=== PATIENT | female | born 1935 | race Caucasian/White ===

== ENCOUNTER 2016-11-05 13:30 | Emergency (ER) | payer MEDICARE, OTHER ==
[~2016-11-05] VITALS: Ht 149.9 cm; Wt 51.6 kg
[~2016-11-05 13:30] MED LIST: ACET650T59 PO; ALEN70TA7 PO; ASCO-296 PO; ASPI-730 PO; B12; CALC-587 PO; CITA-50 PO; FISH1CAP29 PO; HYDR-2164 PO; LISI-127 PO; MULT-806 PO; OMEP20TA24 PO; OSTEO BI FLEX PO; POTA10TA93 PO; SIMV40TA82 PO
[2016-11-05 13:35] VITALS: Ht 149.9 cm; Wt 51.6 kg
--- OUTSIDE RECORDS SUMMARY | 2016-11-05 13:37 | XMS REPORT | Summary of Care ---
Author Author Loretta Sifuentes, Nuno Dial Unknown Address Unknown Phone Unavailable Care Team Providers Care Embedder Name Role Phone Ric Vines M.D. Unavailable Unavailable Magan Bowles M.D. Unavailable Unavailable Ric Vines Unavailable Unavailable Unavailable Unavailable Functional Status Name Dates Details Functional status health issues are not documented Status: Name Dates Details Cognitive status health issues are not documented Status: Problems Name Dates Details Glossitis (529.0, K14.0) Status: Active Arthritis (716.90, M19.90) Status: Active Colitis (558.9, K52.9) Status: Active Esophageal reflux (530.81, K21.9) Status: Active Monoclonal gammopathy (273.1, D47.2) Status: Active Trigger finger, acquired (727.03, M65.30) Status: Active Pain in hand (729.5, M79.643) Status: Active Ganglion (727.43, M67.40) Status: Active Tendonitis of finger (727.05, M77.9) Status: Active Fatigue (780.79, R53.83) Status: Active Hypokalemia (276.8, E87.6) Status: Active Wrist pain, acute, right (719.43, M25.531) Status: Active Muscle spasm (728.85, M62.838) Status: Active Muscle pain (729.1, M79.1) Status: Active Shoulder pain, right (719.41, M25.511) Status: Active Difficulty breathing (786.09, R06.89) Status: Active Fever (780.60, R50.9) Status: Active Cough, persistent (786.2, R05) Status: Active Asthmatic bronchitis with acute exacerbation (493.92, J45.901) Status: Active Arm pain (729.5, M79.603) Status: Active Arm bruise (923.9, S40.029A) Status: Active Ulcerative pancolitis (556.6, K51.90) Status: Active Iron (Fe) deficiency anemia (280.9, D50.9) Status: Active Lower back pain (724.2, M54.5) Status: Active Neck pain (723.1, M54.2) Status: Active Back pain (724.5, M54.9) Status: Active Spondylolisthesis of lumbar region (738.4, M43.16) Status: Active Leukopenia (288.50, D72.819) Status: Active Anserine bursitis (726.61, M70.50) Status: Active Spinal stenosis (724.00, M48.00) Status: Active CKD (chronic kidney disease), stage IV (585.4, N18.4) Status: Active Osteoporosis (733.00, M81.0) Status: Active Visit for screening mammogram (V76.12, Z12.31) Status: Active Need for Zostavax administration (V04.89, Z23) Status: Active Inflamed seborrheic keratosis (702.11, L82.0) Status: Active Cytopenia (289.9, D75.9) Status: Active Peripheral neuropathy (356.9, G62.9) Status: Active Polyneuropathy, 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, 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 Peripheral neuropathy (356.9, G62.9) Status: Active Pain pelvic (R10.2) Status: Active Fall (E888.9, W19.XXXA) Status: Active Macrocytosis (289.89, D75.89) Status: Active Pain of left shoulder region (719.41, M25.512) Status: Active Tendinitis of left rotator cuff (726.10, M75.82) Status: Active Left knee pain (719.46, M25.562) Status: Active CKD (chronic kidney disease) stage 3, GFR 30-59 ml/min (585.3, N18.3) Status: Active 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, 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 Never a smoker Status: Active Nausea with vomiting (787.01, R11.2) Status: Active Diverticulitis of colon (562.11, K57.32) Status: Active Acute renal failure (ARF) (584.9, N17.9) Status: Active Anorexia (783.0, R63.0) Status: Active Arthralgia of multiple sites (719.49, M25.50) Status: Active Bilateral hip pain (719.45, M25.551) Status: Active Bilateral hip bursitis (726.5, M70.71) Status: Active Depression (311, F32.9) Status: Active Abdominal pain (789.00, R10.9) Status: Active Abdominal pain (789.00, R10.9) Status: Active Weight loss, unintentional (783.21, R63.4) Status: Active 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 Quantity: 90 Ric Vines M.D. Start 18-Jun-2010 Active Venlafaxine HCl ER 75 MG Oral Capsule Extended Release 24 Hour TAKE 1 CAPSULE BY MOUTH DAILY * Quantity: 90 Refills: 3 Ric Vines M.D. Start 29-Aug-2011 Active Osteo Bi-Flex Triple Strength Oral Tablet TAKE 1 TABLET DAILY DIRECTED. * Refills: 0 Ric Vines M.D. Start 10-Feb-2012 Active Calcium 600+D3 600-200 MG-UNIT Oral Tablet TAKE 1 TABLET THREE TIMES A DAY * Refills: 0 Ric Vines M.D. Start 10-Feb-2012 Active B-12 500 MCG Oral Tablet TAKE 1 TABLET DAILY. * Refills: 0 Ric Vines M.D. Start 21-Jun-2012 Active Citalopram Hydrobromide 20 MG Oral Tablet TAKE 1 TABLET DAILY. * Quantity: 90 Refills: 3 Ric Vines M.D. Start 25-Oct-2012 Active Multi-Vitamins Oral Tablet TAKE 1 TABLET DAILY. * Refills: 0 Ric Vines M.D. Start 25-Oct-2012 Active Furosemide 20 MG Oral Tablet TAKE 1/2 TABLET DAILY FOR SWELLING. * Quantity: 45 Refills: 3 Ric Vines M.D. Start 03-Nov-2012 Active SulfaSALAzine 500 MG Oral Tablet TAKE 2 TABLET Twice daily * Quantity: 360 Refills: 3 Ric Vines M.D. * Start 03-Oct-2013 Active Atorvastatin Calcium 80 MG Oral Tablet TAKE 1 TABLET DAILY. * Quantity: 90 Refills: 3 Ric Vines M.D. * Start 07-Mar-2014 Active Lisinopril 5 MG Oral Tablet TAKE ONE HALF TAB ONCE DAILY * Quantity: 45 Refills: 3 Ric Vines M.D. Start 17-Aug-2014 Active Zoster (Zostavax) inject SQ * Quantity: 1 Refills: 0 Ric Vines M.D. Start 04-Mar-2016 Active 1 Solution Reconstituted Vial Prolia 60 MG/ML Subcutaneous Solution INJECT SUBCUTANEOUSLY 60 MG / 1 ML EVERY 6 MONTHS * Quantity: 1 Refills: 0 Ric Vines M.D. Start 13-Apr-2015 Active Gabapentin 100 MG Oral Capsule TAKE 1 CAPSULE Every morning and 300mg at HS * Quantity: 30 Refills: 3 Ric Vines M.D. Start 15-Jul-2016 Active Normal Saline Flush 0.9 % Intravenous Solution 1 liter IV on 09-11-16 * Quantity: 1000 Refills: 0 Ric Vines M.D. Start 10-Sep-2016 Active Vitamin C 500 MG Oral Tablet TAKE 1 TABLET DAILY. * Quantity: 100 Refills: 0 Ric Vines M.D. Start 26-Sep-2016 Active Gabapentin 300 MG Oral Capsule take 1 capsule at HS with 100mg in the am * Quantity: 60 Refills: 2 Ric Vines M.D. Start 28-May-2016 Active TraMADol HCl - 50 MG Oral Tablet take 2 tablets by mouth twice daily * Quantity: 120 Refills: 1 Magan Bowles M.D. * Start 01-Jul-2016 Active Allergies and Adverse Reactions Name Dates Details Codeine Derivatives (Allergy) Status: Active Past Medical History Name Dates Details History of Tingling (782.0, R20.2) Status: Resolved Procedures Procedure Dates Details History of Complete Colonoscopy Completed: 15-Jun-2007 History of Appendectomy History of Cholecystectomy History of Knee Surgery History of Colonoscopy For Forceps Biopsy Completed: 08-Jul-2010 History of Knee Replacement History of Complete Colonoscopy Completed: 26-Jun-2011 Upper Endoscopy ( EGD) Ordered: 12-Sep-2016 Iron Panel with TIBC 1612 Ordered: 10-Oct-2016 FERRITIN 3025 Ordered: 10-Oct-2016 CT AB/ PEL WITH IV AND ORAL CONTRAST Ordered: 12-Sep-2016 ORTHO PELVIS (AP ONLY) Ordered: 02-Oct-2016 ORTHO HIP LEFT (1 VIEW ONLY) Ordered: 02-Oct-2016 Immunization Name Dates Details Pneumo (Pneumovax) Lot #: [id number] on: 10-Feb-2012 Fluzone Quadrivalent 0.5 ML Intramuscular Suspension Lot #: [id number] on: 16-May-2013 Prevnar 13 Intramuscular Suspension Lot #: [id number] on: 05-Jul-2014 Fluzone High-Dose 0.5 ML Intramuscular Suspension Prefilled Syringe Lot #: [id number] on: 07-Mar-2015 Tdap (Adacel) Lot #: [id number] on: 07-Mar-2015 Fluzone High-Dose 0.5 ML Intramuscular Suspension Prefilled Syringe Lot #: [id number] on: 04-Mar-2016 Zoster (Zostavax) Lot #: [id number] on: 04-Mar-2016 Family History Name Dates Details Family history of Hypertension (V17.49) Comments: Family History Status: Active Family history of Diabetes Mellitus (V18.0) Comments: Family History Status: Active Name Dates Details Family history of Breast Cancer (V16.3) Status: Active Family history of Hypertension (V17.49) Status: Active Family history of Diabetes Mellitus (V18.0) Status: Active Family history of Gastric Cancer (V16.0) Status: Active Name Dates Details Family history of Emphysema Status: Active Name Dates Details Family history of Breast Cancer (V16.3) Status: Active Family history of Hypertension (V17.49) Status: Active Family history of Hypertension (V17.49) Status: Active Family history of Breast Cancer (V16.3) Status: Active Name Dates Details Family history of Hypertension (V17.49) Status: Active Family history of Hypertension (V17.49) Status: Active Family history of Diabetes Mellitus (V18.0) Status: Active Family history of Prostate Cancer (V16.42) Status: Active Family history of Prostate Cancer (V16.42) Status: Active Family history of Bone Cancer Status: Active Social History Name Dates Details - Status: Name Dates Details Never smoker Never smoker Vital Signs Date Test Result Details 02-Oct-2016 13:56 BP Systolic 95 mm[Hg] Status: Comments: Location: ; Position: BP Diastolic 55 mm[Hg] Status: Comments: Location: ; Position: Heart Rate 111 /min Status: Height 58 in Status: 26-Sep-2016 11:00 BP Systolic 102 mm[Hg] Status: Comments: Location: ; Position: BP Diastolic 60 mm[Hg] Status: Comments: Location: ; Position: Temperature 36.4 c Status: Comments: Method: Heart Rate 84 /min Status: Comments: Location: ; Weight 118.25 lb Status: Physical Findings 96 Status: Comments: O2 Saturation Body Mass Index Calculated 24.71 kg/m2 Status: Body Surface Area Calculated 1.46 m2 Status: 18-Sep-2016 13:34 BP Systolic 122 mm[Hg] Status: Comments: Location: ; Position: BP Diastolic 70 mm[Hg] Status: Comments: Location: ; Position: Results Date Description Value Details 25-Sep-2016 10:47 CBC w/ Auto Diff 7150 Comments: Fastin hours WBC 3.3 K/uL (Below low threshold) Range: 4.5-11.0 RBC 3.63 mil/uL Range: 3.60-5.00 HGB 10.8 g/dL (Below low threshold) Range: 12.0-16.0 HCT 34.5 % (Below low threshold) Range: 36.0-48.0 MCV 95.1 fL Range: 80.0-99.0 MCH 29.7 pg Range: 27.3-32.5 MCHC 31.2 % (Below low threshold) Range: 32.0-36.0 RDW 18.0 % (Above high threshold) Range: 11.6-14.8 PLATELETS 193 K/uL Range: 150-400 MPV 9.4 fL Range: 6.0-11.0 %NEUTRO 60.5 % Range: 37.0-80.0 %LYMPHS 28.3 % Range: 13.0-50.0 %MONO 6.6 % Range: 0.0-12.0 %EOS 2.4 % Range: 0.0-7.0 %BASO 0.3 % Range: 0.0-2.5 %MARY 1.9 % Range: 0.0-5.0 NEUTRO 2.0 K/uL Range: 2.0-6.9 LYMPHS 0.9 K/uL Range: 0.6-3.4 MONOS 0.2 K/uL Range: 0.0-0.9 EOS 0.1 K/uL Range: 0.0-0.7 BASO 0.0 K/uL Range: 0.0-0.2 11:10 AST 1180 Comments: Fastin hours AST 38 U/L (Above high threshold) Range: 8-35 11:10 BASIC METABOLIC PROFILE 1210 Comments: Fastin hours SODIUM 141 mmol/L Range: 133-144 POTASSIUM 4.0 mmol/L Range: 3.5-5.1 CHLORIDE 104 mmol/L Range: 98-110 CARBON DIOXIDE 26.8 mmol/L Range: 23.0-33.0 ANION GAP 10 mmol/L Range: 6-16 BUN 11 mg/dL Range: 7-18 CREATININE, SERUM 1.23 mg/dL (Above high threshold) Range: 0.55-1.02 EST GFR, 51 ml/min (Below low threshold) Range: >60 EST GFR, NON-AFR WELSH 42 ml/min (Below low threshold) Range: >60 Comments: EST GFR is reported in ml/min per 1.73 m2 of body surface area. ----- BUN:CREATININE RATIO 9 GLUCOSE 90 mg/dL Range: 70-100 CALCIUM 9.1 mg/dL Range: 8.5-10.1 11:10 LIPID PROFILE 1184 Comments: Fastin hours CHOLESTEROL 174 mg/dL Range: <200 TRIGLYCERIDES 90 mg/dL Range: 30-200 HDL Cholesterol 98 mg/dL Range: >39 NON HDL CHOLESTEROL 76 CARDIAC RSK FACTOR 1.8 units (Below low threshold) Range: 4.4-5.0 LDL - CALCULATED 58 mg/dL Range: 0-130 -Oct-2016 13:28 HEMOGRAM 7305 WBC 3.2 K/uL (Below low threshold) Range: 4.5-11.0 RBC 3.38 mil/uL (Below low threshold) Range: 3.60-5.00 HGB 10.7 g/dL (Below low threshold) Range: 12.0-16.0 HCT 33.0 % (Below low threshold) Range: 36.0-48.0 MCV 97.6 fL Range: 80.0-99.0 MCH 31.7 pg Range: 27.3-32.5 MCHC 32.5 % Range: 32.0-36.0 PLATELETS 145 K/uL (Below low threshold) Range: 150-400 13:51 RENAL PROFILE 1240 SODIUM 139 mmol/L Range: 133-144 POTASSIUM 3.6 mmol/L Range: 3.5-5.1 CHLORIDE 103 mmol/L Range: 98-110 CARBON DIOXIDE 29.4 mmol/L Range: 23.0-33.0 ANION GAP 7 mmol/L Range: 6-16 BUN 15 mg/dL Range: 7-18 CREATININE, SERUM 1.36 mg/dL (Above high threshold) Range: 0.55-1.02 EST GFR, 45 ml/min (Below low threshold) Range: >60 EST GFR, NON-AFR WELSH 37 ml/min (Below low threshold) Range: >60 Comments: EST GFR is reported in ml/min per 1.73 m2 of body surface area. ----- BUN:CREATININE RATIO 11 GLUCOSE 104 mg/dL (Above high threshold) Range: 70-100 ALBUMIN 3.7 g/dL Range: 3.4-5.0 PHOSPHORUS 3.6 mg/dL Range: 2.6-4.7 CALCIUM 9.0 mg/dL Range: 8.5-10.1 Plan of Care Name Dates Details Planned Observations Planned Goals not documented Planned Encounters Appointment; Provider: Ric Vines M.D. On 27-Jan-2017 10:00 Appointment; Provider: Magan Bowles M.D. On 22-Jan-2017 10:45 Appointment; Provider: Estelle Howard A.P.R.N. On 10:30 Appointment; Provider: Nuno Burgos M.D. On 11-Nov-2016 11:30 Appointment; Provider: Theo Roa D.P.T. On 20-Oct-2016 11:00 Appointment; Provider: Avila Arreola M.D. On 15-Oct-2016 14:30 Appointment; Provider: Nuno Burgos M.D. On 14-Oct-2016 09:30 Interventions Provided Labs/Procedures/Imaging* HEMOGRAM 7305; Done: Oct 13 2016 1:21PM * RENAL PROFILE 1240; Done: Oct 13 2016 1:21PM Instructions Name Dates Details Instructions not documented Encounters Appointment; Ric Jiménez M.D. Encounter Diagnosis: Problem not documented On 02-Oct-2016 13:30 Appointment; Ric Vines M.D. Encounter Diagnosis: Problem not documented On 26-Sep-2016 11:00 Appointment; Avila Arreola M.D. Encounter Diagnosis: Problem not documented On 23-Sep-2016 11:30 Appointment; Ondina Stewart Encounter Diagnosis: Problem not documented On 23-Sep-2016 11:00 Appointment; Magan Bowles M.D. Encounter Diagnosis: Problem not documented On 18-Sep-2016 13:30 Appointment; Nuno Burgos M.D. Encounter Diagnosis: Problem not documented On 15-Sep-2016 09:30 Appointment; Ric Vines M.D. Encounter Diagnosis: Problem not documented On 12-Sep-2016 13:45 Appointment; Ric Vines M.D. Encounter Diagnosis: Problem not documented On 10-Sep-2016 15:30 Appointment; Nuno Burgos M.D. Encounter Diagnosis: Problem not documented On 12-Aug-2016 09:00 Appointment; Dar Love M.D.|FACP|M.DSacha,VINCENT,LOY, Encounter Diagnosis: Problem not documented On 22-Jul-2016 11:15 Appointment; Nuno Burgos M.D. Encounter Diagnosis: Problem not documented On 15-Jul-2016 14:30 Appointment; Magan Bowles M.D. Encounter Diagnosis: Problem not documented On 01-Jul-2016 15:45 Appointment; Dar Love M.D.|FACP|M.D.,FACP|MSachaDSacha,FACP, Encounter Diagnosis: Problem not documented On 10-Jun-2016 11:00 Appointment; Nuno Burgos M.D. Encounter Diagnosis: Problem not documented On 04-Jun-2016 11:15 Appointment; Ric Vines M.D. Encounter Diagnosis: Problem not documented On 28-May-2016 11:00 Appointment; Ric Martinez M.D. Encounter Diagnosis: Problem not documented On 26-May-2016 13:00 Appointment; Ric Vines M.D. Encounter Diagnosis: Problem not documented On 13-May-2016 11:00 Appointment; Nuno Burgos M.D. Encounter Diagnosis: Problem not documented On 06-May-2016 09:30 Appointment; Dar Love M.D.|FACP|M.D.,FACP|MKendell,FACP, Encounter Diagnosis: Problem not documented On 28-Apr-2016 11:00 Appointment; Magan Bowles M.D. Encounter Diagnosis: Problem not documented On 25-Apr-2016 09:30 Appointment; Waqas Burgess M.D. Encounter Diagnosis: Problem not documented On 14-Apr-2016 10:30 Appointment; Nuno Burgos M.D. Encounter Diagnosis: Problem not documented On 04-Apr-2016 09:30 Appointment; Nuno Burgos M.D. Encounter Diagnosis: Problem not documented On 04-Mar-2016 13:45 Appointment; Ric Vines M.D. Encounter Diagnosis: Problem not documented On 04-Mar-2016 10:00 Appointment; Theo Roa D.PAlyssa Encounter Diagnosis: Problem not documented On 28-Feb-2016 14:30 Appointment; Dar Love M.D.|FACP|M.DaScha,LOY|Bear,TONYP, Encounter Diagnosis: Problem not documented On 27-Feb-2016 10:30 Appointment; Theo Roa D.PAlyssa Encounter Diagnosis: Problem not documented On 22-Feb-2016 14:00 Appointment; Theo Roa D.P.T. Encounter Diagnosis: Problem not documented On 13-Feb-2016 14:30 Appointment; Theo Roa D.PYe. Encounter Diagnosis: Problem not documented On 11-Feb-2016 14:30 Appointment; Theo Roa D.PSachaT. Encounter Diagnosis: Problem not documented On 07-Feb-2016 13:30 Appointment; Jerrod Mena M.D. Encounter Diagnosis: Problem not documented On 04-Feb-2016 09:15 Appointment; Theo Roa D.P.T. Encounter Diagnosis: Problem not documented On 31-Jan-2016 10:30 Appointment; Theo Roa D.P.T. Encounter Diagnosis: Problem not documented On 29-Jan-2016 10:30 Appointment; Theo Roa D.P.T. Encounter Diagnosis: Problem not documented On 22-Jan-2016 11:30 Appointment; Theo Roa D.P.T. Encounter Diagnosis: Problem not documented On 17-Jan-2016 10:30 Appointment; Dar Love M.D.|FACP|MSachaD.,FACP|MStarr.,FACP, Encounter Diagnosis: Problem not documented On 16-Jan-2016 14:45 Appointment; Theo Roa D.P.T. Encounter Diagnosis: Problem not documented On 15-Jan-2016 10:30 Appointment; Theo Roa D.P.T. Encounter Diagnosis: Problem not documented On 10:30 Appointment; Theo Roa D.P.T. Encounter Diagnosis: Problem not documented On 10:30 Appointment; Theo Roa D.PYe. Encounter Diagnosis: Problem not documented On 15:00 Appointment; Jerrod Mena M.D. Encounter Diagnosis: Problem not documented On 10:30 Appointment; Theo Roa D.P.T. Encounter Diagnosis: Problem not documented On 13:00 Appointment; Theo Roa D.P.T. Encounter Diagnosis: Problem not documented On 14:00 Appointment; Theo Roa D.P.T. Encounter Diagnosis: Problem not documented On 11:00 Appointment; Theo Roa D.PYe. Encounter Diagnosis: Problem not documented On 11:00 Appointment; Theo Roa D.PYe. Encounter Diagnosis: Problem not documented On 16:00 Appointment; Dar Love M.D.|FACP|M.D.,FACP|MSachaD.,FACP, Encounter Diagnosis: Problem not documented On 10:45 Appointment; Theo Roa D.PYe. Encounter Diagnosis: Problem not documented On 11:00 Appointment; Jerrod Mena M.D. Encounter Diagnosis: Problem not documented On 10:15 Appointment; Nuno Burgos M.D. Encounter Diagnosis: Problem not documented On 13:45 Appointment; Magan Bowles M.D. Encounter Diagnosis: Problem not documented On 12:45 Appointment; Alonzo Joshi M.D. Encounter Diagnosis: Problem not documented On 08:30 Appointment; Ric Vines M.D. Encounter Diagnosis: Problem not documented On 06-Nov-2015 11:00 Appointment; Ric Vines M.D. Encounter Diagnosis: Problem not documented On 11-Sep-2015 10:00 Appointment; Ric Vines M.D. Encounter Diagnosis: Problem not documented On 24-Aug-2015 14:30 Appointment; Ric Vines M.D. Encounter Diagnosis: Problem not documented On 15-Aug-2015 13:45 Appointment; Nuno Burgos M.D. Encounter Diagnosis: Problem not documented On 15-Aug-2015 11:30 Appointment; Magan Bowles M.D. Encounter Diagnosis: Problem not documented On 01-Aug-2015 10:45 Appointment; Magan Bowles M.D. Encounter Diagnosis: Problem not documented On 25-Jul-2015 10:45 Appointment; Ric Vines M.D. Encounter Diagnosis: Problem not documented On 04-Jul-2015 09:45 Appointment; Nuno Burgos M.D. Encounter Diagnosis: Problem not documented On 20-Jun-2015 13:15 Appointment; Ric Vines M.D. Encounter Diagnosis: Problem not documented On 05-Jun-2015 14:45 Appointment; Ric Vines M.D. Encounter Diagnosis: Problem not documented On 29-May-2015 15:00 Appointment; Nuno Burgos M.D. Encounter Diagnosis: Problem not documented On 16-May-2015 11:15 Appointment; Ric Vines M.D. Encounter Diagnosis: Problem not documented On 18-Apr-2015 14:15 Appointment; Magan Bowles M.D. Encounter Diagnosis: Problem not documented On 23-Mar-2015 11:30 Appointment; Magan Bowles M.D. Encounter Diagnosis: Problem not documented On 13-Mar-2015 12:00 Appointment; Nuno Burgos M.D. Encounter Diagnosis: Problem not documented On 09-Mar-2015 10:00 Appointment; Ric Vines M.D. Encounter Diagnosis: Problem not documented On 07-Mar-2015 09:45 Appointment; Nuno Burgos M.D. Encounter Diagnosis: Problem not documented On 27-Feb-2015 09:15 Appointment; Nuno Burgos M.D. Encounter Diagnosis: Problem not documented On 13-Feb-2015 12:45 Appointment; Ric Martinez M.D. Encounter Diagnosis: Problem not documented On 13-Feb-2015 10:30 Appointment; Nuno Burgos M.D. Encounter Diagnosis: Problem not documented On 09:45 Appointment; Nuno Burgos M.D. Encounter Diagnosis: Problem not documented On 09:30 Appointment; Nuno Burgos M.D. Encounter Diagnosis: Problem not documented On 11:15 Appointment; Ric Vines M.D. Encounter Diagnosis: Problem not documented On 07-Nov-2014 10:30 Appointment; Magan Bowles M.D. Encounter Diagnosis: Problem not documented On 26-Oct-2014 11:00 Appointment; Magan Bowles M.D. Encounter Diagnosis: Problem not documented On 18-Oct-2014 10:30"
--- OUTSIDE RECORDS SUMMARY | 2016-11-05 13:37 | XMS REPORT | Summary of Care ---
Author Author Ric Vines M.D. Organization Unknown Address [address], [place] [id number] Phone Unavailable Care Team Providers Care [employer] Age Program Teacher Name Role Phone Ric Vines M.D. Unavailable Unavailable Ric Vines PP Unavailable Unavailable Unavailable Functional Status Functional Status Health Issues* Name Dates Details Functional status health issues are not documented Status: Cognitive Status Health Issues* Name Dates Details Cognitive status health issues are not documented Status: Problems Name Dates Details Difficulty Breathing During Exertion Status: Active Pain In Both Legs Status: Active Constipation (Symptom) Status: Active Easy Bruising Tendency Status: Active Joint Pain In Both Knees Status: Active Weakness Both Arms Status: Active Diabetes mellitus (250.00, E11.9) Status: Active Viral gastroenteritis (008.8, A08.4) Status: Active Encounter for screening for malignant neoplasm of colon (V76.51, Z12.11) Status: Active Shortness of breath (786.05, R06.02) Status: Active Vaginal Discharge (623.5, N89.8) Status: Active Headache (784.0, R51) Status: Active Pre-procedural examination (V72.84, Z01.818) Status: Active Neck pain (723.1, M54.2) Status: Active Difficulty breathing (786.09, R06.89) Status: Active Abdominal pain (789.00, R10.9) Status: Active Iron (Fe) deficiency anemia (280.9, D50.9) Status: Active Glossitis (529.0, K14.0) Status: Active Pre-operative exam (V72.84, Z01.818) Status: Active Arthritis (716.90, M19.90) Status: Active Bloating (787.3, R14.0) Status: Active Colitis (558.9, K52.9) Status: Active Arm pain (729.5, M79.603) Status: Active Tingling (782.0, R20.2) Status: Active Urine frequency (788.41, R35.0) Status: Active Abnormal laboratory test result (796.4, R89.9) Status: Active Depression (311, F32.9) Status: Active Esophageal reflux (530.81, K21.9) Status: Active 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, I25.10) Status: Active Osteoporosis (733.00, M81.0) Status: Active Need for pneumococcal vaccine (V03.82, Z23) Status: Active Monoclonal gammopathy (273.1, D47.2) Status: Active URI, acute (465.9, J06.9) Status: Active Trigger finger, acquired (727.03, M65.30) Status: Active Pain in hand (729.5, M79.643) Status: Active Ganglion (727.43, M67.40) Status: Active Tendonitis of finger (727.05, M77.9) Status: Active Spinal stenosis (724.00, M48.00) Status: Active Fatigue (780.79, R53.83) Status: Active Dizziness (780.4, R42) Status: Active Anemia (285.9, D64.9) Status: Active Hypokalemia (276.8, E87.6) Status: Active Anemia due to chronic renal failure treated with erythropoietin (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50) Status: Active Lower back pain (724.2, M54.5) Status: Active Muscle spasm (728.85, M62.838) Status: Active Muscle pain (729.1, M79.1) Status: Active Hypertension (401.9, I10) Status: Active Hip pain (719.45, M25.559) Status: Active Medications Name Dates Details Omeprazole 40 MG Oral Capsule Delayed Release Take 1 capsule by mouth daily. Quantity: 90 Ric Vines M.D.* Started 18-Jun-2010 ActiveVenlafaxine HCl ER 75 MG Oral Capsule Extended Release 24 Hour TAKE 1 CAPSULE BY MOUTH DAILY * Quantity: 90 Refills: 3 Ric Vines M.D.* Started 29-Aug-2011 ActiveOsteo Bi-Flex Triple Strength Oral Tablet TAKE 1 TABLET DAILY DIRECTED. * Refills: 0 Ric Vines M.D.* Started 10-Feb-2012 ActiveCalcium 600+D3 600-200 MG-UNIT Oral Tablet Take 1 tablet twice a day * Refills: 0 Ric Vines M.D.* Started 10-Feb-2012 ActiveB-12 500 MCG Oral Tablet TAKE 1 TABLET DAILY. * Refills: 0 Rci Vines M.D.* Started 21-Jun-2012 ActiveCitalopram Hydrobromide 20 MG Oral Tablet TAKE 1 TABLET DAILY. * Quantity: 90 Refills: 3 Ric Vines M.D.* Started 25-Oct-2012 ActiveMulti-Vitamins Oral Tablet TAKE 1 TABLET DAILY. * Refills: 0 Ric Vines M.D.* Started 25-Oct-2012 ActiveFurosemide 20 MG Oral Tablet TAKE 1 TABLET DAILY NEEDED FOR SWELLING. * Quantity: 90 Refills: 0 Ric Vines M.D.* Started 03-Nov-2012 ActiveSulfaSALAzine 500 MG Oral Tablet TAKE 2 TABLET Twice daily * Quantity: 360 Refills: 3 Ric Vines M.D.* Started 03-Oct-2013 ActiveAtorvastatin Calcium 80 MG Oral Tablet TAKE 1 TABLET DAILY. * Quantity: 90 Refills: 3 Ric Vines M.D.* Started 07-Mar-2014 ActiveLisinopril 5 MG Oral Tablet TAKE ONE HALF TAB ONCE DAILY * Refills: 0 Ric Vines M.D.* Started 17-Aug-2014 ActiveNystatin 577538 UNIT/ML Mouth/Throat Suspension SWISH AND SWALLOW 10ML FOUR TIMES DAILY FOR 5 DAYS * Quantity: 200 Refills: 0 Ric Vines M.D.* Started 07-Mar-2015 ActiveProlia 60 MG/ML Subcutaneous Solution INJECT SUBCUTANEOUSLY 60 MG / 1 ML EVERY 6 MONTHS * Quantity: 1 Refills: 0 Ric Vines M.D.* Started 13-Apr-2015 Active Allergies and Adverse Reactions Name Dates Details Codeine Derivatives Status: Active Past Medical History Name Dates Details History of diverticulitis of colon (V12.79, Z87.19) Status: Resolved History of Tingling (782.0, R20.2) Status: Resolved Procedures Procedure Dates Details History of Complete Colonoscopy Completed:15-Jun-2007 History of Appendectomy History of Cholecystectomy History of Knee Surgery History of Colonoscopy For Forceps Biopsy Completed:08-Jul-2010 History of Knee Replacement History of Complete Colonoscopy Completed:26-Jun-2011 CBC w/ Auto Diff 7150 Ordered:27-Feb-2015 MAGNESIUM 1260 Ordered:27-Feb-2015 RENAL PROFILE 1240 Ordered:27-Feb-2015 HEMOGLOBIN A1C 3507 Ordered:07-Mar-2015 AST 1180 Ordered:07-Mar-2015 CBC w/ Auto Diff 7150 Ordered:07-Mar-2015 BASIC METABOLIC PROFILE 1210 Ordered:07-Mar-2015 LIPID PROFILE 1184 Ordered:07-Mar-2015 THYROID STIM. HORMONE 3602 Ordered:07-Mar-2015 EPO PANEL 3699 Ordered:09-Mar-2015 XRay HIP-Right Ordered:18-Apr-2015 Immunization Name Dates Details Pneumo (Pneumovax) Lot #: [id number] Administered on:10-Feb-2012 Fluzone Quadrivalent 0.5 ML Intramuscular Suspension Lot #: [id number] Administered on:16-May-2013 Prevnar 13 Intramuscular Suspension Lot #: [id number] Administered on:05-Jul-2014 Fluzone High-Dose 0.5 ML Intramuscular Suspension Prefilled Syringe Lot #: [id number] Administered on:07-Mar-2015 Tdap (Adacel) Lot #: [id number] Administered on:07-Mar-2015 Family History Unknown Family Member* Name Dates Details Family history of Hypertension (V17.49) Comments: Family History Status: Active Family history of Diabetes Mellitus (V18.0) Comments: Family History Status: Active Mother* Name Dates Details Family history of Breast Cancer (V16.3) Status: Active Family history of Hypertension (V17.49) Status: Active Family history of Diabetes Mellitus (V18.0) Status: Active Family history of Gastric Cancer (V16.0) Status: Active Father* Name Dates Details Family history of Emphysema Status: Active Sister* Name Dates Details Family history of Breast Cancer (V16.3) Status: Active Family history of Hypertension (V17.49) Status: Active Family history of Hypertension (V17.49) Status: Active Family history of Breast Cancer (V16.3) Status: Active Brother* Name Dates Details Family history of Hypertension (V17.49) Status: Active Family history of Hypertension (V17.49) Status: Active Family history of Diabetes Mellitus (V18.0) Status: Active Family history of Prostate Cancer (V16.42) Status: Active Family history of Prostate Cancer (V16.42) Status: Active Family history of Bone Cancer Status: Active Social History Name Dates Details Smoking Status* Never smoker * Never smoker Vital Signs Date Test Result Details 18-Apr-2015 14:42 BP Systolic 126 mm[Hg] Status: BP Diastolic 64 mm[Hg] Status: Temperature 36.7 c Status: Heart Rate 75 /min Status: Weight 132 lb Status: O2 SAT 95 % Status: Body Mass Index Calculated 26.66 kg/m2 Status: Body Surface Area Calculated 1.55 m2 Status: 23-Mar-2015 11:17 BP Systolic 98 mm[Hg] Status: BP Diastolic 64 mm[Hg] Status: Weight 131 lb Status: Body Mass Index Calculated 26.46 kg/m2 Status: Body Surface Area Calculated 1.54 m2 Status: Results Date Description Value Details 04-Apr-2015 15:49 DEXA Comments: Exam Date: 04/04/2015 14:16Dictation Date: 04/04/2015 15:49 XD DEXA (Better) 06-Apr-2015 10:59 HEMOGRAM 7305 WBC 3.5 K/uL (Below low threshold) Range: 4.5-11.0 RBC 3.55 mil/uL (Below low threshold) Range: 3.60-5.00 HGB 11.7 g/dL (Below low threshold) Range: 12.0-16.0 HCT 36.3 % (Better) Range: 36.0-48.0 MCV 102.1 fL (Above high threshold) Range: 80.0-99.0 MCH 33.0 pg (Above high threshold) Range: 27.3-32.5 MCHC 32.3 % (Better) Range: 32.0-36.0 PLATELETS 139 K/uL (Below low threshold) Range: 150-400 11:15 Iron Panel with TIBC 1612 IRON 93 ug/dL (Better) Range: 50-170 TOTAL IRON BIND. CAPACITY 354 ug/dL (Better) Range: 250-450 % IRON SATURATION 26 % (Better) Range: 20-55 11:15 RENAL PROFILE 1240 SODIUM 138 mmol/L (Better) Range: 133-144 POTASSIUM 3.9 mmol/L (Better) Range: 3.5-5.1 CHLORIDE 102 mmol/L (Better) Range: 98-110 CARBON DIOXIDE 27.6 mmol/L (Better) Range: 23.0-33.0 ANION GAP 8 mmol/L (Better) Range: 6-16 BUN 19 mg/dL (Above high threshold) Range: 7-18 CREATININE, SERUM 1.38 mg/dL (Above high threshold) Range: 0.55-1.02 Comments: Please note new reference ranges effective 2014.----- EST GFR, 44 ml/min (Below low threshold) Range: >60 EST GFR, NON-AFR GHANAIAN 37 ml/min (Below low threshold) Range: >60 Comments: EST GFR is reported in ml/min per 1.73 m2 of body surface area. For -Faroese, please multiple result by 1.2.----- BUN:CREATININE RATIO 14 (Better) GLUCOSE 113 mg/dL (Above high threshold) Range: 70-100 ALBUMIN 3.8 g/dL (Better) Range: 3.4-5.0 PHOSPHORUS 2.7 mg/dL (Better) Range: 2.6-4.7 Comments: Please note new reference ranges effective 2015.----- CALCIUM 8.9 mg/dL (Better) Range: 8.5-10.1 11:23 FOLATE 3608 FOLATE >20 ng/mL (Above high threshold) Range: 5.4-20.3 11:23 VITAMIN B12 3606 VITAMIN B12 1055 pg/mL (Above high threshold) Range: 211-911 11:24 FERRITIN 3025 FERRITIN 36 ng/mL (Better) Range: 10-291 Plan of Care Planned Observations* Name Dates Details Planned Goals not documented Goal Planned Encounters* Appointment; Provider: Ric Martinez On 15-Aug-2015 10:30 * Appointment; Provider: Magan Bowles On 25-Jul-2015 10:45 * Appointment; Provider: Ric Vines On 04-Jul-2015 09:45 * Appointment; Provider: Nuno Burgos On 16-May-2015 11:15 * Appointment; Provider: Schedule Radiology On 04-Apr-2015 14:30 * Appointment; Provider: Carol Tellez On 28-May-2011 13:00 * Appointment; Provider: Carol Tellez On 14-May-2011 14:00 * Appointment; Provider: Carol Tellez On 16-Apr-2011 13:45 * Appointment; Provider: Kelvin Davis On 18-Sep-2010 14:30 * Appointment; Provider: Kayla Siddiqi On 18-Sep-2010 13:00 Instructions * Instructions not documented Encounters Appointment; Ric Vines Encounter Diagnosis: Problem not documented On 18-Apr-2015 14:15 Appointment; Magan Bowles Encounter Diagnosis: Problem not documented On 23-Mar-2015 11:30 Appointment; Magan Bowles Encounter Diagnosis: Problem not documented On 13-Mar-2015 12:00 Appointment; Nuno Burgos Encounter Diagnosis: Problem not documented On 09-Mar-2015 10:00 Appointment; Ric Vines Encounter Diagnosis: Problem not documented On 07-Mar-2015 09:45 Appointment; Nuno Burgos Encounter Diagnosis: Problem not documented On 27-Feb-2015 09:15 Appointment; Nuno Burgos Encounter Diagnosis: Problem not documented On 13-Feb-2015 12:45 Appointment; Ric Martinez Encounter Diagnosis: Problem not documented On 13-Feb-2015 10:30 Appointment; Nuno Burgos Encounter Diagnosis: Problem not documented On 09:45 Appointment; Nuno Burgos Encounter Diagnosis: Problem not documented On 09:30 Appointment; Nuno Burgos Encounter Diagnosis: Problem not documented On 11:15 Appointment; Ric Vines Encounter Diagnosis: Problem not documented On 07-Nov-2014 10:30 Appointment; Magan Bowles Encounter Diagnosis: Problem not documented On 26-Oct-2014 11:00 Appointment; Magan Bowles Encounter Diagnosis: Problem not documented On 18-Oct-2014 10:30 Appointment; Nuno Burgos Encounter Diagnosis: Problem not documented On 03-Oct-2014 09:15 Appointment; Jerrod Rasmussen Encounter Diagnosis: Problem not documented On 16-Sep-2014 08:20 Appointment; Ric Martinez Encounter Diagnosis: Problem not documented On 17-Aug-2014 10:30 Appointment; Nuno Burgos Encounter Diagnosis: Problem not documented On 08-Aug-2014 15:30 Appointment; Ric Vines Encounter Diagnosis: Problem not documented On 05-Jul-2014 15:30 Appointment; Nuno Burgos Encounter Diagnosis: Problem not documented On 03-Jul-2014 16:00 Appointment; Neeat Sosa Encounter Diagnosis: Problem not documented On 30-Jun-2014 10:30 Appointment; Magan Bowles Encounter Diagnosis: Problem not documented On 20-Jun-2014 10:15 Appointment; Nuno Burgos Encounter Diagnosis: Problem not documented On 05-Jun-2014 09:00 Appointment; Nuno Burgos Encounter Diagnosis: Problem not documented On 02-May-2014 11:15 Appointment; Ric Martinez Encounter Diagnosis: Problem not documented On 19-Apr-2014 09:30 Appointment; Nuno Burgos Encounter Diagnosis: Problem not documented On 05-Apr-2014 09:30 Appointment; Ric Vines Encounter Diagnosis: Problem not documented On 07-Mar-2014 10:00 Appointment; Magan Bowles Encounter Diagnosis: Problem not documented On 20-Feb-2014 09:45 Appointment; Ric Vines Encounter Diagnosis: Problem not documented On 08-Feb-2014 10:00 Appointment; Nuno Burgos Encounter Diagnosis: Problem not documented On 30-Jan-2014 13:15 Appointment; Nuno Burgos Encounter Diagnosis: Problem not documented On 09:15 Appointment; Bony Garcia Encounter Diagnosis: Problem not documented On 09:45 Appointment; Nuno Burgos Encounter Diagnosis: Problem not documented On 09:30 Appointment; Ric Vines Encounter Diagnosis: Problem not documented On 10:30 Appointment; Ric Vines Encounter Diagnosis: Problem not documented On 01-Nov-2013 10:15 Appointment; Nuno Burgos Encounter Diagnosis: Problem not documented On 31-Oct-2013 11:30 Appointment; Magan Bowles Encounter Diagnosis: Problem not documented On 18-Oct-2013 10:30 Appointment; Ric Martinez Encounter Diagnosis: Problem not documented On 18-Oct-2013 08:30 Appointment; Ric Martinez Encounter Diagnosis: Problem not documented On 03-Oct-2013 08:45 Appointment; Ric Vines Encounter Diagnosis: Problem not documented On 23-Sep-2013 15:00 Appointment; Ric Vines Encounter Diagnosis: Problem not documented On 21-Sep-2013 14:30 Appointment; Ric Vines Encounter Diagnosis: Problem not documented On 30-Aug-2013 10:30 Appointment; Nuno Burgos Encounter Diagnosis: Problem not documented On 30-Aug-2013 09:30 Appointment; Nuno Burgos Encounter Diagnosis: Problem not documented On 01-Aug-2013 14:30 Appointment; Magan Bowles Encounter Diagnosis: Problem not documented On 12-Jul-2013 11:30 Appointment; Magan Bowles Encounter Diagnosis: Problem not documented On 04-Jul-2013 11:00 Appointment; Ric Vines Encounter Diagnosis: Problem not documented On 28-Jun-2013 10:30 Appointment; Nuno Burgos Encounter Diagnosis: Problem not documented On 31-May-2013 09:00 Appointment; Ric Vines Encounter Diagnosis: Problem not documented On 16-May-2013 09:45 Appointment; Nuno Burgos Encounter Diagnosis: Problem not documented On 09-May-2013 13:45 Appointment; Ric Vines Encounter Diagnosis: Problem not documented On 29-Apr-2013 14:00 Appointment; Ric Vines Encounter Diagnosis: Problem not documented On 25-Apr-2013 10:45
--- OUTSIDE RECORDS SUMMARY | 2016-11-05 13:38 | XMS REPORT | Summary of Care ---
Author Author Maxwell Sifuentes, Avila Dial Unknown Address Unknown Phone Unavailable Care Team Providers Care Box Car Checker Name Role Phone Avila Arreola M.D. Unavailable Unavailable Ric Vines M.D. 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 Hyperlipidemia (272.4, E78.5) Status: Active Osteoporosis (733.00, M81.0) Status: Active [...] Status: Active Macrocytosis (289.89, D75.89) Status: Active Anemia of renal disease (285.21, D63.1) Status: Active Pain of left shoulder region (719.41, M25.512) Status: Active Tendinitis of left rotator cuff (726.10, M75.82) Status: Active Left knee pain (719.46, M25.562) Status: Active CKD (chronic kidney disease) stage 3, GFR 30-59 ml/min (585.3, N18.3) Status: Active 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, 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 Never a smoker Status: Active 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, I25.10) Status: Active Nausea with vomiting (787.01, R11.2) Status: Active Diverticulitis of colon (562.11, K57.32) Status: Active Acute renal failure (ARF) (584.9, N17.9) Status: Active Anorexia (783.0, R63.0) Status: Active Arthralgia of multiple sites (719.49, M25.50) Status: Active Bilateral hip pain (719.45, M25.551) Status: Active Bilateral hip bursitis (726.5, M70.71) Status: Active Hypertension (401.9, I10) Status: Active Hypercholesterolemia (272.0, E78.00) Status: Active Depression (311, F32.9) Status: Active Abdominal pain (789.00, R10.9) Status: Active Abdominal pain (789.00, R10.9) Status: Active Weight loss, unintentional (783.21, R63.4) Status: Active Medications Name Dates Details Omeprazole 40 MG Oral Capsule Delayed Release Take 1 capsule by mouth daily. Quantity: 90 Ric Vines M.D. Start 18-Jun-2010 Active Venlafaxine HCl ER 75 MG Oral Capsule Extended Release 24 Hour TAKE 1 CAPSULE BY MOUTH DAILY * Quantity: 90 Refills: 3 Ric Vines M.D. Start 29-Aug-2011 Active Citalopram Hydrobromide 20 MG Oral Tablet [...] Quantity: 360 Refills: 3 Ric Vines M.D. Start 03-Oct-2013 Active Atorvastatin Calcium 80 MG Oral Tablet TAKE 1 TABLET DAILY. * Quantity: 90 Refills: 3 Ric Vines M.D. * Start 07-Mar-2014 Active Lisinopril 5 MG Oral Tablet TAKE ONE HALF TAB ONCE DAILY * Quantity: 45 Refills: 3 Ric Vines M.D. * Start 17-Aug-2014 Active Prolia 60 MG/ML Subcutaneous Solution INJECT SUBCUTANEOUSLY 60 MG / 1 ML EVERY 6 MONTHS * Quantity: 1 Refills: 0 Ric Vines M.D. * Start 13-Apr-2015 Active Zoster (Zostavax) inject SQ * Quantity: 1 Refills: 0 Ric Vines M.D. * Start 04-Mar-2016 Active 1 Solution Reconstituted Vial Gabapentin 300 MG Oral Capsule take 1 capsule at HS with 100mg in the am * Quantity: 60 Refills: 0 Ric Vines M.D. * Start 28-May-2016 Active Gabapentin 100 MG Oral Capsule TAKE 1 CAPSULE Every morning and 300mg at HS * Quantity: 30 Refills: 3 Ric Vines M.D. * Start 15-Jul-2016 Active Normal Saline Flush 0.9 % Intravenous Solution 1 liter IV on 09-11-16 * Quantity: 1000 Refills: 0 Ric Vines M.D. * Start 10-Sep-2016 Active TraMADol HCl - 50 MG Oral Tablet TAKE 1 TABLET Twice daily PRN * Quantity: 60 Refills: 2 Magan Bowles M.D. * Start 01-Jul-2016 Active B-12 500 MCG Oral Tablet TAKE 1 TABLET DAILY. * Refills: 0 Ric Vines M.D. * Start 21-Jun-2012 Active Calcium 600+D3 600-200 MG-UNIT Oral Tablet TAKE 1 TABLET THREE TIMES A DAY * Refills: 0 Ric Vines M.D. * Start 10-Feb-2012 Active Osteo Bi-Flex Triple Strength Oral Tablet TAKE 1 TABLET DAILY DIRECTED. * Refills: 0 Ric Vines M.D. Start 10-Feb-2012 Active Allergies and Adverse Reactions Name Dates [...] 26-Jun-2011 Upper Endoscopy ( EGD) Ordered: 12-Sep-2016 AST 1180 Ordered: 16-Sep-2016 BASIC METABOLIC PROFILE 1210 Ordered: 16-Sep-2016 CBC w/ Auto Diff 7150 Ordered: 16-Sep-2016 LIPID PROFILE 1184 Ordered: 16-Sep-2016 CT AB/ PEL WITH IV AND ORAL CONTRAST Ordered: 12-Sep-2016 Immunization Name Dates Details Pneumo (Pneumovax) Lot #: [id number] on: 10-Feb-2012 Fluzone Quadrivalent 0.5 ML Intramuscular Suspension Lot #: [id number] on: 16-May-2013 Prevnar 13 Intramuscular Suspension Lot #: [id number] on: 05-Jul-2014 Fluzone High-Dose 0.5 ML Intramuscular Suspension Prefilled Syringe Lot #: [id number] on: 07-Mar-2015 Tdap (Adacel) Lot #: [id number] on: 07-Mar-2015 Fluzone High-Dose 0.5 ML Intramuscular Suspension Prefilled Syringe Lot #: [id number] on: 04-Mar-2016 Zoster (Zostavax) Lot #: [id number] on: 04-Mar-2016 Family History Name Dates Details [...] smoker Vital Signs Date Test Result Details 18-Sep-2016 13:34 BP Systolic 122 mm[Hg] Status: Comments: Location: ; Position: BP Diastolic 70 mm[Hg] Status: Comments: Location: ; Position: 12-Sep-2016 13:50 BP Systolic 128 mm[Hg] Status: Comments: Location: ; Position: BP Diastolic 70 mm[Hg] Status: Comments: Location: ; Position: Heart Rate 88 /min Status: Comments: Location: ; Physical Findings 95 Status: Comments: O2 Saturation 10-Sep-2016 15:38 BP Systolic 122 mm[Hg] Status: Comments: Location: ; Position: BP Diastolic 70 mm[Hg] Status: Comments: Location: ; Position: Temperature 36.6 c Status: Heart Rate 95 /min Status: Weight 115 lb Status: Physical Findings 93 Status: Comments: O2 Saturation Body Mass Index Calculated 24.04 kg/m2 Status: Body Surface Area Calculated 1.44 m2 Status: Results Date Description Value Details 10-Sep-2016 16:12 CBC w/ Auto Diff 7150 WBC 4.6 K/uL Range: 4.5-11.0 RBC 4.12 mil/uL Range: 3.60-5.00 HGB 11.9 g/dL (Below low threshold) Range: 12.0-16.0 Comments: Variance from previous testing noted.----- HCT 37.5 % Range: 36.0-48.0 MCV 91.2 fL Range: 80.0-99.0 MCH 28.8 pg Range: 27.3-32.5 MCHC 31.6 % (Below low threshold) Range: 32.0-36.0 RDW 16.8 % (Above high threshold) Range: 11.6-14.8 PLATELETS 182 K/uL Range: 150-400 MPV 9.9 fL Range: 6.0-11.0 %NEUTRO 68.8 % Range: 37.0-80.0 %LYMPHS 22.8 % Range: 13.0-50.0 %MONO 5.4 % Range: 0.0-12.0 %EOS 0.9 % Range: 0.0-7.0 %BASO 0.4 % Range: 0.0-2.5 %MARY 1.7 % Range: 0.0-5.0 NEUTRO 3.2 K/uL Range: 2.0-6.9 LYMPHS 1.1 K/uL Range: 0.6-3.4 MONOS 0.3 K/uL Range: 0.0-0.9 EOS 0.0 K/uL Range: 0.0-0.7 BASO 0.0 K/uL Range: 0.0-0.2 16:39 Comprehensive Metabolic Panel 1212 SODIUM 138 mmol/L Range: 133-144 POTASSIUM 3.7 mmol/L Range: 3.5-5.1 CHLORIDE 97 mmol/L (Below low threshold) Range: 98-110 CARBON DIOXIDE 32.0 mmol/L Range: 23.0-33.0 ANION GAP 9 mmol/L Range: 6-16 BUN 19 mg/dL (Above high threshold) Range: 7-18 CREATININE, SERUM 2.15 mg/dL (Above high threshold) Range: 0.55-1.02 BUN:CREATININE RATIO 9 EST GFR, 27 ml/min (Below low threshold) Range: >60 EST GFR, NON-AFR IRANIAN 22 ml/min (Below low threshold) Range: >60 Comments: EST GFR is reported in ml/min per 1.73 m2 of body surface area. ----- GLUCOSE 121 mg/dL (Above high threshold) Range: 70-100 Comments: Variance from previous testing noted.----- ALK PHOSPHATASE 52 U/L Range: 46-116 TOTAL BILIRUBIN 0.40 mg/dL Range: 0.20-1.00 AST 42 U/L (Above high threshold) Range: 8-35 ALT 25 U/L Range: 14-59 ALBUMIN 4.1 g/dL Range: 3.4-5.0 TOTAL PROTEIN 7.5 g/dL Range: 6.4-8.2 A/G RATIO 1.2 units Range: 1.0-1.8 CALCIUM 11.1 mg/dL (Above high threshold) Range: 8.5-10.1 Comments: Verified by Repeat Analysis----- 11-Sep-2016 08:19 XRay ABD (Flat & Upright) Comments: Exam Date: 09/10/2016 16:14Dictation Date: 09/11/2016 08:19 X ABDOMEN COMPLETE 12-Sep-2016 10:37 BASIC METABOLIC PROFILE 1210 SODIUM 139 mmol/L Range: 133-144 POTASSIUM 2.9 mmol/L (Below low threshold) Range: 3.5-5.1 CHLORIDE 99 mmol/L Range: 98-110 CARBON DIOXIDE 32.6 mmol/L Range: 23.0-33.0 ANION GAP 7 mmol/L Range: 6-16 BUN 15 mg/dL Range: 7-18 CREATININE, SERUM 1.52 mg/dL (Above high threshold) Range: 0.55-1.02 EST GFR, 40 ml/min (Below low threshold) Range: >60 EST GFR, NON-AFR IRANIAN 33 ml/min (Below low threshold) Range: >60 Comments: EST GFR is reported in ml/min per 1.73 m2 of body surface area. ----- BUN:CREATININE RATIO 10 GLUCOSE 97 mg/dL Range: 70-100 CALCIUM 10.2 mg/dL (Above high threshold) Range: 8.5-10.1 15:32 CT AB/ PEL WITHOUT IV AND WITH ORAL CONTRAST Comments: Exam Date: 14:15Dictation Date: 09/12/2016 15:32 XC AB/PEL W/O IV Plan of Care Name Dates Details Planned Observations Planned Goals not documented Planned Encounters Appointment; Provider: Magan Bowles M.D. On 22-Jan-2017 10:45 Appointment; Provider: Nuno Burgos M.D. On 11-Nov-2016 11:30 Appointment; Provider: Avila Arreola M.D. On 15-Oct-2016 14:30 Appointment; Provider: Nuno Burgos M.D. On 14-Oct-2016 09:30 Appointment; Provider: Ric Vines M.D. On 26-Sep-2016 11:00 Instructions Name Dates Details Instructions not documented Encounters Appointment; Ondina Stewart Encounter Diagnosis: Problem not [...] documented On 12-Aug-2016 09:00 Appointment; Dar Love M.D.|FACP|M.D.,FACP|Bear,FACP, Encounter Diagnosis: Problem not documented On 22-Jul-2016 11:15 Appointment; Nuno Burgos M.D. Encounter Diagnosis: Problem not documented On 15-Jul-2016 14:30 Appointment; Magan Bowles M.D. Encounter Diagnosis: Problem not documented On 01-Jul-2016 15:45 Appointment; Dar Love M.D.|FACP|M.DSacha,FACP|Bear,FACP, Encounter Diagnosis: Problem not documented On 10-Jun-2016 [...] documented On 06-May-2016 09:30 Appointment; Dar Love M.D.|FACP|M.DSacha,FACP|Bear,FACP, Encounter Diagnosis: Problem not documented On 28-Apr-2016 [...] documented On 04-Mar-2016 10:00 Appointment; Theo Roa D.P.T. Encounter Diagnosis: Problem not documented On 28-Feb-2016 14:30 Appointment; Dar Love M.D.|FACP|M.D.,FACP|MStarr.,FACP, Encounter Diagnosis: Problem not documented On 27-Feb-2016 10:30 Appointment; Theo Roa D.P.T. Encounter Diagnosis: Problem not documented On 22-Feb-2016 14:00 Appointment; Theo Roa D.PSachaT. Encounter Diagnosis: Problem not documented On 13-Feb-2016 14:30 Appointment; Theo Roa D.P.T. Encounter Diagnosis: Problem not documented On 11-Feb-2016 14:30 Appointment; Theo Roa D.P.T. Encounter Diagnosis: Problem not documented On 07-Feb-2016 [...] documented On 17-Jan-2016 10:30 Appointment; Dar Love M.D.|FACP|M.D.,FACP|MStarr.,FACP, Encounter Diagnosis: Problem not documented On 16-Jan-2016 [...] not documented On 11:00 Appointment; Theo Roa D.P.T. Encounter Diagnosis: Problem not documented On 11:00 Appointment; Theo Roa D.P.T. Encounter Diagnosis: Problem not documented On 16:00 Appointment; Dar Love M.D.|FACP|Bear,FACP|Bear,FACP, Encounter Diagnosis: Problem not documented On 10:45 Appointment; Theo Roa D.P.T. Encounter Diagnosis: Problem [...] documented On 18-Oct-2014 10:30 Appointment; Nuno Burgos M.D. Encounter Diagnosis: Problem not documented On 03-Oct-2014 09:15"
--- OUTSIDE RECORDS SUMMARY | 2016-11-05 13:38 | XMS REPORT | Summary of Care ---
Author Author Wilbur Sifuentes, [employer] Organization Unknown Address [address], [place] [id number] Phone Unavailable Care Team Providers Care Rescue Instructor Name Role Phone Ric Vines M.D. Unavailable Unavailable Ric Vines PP Unavailable Unavailable Unavailable Functional Status Functional Status Health Issues* Name Dates Details Functional status health issues are not documented Status: Cognitive Status Health Issues* Name Dates Details Cognitive status health issues are not documented Status: Problems Name Dates Details Difficulty Breathing During Exertion Status: Active Pain In Both Legs Status: Active Easy Bruising Tendency Status: Active Constipation (Symptom) Status: Active Joint Pain In Both Knees [...] Status: Active Depression (311, F32.9) Status: Active Hip pain (719.45, M25.559) Status: Active Esophageal reflux (530.81, K21.9) Status: [...] Tendonitis of finger (727.05, M77.9) Status: Active Hypertension (401.9, I10) Status: Active Spinal stenosis (724.00, M48.00) Status: [...] for Tdap vaccination (V06.1, Z23) Status: Active Arthralgia of multiple sites (719.49, M25.50) Status: Active Bursitis of hip (726.5, M70.70) Status: Active Lower back pain (724.2, M54.5) Status: Active Muscle spasm (728.85, M62.838) Status: Active Medications Name Dates Details Omeprazole [...] * Refills: 0 Ric Vines M.D.* Started 21-Jun-2012 ActiveCitalopram Hydrobromide 20 MG Oral Tablet TAKE 1 TABLET DAILY. * Quantity: 90 Refills: 3 Ric Vines M.D.* Started 25-Oct-2012 ActiveMulti-Vitamins Oral Tablet TAKE 1 TABLET DAILY. * Refills: 0 Ric Vines M.D.* Started 25-Oct-2012 ActiveFurosemide 20 MG Oral Tablet TAKE 1 TABLET DAILY NEEDED FOR SWELLING. * Quantity: 90 Refills: 0 Ric Vines M.D.* Started 03-Nov-2012 ActiveLisinopril 5 MG Oral Tablet TAKE 1 TABLET DAILY. * Refills: 0 * Started 17-Aug-2014 ActiveAtorvastatin Calcium 80 MG Oral Tablet TAKE 1 TABLET DAILY. * Quantity: 90 Refills: 3 Ric Vines M.D.* Started 07-Mar-2014 ActiveSulfaSALAzine 500 MG Oral Tablet TAKE 2 TABLET Twice daily * Quantity: 360 Refills: 3 Ric Vines M.D.* Started 03-Oct-2013 ActiveNystatin 456186 UNIT/ML Mouth/Throat Suspension SWISH AND SWALLOW 10ML FOUR TIMES DAILY FOR 5 DAYS * Quantity: 200 Refills: 0 Ric Vines M.D.* Started 07-Mar-2015 Active Allergies and Adverse Reactions Name Dates [...] Knee Replacement History of Complete Colonoscopy Completed:26-Jun-2011 HEMOGLOBIN A1C 3507 Ordered:07-Mar-2015 AST 1180 Ordered:07-Mar-2015 CBC w/ Auto Diff 7150 Ordered:07-Mar-2015 BASIC METABOLIC PROFILE 1210 Ordered:07-Mar-2015 LIPID PROFILE 1184 Ordered:07-Mar-2015 THYROID STIM. HORMONE 3602 Ordered:07-Mar-2015 EPO PANEL 3699 Ordered:09-Mar-2015 RENAL PROFILE 1240 Ordered:09-Mar-2015 HEMOGRAM 7305 Ordered:09-Mar-2015 CBC w/ Auto Diff 7150 Ordered:27-Feb-2015 MAGNESIUM 1260 Ordered:27-Feb-2015 RENAL PROFILE 1240 Ordered:27-Feb-2015 DEXA Ordered:07-Mar-2015 Immunization Name Dates Details Pneumo (Pneumovax) Lot #: [id number] Administered on:10-Feb-2012 Fluzone Quadrivalent 0.5 ML Intramuscular Suspension Lot #: [id number] Administered on:16-May-2013 Prevnar 13 Intramuscular Suspension Lot #: [id number] Administered on:05-Jul-2014 Fluzone High-Dose 0.5 ML Intramuscular Suspension Prefilled Syringe Lot #: [id number] Administered on:07-Mar-2015 Tdap (Adacel) Lot #: [id number] Administered on:07-Mar-2015 Family History Unknown Family Member* [...] smoker Vital Signs Date Test Result Details 23-Mar-2015 11:17 BP Systolic 98 mm[Hg] Status: BP Diastolic 64 mm[Hg] Status: Weight 131 lb Status: Body Mass Index Calculated 26.46 kg/m2 Status: Body Surface Area Calculated 1.54 m2 Status: 13-Mar-2015 11:55 BP Systolic 120 mm[Hg] Status: BP Diastolic 74 mm[Hg] Status: Heart Rate 76 /min Status: Weight 133.0 lb Status: Body Mass Index Calculated 26.86 kg/m2 Status: Body Surface Area Calculated 1.55 m2 Status: 07-Mar-2015 09:46 BP Systolic 110 mm[Hg] Status: BP Diastolic 54 mm[Hg] Status: Temperature 36.7 c Status: Heart Rate 89 /min Status: Weight 136 lb Status: O2 SAT 95 % Status: Body Mass Index Calculated 27.47 kg/m2 Status: Body Surface Area Calculated 1.57 m2 Status: 27-Feb-2015 09:31 BP Systolic 130 mm[Hg] Status: BP Diastolic 70 mm[Hg] Status: Heart Rate 78 /min Status: Results Date Description Value Details 02-Mar-2015 10:38 CBC w/ Auto Diff 7150 WBC 3.9 K/uL (Below low threshold) Range: 4.5-11.0 RBC 3.32 mil/uL (Below low threshold) Range: 3.60-5.00 HGB 10.8 g/dL (Below low threshold) Range: 12.0-16.0 HCT 32.8 % (Below low threshold) Range: 36.0-48.0 MCV 98.8 fL (Better) Range: 80.0-99.0 MCH 32.4 pg (Better) Range: 27.3-32.5 MCHC 32.8 % (Better) Range: 32.0-36.0 RDW 13.1 % (Better) Range: 11.6-14.8 PLATELETS 150 K/uL (Better) Range: 150-400 MPV 10.5 fL (Better) Range: 6.0-11.0 %NEUTRO 61.5 % (Better) Range: 37.0-80.0 %LYMPHS 26.0 % (Better) Range: 13.0-50.0 %MONO 7.1 % (Better) Range: 0.0-12.0 %EOS 2.4 % (Better) Range: 0.0-7.0 %BASO 0.3 % (Better) Range: 0.0-2.5 %MARY 2.7 % (Better) Range: 0.0-5.0 NEUTRO 2.4 K/uL (Better) Range: 2.0-6.9 LYMPHS 1.0 K/uL (Better) Range: 0.6-3.4 MONOS 0.3 K/uL (Better) Range: 0.0-0.9 EOS 0.1 K/uL (Better) Range: 0.0-0.7 BASO 0.0 K/uL (Better) Range: 0.0-0.2 10:55 AST 1180 AST 37 U/L (Above high threshold) Range: 8-35 10:55 BASIC METABOLIC PROFILE 1210 SODIUM 138 mmol/L (Better) Range: 133-144 POTASSIUM 3.5 mmol/L (Better) Range: 3.5-5.1 CHLORIDE 101 mmol/L (Better) Range: 98-110 CARBON DIOXIDE 25.1 mmol/L (Better) Range: 23.0-33.0 ANION GAP 12 mmol/L (Better) Range: 6-16 BUN 15 mg/dL (Better) Range: 7-18 CREATININE, SERUM 1.27 mg/dL (Above high threshold) Range: 0.55-1.02 Comments: Please note new reference ranges effective 2014.----- EST GFR, 49 ml/min (Below low threshold) Range: >60 EST GFR, NON-AFR MOLDOVAN 40 ml/min (Below low threshold) Range: >60 Comments: EST GFR is reported in ml/min per 1.73 m2 of body surface area. For -[place], please multiple result by 1.2.----- BUN:CREATININE RATIO 12 (Better) GLUCOSE 98 mg/dL (Better) Range: 70-100 CALCIUM 9.3 mg/dL (Better) Range: 8.5-10.1 10:55 LIPID PROFILE 1184 CHOLESTEROL 157 mg/dL (Better) Range: <200 TRIGLYCERIDES 130 mg/dL (Better) Range: 30-200 HDL Cholesterol 68 mg/dL (Better) Range: >39 NON HDL CHOLESTEROL 89 (Better) CARDIAC RSK FACTOR 2.3 units (Below low threshold) Range: 4.4-5.0 LDL - CALCULATED 63 mg/dL (Better) Range: 0-130 11:06 ERYTHROCYTE SED RATE 7800 ERYTHROCYTE SED RATE 14 mm/60 min. (Better) Range: 0-20 06-Mar-2015 07:43 Protein Elec + Interp, Serum [id number] Comments: Testing performed at: [DA] [facility], [id number], , Corporate Services Manager: ZHEN Saleem MD PROTEIN, TOTAL, SERUM 6.2 g/dL (Better) Range: 6.0-8.5 ALBUMIN 3.9 g/dL (Better) Range: 3.2-5.6 [id number] 0.2 g/dL (Better) Range: 0.1-0.4 BURMI-7-LOQVNMTV 0.7 g/dL (Better) Range: 0.4-1.2 BETA GLOBULIN 0.8 g/dL (Better) Range: 0.6-1.3 GAMMA GLOBULIN 0.6 g/dL (Better) Range: 0.5-1.6 M-SPIKE Note: g/dL (Better) Range: Not Observed Comments: Not ObservedSEE CONCURRENT IMMUNOFIXATION.----- GLOBULIN, TOTAL 2.3 g/dL (Better) Range: 2.0-4.5 A/G RATIO 1.7 (Better) Range: 0.7-2.0 PLEASE NOTE: Comment (Better) Comments: Protein electrophoresis scan will follow via computer,mail, or belt weaver delivery.----- P E INTERPRETATION, S Comment (Better) Comments: The SPE pattern appears essentially unremarkable. Evidenceof monoclonal protein is not apparent. ----- 07:43 Immunofixation, Serum [id number] Comments: [facility] at: [facility] [address] [place] [address], [place], [address], Phone: , Corporate Services Manager: ZHEN Saleem MD IMMUNOFIXATION RESULT, SERUM Note: (Better) Comments: FAINT IGG KAPPA. * REPEAT 4-6 MONTHS IF CLINICALLY INDICATED.----- IMMUNOGLOBULIN G, QN, SERUM 528 mg/dL (Below low threshold) Range: 700- 1600 IMMUNOGLOBULIN A, QN, SERUM 220 mg/dL (Better) Range: 91-414 IMMUNOGLOBULIN M, QN, SERUM 47 mg/dL (Better) Range: 40-230 07-Mar-2015 10:53 HEMOGRAM 7305 WBC 4.8 K/uL (Better) Range: 4.5-11.0 RBC 3.15 mil/uL (Below low threshold) Range: 3.60-5.00 HGB 10.2 g/dL (Below low threshold) Range: 12.0-16.0 HCT 31.2 % (Below low threshold) Range: 36.0-48.0 MCV 99.0 fL (Better) Range: 80.0-99.0 MCH 32.5 pg (Better) Range: 27.3-32.5 MCHC 32.9 % (Better) Range: 32.0-36.0 PLATELETS 143 K/uL (Below low threshold) Range: 150-400 11:08 XRay WRIST-Right Comments: Exam Date: 03/07/2015 10:49Dictation Date: 03/07/2015 11:08 X WRIST COMP (MIN 3V) RT (Better) 11:12 RENAL PROFILE 1240 SODIUM 137 mmol/L (Better) Range: 133-144 POTASSIUM 3.8 mmol/L (Better) Range: 3.5-5.1 CHLORIDE 103 mmol/L (Better) Range: 98-110 CARBON DIOXIDE 27.7 mmol/L (Better) Range: 23.0-33.0 ANION GAP 6 mmol/L (Better) Range: 6-16 BUN 16 mg/dL (Better) Range: 7-18 CREATININE, SERUM 1.18 mg/dL (Above high threshold) Range: 0.55-1.02 Comments: Please note new reference ranges effective 2014.----- EST GFR, 53 ml/min (Below low threshold) Range: >60 EST GFR, NON-AFR MOLDOVAN 44 ml/min (Below low threshold) Range: >60 Comments: EST GFR is reported in ml/min per 1.73 m2 of body surface area. For -[place], please multiple result by 1.2.----- BUN:CREATININE RATIO 14 (Better) GLUCOSE 108 mg/dL (Above high threshold) Range: 70-100 ALBUMIN 3.4 g/dL (Better) Range: 3.4-5.0 PHOSPHORUS 3.0 mg/dL (Better) Range: 2.6-4.7 Comments: Please note new reference ranges effective 2015.----- CALCIUM 8.9 mg/dL (Better) Range: 8.5-10.1 Plan of Care Planned Observations* Name Dates Details Planned Goals not documented Goal Planned Encounters* Appointment; Provider: Ric Martinez On 15-Aug-2015 10:30 * Appointment; Provider: Magan Bowles On 25-Jul-2015 10:45 * Appointment; Provider: Ric Vines On 04-Jul-2015 09:45 * Appointment; Provider: Nuno Burgos On 16-May-2015 11:15 * Appointment; Provider: Magan Bowles On 26-Apr-2015 10:15 * Appointment; Provider: Nuno Burgos On 11-Apr-2015 09:30 * Appointment; Provider: Schedule Radiology On 04-Apr-2015 14:30 * Appointment; Provider: Carol Tellez On 28-May-2011 13:00 * Appointment; Provider: Carol Tellez On 14-May-2011 14:00 * Appointment; Provider: Carol Tellez On 16-Apr-2011 13:45 * Appointment; Provider: Kelvin Davis On 18-Sep-2010 14:30 * Appointment; Provider: Kayla Siddiqi On 18-Sep-2010 13:00 Instructions * Instructions not documented Encounters Appointment; Magan Bowles Encounter Diagnosis: Problem not [...] Diagnosis: Problem not documented On 09:30 Appointment; Nuon Burgos Encounter Diagnosis: Problem not documented On [...] Problem not documented On 03-Jul-2014 16:00 Appointment; Neeta Sosa Encounter Diagnosis: Problem not documented On 30-Jun-2014 10:30 Appointment; Magan Bowles Encounter Diagnosis: Problem not documented On 20-Jun-2014 10:15 Appointment; Nuno Burgos Encounter Diagnosis: Problem not documented On 05-Jun-2014 09:00 Appointment; Nuno Burgos Encounter Diagnosis: Problem not documented On 02-May-2014 11:15 Appointment; Ric Martinez Encounter Diagnosis: Problem not documented On 19-Apr-2014 09:30 Appointment; Nuno uBrgos Encounter Diagnosis: Problem not documented On 05-Apr-2014 [...] Diagnosis: Problem not documented On 25-Apr-2013 10:45 Appointment; Ric Martinez Encounter Diagnosis: Problem not documented On 11-Apr-2013 13:15 Appointment; Nuno Burgos Encounter Diagnosis: Problem not documented On 05-Apr-2013 09:30
--- OUTSIDE RECORDS SUMMARY | 2016-11-05 13:38 | XMS REPORT | Summary of Care ---
Author Author Wilbur Sifuentes, [employer] Organization Unknown Address [address], [place] [id number] Phone Unavailable Care Team Providers Care Workers Compensation Paralegal Name Role Phone Ric Vines M.D. Unavailable [...] Shortness of breath (786.05, R06.02) Status: Active Anemia in chronic kidney disease (CKD) (285.21, N18.9) Status: Active Vaginal Discharge (623.5, N89.8) Status: Active Headache (784.0, R51) Status: Active Pre-procedural examination (V72.84, Z01.818) Status: Active Neck pain (723.1, M54.2) Status: Active Difficulty breathing (786.09, R06.89) Status: Active Abdominal pain (789.00, R10.9) Status: Active Iron (Fe) deficiency anemia (280.9, D50.9) Status: Active Glossitis (529.0, K14.0) Status: Active Hypokalemia (276.8, E87.6) Status: Active Spinal stenosis (724.00, M48.00) Status: Active Pre-operative exam (V72.84, Z01.818) Status: Active Hyperlipidemia (272.4, E78.5) Status: Active Arthritis (716.90, M19.90) Status: Active Chronic kidney disease, stage III (moderate) (585.3, N18.3) Status: Active Bloating (787.3, R14.0) Status: Active Colitis (558.9, K52.9) Status: Active Arm pain (729.5, M79.603) Status: Active Tingling (782.0, R20.2) Status: Active Urine frequency (788.41, R35.0) Status: Active Lower back pain (724.2, M54.5) Status: Active Abnormal laboratory test result (796.4, R89.9) Status: Active Anemia (285.9, D64.9) Status: Active Arthralgia of multiple sites (719.49, M25.50) Status: Active Bursitis of hip (726.5, M70.70) Status: Active Depression (311, F32.9) Status: Active Hip pain (719.45, M25.559) Status: Active Esophageal reflux (530.81, K21.9) Status: Active 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, I25.10) Status: Active Hypertension (401.9, I10) Status: Active Hypercholesterolemia (272.0, E78.0) Status: Active Osteoporosis (733.00, M81.0) Status: Active Ulcerative pancolitis (556.6, K51.90) Status: Active Need for pneumococcal vaccine (V03.82, Z23) Status: Active CKD (chronic kidney disease), stage IV (585.4, N18.4) Status: Active Dizziness (780.4, R42) Status: Active Fatigue (780.79, R53.83) Status: Active Monoclonal gammopathy (273.1, D47.2) Status: Active URI, acute (465.9, J06.9) Status: Active Medications Name Dates Details Omeprazole 40 MG Oral Capsule Delayed Release Take 1 capsule by mouth daily. Quantity: 90 Ric Vines M.D.* Started 18-Jun-2010 ActiveAspirin 81 MG Oral Tablet TAKE 1 TABLET DAILY. * Refills: 0 * Started 26-May-2011 ActiveVenlafaxine HCl ER 75 MG Oral Capsule [...] NEEDED FOR SWELLING. * Quantity: 90 Refills: 3 Ric Vines M.D.* Started 03-Nov-2012 ActiveSulfaSALAzine 500 MG Oral Tablet TAKE 2 TABLET Twice daily * Quantity: 360 Refills: 3 Ric Vines M.D.* Started 03-Oct-2013 ActiveAmoxicillin 500 MG Oral Capsule TAKE 4 CAPSULES BY MOUTH 1 HOUR PRIOR TO PROCEDURE * Quantity: 12 Refills: 0 Ric Vines M.D.* Started 26-Jan-2014 ActiveAtorvastatin Calcium 80 MG Oral Tablet TAKE 1 TABLET DAILY. * Quantity: 90 Refills: 3 Ric Vines M.D.* Started 07-Mar-2014 ActiveLisinopril 5 MG Oral Tablet TAKE 1 TABLET DAILY. * Refills: 0 * Started 17-Aug-2014 Active Allergies and Adverse Reactions Name Dates [...] Knee Replacement History of Complete Colonoscopy Completed:26-Jun-2011 Procedures not documented Immunization Name Dates Details Pneumo (Pneumovax) Lot #: [id number] Administered on:10-Feb-2012 Fluzone Quadrivalent 0.5 ML Intramuscular Suspension Lot #: [id number] Administered on:16-May-2013 Prevnar 13 Intramuscular Suspension Lot #: [id number] Administered on:05-Jul-2014 Family History Unknown Family Member* Name Dates [...] smoker Vital Signs Date Test Result Details 18-Oct-2014 10:24 BP Systolic 130 mm[Hg] Status: BP Diastolic 72 mm[Hg] Status: Weight 135 lb Status: Body Mass Index Calculated 27.27 kg/m2 Status: Body Surface Area Calculated 1.56 m2 Status: 03-Oct-2014 09:26 BP Systolic 106 mm[Hg] Status: BP Diastolic 40 mm[Hg] Status: Results Date Description Value Details 30-Sep-2014 10:19 HEMOGRAM 7305 WBC 4.3 K/uL (Below low threshold) Range: 4.5-11.0 RBC 3.38 mil/uL (Below low threshold) Range: 3.60-5.00 HGB 11.1 g/dL (Below low threshold) Range: 12.0-16.0 HCT 31.7 % (Below low threshold) Range: 36.0-48.0 MCV 94.0 fL (Better) Range: 80.0-99.0 MCH 32.8 pg (Above high threshold) Range: 27.3-32.5 MCHC 34.9 % (Better) Range: 32.0-36.0 PLATELETS 192 K/uL (Better) Range: 150-400 10:50 RENAL PROFILE 1240 SODIUM 139 mmol/L (Better) Range: 133-144 POTASSIUM 2.9 mmol/L (Below low threshold) Range: 3.5-5.1 CHLORIDE 99 mmol/L (Better) Range: 98-110 CARBON DIOXIDE 30.8 mmol/L (Better) Range: 23.0-33.0 ANION GAP 9 mmol/L (Better) Range: 6-16 BUN 16 mg/dL (Better) Range: 7-18 CREATININE, SERUM 1.36 mg/dL (Above high threshold) Range: 0.43-1.13 EST GFR, 45 ml/min (Below low threshold) Range: >60 EST GFR, NON-AFR MARSHALLESE 37 ml/min (Below low threshold) Range: >60 Comments: EST GFR is reported in ml/min per 1.73 m2 of body surface area. For -Qat[place], please multiple result by 1.2.----- BUN:CREATININE RATIO 12 (Better) GLUCOSE 105 mg/dL (Above high threshold) Range: 70-100 ALBUMIN 3.8 g/dL (Better) Range: 3.4-5.0 PHOSPHORUS 2.5 mg/dL (Better) Range: 2.5-4.9 CALCIUM 9.1 mg/dL (Better) Range: 8.5-10.1 Plan of Care Planned Observations* Name Dates Details Planned Goals not documented Goal Planned Encounters* Appointment; Provider: Ric Martinez On 13-Feb-2015 10:30 * Appointment; Provider: Neeta Sosa On 13:30 * Appointment; Provider: Ric Vines On 07-Nov-2014 10:30 * Appointment; Provider: Magan Bowles On 26-Oct-2014 11:00 * Appointment; Provider: Carol Tellez On 28-May-2011 [...] Diagnosis: Problem not documented On 05-Apr-2013 09:30 Appointment; Nuno Burgos Encounter Diagnosis: Problem not documented On 08-Mar-2013 09:30 Appointment; Ric Vines Encounter Diagnosis: Problem not documented On 21-Feb-2013 10:00 Appointment; Ric Vines Encounter Diagnosis: Problem not documented On 08-Feb-2013 10:00 Appointment; Nuno Burgos Encounter Diagnosis: Problem not documented On 01-Feb-2013 11:00 Appointment; Nuno Burgos Encounter Diagnosis: Problem not documented On 09:00 Appointment; Nuno Burgos Encounter Diagnosis: Problem not documented On 09:30 Appointment; Kayla Siddiqi Encounter Diagnosis: Problem not documented On 09:30 Appointment; Nuno Burgos Encounter Diagnosis: Problem not documented On 03-Nov-2012 10:45 Appointment; Ric Vines Encounter Diagnosis: Problem not documented On 25-Oct-2012 09:45
--- OUTSIDE RECORDS SUMMARY | 2016-11-05 13:39 | XMS REPORT | Summary of Care ---
Author Author Ric Vines M.D. Organization Unknown Address [address], [place] [id number] Phone Unavailable Care Team Providers Care Road Cleaner Name Role Phone Ric Vines M.D. Unavailable [...] Active URI, acute (465.9, J06.9) Status: Active Arthralgia of multiple sites (719.49, M25.50) Status: Active Bursitis of hip (726.5, M70.70) Status: Active Lower back pain (724.2, M54.5) Status: Active Trigger finger, acquired (727.03, M65.30) [...] Active Ulcerative pancolitis (556.6, K51.90) Status: Active Medications Name Dates Details Omeprazole [...] Knee Replacement History of Complete Colonoscopy Completed:26-Jun-2011 RENAL PROFILE 1240 Ordered:9-Sep-2015 HEMOGRAM 7305 Ordered:21-Feb-2015 CBC w/ Auto Diff 7150 Ordered:27-Feb-2015 MAGNESIUM 1260 Ordered:27-Feb-2015 RENAL PROFILE 1240 Ordered:27-Feb-2015 Immunization Name Dates Details Pneumo (Pneumovax) Lot #: [id number] Administered on:10-Feb-2012 Fluzone Quadrivalent 0.5 ML Intramuscular Suspension Lot #: [id number] Administered on:16-May-2013 Prevnar 13 Intramuscular Suspension Lot #: [id number] Administered on:05-Jul-2014 Family History Unknown Family Member* [...] smoker Vital Signs Date Test Result Details 07-Mar-2015 09:46 BP Systolic 110 mm[Hg] Status: BP Diastolic 54 mm[Hg] Status: Temperature 36.7 c Status: Heart Rate 89 /min Status: Weight 136 lb Status: O2 SAT 95 % Status: Body Mass Index Calculated 27.47 kg/m2 Status: Body Surface Area Calculated 1.57 m2 Status: 27-Feb-2015 09:31 BP Systolic 130 mm[Hg] Status: BP Diastolic 70 mm[Hg] Status: Heart Rate 78 /min Status: 13-Feb-2015 12:51 BP Systolic 140 mm[Hg] Status: BP Diastolic 60 mm[Hg] Status: Heart Rate 64 /min Status: Weight 133.25 lb Status: Body Mass Index Calculated 26.91 kg/m2 Status: Body Surface Area Calculated 1.55 m2 Status: 13-Feb-2015 10:39 BP Systolic 140 mm[Hg] Status: BP Diastolic 70 mm[Hg] Status: Heart Rate 80 /min Status: Weight 134 lb Status: Body Mass Index Calculated 27.06 kg/m2 Status: Body Surface Area Calculated 1.56 m2 Status: Results Date Description Value Details 07-Feb-2015 13:36 CBC w/ Auto Diff 7150 WBC 4.5 K/uL (Better) Range: 4.5-11.0 RBC 3.50 mil/uL (Below low threshold) Range: 3.60-5.00 HGB 11.6 g/dL (Below low threshold) Range: 12.0-16.0 HCT 34.8 % (Below low threshold) Range: 36.0-48.0 MCV 99.4 fL (Above high threshold) Range: 80.0-99.0 MCH 33.2 pg (Above high threshold) Range: 27.3-32.5 MCHC 33.4 % (Better) Range: 32.0-36.0 RDW 13.1 % (Better) Range: 11.6-14.8 PLATELETS 170 K/uL (Better) Range: 150-400 MPV 10.4 fL (Better) Range: 6.0-11.0 %NEUTRO 66.4 % (Better) Range: 37.0-80.0 %LYMPHS 21.9 % (Better) Range: 13.0-50.0 %MONO 6.9 % (Better) Range: 0.0-12.0 %EOS 2.4 % (Better) Range: 0.0-7.0 %BASO 0.3 % (Better) Range: 0.0-2.5 %MARY 2.0 % (Better) Range: 0.0-5.0 NEUTRO 3.0 K/uL (Better) Range: 2.0-6.9 LYMPHS 1.0 K/uL (Better) Range: 0.6-3.4 MONOS 0.3 K/uL (Better) Range: 0.0-0.9 EOS 0.1 K/uL (Better) Range: 0.0-0.7 BASO 0.0 K/uL (Better) Range: 0.0-0.2 14:03 RENAL PROFILE 1240 SODIUM 137 mmol/L (Better) Range: 133-144 POTASSIUM 3.3 mmol/L (Below low threshold) Range: 3.5-5.1 CHLORIDE 99 mmol/L (Better) Range: 98-110 CARBON DIOXIDE 31.4 mmol/L (Better) Range: 23.0-33.0 ANION GAP 7 mmol/L (Better) Range: 6-16 BUN 19 mg/dL (Above high threshold) Range: 7-18 CREATININE, SERUM 1.85 mg/dL (Above high threshold) Range: 0.55-1.02 Comments: Please note new reference ranges effective 2014.----- EST GFR, 32 ml/min (Below low threshold) Range: >60 EST GFR, NON-AFR SLOVENIAN 26 ml/min (Below low threshold) Range: >60 Comments: EST GFR is reported in ml/min per 1.73 m2 of body surface area. For -[place], please multiple result by 1.2.----- BUN:CREATININE RATIO 10 (Better) GLUCOSE 132 mg/dL (Above high threshold) Range: 70-100 ALBUMIN 4.1 g/dL (Better) Range: 3.4-5.0 PHOSPHORUS 3.0 mg/dL (Better) Range: 2.6-4.7 Comments: Please note new reference ranges effective 2015.----- CALCIUM 9.4 mg/dL (Better) Range: 8.5-10.1 02-Mar-2015 10:38 CBC w/ Auto Diff 7150 [...] low threshold) Range: >60 EST GFR, NON-AFR SLOVENIAN 40 ml/min (Below low threshold) Range: >60 Comments: EST GFR is reported in ml/min per 1.73 m2 of body surface area. For -[place], please multiple result by 1.2.----- BUN:CREATININE RATIO [...] 06-Mar-2015 07:43 Protein Elec + Interp, Serum [id number] Comments: Testing performed at: [DA] [address] [address], [place], [address], , C Architect: ZHEN Saleem MD PROTEIN, TOTAL, SERUM 6.2 g/dL (Better) Range: 6.0-8.5 ALBUMIN 3.9 g/dL (Better) Range: 3.2-5.6 LZFDB-9-TCXNGEIJ 0.2 g/dL (Better) Range: 0.1-0.4 ZNKKG-9-HUNCETSQ 0.7 g/dL (Better) Range: 0.4-1.2 BETA GLOBULIN 0.8 g/dL (Better) Range: 0.6-1.3 GAMMA GLOBULIN 0.6 g/dL (Better) Range: 0.5-1.6 M-SPIKE Note: g/dL (Better) Range: Not Observed Comments: Not ObservedSEE CONCURRENT IMMUNOFIXATION.----- GLOBULIN, TOTAL 2.3 g/dL (Better) Range: 2.0-4.5 A/G RATIO 1.7 (Better) Range: 0.7-2.0 PLEASE NOTE: Comment (Better) Comments: Protein electrophoresis scan will follow via computer,mail, or nib inspector delivery.----- P E INTERPRETATION, S Comment (Better) Comments: The SPE pattern appears essentially unremarkable. Evidenceof monoclonal protein is not apparent. ----- 07:43 Immunofixation, Serum [id number] Comments: Testing performed at: [DA] [facility], [address] [place] [address] [address], [place], [address], Phone: , C Architect: ZHEN Saleem MD IMMUNOFIXATION RESULT, SERUM Note: (Better) Comments: FAINT IGG KAPPA. * REPEAT 4-6 MONTHS IF CLINICALLY INDICATED.----- IMMUNOGLOBULIN G, QN, SERUM 528 mg/dL (Below low threshold) Range: 700- 1600 IMMUNOGLOBULIN A, QN, SERUM 220 mg/dL (Better) Range: 91-414 IMMUNOGLOBULIN M, QN, SERUM 47 mg/dL (Better) Range: 40-230 Plan of Care Planned Observations* Name Dates Details Planned Goals not documented Goal Planned Encounters* Appointment; Provider: Ric Martinez On 15-Aug-2015 10:30 * Appointment; Provider: Nuno Burgos On 16-May-2015 11:15 * Appointment; Provider: Magan Bowles On 26-Apr-2015 10:15 * Appointment; Provider: Nuno Burgos On 09-Mar-2015 10:00 * Appointment; Provider: Carol Tellez On 28-May-2011 [...]
--- OUTSIDE RECORDS SUMMARY | 2016-11-05 13:39 | XMS REPORT | Summary of Care ---
Author Author Theo Roa D.P.T. Unknown Address Unknown Phone Unavailable Care Team Providers Care Polymer Tester Name Role Phone Ric Vines M.D. Unavailable [...] Status: Active Colitis (558.9, K52.9) Status: Active Depression (311, F32.9) Status: Active Esophageal reflux (530.81, K21.9) Status: Active Monoclonal gammopathy (273.1, D47.2) Status: Active Trigger finger, acquired (727.03, M65.30) Status: Active Pain in hand (729.5, M79.643) Status: Active Ganglion (727.43, M67.40) Status: Active Tendonitis of finger (727.05, M77.9) Status: Active Fatigue (780.79, R53.83) Status: Active Hypokalemia (276.8, E87.6) Status: Active Hyperlipidemia (272.4, E78.5) Status: Active Wrist pain, acute, right (719.43, M25.531) Status: Active Muscle spasm (728.85, M62.838) Status: Active Muscle pain (729.1, M79.1) Status: Active Shoulder pain, right (719.41, M25.511) Status: Active Pain of left shoulder region (719.41, M25.512) Status: Active Hypertension (401.9, I10) Status: Active Difficulty breathing (786.09, R06.89) Status: Active Bilateral hip pain (719.45, M25.551) Status: Active Arthralgia of multiple sites (719.49, M25.50) Status: Active Fever (780.60, R50.9) Status: Active Cough, persistent (786.2, R05) Status: Active Asthmatic bronchitis with acute exacerbation (493.92, J45.901) Status: Active Arm pain (729.5, M79.603) Status: Active Arm bruise (923.9, S40.029A) Status: Active Ulcerative pancolitis (556.6, K51.90) Status: Active 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, I25.10) Status: Active Hypercholesterolemia (272.0, E78.0) Status: Active Iron (Fe) deficiency anemia (280.9, D50.9) Status: Active Lower back pain (724.2, M54.5) Status: Active Neck pain (723.1, M54.2) Status: Active CKD (chronic kidney disease), stage IV (585.4, N18.4) Status: Active Osteoporosis (733.00, M81.0) Status: Active Bilateral hip bursitis (726.5, M70.71) Status: Active Back pain (724.5, M54.9) Status: Active Spinal stenosis (724.00, M48.00) Status: Active Spondylolisthesis of lumbar region (738.4, M43.16) Status: Active 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 * Quantity: 90 Refills: 3 [...] * Quantity: 45 Refills: 3 Ric Vines M.D.* Started 17-Aug-2014 ActiveProlia 60 MG/ML Subcutaneous Solution INJECT SUBCUTANEOUSLY [...] Knee Replacement History of Complete Colonoscopy Completed:26-Jun-2011 EPO PANEL 3699 Ordered:06-Nov-2015 Iron Panel with TIBC 1612 Ordered: RENAL PROFILE 1240 Ordered: HEMOGRAM 7305 Ordered: CBC w/ Auto Diff 7150 Ordered: Comprehensive Metabolic Panel 1212 Ordered: FERRITIN 3025 Ordered: IRON 1254 Ordered: ORTHO KNEE LEFT (3 VIEWS ONLY) Ordered: BONE SPECT Ordered: Immunization Name Dates Details Pneumo (Pneumovax) Lot #: [id number] Administered on:10-Feb-2012 Fluzone Quadrivalent 0.5 ML Intramuscular Suspension Lot #: [id number] Administered on:16-May-2013 Prevnar 13 Intramuscular Suspension Lot #: [id number] Administered on:05-Jul-2014 Fluzone High-Dose 0.5 ML Intramuscular Suspension Prefilled Syringe Lot #: [id number] Administered on:07-Mar-2015 Tdap (Adacel) Lot #: [id number] Administered on:07-Mar-2015 Family History Unknown Family Member* [...] smoker Vital Signs Date Test Result Details 10:29 BP Systolic 126 mm[Hg] Status: BP Diastolic 68 mm[Hg] Status: Heart Rate 82 /min Status: Weight 131 lb Status: Body Mass Index Calculated 27.38 kg/m2 Status: Body Surface Area Calculated 1.52 m2 Status: 10:54 BP Systolic 119 mm[Hg] Status: BP Diastolic 70 mm[Hg] Status: Temperature 97.5 f Status: Heart Rate 83 /min Status: Height 58 in Status: Weight 129 lb Status: Body Mass Index Calculated 26.96 kg/m2 Status: Body Surface Area Calculated 1.51 m2 Status: 10:04 BP Systolic 116 mm[Hg] Status: BP Diastolic 62 mm[Hg] Status: Heart Rate 90 /min Status: Weight 129 lb Status: Body Mass Index Calculated 26.05 kg/m2 Status: Body Surface Area Calculated 1.53 m2 Status: Results Date Description Value Details 11:06 CBC w/ Auto Diff 7150 WBC 3.1 K/uL (Below low threshold) Range: 4.5-11.0 RBC 3.27 mil/uL (Below low threshold) Range: 3.60-5.00 HGB 10.8 g/dL (Below low threshold) Range: 12.0-16.0 HCT 32.8 % (Below low threshold) Range: 36.0-48.0 MCV 100.3 fL (Above high threshold) Range: 80.0-99.0 MCH 33.0 pg (Above high threshold) Range: 27.3-32.5 MCHC 32.9 % (Better) Range: 32.0-36.0 RDW 13.6 % (Better) Range: 11.6-14.8 PLATELETS 178 K/uL (Better) Range: 150-400 MPV 9.7 fL (Better) Range: 6.0-11.0 %NEUTRO 59.2 % (Better) Range: 37.0-80.0 %LYMPHS 29.2 % (Better) Range: 13.0-50.0 %MONO 7.3 % (Better) Range: 0.0-12.0 %EOS 2.0 % (Better) Range: 0.0-7.0 %BASO 0.5 % (Better) Range: 0.0-2.5 %MARY 1.8 % (Better) Range: 0.0-5.0 NEUTRO 1.8 K/uL (Below low threshold) Range: 2.0-6.9 LYMPHS 0.9 K/uL (Better) Range: 0.6-3.4 MONOS 0.2 K/uL (Better) Range: 0.0-0.9 EOS 0.1 K/uL (Better) Range: 0.0-0.7 BASO 0.0 K/uL (Better) Range: 0.0-0.2 11:29 Comprehensive Metabolic Panel 1212 SODIUM 136 mmol/L (Better) Range: 133-144 POTASSIUM 3.5 mmol/L (Better) Range: 3.5-5.1 CHLORIDE 99 mmol/L (Better) Range: 98-110 CARBON DIOXIDE 27.3 mmol/L (Better) Range: 23.0-33.0 ANION GAP 10 mmol/L (Better) Range: 6-16 BUN 32 mg/dL (Above high threshold) Range: 7-18 CREATININE, SERUM 1.82 mg/dL (Above high threshold) Range: 0.55-1.02 Comments: Please note new reference ranges effective 2014.----- BUN:CREATININE RATIO 18 (Better) EST GFR, 32 ml/min (Below low threshold) Range: >60 EST GFR, NON-AFR GAMBIAN 27 ml/min (Below low threshold) Range: >60 Comments: EST GFR is reported in ml/min per 1.73 m2 of body surface area. For -[place]ogolese, please multiple result by 1.2.----- GLUCOSE 99 mg/dL (Better) Range: 70-100 ALK PHOSPHATASE 48 U/L (Better) Range: 46-116 TOTAL BILIRUBIN 0.60 mg/dL (Better) Range: 0.20-1.00 AST 27 U/L (Better) Range: 8-35 ALT 21 U/L (Better) Range: 14-59 Comments: Please note new reference ranges. Effective 08/24/2014.----- ALBUMIN 4.0 g/dL (Better) Range: 3.4-5.0 TOTAL PROTEIN 6.2 g/dL (Below low threshold) Range: 6.4-8.2 A/G RATIO 1.8 units (Better) Range: 1.0-1.8 CALCIUM 8.9 mg/dL (Better) Range: 8.5-10.1 11:41 VITAMIN B12 3606 VITAMIN B12 1232 pg/mL (Above high threshold) Range: 211-911 11:41 FOLATE 3608 FOLATE 10.3 ng/mL (Better) Range: 5.4-20.8 11:41 FERRITIN 3025 FERRITIN 33 ng/mL (Better) Range: 10-291 14:10 Iron Panel with TIBC 1612 IRON 59 ug/dL (Better) Range: 50-170 TOTAL IRON BIND. CAPACITY 334 ug/dL (Better) Range: 250-450 % IRON SATURATION 18 % (Below low threshold) Range: 20-55 11:49 CBC w/ Auto Diff 7150 WBC 3.0 K/uL (Below low threshold) Range: 4.5-11.0 RBC 3.30 mil/uL (Below low threshold) Range: 3.60-5.00 HGB 10.9 g/dL (Below low threshold) Range: 12.0-16.0 HCT 33.6 % (Below low threshold) Range: 36.0-48.0 MCV 101.8 fL (Above high threshold) Range: 80.0-99.0 MCH 33.1 pg (Above high threshold) Range: 27.3-32.5 MCHC 32.5 % (Better) Range: 32.0-36.0 RDW 13.9 % (Better) Range: 11.6-14.8 PLATELETS 160 K/uL (Better) Range: 150-400 MPV 9.9 fL (Better) Range: 6.0-11.0 %NEUTRO 60.6 % (Better) Range: 37.0-80.0 %LYMPHS 27.1 % (Better) Range: 13.0-50.0 %MONO 8.4 % (Better) Range: 0.0-12.0 %EOS 1.6 % (Better) Range: 0.0-7.0 %BASO 0.4 % (Better) Range: 0.0-2.5 %MARY 1.9 % (Better) Range: 0.0-5.0 NEUTRO 1.8 K/uL (Below low threshold) Range: 2.0-6.9 LYMPHS 0.8 K/uL (Better) Range: 0.6-3.4 MONOS 0.3 K/uL (Better) Range: 0.0-0.9 EOS 0.1 K/uL (Better) Range: 0.0-0.7 BASO 0.0 K/uL (Better) Range: 0.0-0.2 12:15 C REACTIVE PROTEIN, CRP 2030 C REACTIVE PROTEIN 0.2 mg/dL (Better) Range: 0.0-0.9 12:17 ERYTHROCYTE SED RATE 7800 ERYTHROCYTE SED RATE 10 mm/60 min. (Better) Range: 0-20 Plan of Care Planned Observations* Name Dates Details Planned Goals not documented Goal Planned Encounters* Appointment; Provider: Nuno Burgos On 04-Mar-2016 13:45 * Appointment; Provider: Ric Vines On 04-Mar-2016 10:00 * Appointment; Provider: Dar Love On 16-Jan-2016 14:45 * Appointment; Provider: Theo Roa On 10:30 * Appointment; Provider: Theo Roa On 10:30 * Appointment; Provider: Schedule Radiology On 04-Jun-2015 16:00 * Appointment; Provider: Schedule Radiology On 04-Jun-2015 16:00 * Appointment; Provider: Schedule Radiology On 04-Apr-2015 14:30 * Appointment; Provider: Carol Tellez On 28-May-2011 13:00 * Appointment; Provider: Carol Tellez On 14-May-2011 14:00 * Appointment; Provider: Carol Tellez On 16-Apr-2011 13:45 * Appointment; Provider: Kelvin Davis On 18-Sep-2010 14:30 * Appointment; Provider: Kayla Siddiqi On 18-Sep-2010 13:00 Instructions * Instructions not documented Encounters Appointment; Theo Roa Encounter Diagnosis: Problem not documented On 15:00 Appointment; Jerrod Mena Encounter Diagnosis: Problem not documented On 10:30 Appointment; Theo Roa Encounter Diagnosis: Problem not documented On 13:00 Appointment; Theo Roa Encounter Diagnosis: Problem not documented On 14:00 Appointment; Theo Roa Encounter Diagnosis: Problem not documented On 11:00 Appointment; Theo Roa Encounter Diagnosis: Problem not documented On 11:00 Appointment; Theo Roa Encounter Diagnosis: Problem not documented On 16:00 Appointment; Dar Love Encounter Diagnosis: Problem not documented On 10:45 Appointment; Theo Roa Encounter Diagnosis: Problem not documented On 11:00 Appointment; Jerrod Mena Encounter Diagnosis: Problem not documented On 10:15 Appointment; Nuno Burgos Encounter Diagnosis: Problem not documented On 13:45 Appointment; Magan Bowles Encounter Diagnosis: Problem not documented On 12:45 Appointment; Alonzo Joshi Encounter Diagnosis: Problem not documented On 08:30 Appointment; Ric Vines Encounter Diagnosis: Problem not documented On 06-Nov-2015 11:00 Appointment; Ric Vines Encounter Diagnosis: Problem not documented On 11-Sep-2015 10:00 Appointment; Ric Vines Encounter Diagnosis: Problem not documented On 24-Aug-2015 14:30 Appointment; Ric Vines Encounter Diagnosis: Problem not documented On 15-Aug-2015 13:45 Appointment; Nuno Burgos Encounter Diagnosis: Problem not documented On 15-Aug-2015 11:30 Appointment; Magan Bowles Encounter Diagnosis: Problem not documented On 01-Aug-2015 10:45 Appointment; Magan Bowles Encounter Diagnosis: Problem not documented On 25-Jul-2015 10:45 Appointment; Ric Vines Encounter Diagnosis: Problem not documented On 04-Jul-2015 09:45 Appointment; Nuno Burgos Encounter Diagnosis: Problem not documented On 20-Jun-2015 13:15 Appointment; Ric Vines Encounter Diagnosis: Problem not documented On 05-Jun-2015 14:45 Appointment; Ric Vines Encounter Diagnosis: Problem not documented On 29-May-2015 15:00 Appointment; Nuno Burgos Encounter Diagnosis: Problem not documented On 16-May-2015 11:15 Appointment; Ric Vines Encounter Diagnosis: Problem [...]
--- OUTSIDE RECORDS SUMMARY | 2016-11-05 13:39 | XMS REPORT | Summary of Care ---
Author Author Loretta Sifuentes, Nuno Organization Unknown Address Unknown Phone Unavailable Care Team Providers Care Warp Worker Name Role Phone Rajesh Sifuentes, Jerrdo Unavailable Unavailable Nuno Burgos M.D. Unavailable Unavailable Mohinder Sifuentes, Ric Unavailable Unavailable Ric Vines Unavailable Unavailable Unavailable [...] left shoulder region (719.41, M25.512) Status: Active Difficulty breathing (786.09, R06.89) Status: [...] of lumbar region (738.4, M43.16) Status: Active Left knee pain (719.46, M25.562) Status: Active Macrocytosis (289.89, D75.89) Status: Active Leukopenia (288.50, D72.819) Status: Active Anserine bursitis (726.61, M70.50) Status: Active Spinal stenosis (724.00, M48.00) Status: Active 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, 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 CKD (chronic kidney disease), stage IV (585.4, N18.4) Status: Active Hyperlipidemia (272.4, E78.5) Status: Active Osteoporosis (733.00, M81.0) Status: Active 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, I25.10) Status: Active Visit for screening mammogram (V76.12, Z12.31) Status: Active Need for Zostavax administration (V04.89, Z23) Status: Active CKD (chronic kidney disease) stage 3, GFR 30-59 ml/min (585.3, N18.3) Status: Active Inflamed seborrheic keratosis (702.11, L82.0) Status: Active Arthralgia of multiple sites (719.49, M25.50) Status: Active Bilateral hip pain (719.45, M25.551) Status: Active Bilateral hip bursitis (726.5, M70.71) Status: Active Hypertension (401.9, I10) Status: Active Hypercholesterolemia (272.0, E78.00) Status: Active Depression (311, F32.9) Status: Active Anemia of renal disease (285.21, D63.1) Status: Active Cytopenia (289.9, D75.9) Status: Active Medications Name Dates Details Omeprazole [...] Active Furosemide 20 MG Oral Tablet TAKE 1 TABLET DAILY FOR SWELLING. * Quantity: 90 Refills: 3 Ric Vines M.D. Start 03-Nov-2012 Active SulfaSALAzine 500 MG Oral Tablet TAKE 2 TABLET Twice daily * Quantity: 360 Refills: 3 Ric Vines M.D. Start 03-Oct-2013 Active Atorvastatin Calcium 80 MG Oral Tablet TAKE 1 TABLET DAILY. * Quantity: 90 Refills: 3 Ric Vines M.D. Start 07-Mar-2014 Active Lisinopril 5 MG Oral Tablet TAKE ONE HALF TAB ONCE DAILY * Quantity: 45 Refills: 3 Ric Vines M.D. Start 17-Aug-2014 Active Prolia 60 MG/ML Subcutaneous Solution INJECT SUBCUTANEOUSLY 60 MG / 1 ML EVERY 6 MONTHS * Quantity: 1 Refills: 0 Ric Vines M.D. Start 13-Apr-2015 Active Naproxen 500 MG Oral Tablet TAKE 1 TABLET EVERY 12 HOURS DAILY. * Quantity: 60 Refills: 1 Jerrod Mena M.D. * Start 04-Feb-2016 Active Zoster (Zostavax) inject SQ * Quantity: 1 Refills: 0 Ric Vines M.D. * Start 04-Mar-2016 Active 1 Solution Reconstituted Vial Allergies and Adverse Reactions Name Dates Details [...] Replacement History of Complete Colonoscopy Completed: 26-Jun-2011 HEMOGRAM 7305 Ordered: 11-Apr-2016 RENAL PROFILE 1240 Ordered: 11-Apr-2016 CBC w/ Auto Diff 7150 Ordered: 28-Apr-2016 Immunization Name Dates Details Pneumo (Pneumovax) Lot #: [id number] on: 10-Feb-2012 Fluzone Quadrivalent 0.5 ML Intramuscular Suspension Lot #: [id number] on: 16-May-2013 Prevnar 13 Intramuscular Suspension Lot #: [id number] on: 05-Jul-2014 Fluzone High-Dose 0.5 ML Intramuscular Suspension Prefilled Syringe Lot #: [id number] on: 07-Mar-2015 Tdap (Adacel) Lot #: [id number] on: 07-Mar-2015 Fluzone High-Dose 0.5 ML Intramuscular Suspension Prefilled Syringe Lot #: [id number] on: 04-Mar-2016 Zoster (Zostavax) Lot #: [id number] on: 04-Mar-2016 Family History Name Dates Details [...] smoker Vital Signs Date Test Result Details 28-Apr-2016 11:59 BP Systolic 85 mm[Hg] Status: Comments: Location: ; Position: BP Diastolic 46 mm[Hg] Status: Comments: Location: ; Position: Temperature 97.7 c Status: Heart Rate 106 /min Status: Weight 124 lb Status: Body Mass Index Calculated 25.92 kg/m2 Status: Body Surface Area Calculated 1.49 m2 Status: 25-Apr-2016 09:38 BP Systolic 112 mm[Hg] Status: Comments: Location: ; Position: BP Diastolic 56 mm[Hg] Status: Comments: Location: ; Position: Weight 124 lb Status: Body Mass Index Calculated 25.92 kg/m2 Status: Body Surface Area Calculated 1.49 m2 Status: Results Date Description Value Details 28-Apr-2016 11:08 CBC w/ Auto Diff 7150 WBC 4.2 K/uL (Below low threshold) Range: 4.5-11.0 RBC 3.16 mil/uL (Below low threshold) Range: 3.60-5.00 HGB 10.5 g/dL (Below low threshold) Range: 12.0-16.0 HCT 32.2 % (Below low threshold) Range: 36.0-48.0 MCV 101.7 fL (Above high threshold) Range: 80.0-99.0 MCH 33.3 pg (Above high threshold) Range: 27.3-32.5 MCHC 32.7 % Range: 32.0-36.0 RDW 14.0 % Range: 11.6-14.8 PLATELETS 160 K/uL Range: 150-400 MPV 9.8 fL Range: 6.0-11.0 %NEUTRO 60.3 % Range: 37.0-80.0 %LYMPHS 26.3 % Range: 13.0-50.0 %MONO 8.2 % Range: 0.0-12.0 %EOS 2.3 % Range: 0.0-7.0 %BASO 0.4 % Range: 0.0-2.5 %MARY 2.5 % Range: 0.0-5.0 NEUTRO 2.5 K/uL Range: 2.0-6.9 LYMPHS 1.1 K/uL Range: 0.6-3.4 MONOS 0.4 K/uL Range: 0.0-0.9 EOS 0.1 K/uL Range: 0.0-0.7 BASO 0.0 K/uL Range: 0.0-0.2 11:37 VITAMIN B12 3606 VITAMIN B12 1355 pg/mL (Above high threshold) Range: 211-911 11:37 FOLATE 3608 FOLATE 7.5 ng/mL Range: 5.4-20.8 11:37 FERRITIN 3025 FERRITIN 27 ng/mL Range: 10-291 11:39 Iron Panel with TIBC 1612 IRON 58 ug/dL Range: 50-170 TOTAL IRON BIND. CAPACITY 331 ug/dL Range: 250-450 % IRON SATURATION 18 % (Below low threshold) Range: 20-55 Plan of Care Name Dates Details Planned Observations Planned Goals not documented Planned Encounters Appointment; Provider: Magan Bowels M.D. On 23-Sep-2016 11:00 Appointment; Provider: Dar Love M.D.|VINCENT,LOY KAUR, On 10-Jun-2016 11:00 Appointment; Provider: Nuno Burgos M.D. On 04-Jun-2016 11:15 Appointment; Provider: Nuno Burgos M.D. On 06-May-2016 09:30 Instructions Name Dates Details Instructions not documented Encounters Appointment; Dar Love M.D.|VINCENT,LOY KAUR, Encounter Diagnosis: Problem not documented On 28-Apr-2016 [...] documented On 28-Feb-2016 14:30 Appointment; Dar Love M.D.|FACP|M.D.,FACP|MSachaDSacha,FACP, Encounter Diagnosis: Problem not documented On 27-Feb-2016 10:30 Appointment; Theo Roa D.P.T. Encounter Diagnosis: Problem not documented On 22-Feb-2016 14:00 Appointment; Theo Roa D.P.T. Encounter Diagnosis: Problem not documented On 13-Feb-2016 14:30 Appointment; Theo Roa D.PSachaT. Encounter Diagnosis: Problem not documented On 11-Feb-2016 14:30 Appointment; Theo Roa D.PYe. Encounter Diagnosis: Problem not documented On 07-Feb-2016 13:30 Appointment; Jerrod Mena M.D. Encounter Diagnosis: Problem not documented On 04-Feb-2016 09:15 Appointment; Theo Roa D.P.T. Encounter Diagnosis: Problem not documented On 31-Jan-2016 10:30 Appointment; Theo Roa D.PYe. Encounter Diagnosis: Problem not documented On 29-Jan-2016 10:30 Appointment; Theo Roa D.PSachaT. Encounter Diagnosis: Problem not documented On 22-Jan-2016 11:30 Appointment; Theo Roa D.PYe. Encounter Diagnosis: Problem not documented On 17-Jan-2016 10:30 Appointment; Dar Love M.D.|FACP|M.D.,FACP|MSachaDSacha,FACP, Encounter Diagnosis: Problem not documented On 16-Jan-2016 14:45 Appointment; Theo Roa D.PSachaT. Encounter Diagnosis: Problem not documented On 15-Jan-2016 10:30 Appointment; Theo Roa D.P.T. Encounter Diagnosis: Problem not documented On 10:30 Appointment; Theo Roa D.P.T. Encounter Diagnosis: Problem not documented On 10:30 Appointment; Theo Roa D.P.T. Encounter Diagnosis: Problem not documented On 15:00 Appointment; Jerrod Mena M.D. Encounter Diagnosis: Problem not documented On 10:30 Appointment; Theo Roa D.P.T. Encounter Diagnosis: Problem not documented On 13:00 Appointment; Theo Roa D.P.T. Encounter Diagnosis: Problem not documented On 14:00 Appointment; Theo Roa D.P.T. Encounter Diagnosis: Problem not documented On 11:00 Appointment; Theo oRa D.P.T. Encounter Diagnosis: Problem not documented On 11:00 Appointment; Theo Roa D.P.T. Encounter Diagnosis: Problem not documented On 16:00 Appointment; Dar Love M.D.|LOY|Bear,VINCENT,LOY, Encounter Diagnosis: Problem not documented On 10:45 [...] documented On 03-Oct-2014 09:15 Appointment; Jerrod Rasmussen M.D. Encounter Diagnosis: Problem not documented On 16-Sep-2014 08:20 Appointment; Ric Martinez M.D. Encounter Diagnosis: Problem not documented On 17-Aug-2014 10:30 Appointment; Nuno Burgos M.D. Encounter Diagnosis: Problem not documented On 08-Aug-2014 15:30 Appointment; Ric Vines M.D. Encounter Diagnosis: Problem not documented On 05-Jul-2014 15:30 Appointment; Nuno Burgos M.D. Encounter Diagnosis: Problem not documented On 03-Jul-2014 16:00 Appointment; Neeta Sosa M.D. Encounter Diagnosis: Problem not documented On 30-Jun-2014 10:30 Appointment; Magan Bowles M.D. Encounter Diagnosis: Problem not documented On 20-Jun-2014 10:15 Appointment; Nuno Burgos M.D. Encounter Diagnosis: Problem not documented On 05-Jun-2014 09:00"
--- OUTSIDE RECORDS SUMMARY | 2016-11-05 13:40 | XMS REPORT | Summary of Care ---
Author Author Ric Martinez M.D. Organization Unknown Address [address], [place] [id number] Phone Unavailable Care Team Providers Care Biomass Power Plant Manager Name Role Phone Ric Vines M.D. Unavailable [...] laboratory test result (796.4, R89.9) Status: Active Hip pain (719.45, M25.559) Status: Active Depression (311, F32.9) Status: Active Esophageal reflux (530.81, K21.9) Status: Active 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, I25.10) Status: Active Osteoporosis (733.00, M81.0) Status: Active Need for pneumococcal vaccine (V03.82, Z23) Status: Active Monoclonal gammopathy (273.1, D47.2) Status: Active URI, acute (465.9, J06.9) Status: Active Arthralgia of multiple sites (719.49, M25.50) Status: Active Bursitis of hip (726.5, M70.70) Status: Active Trigger finger, acquired (727.03, M65.30) Status: Active Lower back pain (724.2, M54.5) Status: Active Pain in hand (729.5, M79.643) Status: Active Ganglion (727.43, M67.40) Status: Active Tendonitis of finger (727.05, M77.9) Status: Active Hypercholesterolemia (272.0, E78.0) Status: Active Hypertension (401.9, I10) Status: Active Spinal stenosis (724.00, M48.00) Status: Active Ulcerative pancolitis (556.6, K51.90) Status: Active Fatigue (780.79, R53.83) Status: Active Dizziness (780.4, R42) Status: Active CKD (chronic kidney disease), stage IV (585.4, N18.4) Status: Active Anemia (285.9, D64.9) Status: Active Essential hypertension (401.9, I10) Status: Active Hypokalemia (276.8, E87.6) Status: Active Anemia due to chronic renal failure treated with erythropoietin (285.21, 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 Medications Name Dates Details Omeprazole [...] Refills: 3 Ric Vines M.D.* Started 03-Oct-2013 ActiveLisinopril 5 MG Oral Tablet TAKE 1 TABLET DAILY. * Refills: 0 * Started 17-Aug-2014 ActiveAtorvastatin Calcium 80 MG Oral Tablet TAKE 1 TABLET DAILY. * Quantity: 90 Refills: 3 Ric Vines M.D.* Started 07-Mar-2014 Active Allergies and Adverse Reactions Name Dates [...] of Complete Colonoscopy Completed:26-Jun-2011 RENAL PROFILE 1240 Ordered:21-Feb-2015 HEMOGRAM 7305 Ordered:21-Feb-2015 CBC w/ Auto Diff 7150 Ordered:27-Feb-2015 MAGNESIUM 1260 Ordered:27-Feb-2015 RENAL PROFILE 1240 Ordered:27-Feb-2015 BASIC METABOLIC PROFILE 1210 Ordered:26-Feb-2015 CBC w/ Auto Diff 7150 Ordered:26-Feb-2015 LIPID PROFILE 1184 Ordered:26-Feb-2015 AST 1180 Ordered:26-Feb-2015 ERYTHROCYTE SED RATE 7800 Ordered:13-Feb-2015 Immunization Name Dates Details Pneumo (Pneumovax) Lot #: [id number] Administered on:10-Feb-2012 Fluzone Quadrivalent 0.5 ML Intramuscular Suspension Lot #: [id number] Administered on:16-May-2013 Prevnar 13 Intramuscular Suspension Lot #: [id number] Administered on:05-Jul-2014 Family History Unknown Family Member* [...] smoker Vital Signs Date Test Result Details 27-Feb-2015 09:31 BP Systolic 130 mm[Hg] Status: [...] low threshold) Range: >60 EST GFR, NON-AFR CROATIAN 26 ml/min (Below low threshold) Range: >60 Comments: EST GFR is reported in ml/min per 1.73 m2 of body surface area. For -[place], please multiple result by 1.2.----- BUN:CREATININE RATIO 10 (Better) GLUCOSE 132 mg/dL (Above high threshold) Range: 70-100 ALBUMIN 4.1 g/dL (Better) Range: 3.4-5.0 PHOSPHORUS 3.0 mg/dL (Better) Range: 2.6-4.7 Comments: Please note new reference ranges effective 2015.----- CALCIUM 9.4 mg/dL (Better) Range: 8.5-10.1 Plan of Care Planned Observations* Name Dates Details Planned Goals not documented Goal Planned Encounters* Appointment; Provider: Ric Martinez On 15-Aug-2015 10:30 * Appointment; Provider: Nuno Burgos On 16-May-2015 11:15 * Appointment; Provider: Magan Bowles On 26-Apr-2015 10:15 * Appointment; Provider: Nuno Burgos On 09-Mar-2015 10:00 * Appointment; Provider: Ric Vines On 07-Mar-2015 09:45 * Appointment; Provider: Carol Tellez On 28-May-2011 13:00 * Appointment; Provider: Carol Tellez On 14-May-2011 14:00 * Appointment; Provider: Carol Tellez On 16-Apr-2011 13:45 * Appointment; Provider: Kelvin Davis On 18-Sep-2010 14:30 * Appointment; Provider: Kayla Siddiqi On 18-Sep-2010 13:00 Instructions * Instructions not documented Encounters Appointment; Nuno Burgos Encounter Diagnosis: Problem not [...] Problem not documented On 05-Jun-2014 09:00 Appointment; Florence Burgosrick Encounter Diagnosis: Problem not documented On 02-May-2014 [...] not documented On 28-Jun-2013 10:30 Appointment; Nuno Brugos Encounter Diagnosis: Problem not documented On 31-May-2013 [...]
--- OUTSIDE RECORDS SUMMARY | 2016-11-05 13:40 | XMS REPORT | Summary of Care ---
Author Author Ivan Sifuentes, FACP, ,, Dar F Organization Unknown Address Unknown Phone Unavailable Care Team Providers Care Client Account Assistant Name Role Phone Rajesh Sifuentes, Jerrod Unavailable Unavailable Ivan Sifuentes, LOY, ,, F Unavailable Unavailable Ric Vines M.D. 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 * Quantity: 90 [...] Ric Vines M.D. * Start 13-Apr-2015 Active Naproxen 500 MG Oral Tablet TAKE 1 TABLET EVERY 12 HOURS DAILY. * Quantity: 60 Refills: 1 Jerrod Mena M.D. * Start 04-Feb-2016 Active Zoster (Zostavax) inject SQ * Quantity: 1 Refills: 0 Ric Vines M.D. * Start 04-Mar-2016 Active 1 Solution Reconstituted Vial Gabapentin 100 MG Oral Capsule TAKE 1 CAPSULE AT BEDTIME. * Quantity: 90 Refills: 0 Ric Vines M.D. * Start 28-May-2016 Active Allergies and Adverse Reactions Name Dates [...] Replacement History of Complete Colonoscopy Completed: 26-Jun-2011 CBC w/ Auto Diff 7150 Ordered: 04-Jun-2016 RENAL PROFILE 1240 Ordered: 04-Jun-2016 Iron Panel with TIBC 1612 Ordered: 04-Jun-2016 ORTHO SHOULDER LEFT Ordered: 04-Jun-2016 Immunization Name Dates Details Pneumo (Pneumovax) Lot #: [id number] on: 10-Feb-2012 Fluzone Quadrivalent 0.5 ML Intramuscular Suspension Lot #: [id number] on: 16-May-2013 Prevnar 13 Intramuscular Suspension Lot #: [id number] on: 05-Jul-2014 Fluzone High-Dose 0.5 ML Intramuscular Suspension Prefilled Syringe Lot #: [id number] on: 07-Mar-2015 Tdap (Adacel) Lot #: [id number] on: 07-Mar-2015 Fluzone High-Dose 0.5 ML Intramuscular Suspension Prefilled Syringe Lot #: [id number] on: 04-Mar-2016 Zoster (Zostavax) Lot #: [id number] on: 04-Mar-2016 Family History Name Dates Details [...] smoker Vital Signs Date Test Result Details 04-Jun-2016 11:36 BP Systolic 120 mm[Hg] Status: Comments: Location: ; Position: BP Diastolic 64 mm[Hg] Status: Comments: Location: ; Position: Heart Rate 80 /min Status: Comments: Location: ; Weight 127 lb Status: Body Mass Index Calculated 26.54 kg/m2 Status: Body Surface Area Calculated 1.5 m2 Status: 28-May-2016 11:08 BP Systolic 120 mm[Hg] Status: Comments: Location: ; Position: BP Diastolic 72 mm[Hg] Status: Comments: Location: ; Position: Temperature 36.7 c Status: Comments: Method: Heart Rate 88 /min Status: Comments: Location: ; Physical Findings 97 Status: Comments: O2 Saturation 13-May-2016 11:16 BP Systolic 124 mm[Hg] Status: Comments: Location: ; Position: BP Diastolic 72 mm[Hg] Status: Comments: Location: ; Position: Temperature 36.7 c Status: Heart Rate 85 /min Status: Comments: Location: ; Physical Findings 93 Status: Comments: O2 Saturation Results Date Description Value Details 13-May-2016 12:15 CBC w/ Auto Diff 7150 WBC 3.0 K/uL (Below low threshold) Range: 4.5-11.0 RBC 3.28 mil/uL (Below low threshold) Range: 3.60-5.00 HGB 10.8 g/dL (Below low threshold) Range: 12.0-16.0 HCT 32.7 % (Below low threshold) Range: 36.0-48.0 MCV 99.9 fL (Above high threshold) Range: 80.0-99.0 MCH 33.0 pg (Above high threshold) Range: 27.3-32.5 MCHC 33.0 % Range: 32.0-36.0 RDW 14.3 % Range: 11.6-14.8 PLATELETS 160 K/uL Range: 150-400 MPV 10.0 fL Range: 6.0-11.0 %NEUTRO 60.7 % Range: 37.0-80.0 %LYMPHS 27.4 % Range: 13.0-50.0 %MONO 7.2 % Range: 0.0-12.0 %EOS 2.2 % Range: 0.0-7.0 %BASO 0.6 % Range: 0.0-2.5 %MARY 1.9 % Range: 0.0-5.0 NEUTRO 1.8 K/uL (Below low threshold) Range: 2.0-6.9 LYMPHS 0.8 K/uL Range: 0.6-3.4 MONOS 0.2 K/uL Range: 0.0-0.9 EOS 0.1 K/uL Range: 0.0-0.7 BASO 0.0 K/uL Range: 0.0-0.2 12:34 BASIC METABOLIC PROFILE 1210 SODIUM 140 mmol/L Range: 133-144 POTASSIUM 4.0 mmol/L Range: 3.5-5.1 CHLORIDE 101 mmol/L Range: 98-110 CARBON DIOXIDE 30.8 mmol/L Range: 23.0-33.0 ANION GAP 8 mmol/L Range: 6-16 BUN 20 mg/dL (Above high threshold) Range: 7-18 CREATININE, SERUM 1.79 mg/dL (Above high threshold) Range: 0.55-1.02 EST GFR, 33 ml/min (Below low threshold) Range: >60 EST GFR, NON-AFR BAHRAINI 27 ml/min (Below low threshold) Range: >60 Comments: EST GFR is reported in ml/min per 1.73 m2 of body surface area. ----- BUN:CREATININE RATIO 11 GLUCOSE 91 mg/dL Range: 70-100 CALCIUM 9.5 mg/dL Range: 8.5-10.1 12:43 THYROID STIM. HORMONE 3602 THYROID STIM. HORMONE 4.063 uIU/mL Range: 0.550-4.780 Comments: No established reference ranges for infants and children <2 years of age----- 12:43 VITAMIN B12 3606 VITAMIN B12 1650 pg/mL (Above high threshold) Range: 211-911 12:43 FOLATE 3608 FOLATE 12.2 ng/mL Range: 5.4-20.8 15-May-2016 08:15 Immunofixation, Serum [id number] Comments: Testing performed at : [DA] [facility] [address] [place] [address], [place], [address], , Radiology Resident: ZHEN Saleem MD IMMUNOFIXATION RESULT, SERUM Comment Comments: An apparent normal immunofixation pattern.----- IMMUNOGLOBULIN G, QN, SERUM 544 mg/dL (Below low threshold) Range: 700- 1600 IMMUNOGLOBULIN A, QN, SERUM 248 mg/dL Range: 64-422 IMMUNOGLOBULIN M, QN, SERUM 41 mg/dL Range: 26-217 08:15 Immunofixation, Urine [id number] Comments: Testing performed at: [DA] [facility] [place], [address] [place] [address], [place], [address], Phone: , Radiology Resident: ZHEN Saleem MD KRYSTAL INTERPRETATION:U Comment Comments: An apparent normal immunofixation pattern.----- 03-Jun-2016 12:13 CBC w/ Auto Diff 7150 WBC 3.0 K/uL (Below low threshold) Range: 4.5-11.0 RBC 3.04 mil/uL (Below low threshold) Range: 3.60-5.00 HGB 9.9 g/dL (Below low threshold) Range: 12.0-16.0 HCT 29.6 % (Below low threshold) Range: 36.0-48.0 MCV 97.4 fL Range: 80.0-99.0 MCH 32.6 pg (Above high threshold) Range: 27.3-32.5 MCHC 33.5 % Range: 32.0-36.0 RDW 14.7 % Range: 11.6-14.8 PLATELETS 153 K/uL Range: 150-400 MPV 10.5 fL Range: 6.0-11.0 %NEUTRO 57.5 % Range: 37.0-80.0 %LYMPHS 27.8 % Range: 13.0-50.0 %MONO 8.1 % Range: 0.0-12.0 %EOS 3.0 % Range: 0.0-7.0 %BASO 0.4 % Range: 0.0-2.5 %MARY 3.2 % Range: 0.0-5.0 NEUTRO 1.7 K/uL (Below low threshold) Range: 2.0-6.9 LYMPHS 0.8 K/uL Range: 0.6-3.4 MONOS 0.3 K/uL Range: 0.0-0.9 EOS 0.1 K/uL Range: 0.0-0.7 BASO 0.0 K/uL Range: 0.0-0.2 12:33 RENAL PROFILE 1240 SODIUM 140 mmol/L Range: 133-144 POTASSIUM 3.9 mmol/L Range: 3.5-5.1 CHLORIDE 101 mmol/L Range: 98-110 CARBON DIOXIDE 30.3 mmol/L Range: 23.0-33.0 ANION GAP 9 mmol/L Range: 6-16 BUN 14 mg/dL Range: 7-18 CREATININE, SERUM 1.39 mg/dL (Above high threshold) Range: 0.55-1.02 EST GFR, 44 ml/min (Below low threshold) Range: >60 EST GFR, NON-AFR BAHRAINI 36 ml/min (Below low threshold) Range: >60 Comments: EST GFR is reported in ml/min per 1.73 m2 of body surface area. ----- BUN:CREATININE RATIO 10 GLUCOSE 101 mg/dL (Above high threshold) Range: 70-100 ALBUMIN 3.6 g/dL Range: 3.4-5.0 PHOSPHORUS 2.7 mg/dL Range: 2.6-4.7 CALCIUM 8.7 mg/dL Range: 8.5-10.1 04-Jun-2016 16:47 XRay SI JOINTS Comments: Exam Date: 06/04/2016 11: 44Dictation Date: 06/04/2016 16:47 X SI JOINTS (MIN 3V) 16:48 XRay SHOULDER-Left Comments: Exam Date: 06/04/2016 11:43Dictation Date : 06/04/2016 16:48 X SHOULDER COMP (MIN 2V) LT 10-Jun-2016 11:23 CBC w/ Auto Diff 7150 WBC 4.3 K/uL (Below low threshold) Range: 4.5-11.0 RBC 3.04 mil/uL (Below low threshold) Range: 3.60-5.00 HGB 9.8 g/dL (Below low threshold) Range: 12.0-16.0 HCT 30.3 % (Below low threshold) Range: 36.0-48.0 MCV 99.4 fL (Above high threshold) Range: 80.0-99.0 MCH 32.1 pg Range: 27.3-32.5 MCHC 32.3 % Range: 32.0-36.0 RDW 14.9 % (Above high threshold) Range: 11.6-14.8 PLATELETS 173 K/uL Range: 150-400 MPV 10.0 fL Range: 6.0-11.0 %NEUTRO 61.2 % Range: 37.0-80.0 %LYMPHS 25.8 % Range: 13.0-50.0 %MONO 7.5 % Range: 0.0-12.0 %EOS 3.0 % Range: 0.0-7.0 %BASO 0.3 % Range: 0.0-2.5 %MARY 2.3 % Range: 0.0-5.0 NEUTRO 2.6 K/uL Range: 2.0-6.9 LYMPHS 1.1 K/uL Range: 0.6-3.4 MONOS 0.3 K/uL Range: 0.0-0.9 EOS 0.1 K/uL Range: 0.0-0.7 BASO 0.0 K/uL Range: 0.0-0.2 Plan of Care Name Dates Details Planned Observations Planned Goals not documented Planned Encounters Appointment; Provider: Ric Vines M.D. On 26-Sep-2016 11:00 Appointment; Provider: Magan Bowles M.D. On 23-Sep-2016 11:00 Appointment; Provider: Nuno Burgos M.D. On 15-Jul-2016 14:30 Interventions Provided Labs/Procedures/Imaging* CBC w/ Auto Diff 7150; Done: Jun 10 2016 11:13AM Instructions Name Dates Details Instructions not documented Encounters Appointment; Magan Bowles M.D. Encounter Diagnosis: Problem [...] documented On 28-Feb-2016 14:30 Appointment; Dar Love M.D.|LOY|Bear,VINCENT,LOY, Encounter Diagnosis: Problem not documented On 27-Feb-2016 10:30 Appointment; Theo Roa D.P.T. Encounter Diagnosis: Problem not documented On 22-Feb-2016 14:00 Appointment; Theo Roa D.P.T. Encounter Diagnosis: Problem not documented On 13-Feb-2016 14:30 Appointment; Theo Roa D.PAlyssa Encounter Diagnosis: Problem not documented On 11-Feb-2016 14:30 Appointment; Theo Roa D.PAlyssa Encounter Diagnosis: Problem not documented On 07-Feb-2016 13:30 Appointment; Jerrod Mena M.D. Encounter Diagnosis: Problem not documented On 04-Feb-2016 09:15 Appointment; Theo Roa D.P.T. Encounter Diagnosis: Problem not documented On 31-Jan-2016 10:30 Appointment; Theo Roa D.PAlyssa Encounter Diagnosis: Problem not documented On 29-Jan-2016 10:30 Appointment; Theo Roa D.P.T. Encounter Diagnosis: Problem not documented On 22-Jan-2016 11:30 Appointment; Theo Roa D.P.T. Encounter Diagnosis: Problem not documented On 17-Jan-2016 10:30 Appointment; Dar Love M.D.|FACP|M.D.,FACP|Bear,FACP, Encounter Diagnosis: Problem not documented On 16-Jan-2016 14:45 Appointment; Theo Roa D.PYe. Encounter Diagnosis: Problem not documented On 15-Jan-2016 [...] not documented On 16:00 Appointment; Dar Love M.D.|FACP|MSachaD.,FACP|Bear,FACP, Encounter Diagnosis: Problem not documented On 10:45 [...] Encounter Diagnosis: Problem not documented On 20-Jun-2014 10:15"
--- OUTSIDE RECORDS SUMMARY | 2016-11-05 13:40 | XMS REPORT | Summary of Care ---
Author Author Wilbur Sifuentes, Magan Organization Unknown Address Unknown Phone Unavailable Care Team Providers Care Guest House Manager Name Role Phone Ric Vines M.D. 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 Peripheral neuropathy (356.9, G62.9) Status: Active Pain pelvic (R10.2) Status: Active Fall (E888.9, W19.XXXA) Status: Active Macrocytosis (289.89, D75.89) Status: Active Anemia of renal disease (285.21, D63.1) Status: Active Arthralgia of multiple sites (719.49, M25.50) Status: Active Pain of left shoulder region (719.41, M25.512) Status: Active Tendinitis of left rotator cuff (726.10, M75.82) Status: Active Hypercholesterolemia (272.0, E78.00) Status: Active Depression (311, F32.9) Status: Active Left knee pain (719.46, M25.562) Status: Active CKD (chronic kidney disease) stage 3, GFR 30-59 ml/min (585.3, N18.3) Status: Active Hypertension (401.9, I10) Status: Active 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, 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 Never a smoker Status: Active 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, I25.10) Status: Active Nausea with vomiting (787.01, R11.2) Status: Active Diverticulitis of colon (562.11, K57.32) Status: Active Abdominal pain (789.00, R10.9) Status: Active Abdominal pain (789.00, R10.9) Status: Active Weight loss, unintentional (783.21, R63.4) Status: Active Acute renal failure (ARF) (584.9, N17.9) Status: Active Anorexia (783.0, R63.0) Status: Active Medications Name Dates Details Omeprazole [...] Refills: 0 Ric Vines M.D. * Start 25-Oct-2012 Active Furosemide 20 MG Oral Tablet TAKE 1/2 TABLET DAILY FOR SWELLING. * Quantity: 45 Refills: 3 Ric Vines M.D. Start 03-Nov-2012 Active SulfaSALAzine 500 MG Oral Tablet TAKE 2 TABLET Twice daily * Quantity: 360 Refills: 3 Ric Vines M.D. Start 03-Oct-2013 Active Zoster (Zostavax) inject SQ * Quantity: 1 Refills: 0 Ric Vines M.D. Start 04-Mar-2016 Active 1 Solution Reconstituted Vial Prolia 60 MG/ML Subcutaneous Solution INJECT SUBCUTANEOUSLY 60 MG / 1 ML EVERY 6 MONTHS * Quantity: 1 Refills: 0 Ric Vines M.D. Start 13-Apr-2015 Active Gabapentin 300 MG Oral Capsule take 1 capsule at HS with 100mg in the am * Quantity: 60 Refills: 0 Ric Vines M.D. Start 28-May-2016 Active Atorvastatin Calcium 80 MG Oral Tablet TAKE 1 TABLET DAILY. * Quantity: 90 Refills: 3 Ric Vines M.D. Start 07-Mar-2014 Active Lisinopril 5 MG Oral Tablet TAKE ONE HALF TAB ONCE DAILY * Quantity: 45 Refills: 3 Ric Vines M.D. Start 17-Aug-2014 Active Gabapentin 100 MG Oral Capsule TAKE 1 CAPSULE Every morning and 300mg at HS * Quantity: 30 Refills: 3 Ric Vines M.D. Start 15-Jul-2016 Active Normal Saline Flush 0.9 % Intravenous Solution 1 liter IV on 09-11-16 * Quantity: 1000 Refills: 0 Ric Vines M.D. Start 10-Sep-2016 Active TraMADol HCl - 50 [...] Quadrivalent 0.5 ML Intramuscular Suspension Lot #: [id number] on: 16-May-2013 Prevnar 13 Intramuscular Suspension Lot #: [id number] on: 05-Jul-2014 Fluzone High-Dose 0.5 ML Intramuscular Suspension Prefilled Syringe Lot #: [id number] on: 07-Mar-2015 Tdap (Adacel) Lot #: [id number] on: 07-Mar-2015 Fluzone High-Dose 0.5 ML Intramuscular Suspension Prefilled Syringe Lot #: [id number] on: 04-Mar-2016 Zoster (Zostavax) Lot #: [id number] on: 04-Mar-2016 Family History Name Dates Details [...] low threshold) Range: >60 EST GFR, NON-AFR [place] 22 ml/min (Below low threshold) Range: >60 [...] low threshold) Range: >60 EST GFR, NON-AFR [place] 33 ml/min (Below low threshold) Range: >60 [...] Burgos M.D. On 11-Nov-2016 11:30 Appointment; Provider: Nuno Burgos M.D. On 14-Oct-2016 09:30 Appointment; Provider: Ric Vines M.D. On 26-Sep-2016 11:00 Appointment; Provider: Avila Arreola M.D. On 23-Sep-2016 11:30 Appointment; Provider: Ondina Stewart On 23-Sep-2016 11:00 Interventions Provided Medication Changes* TraMADol HCl - 50 MG Oral Tablet - Renew Instructions Name Dates Details Instructions not documented Encounters Appointment; Nuno Burgos M.D. Encounter Diagnosis: Problem not documented On 15-Sep-2016 09:30 Appointment; Ric Vines M.D. Encounter Diagnosis: Problem not documented On 12-Sep-2016 13:45 Appointment; Ric Vines M.D. Encounter Diagnosis: Problem not documented On 10-Sep-2016 15:30 Appointment; Nuno Burgos M.D. Encounter Diagnosis: Problem not documented On 12-Aug-2016 09:00 Appointment; Dar Love M.D.|FACP|M.D.,FACP|M.DSacha,FACP, Encounter Diagnosis: Problem not documented On 22-Jul-2016 11:15 Appointment; Nuno Burgos M.D. Encounter Diagnosis: Problem not documented On 15-Jul-2016 14:30 Appointment; Magan Bowles M.D. Encounter Diagnosis: Problem not documented On 01-Jul-2016 15:45 Appointment; Dar Love M.D.|FACP|M.D.,FACP|M.DSacha,FACP, Encounter Diagnosis: Problem not documented On 10-Jun-2016 [...] documented On 28-Feb-2016 14:30 Appointment; Dar Love M.D.|FACP|M.D.,FACP|M.D.,FACP, Encounter Diagnosis: Problem not documented On 27-Feb-2016 10:30 Appointment; Theo Roa D.PSachaT. Encounter Diagnosis: Problem not documented On 22-Feb-2016 14:00 Appointment; Theo Roa D.PYe. Encounter Diagnosis: Problem not documented On 13-Feb-2016 [...] documented On 29-Jan-2016 10:30 Appointment; Theo Roa D.PYe. Encounter Diagnosis: Problem not documented On 22-Jan-2016 11:30 Appointment; Theo Roa D.P.Juan. Encounter Diagnosis: Problem not documented On 17-Jan-2016 10:30 Appointment; Dar Love M.D.|FACP|M.D.,FACP|M.Saloni.,FACP, Encounter Diagnosis: Problem not documented On 16-Jan-2016 14:45 Appointment; Theo Roa D.P.T. Encounter Diagnosis: Problem not documented On 15-Jan-2016 10:30 Appointment; Theo Roa D.PYe. Encounter Diagnosis: Problem not documented On 10:30 Appointment; Theo Roa D.PSachaT. Encounter Diagnosis: Problem not documented On 10:30 [...] not documented On 16:00 Appointment; Dar Love M.D.|VINCENT,VINCENT,LOY, Encounter Diagnosis: Problem not documented On 10:45 [...]
--- OUTSIDE RECORDS SUMMARY | 2016-11-05 13:41 | XMS REPORT | Summary of Care ---
Author Author Theo Roa D.P.T. Organization Unknown Address [address] [place], [place] [id number] Phone Unavailable Care Team Providers Care Dial Marker Name Role Phone Theo Roa D.P.T. Unavailable Unavailable Ric Vines M.D. Unavailable Unavailable [...] of lumbar region (738.4, M43.16) Status: Active Anserine bursitis (726.61, M70.50) Status: Active Left knee pain (719.46, M25.562) Status: Active 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, 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 Macrocytosis (289.89, D75.89) Status: Active Leukopenia (288.50, D72.819) Status: Active Medications Name Dates Details Omeprazole 40 MG Oral Capsule Delayed Release Take 1 capsule by mouth daily. Quantity: 90 Ric Vines M.D. * Start 18-Jun-2010 Active Venlafaxine HCl ER 75 MG Oral Capsule Extended Release 24 Hour TAKE 1 CAPSULE BY MOUTH DAILY * Quantity: 90 Refills: 3 Ric Vines M.D. Start 29-Aug-2011 Active Osteo Bi-Flex Triple Strength Oral Tablet TAKE 1 TABLET DAILY DIRECTED. * Refills: 0 Ric Vines M.D. * Start 10-Feb-2012 Active Calcium 600+D3 600-200 MG-UNIT Oral Tablet TAKE 1 TABLET THREE TIMES A DAY * Refills: 0 Ric Vines M.D. Start 10-Feb-2012 Active B-12 500 MCG Oral Tablet TAKE 1 TABLET DAILY. * Refills: 0 Ric Vines M.D. * Start 21-Jun-2012 Active Citalopram Hydrobromide 20 MG Oral Tablet TAKE 1 TABLET DAILY. * Quantity: 90 Refills: 3 Ric Vines M.D. * Start 25-Oct-2012 Active Multi-Vitamins Oral Tablet TAKE 1 TABLET DAILY. * Refills: 0 Ric Vines M.D. Start 25-Oct-2012 Active Furosemide 20 MG Oral Tablet TAKE 1 TABLET DAILY FOR SWELLING. * Quantity: 90 Refills: 3 Ric Vines M.D. Start 03-Nov-2012 Active SulfaSALAzine 500 MG Oral Tablet TAKE 2 TABLET Twice daily * Quantity: 360 Refills: 3 Ric Vines M.D. Start 03-Oct-2013 Active Amoxicillin 500 MG Oral Capsule TAKE 4 CAPSULES BY MOUTH 1 HOUR PRIOR TO PROCEDURE * Quantity: 12 Refills: 0 Ric Vines M.D. Start 26-Jan-2014 Active Atorvastatin Calcium 80 MG Oral Tablet [...] 0 Ric Vines M.D. Start 13-Apr-2015 Active Allergies and Adverse Reactions Name [...] Replacement History of Complete Colonoscopy Completed: 26-Jun-2011 Iron Panel with TIBC 1612 Ordered: RENAL PROFILE 1240 Ordered: HEMOGRAM 7305 Ordered: CBC w/ Auto Diff 7150 Ordered: 16-Jan-2016 Comprehensive Metabolic Panel 1212 Ordered: 16-Jan-2016 FERRITIN 3025 Ordered: 16-Jan-2016 IRON 1254 Ordered: 16-Jan-2016 ORTHO KNEE LEFT (3 VIEWS ONLY) Ordered: BONE LA SCAN AND FLOW Ordered: 15-Jan-2016 Immunization Name Dates Details Pneumo (Pneumovax) Lot #: [id number] on: 10-Feb-2012 Fluzone Quadrivalent 0.5 ML Intramuscular Suspension Lot #: [id number] on: 16-May-2013 Prevnar 13 Intramuscular Suspension Lot #: [id number] on: 05-Jul-2014 Fluzone High-Dose 0.5 ML Intramuscular Suspension Prefilled Syringe Lot #: [id number] on: 07-Mar-2015 Tdap (Adacel) Lot #: [id number] on: 07-Mar-2015 Family History Name Dates Details Family history [...] smoker Vital Signs Date Test Result Details 16-Jan-2016 14:27 BP Systolic 130 mm[Hg] Status: Comments: Location: ; Position: BP Diastolic 68 mm[Hg] Status: Comments: Location: ; Position: Temperature 97.7 f Status: Heart Rate 78 /min Status: Comments: Location: ; Weight 129 lb Status: Body Mass Index Calculated 26.96 kg/m2 Status: Body Surface Area Calculated 1.51 m2 Status: 10:29 BP Systolic 126 mm[Hg] Status: Comments: Location: ; Position: BP Diastolic 68 mm[Hg] Status: Comments: Location: ; Position: Heart Rate 82 /min Status: Comments: Location: ; Weight 131 lb Status: Body Mass Index Calculated 27.38 kg/m2 Status: Body Surface Area Calculated 1.52 m2 Status: Results Date Description Value Details 11:49 CBC w/ Auto Diff 7150 WBC 3.0 K/uL (Below low threshold) Range: 4.5-11.0 RBC 3.30 mil/uL (Below low threshold) Range: 3.60-5.00 HGB 10.9 g/dL (Below low threshold) Range: 12.0-16.0 HCT 33.6 % (Below low threshold) Range: 36.0-48.0 MCV 101.8 fL (Above high threshold) Range: 80.0-99.0 MCH 33.1 pg (Above high threshold) Range: 27.3-32.5 MCHC 32.5 % Range: 32.0-36.0 RDW 13.9 % Range: 11.6-14.8 PLATELETS 160 K/uL Range: 150-400 MPV 9.9 fL Range: 6.0-11.0 %NEUTRO 60.6 % Range: 37.0-80.0 %LYMPHS 27.1 % Range: 13.0-50.0 %MONO 8.4 % Range: 0.0-12.0 %EOS 1.6 % Range: 0.0-7.0 %BASO 0.4 % Range: 0.0-2.5 %MARY 1.9 % Range: 0.0-5.0 NEUTRO 1.8 K/uL (Below low threshold) Range: 2.0-6.9 LYMPHS 0.8 K/uL Range: 0.6-3.4 MONOS 0.3 K/uL Range: 0.0-0.9 EOS 0.1 K/uL Range: 0.0-0.7 BASO 0.0 K/uL Range: 0.0-0.2 12:15 C REACTIVE PROTEIN, CRP 2030 C REACTIVE PROTEIN 0.2 mg/dL Range: 0.0-0.9 12:17 ERYTHROCYTE SED RATE 7800 ERYTHROCYTE SED RATE 10 mm/60 min. Range: 0-20 08:27 CBC w/ Auto Diff 7150 WBC 2.9 K/uL (Below low threshold) Range: 4.5-11.0 RBC 3.29 mil/uL (Below low threshold) Range: 3.60-5.00 HGB 10.8 g/dL (Below low threshold) Range: 12.0-16.0 HCT 33.9 % (Below low threshold) Range: 36.0-48.0 MCV 103.2 fL (Above high threshold) Range: 80.0-99.0 MCH 32.9 pg (Above high threshold) Range: 27.3-32.5 MCHC 31.9 % (Below low threshold) Range: 32.0-36.0 RDW 14.0 % Range: 11.6-14.8 PLATELETS 169 K/uL Range: 150-400 MPV 10.0 fL Range: 6.0-11.0 %NEUTRO 53.3 % Range: 37.0-80.0 %LYMPHS 33.1 % Range: 13.0-50.0 %MONO 8.7 % Range: 0.0-12.0 %EOS 2.1 % Range: 0.0-7.0 %BASO 0.6 % Range: 0.0-2.5 %MARY 2.3 % Range: 0.0-5.0 NEUTRO 1.6 K/uL (Below low threshold) Range: 2.0-6.9 LYMPHS 1.0 K/uL Range: 0.6-3.4 MONOS 0.3 K/uL Range: 0.0-0.9 EOS 0.1 K/uL Range: 0.0-0.7 BASO 0.0 K/uL Range: 0.0-0.2 08:44 IRON 1254 IRON 99 ug/dL Range: 50-170 08:44 Comprehensive Metabolic Panel 1212 SODIUM 141 mmol/L Range: 133-144 POTASSIUM 4.4 mmol/L Range: 3.5-5.1 CHLORIDE 106 mmol/L Range: 98-110 CARBON DIOXIDE 28.6 mmol/L Range: 23.0-33.0 ANION GAP 6 mmol/L Range: 6-16 BUN 19 mg/dL (Above high threshold) Range: 7-18 CREATININE, SERUM 1.47 mg/dL (Above high threshold) Range: 0.55-1.02 Comments: Please note new reference ranges effective 2014.----- BUN:CREATININE RATIO 13 EST GFR, 41 ml/min (Below low threshold) Range: >60 EST GFR, NON-AFR [place] 34 ml/min (Below low threshold) Range: >60 Comments: EST GFR is reported in ml/min per 1.73 m2 of body surface area. For -[place], please multiple result by 1.2.----- GLUCOSE 94 mg/dL Range: 70-100 ALK PHOSPHATASE 51 U/L Range: 46-116 TOTAL BILIRUBIN 0.60 mg/dL Range: 0.20-1.00 AST 32 U/L Range: 8-35 ALT 24 U/L Range: 14-59 Comments: Please note new reference ranges. Effective 08/24/2014.----- ALBUMIN 4.1 g/dL Range: 3.4-5.0 TOTAL PROTEIN 6.5 g/dL Range: 6.4-8.2 A/G RATIO 1.7 units Range: 1.0-1.8 CALCIUM 8.7 mg/dL Range: 8.5-10.1 08:54 FERRITIN 3025 FERRITIN 29 ng/mL Range: 10-291 12:37 XN BONE FLOW ( 3 PHASE ) Comments: Exam Date: 01/11/2016 07: 38Dictation Date: 01/11/2016 12:37 Plan of Care Name Dates Details Planned Observations Planned Goals not documented Planned Encounters Appointment; Provider: Nuno Burgos M.D. On 04-Mar-2016 13:45 Appointment; Provider: Ric Vines M.D. On 04-Mar-2016 10:00 Appointment; Provider: Dar Love M.D.|VINCENT,VINCENTLOY, On 27-Feb-2016 10:30 Appointment; Provider: Theo Roa D.P.T. On 31-Jan-2016 10:30 Appointment; Provider: Theo Roa D.P.T. On 29-Jan-2016 10:30 Appointment; Provider: Schedule Radiology On 24-Jan-2016 13:00 Appointment; Provider: Schedule Radiology On 24-Jan-2016 10:00 Instructions Name Dates Details Instructions not documented Encounters Appointment; Theo Roa D.P.T. Encounter Diagnosis: Problem not documented On 17-Jan-2016 10:30 Appointment; Dar Love M.D.|FACP|Bear,FACP|Bear,FACP, Encounter Diagnosis: Problem not documented On 16-Jan-2016 [...] documented On 05-Jun-2014 09:00 Appointment; Nuno Burgos M.D. Encounter Diagnosis: Problem not documented On 02-May-2014 11:15 Appointment; Ric Martinez M.D. Encounter Diagnosis: Problem not documented On 19-Apr-2014 09:30 Appointment; Nuno Burgos M.D. Encounter Diagnosis: Problem not documented On 05-Apr-2014 09:30 Appointment; Ric Vines M.D. Encounter Diagnosis: Problem not documented On 07-Mar-2014 10:00 Appointment; Magan Bowles M.D. Encounter Diagnosis: Problem not documented On 20-Feb-2014 09:45 Appointment; Ric Vines M.D. Encounter Diagnosis: Problem not documented On 08-Feb-2014 10:00 Appointment; Nuno Burgos M.D. Encounter Diagnosis: Problem not documented On 30-Jan-2014 13:15"
--- OUTSIDE RECORDS SUMMARY | 2016-11-05 13:41 | XMS REPORT | Summary of Care ---
Author Author Lawrence APRN, Darla R Organization Unknown Address [address], [place] [id number] Phone Unavailable Care Team Providers Care Electric Meter Technician Name Role Phone Ric Vines M.D. Unavailable [...] Status: Active Hypokalemia (276.8, E87.6) Status: Active Pre-operative exam (V72.84, Z01.818) Status: [...] Active Ulcerative pancolitis (556.6, K51.90) Status: Active CKD (chronic kidney disease), stage III (585.3, N18.3) Status: Active Anemia (285.9, D64.9) Status: Active Medications Name Dates Details Omeprazole [...] Refills: 0 Ric Vines M.D.* Started 21-Jun-2012 ActiveMulti-Vitamins Oral Tablet TAKE 1 TABLET DAILY. * Refills: 0 Ric Vines M.D.* Started 25-Oct-2012 ActiveSulfaSALAzine 500 MG Oral Tablet TAKE 2 TABLET Twice daily * Quantity: 360 Refills: 3 Ric Vines M.D.* Started 03-Oct-2013 ActiveCitalopram Hydrobromide 20 MG Oral Tablet TAKE 1 TABLET DAILY. * Quantity: 90 Refills: 3 Ric Vines M.D.* Started 25-Oct-2012 ActiveLisinopril 5 MG Oral Tablet TAKE 1 TABLET DAILY. * Refills: 0 * Started 17-Aug-2014 ActiveFurosemide 20 MG Oral Tablet TAKE 1 TABLET DAILY NEEDED FOR SWELLING. * Quantity: 90 Refills: 3 Ric Vines M.D.* Started 03-Nov-2012 ActiveAtorvastatin Calcium 80 MG Oral Tablet TAKE [...] Quadrivalent 0.5 ML Intramuscular Suspension Lot #: [id number] Administered on:16-May-2013 Prevnar 13 Intramuscular Suspension Lot #: [id number] Administered on:05-Jul-2014 Family History Unknown Family Member* [...] smoker Vital Signs Date Test Result Details 11:15 BP Systolic 138 mm[Hg] Status: BP Diastolic 76 mm[Hg] Status: Heart Rate 88 /min Status: 11:14 BP Systolic 138 mm[Hg] Status: BP Diastolic 78 mm[Hg] Status: Heart Rate 80 /min Status: Weight 135.5 lb Status: Body Mass Index Calculated 27.37 kg/m2 Status: Body Surface Area Calculated 1.56 m2 Status: 07-Nov-2014 10:38 BP Systolic 132 mm[Hg] Status: BP Diastolic 72 mm[Hg] Status: Heart Rate 86 /min Status: Temperature 36.6 f Status: Weight 137 lb Status: O2 SAT 95 % Status: Body Mass Index Calculated 27.67 kg/m2 Status: Body Surface Area Calculated 1.57 m2 Status: 26-Oct-2014 11:22 BP Systolic 120 mm[Hg] Status: BP Diastolic 70 mm[Hg] Status: Weight 134 lb Status: Body Mass Index Calculated 27.06 kg/m2 Status: Body Surface Area Calculated 1.56 m2 Status: 18-Oct-2014 10:24 BP Systolic 130 mm[Hg] Status: BP Diastolic 72 mm[Hg] Status: Weight 135 lb Status: Body Mass Index Calculated 27.27 kg/m2 Status: Body Surface Area Calculated 1.56 m2 Status: Results Date Description Value Details 03-Nov-2014 09:50 CBC w/ Auto Diff 7150 Comments: Fastin hours WBC 4.0 K/uL (Below low threshold) Range: 4.5-11.0 RBC 3.57 mil/uL (Below low threshold) Range: 3.60-5.00 HGB 11.6 g/dL (Below low threshold) Range: 12.0-16.0 HCT 34.5 % (Below low threshold) Range: 36.0-48.0 MCV 96.6 fL (Better) Range: 80.0-99.0 MCH 32.5 pg (Better) Range: 27.3-32.5 MCHC 33.7 % (Better) Range: 32.0-36.0 RDW 13.8 % (Better) Range: 11.6-14.8 PLATELETS 198 K/uL (Better) Range: 150-400 MPV 9.6 fL (Better) Range: 6.0-11.0 %NEUTRO 67.6 % (Better) Range: 37.0-80.0 %LYMPHS 22.1 % (Better) Range: 13.0-50.0 %MONO 6.5 % (Better) Range: 0.0-12.0 %EOS 1.8 % (Better) Range: 0.0-7.0 %BASO 0.8 % (Better) Range: 0.0-2.5 %MARY 1.2 % (Better) Range: 0.0-5.0 NEUTRO 2.7 K/uL (Better) Range: 2.0-6.9 LYMPHS 0.9 K/uL (Better) Range: 0.6-3.4 MONOS 0.3 K/uL (Better) Range: 0.0-0.9 EOS 0.1 K/uL (Better) Range: 0.0-0.7 BASO 0.0 K/uL (Better) Range: 0.0-0.2 09:54 BASIC METABOLIC PROFILE 1210 Comments: Fastin hours SODIUM 140 mmol/L (Better) Range: 133-144 POTASSIUM 3.3 mmol/L (Below low threshold) Range: 3.5-5.1 CHLORIDE 102 mmol/L (Better) Range: 98-110 CARBON DIOXIDE 28.7 mmol/L (Better) Range: 23.0-33.0 ANION GAP 9 mmol/L (Better) Range: 6-16 BUN 20 mg/dL (Above high threshold) Range: 7-18 CREATININE, SERUM 1.05 mg/dL (Better) Range: 0.43-1.13 EST GFR, >60 ml/min (Better) Range: >60 EST GFR, NON-AFR [place] 50 ml/min (Below low threshold) Range: >60 Comments: EST GFR is reported in ml/min per 1.73 m2 of body surface area. For -[place], please multiple result by 1.2.----- BUN:CREATININE RATIO 19 (Better) GLUCOSE 94 mg/dL (Better) Range: 70-100 CALCIUM 8.7 mg/dL (Better) Range: 8.5-10.1 09:54 LIPID PROFILE 1184 Comments: Fastin hours CHOLESTEROL 197 mg/dL (Better) Range: <200 TRIGLYCERIDES 71 mg/dL (Better) Range: 30-200 HDL Cholesterol 87 mg/dL (Better) Range: >39 NON HDL CHOLESTEROL 110 (Better) CARDIAC RSK FACTOR 2.3 units (Below low threshold) Range: 4.4-5.0 LDL - CALCULATED 96 mg/dL (Better) Range: 0-130 10-Nov-2014 10:24 HEMOGRAM 7305 WBC 3.7 K/uL (Below low threshold) Range: 4.5-11.0 RBC 3.63 mil/uL (Better) Range: 3.60-5.00 HGB 11.4 g/dL (Below low threshold) Range: 12.0-16.0 HCT 35.1 % (Below low threshold) Range: 36.0-48.0 MCV 96.6 fL (Better) Range: 80.0-99.0 MCH 31.4 pg (Better) Range: 27.3-32.5 MCHC 32.5 % (Better) Range: 32.0-36.0 PLATELETS 144 K/uL (Below low threshold) Range: 150-400 10:45 RENAL PROFILE 1240 SODIUM 138 mmol/L (Better) Range: 133-144 POTASSIUM 3.8 mmol/L (Better) Range: 3.5-5.1 CHLORIDE 100 mmol/L (Better) Range: 98-110 CARBON DIOXIDE 30.8 mmol/L (Better) Range: 23.0-33.0 ANION GAP 7 mmol/L (Better) Range: 6-16 BUN 20 mg/dL (Above high threshold) Range: 7-18 CREATININE, SERUM 1.29 mg/dL (Better) Range: 0.70-1.30 Comments: Please note new reference ranges effective 2014.----- EST GFR, 48 ml/min (Below low threshold) Range: >60 EST GFR, NON-AFR [place] 40 ml/min (Below low threshold) Range: >60 Comments: EST GFR is reported in ml/min per 1.73 m2 of body surface area. For -[place]auruan, please multiple result by 1.2.----- BUN:CREATININE RATIO 16 (Better) GLUCOSE 96 mg/dL (Better) Range: 70-100 ALBUMIN 3.6 g/dL (Better) Range: 3.4-5.0 PHOSPHORUS 2.6 mg/dL (Better) Range: 2.5-4.9 CALCIUM 8.8 mg/dL (Better) Range: 8.5-10.1 Plan of Care Planned Observations* Name Dates Details Planned Goals not documented Goal Planned Encounters* Appointment; Provider: Magan Bowles On 26-Apr-2015 10:15 * Appointment; Provider: Ric Vines On 13-Mar-2015 10:30 * Appointment; Provider: Nuno Burgos On 13-Feb-2015 12:45 * Appointment; Provider: Ric Martinez On 13-Feb-2015 10:30 * Appointment; Provider: Nuno Burgos On 09:30 * Appointment; Provider: Carol Tellez On 28-May-2011 [...]
--- OUTSIDE RECORDS SUMMARY | 2016-11-05 13:41 | XMS REPORT | Summary of Care ---
Author Author Ric Vines M.D. Organization Unknown Address [address], [place] [address] Phone Unavailable Care Team Providers Care Business Machine Mechanic Name Role Phone Ric Vines M.D. Unavailable [...] Status: Active Anemia (285.9, D64.9) Status: Active Hip pain (719.45, M25.559) Status: [...] Tendonitis of finger (727.05, M77.9) Status: Active Medications Name Dates Details Omeprazole 40 MG Oral Capsule Delayed Release Take 1 capsule by mouth daily. Quantity: 90 Ruhlmann, Ric M.D.* Started 18-Jun-2010 ActiveAspirin 81 MG Oral Tablet TAKE 1 TABLET DAILY. * Refills: 0 * Started 26-May-2011 ActiveB-12 500 MCG Oral Tablet TAKE 1 [...] Twice daily * Quantity: 360 Refills: 3 iRc Vines M.D.* Started 03-Oct-2013 ActiveAmoxicillin 500 MG Oral Capsule TAKE 4 CAPSULES BY MOUTH 1 HOUR PRIOR TO PROCEDURE * Quantity: 12 Refills: 0 Ric Vines M.D.* Started 26-Jan-2014 ActiveLisinopril 5 MG Oral Tablet TAKE 1 TABLET DAILY. * Refills: 0 * Started 17-Aug-2014 ActiveFurosemide 20 MG Oral Tablet TAKE 1 TABLET DAILY NEEDED FOR SWELLING. * Quantity: 90 Refills: 3 Ric Vines M.D.* Started 03-Nov-2012 ActiveCalcium 600+D3 600-200 MG-UNIT Oral Tablet Take 1 tablet twice a day * Refills: 0 Ric Vines M.D.* Started 10-Feb-2012 ActiveOsteo Bi-Flex Triple Strength Oral Tablet TAKE 1 TABLET DAILY DIRECTED. * Refills: 0 Ric Vines M.D.* Started 10-Feb-2012 ActiveVenlafaxine HCl ER 75 MG Oral Capsule Extended Release 24 Hour TAKE 1 CAPSULE BY MOUTH DAILY * Quantity: 90 Refills: 3 Ric Vines M.D.* Started 29-Aug-2011 ActiveAtorvastatin Calcium 80 MG Oral Tablet TAKE [...] Colonoscopy Completed:26-Jun-2011 CBC w/ Auto Diff 7150 Ordered:30-Oct-2014 LIPID PROFILE 1184 Ordered:30-Oct-2014 BASIC METABOLIC PROFILE 1210 Ordered:30-Oct-2014 Immunization Name Dates Details Pneumo (Pneumovax) Lot #: [id number] Administered on:10-Feb-2012 Fluzone Quadrivalent 0.5 ML Intramuscular Suspension Lot #: [id number] Administered on:16-May-2013 Prevnar 13 Intramuscular Suspension Lot #: [id number] Administered on:05-Jul-2014 Family History Unknown Family Member* [...] smoker Vital Signs Date Test Result Details 26-Oct-2014 11:22 BP Systolic 120 mm[Hg] Status: [...] m2 Status: Results Date Description Value Details Results not documented Plan of Care Planned Observations* Name Dates Details Planned Goals not documented Goal Planned Encounters* Appointment; Provider: Magan Bowles On 26-Apr-2015 10:15 * Appointment; Provider: Ric Martinez On 13-Feb-2015 10:30 * Appointment; Provider: Nuno Burgos On 11:15 * Appointment; Provider: Ric Vines On 07-Nov-2014 10:30 * Appointment; Provider: Carol Tellez On 28-May-2011 [...]
--- OUTSIDE RECORDS SUMMARY | 2016-11-05 13:42 | XMS REPORT | Summary of Care ---
Author Author Lawrence APRN, Darla R Organization Unknown Address [address], [place] [id number] Phone Unavailable Care Team Providers Care Front Line Supervisor Name Role Phone Ric Vines M.D. Unavailable [...] Active Dizziness (780.4, R42) Status: Active 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, 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 CKD (chronic kidney disease), stage IV (585.4, N18.4) Status: Active Anemia (285.9, D64.9) Status: Active Essential hypertension (401.9, I10) Status: Active Hypokalemia (276.8, E87.6) Status: Active Medications Name Dates Details Omeprazole [...] Knee Replacement History of Complete Colonoscopy Completed:26-Jun-2011 Immunofixation, Serum [id number] Ordered:13-Feb-2015 Protein Elec + Interp, Serum [id number] Ordered:13-Feb-2015 ERYTHROCYTE SED RATE 7800 Ordered:13-Feb-2015 Immunization Name Dates Details Pneumo (Pneumovax) Lot #: [id number] Administered on:10-Feb-2012 Fluzone Quadrivalent 0.5 ML Intramuscular Suspension Lot #: [id number] Administered on:16-May-2013 Prevnar 13 Intramuscular Suspension Lot #: [id number] Administered on:05-Jul-2014 Family History Unknown Family Member* [...] smoker Vital Signs Date Test Result Details 13-Feb-2015 12:51 BP Systolic 140 mm[Hg] Status: [...] low threshold) Range: >60 EST GFR, NON-AFR COMORAN 26 ml/min (Below low threshold) Range: >60 Comments: EST GFR is reported in ml/min per 1.73 m2 of body surface area. For -Greek, please multiple result by 1.2.----- BUN:CREATININE RATIO [...] 10:30 * Appointment; Provider: Nuno Burgos On 13-Mar-2015 09:15 * Appointment; Provider: Carol Tellez On 28-May-2011 [...]
--- OUTSIDE RECORDS SUMMARY | 2016-11-05 13:42 | XMS REPORT | Summary of Care ---
Author Author Ric Vines M.D. Organization Unknown Address Unknown Phone Unavailable Care Team Providers Care Home Health Clinical Supervisor Name Role Phone Jerrod Mena M.D. Unavailable Unavailable Ric Vines M.D. Unavailable [...] Active Peripheral neuropathy (356.9, G62.9) Status: Active Medications Name Dates Details Omeprazole 40 MG Oral Capsule Delayed Release Take 1 capsule by mouth daily. Quantity: 90 Ric Vines M.D. Start 18-Jun-2010 Active Osteo Bi-Flex Triple Strength Oral Tablet TAKE 1 TABLET DAILY DIRECTED. * Refills: 0 Ric Vines M.D. * Start 10-Feb-2012 Active B-12 500 MCG Oral Tablet TAKE 1 TABLET DAILY. * Refills: 0 Ric Vines M.D. Start 21-Jun-2012 Active Multi-Vitamins Oral Tablet TAKE 1 TABLET DAILY. * Refills: 0 Ric Vines M.D. Start 25-Oct-2012 Active Calcium 600+D3 600-200 MG-UNIT Oral Tablet TAKE 1 TABLET THREE TIMES A DAY * Refills: 0 Ric Vines M.D. Start 10-Feb-2012 Active Naproxen 500 MG Oral Tablet TAKE 1 TABLET EVERY 12 HOURS DAILY. * Quantity: 60 Refills: 1 Jerrod Mena M.D. * Start 04-Feb-2016 Active Venlafaxine HCl ER 75 MG Oral Capsule Extended Release 24 Hour TAKE 1 CAPSULE BY MOUTH DAILY * Quantity: 90 Refills: 3 Ric Vines M.D. Start 29-Aug-2011 Active Furosemide 20 MG Oral Tablet TAKE 1 TABLET DAILY FOR SWELLING. * Quantity: 90 Refills: 3 Ric Vines M.D. * Start 03-Nov-2012 Active Atorvastatin Calcium 80 MG Oral Tablet TAKE 1 TABLET DAILY. * Quantity: 90 Refills: 3 Ric Vines M.D. * Start 07-Mar-2014 Active Citalopram Hydrobromide 20 MG Oral Tablet TAKE 1 TABLET DAILY. * Quantity: 90 Refills: 3 Ric Vines M.D. * Start 25-Oct-2012 Active SulfaSALAzine 500 MG Oral Tablet TAKE 2 TABLET Twice daily * Quantity: 360 Refills: 3 Ric Vines M.D. * Start 03-Oct-2013 Active Lisinopril 5 MG Oral Tablet TAKE ONE HALF TAB ONCE DAILY * Quantity: 45 Refills: 3 Ric Vines M.D. * Start 17-Aug-2014 Active Zoster (Zostavax) inject SQ * Quantity: 1 Refills: 0 Ric Vines M.D. * Start 04-Mar-2016 Active 1 Solution Reconstituted Vial Prolia 60 MG/ML Subcutaneous Solution INJECT SUBCUTANEOUSLY 60 MG / 1 ML EVERY 6 MONTHS * Quantity: 1 Refills: 0 Ric Vines M.D. * Start 13-Apr-2015 Active Gabapentin 100 MG Oral [...] 26-Jun-2011 CBC w/ Auto Diff 7150 Ordered: 28-Apr-2016 CBC w/ Auto Diff 7150 Ordered: 23-May-2016 RENAL PROFILE 1240 Ordered: 23-May-2016 Immunization Name Dates Details Pneumo (Pneumovax) Lot #: [id number] on: 10-Feb-2012 Fluzone Quadrivalent 0.5 ML Intramuscular Suspension Lot #: [id number] on: 16-May-2013 Prevnar 13 Intramuscular Suspension Lot #: [id number] on: 05-Jul-2014 Fluzone High-Dose 0.5 ML Intramuscular Suspension Prefilled Syringe Lot #: [id number] on: 07-Mar-2015 Tdap (Adacel) Lot #: [id number] on: 07-Mar-2015 Fluzone High-Dose 0.5 ML Intramuscular Suspension Prefilled Syringe Lot #: [id number] on: 04-Mar-2016 Zoster (Zostavax) Lot #: [id number] on: 04-Mar-2016 Family History Name Dates Details [...] smoker Vital Signs Date Test Result Details 28-May-2016 11:08 BP Systolic 120 mm[Hg] Status: [...] Physical Findings 93 Status: Comments: O2 Saturation 06-May-2016 09:31 BP Systolic 129 mm[Hg] Status: Comments: Location: ; Position: BP Diastolic 74 mm[Hg] Status: Comments: Location: ; Position: Heart Rate 91 /min Status: Comments: Location: ; 28-Apr-2016 11:59 BP Systolic 85 mm[Hg] Status: Comments: Location: ; Position: BP Diastolic 46 mm[Hg] Status: Comments: Location: ; Position: Temperature 97.7 c Status: Comments: Method: Heart Rate 106 /min Status: Comments: Location: ; Weight 124 lb Status: Body Mass Index [...] 18 % (Below low threshold) Range: 20-55 05-May-2016 10:59 HEMOGRAM 7305 WBC 3.9 K/uL (Below low threshold) Range: 4.5-11.0 RBC 3.17 mil/uL (Below low threshold) Range: 3.60-5.00 HGB 10.4 g/dL (Below low threshold) Range: 12.0-16.0 HCT 31.9 % (Below low threshold) Range: 36.0-48.0 MCV 100.8 fL (Above high threshold) Range: 80.0-99.0 MCH 32.8 pg (Above high threshold) Range: 27.3-32.5 MCHC 32.6 % Range: 32.0-36.0 PLATELETS 171 K/uL Range: 150-400 11:07 RENAL PROFILE 1240 SODIUM 139 mmol/L Range: 133-144 POTASSIUM 3.4 mmol/L (Below low threshold) Range: 3.5-5.1 CHLORIDE 100 mmol/L Range: 98-110 CARBON DIOXIDE 29.0 mmol/L Range: 23.0-33.0 ANION GAP 10 mmol/L Range: 6-16 BUN 18 mg/dL Range: 7-18 CREATININE, SERUM 1.57 mg/dL (Above high threshold) Range: 0.55-1.02 EST GFR, 38 ml/min (Below low threshold) Range: >60 EST GFR, NON-AFR [place]ST[place]IAN 32 ml/min (Below low threshold) Range: >60 Comments: EST GFR is reported in ml/min per 1.73 m2 of body surface area. ----- BUN:CREATININE RATIO 11 GLUCOSE 92 mg/dL Range: 70-100 Comments: Variance from previous testing noted.----- ALBUMIN 4.0 g/dL Range: 3.4-5.0 PHOSPHORUS 3.1 mg/dL Range: 2.6-4.7 CALCIUM 9.5 mg/dL Range: 8.5-10.1 13-May-2016 12:15 CBC w/ Auto Diff 7150 [...] low threshold) Range: >60 EST GFR, NON-AFR TRISTANIAN 27 ml/min (Below low threshold) Range: >60 [...] ng/mL Range: 5.4-20.8 15-May-2016 08:15 Immunofixation, Serum [id number] Comments: Testing performed at : [DA] [facility], [address] [place] [address], [place], [address], , Finishing Pan Operator: ZHEN Saleem MD IMMUNOFIXATION RESULT, SERUM Comment Comments: An apparent normal immunofixation pattern.----- IMMUNOGLOBULIN G, QN, SERUM 544 mg/dL (Below low threshold) Range: 700- 1600 IMMUNOGLOBULIN A, QN, SERUM 248 mg/dL Range: 64-422 IMMUNOGLOBULIN M, QN, SERUM 41 mg/dL Range: 26-217 08:15 Immunofixation, Urine [id number] Comments: Testing performed at: [DA] [facility], [address] [place] [address], [place], [address], Phone: , Finishing Pan Operator: ZHEN Saleem MD KRYSTAL INTERPRETATION:U Comment Comments: An apparent normal immunofixation pattern.----- Plan of Care Name Dates Details Planned Observations Planned Goals not documented Planned Encounters Appointment; Provider: Magan Bowles M.D. On 23-Sep-2016 11:00 Appointment; Provider: Dar Love M.D.|VINCENT,VINCENT,LOY, On 10-Jun-2016 11:00 Appointment; Provider: Nuno Burgos M.D. On 04-Jun-2016 11:15 Interventions Provided Medication Changes* Gabapentin 100 MG Oral Capsule - Start Instructions Name Dates Details Instructions not documented Encounters Appointment; Ric Martinez M.D. Encounter Diagnosis: Problem [...] documented On 28-Feb-2016 14:30 Appointment; Dar Love M.D.|FACP|M.DSacha,FACP|Bear,FACP, Encounter Diagnosis: Problem not documented On 27-Feb-2016 [...] documented On 04-Feb-2016 09:15 Appointment; Theo Roa D.PSachaTSacha Encounter Diagnosis: Problem not documented On 31-Jan-2016 10:30 Appointment; Theo Roa D.PYe. Encounter Diagnosis: Problem not documented On 29-Jan-2016 10:30 Appointment; Theo Roa D.PYe. Encounter Diagnosis: Problem not documented On 22-Jan-2016 11:30 Appointment; Theo Roa D.P.T. Encounter Diagnosis: Problem not documented On 17-Jan-2016 10:30 Appointment; Dar Love M.D.|FACP|M.D.,FACP|MKendell,FACP, Encounter Diagnosis: Problem not documented On 16-Jan-2016 [...] Problem not documented On 13:45 Appointment; Magan Bowels M.D. Encounter Diagnosis: Problem not documented On [...]
--- OUTSIDE RECORDS SUMMARY | 2016-11-05 13:42 | XMS REPORT | Summary of Care ---
Author Author Loretta Sifuentes, Nuno Organization Unknown Address Unknown Phone Unavailable Care Team Providers Care Eyewear Manufacturing Supervisor Name Role Phone Nuno Burgos M.D. Unavailable Unavailable Ric Vines M.D. Unavailable [...] 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 CKD (chronic kidney disease) stage 3, GFR 30-59 ml/min (585.3, N18.3) Status: Active Hypertension (401.9, I10) Status: Active Medications Name Dates Details Omeprazole [...] 0 Ric Vines M.D. Start 13-Apr-2015 Active Zoster (Zostavax) inject SQ * Quantity: 1 Refills: 0 Ric Vines M.D. * Start 04-Mar-2016 Active 1 Solution Reconstituted Vial Gabapentin 300 MG Oral Capsule take 1 capsule at HS with 100mg in the am * Quantity: 60 Refills: 0 Ric Vines M.D. Start 28-May-2016 Active TraMADol HCl - 50 MG Oral Tablet TAKE 1 TABLET Twice daily PRN * Quantity: 60 Refills: 0 Magan Bowles M.D. * Start 01-Jul-2016 Active Gabapentin 100 MG Oral Capsule TAKE 1 CAPSULE Every morning and 300mg at HS * Quantity: 30 Refills: 3 Ric Vines M.D. Start 15-Jul-2016 Active Allergies and Adverse Reactions Name Dates [...] Replacement History of Complete Colonoscopy Completed: 26-Jun-2011 Procedures not documented Immunization Name Dates Details Pneumo (Pneumovax) Lot #: [id number] on: 10-Feb-2012 Fluzone Quadrivalent 0.5 ML Intramuscular Suspension Lot #: [id number] on: 16-May-2013 Prevnar 13 Intramuscular Suspension Lot #: [id number] on: 05-Jul-2014 Fluzone High-Dose 0.5 ML Intramuscular Suspension Prefilled Syringe Lot #: [id number] on: 07-Mar-2015 Tdap (Adacel) Lot #: [id number] on: 07-Mar-2015 Fluzone High-Dose 0.5 ML Intramuscular Suspension Prefilled Syringe Lot #: [id number] on: 04-Mar-2016 Zoster (Zostavax) Lot #: [id number] on: 04-Mar-2016 Family History Name Dates Details [...] smoker Vital Signs Date Test Result Details No Known Vitals to report Results Date Description Value Details 11-Aug-2016 12:40 HEMOGRAM 7305 WBC 2.9 K/uL (Below low threshold) Range: 4.5-11.0 RBC 3.20 mil/uL (Below low threshold) Range: 3.60-5.00 HGB 9.8 g/dL (Below low threshold) Range: 12.0-16.0 HCT 31.0 % (Below low threshold) Range: 36.0-48.0 MCV 96.8 fL Range: 80.0-99.0 MCH 30.6 pg Range: 27.3-32.5 MCHC 31.6 % (Below low threshold) Range: 32.0-36.0 PLATELETS 181 K/uL Range: 150-400 12:57 RENAL PROFILE 1240 SODIUM 140 mmol/L Range: 133-144 POTASSIUM 3.8 mmol/L Range: 3.5-5.1 CHLORIDE 103 mmol/L Range: 98-110 CARBON DIOXIDE 28.2 mmol/L Range: 23.0-33.0 ANION GAP 9 mmol/L Range: 6-16 BUN 15 mg/dL Range: 7-18 CREATININE, SERUM 1.33 mg/dL (Above high threshold) Range: 0.55-1.02 EST GFR, 46 ml/min (Below low threshold) Range: >60 EST GFR, NON-AFR FIJIAN 38 ml/min (Below low threshold) Range: >60 Comments: EST GFR is reported in ml/min per 1.73 m2 of body surface area. ----- BUN:CREATININE RATIO 11 GLUCOSE 79 mg/dL Range: 70-100 ALBUMIN 3.5 g/dL Range: 3.4-5.0 PHOSPHORUS 3.0 mg/dL Range: 2.6-4.7 CALCIUM 8.7 mg/dL Range: 8.5-10.1 Plan of Care Name Dates Details Planned Observations Planned Goals not documented Planned Encounters Appointment; Provider: Nuno Burgos M.D. On 11-Nov-2016 11:30 Appointment; Provider: Ric Vines M.D. On 26-Sep-2016 11:00 Appointment; Provider: Magan Bowles M.D. On 23-Sep-2016 11:00 Appointment; Provider: Nuno Burgos M.D. On 12-Aug-2016 09:00 Interventions Provided Labs/Procedures/Imaging* HEMOGRAM 7305; Done: Aug 11 2016 12:29PM * RENAL PROFILE 1240; Done: Aug 11 2016 12:29PM Instructions Name Dates Details Instructions not documented Encounters Appointment; Magan Bowles M.D. Encounter Diagnosis: Problem not documented On 01-Jul-2016 15:45 Appointment; Dar Love M.D.|VINCENT,VINCENT,LOY, Encounter Diagnosis: Problem not documented On 10-Jun-2016 [...] documented On 06-May-2016 09:30 Appointment; Dar Love M.D.|FACP|M.D.,FACP|MSachaDSacha,FACP, Encounter Diagnosis: Problem not documented On 28-Apr-2016 [...] documented On 31-Jan-2016 10:30 Appointment; Theo Roa D.PSachaT. Encounter Diagnosis: Problem not documented On 29-Jan-2016 [...] not documented On 16:00 Appointment; Dar Love M.D.|FACP|M.D.,FACP|Bear,FACP, Encounter Diagnosis: Problem not documented On 10:45 [...] Problem not documented On 18-Apr-2015 14:15 Appointment; aMgan Bowles M.D. Encounter Diagnosis: Problem not documented [...] Encounter Diagnosis: Problem not documented On 17-Aug-2014 10:30"
--- OUTSIDE RECORDS SUMMARY | 2016-11-05 13:43 | XMS REPORT | Summary of Care ---
Author Author Nuno Burgos M.D. Unknown Address [address], [place] [id number] Phone Unavailable Care Team Providers Care Security Team Lead Name Role Phone Ric Vines M.D. Unavailable Unavailable Wilbur Sifuentes, Magan Unavailable Unavailable Ric Vines PP Unavailable Unavailable [...] Bilateral hip bursitis (726.5, M70.71) Status: Active Arthralgia of multiple sites (719.49, M25.50) Status: Active Left knee pain (719.46, M25.562) Status: Active Anserine bursitis (726.61, M70.50) Status: Active Fever (780.60, R50.9) Status: Active Cough, persistent (786.2, R05) Status: Active Asthmatic bronchitis with acute exacerbation (493.92, J45.901) Status: Active Arm pain (729.5, M79.603) Status: Active Arm bruise (923.9, S40.029A) Status: Active Ulcerative pancolitis (556.6, K51.90) Status: Active 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, I25.10) Status: Active Hypercholesterolemia (272.0, E78.0) Status: Active Iron (Fe) deficiency anemia (280.9, D50.9) Status: Active Back pain (724.5, M54.9) Status: Active Lower back pain (724.2, M54.5) Status: Active Neck pain (723.1, M54.2) Status: Active 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, 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 CKD (chronic kidney disease), stage IV (585.4, N18.4) Status: Active Osteoporosis (733.00, M81.0) Status: Active Medications Name Dates Details Omeprazole [...] Refills: 3 Ric Vines M.D.* Started 17-Aug-2014 ActiveNystatin 234210 UNIT/ML Mouth/Throat Suspension SWISH AND SWALLOW 10ML FOUR TIMES DAILY FOR 5 DAYS * Quantity: 200 Refills: 0 Ric Vines M.D.* Started 07-Mar-2015 ActiveHydrocodone-Acetaminophen 5-325 MG Oral Tablet take 1/2 tablet tid * Quantity: 45 Refills: 0 Magan Bowles M.D.* Started 01-Aug-2015 ActiveAdvair Diskus 250-50 MCG/DOSE Inhalation Aerosol Powder Breath Activated INHALE 1 PUFF EVERY 12 HOURS. * Quantity: 2 Refills: 0 Ric Vines M.D.* Started 24-Aug-2015 [id number] Aerosol Powder Breath Activated Disp Pack Prolia 60 MG/ML Subcutaneous Solution INJECT SUBCUTANEOUSLY [...] Colonoscopy Completed:26-Jun-2011 CBC w/ Auto Diff 7150 Ordered:06-Nov-2015 Comprehensive Metabolic Panel 1212 Ordered:06-Nov-2015 EPO PANEL 3699 Ordered:06-Nov-2015 Immunization Name Dates Details Pneumo (Pneumovax) Lot #: [id number] Administered on:10-Feb-2012 Fluzone Quadrivalent 0.5 ML Intramuscular Suspension Lot #: [id number] Administered on:16-May-2013 Prevnar 13 Intramuscular Suspension Lot #: [id number] Administered on:05-Jul-2014 Fluzone High-Dose 0.5 ML Intramuscular Suspension Prefilled Syringe Lot #: [id number] Administered on:07-Mar-2015 Tdap (Adacel) Lot #: [id number] Administered on:07-Mar-2015 Family History Unknown Family Member* [...] smoker Vital Signs Date Test Result Details 10:04 BP Systolic 116 mm[Hg] Status: BP Diastolic 62 mm[Hg] Status: Heart Rate 90 /min Status: Weight 129 lb Status: Body Mass Index Calculated 26.05 kg/m2 Status: Body Surface Area Calculated 1.53 m2 Status: 13:50 BP Systolic 118 mm[Hg] Status: BP Diastolic 60 mm[Hg] Status: Heart Rate 92 /min Status: Weight 129.5 lb Status: Body Mass Index Calculated 26.16 kg/m2 Status: Body Surface Area Calculated 1.53 m2 Status: 12:54 BP Systolic 112 mm[Hg] Status: BP Diastolic 60 mm[Hg] Status: Weight 132 lb Status: Body Mass Index Calculated 26.66 kg/m2 Status: Body Surface Area Calculated 1.55 m2 Status: 08:47 BP Systolic 126 mm[Hg] Status: BP Diastolic 74 mm[Hg] Status: Temperature 97.3 f Status: Heart Rate 83 /min Status: O2 SAT 93 % Status: 06-Nov-2015 10:48 BP Systolic 118 mm[Hg] Status: BP Diastolic 54 mm[Hg] Status: Temperature 36.5 c Status: Heart Rate 85 /min Status: Weight 132 lb Status: O2 SAT 92 % Status: Body Mass Index Calculated 26.66 kg/m2 Status: Body Surface Area Calculated 1.55 m2 Status: Results Date Description Value Details 09:56 XRay SPINE-CERVICAL Comments: Exam Date: 11/24/2015 09:09Dictation Date: 11/26/2015 09:56 X SPINE CERVICAL COMP (Better) 10:00 XRay SPINE-LUMBAR Comments: Exam Date: 11/24/2015 09:10Dictation Date: 11/26/2015 10:00 X SPINE LUMBAR W/ FLEX & EXT (Better) 10:01 XRay SPINE-THORACIC Comments: Exam Date: 11/24/2015 09: 10Dictation Date: 11/26/2015 10:01 X SPINE THORACIC (2V) (Better) 13:51 HEMOGRAM 7305 WBC 4.0 K/uL (Below low threshold) Range: 4.5-11.0 RBC 3.39 mil/uL (Below low threshold) Range: 3.60-5.00 HGB 11.0 g/dL (Below low threshold) Range: 12.0-16.0 HCT 34.3 % (Below low threshold) Range: 36.0-48.0 MCV 101.4 fL (Above high threshold) Range: 80.0-99.0 MCH 32.6 pg (Above high threshold) Range: 27.3-32.5 MCHC 32.1 % (Better) Range: 32.0-36.0 PLATELETS 172 K/uL (Better) Range: 150-400 14:14 RENAL PROFILE 1240 SODIUM 139 mmol/L (Better) Range: 133-144 POTASSIUM 4.7 mmol/L (Better) Range: 3.5-5.1 CHLORIDE 100 mmol/L (Better) Range: 98-110 CARBON DIOXIDE 28.7 mmol/L (Better) Range: 23.0-33.0 ANION GAP 10 mmol/L (Better) Range: 6-16 BUN 22 mg/dL (Above high threshold) Range: 7-18 CREATININE, SERUM 1.59 mg/dL (Above high threshold) Range: 0.55-1.02 Comments: Please note new reference ranges effective 2014.----- EST GFR, 38 ml/min (Below low threshold) Range: >60 EST GFR, NON-AFR [place] 31 ml/min (Below low threshold) Range: >60 Comments: EST GFR is reported in ml/min per 1.73 m2 of body surface area. For -Bolivian, please multiple result by 1.2.----- BUN:CREATININE RATIO 14 (Better) GLUCOSE 96 mg/dL (Better) Range: 70-100 ALBUMIN 4.0 g/dL (Better) Range: 3.4-5.0 PHOSPHORUS 3.9 mg/dL (Better) Range: 2.6-4.7 Comments: Please note new reference ranges effective 2015.----- CALCIUM 10.3 mg/dL (Above high threshold) Range: 8.5-10.1 Comments: Verified by Repeat Analysis----- 14:33 Parathyroid Hormone Intact 3101 Intact Parathyroid Hormone 32 pg/mL (Better) Range: 14-72 Plan of Care Planned Observations* Name Dates Details Planned Goals not documented Goal Planned Encounters* Appointment; Provider: Nuno Burgos On 04-Mar-2016 13:45 * Appointment; Provider: Ric Vines On 04-Mar-2016 10:00 * Appointment; Provider: Jerrod Mena On 10:30 * Appointment; Provider: Dar Love On 10:45 * Appointment; Provider: Theo Roa On 11:00 * Appointment; Provider: Schedule Radiology On 04-Jun-2015 [...] Instructions * Instructions not documented Encounters Appointment; Jerrod Mena Encounter Diagnosis: Problem not [...]
--- OUTSIDE RECORDS SUMMARY | 2016-11-05 13:43 | XMS REPORT | Summary of Care ---
Author Author Crispin Malcolm, Theo Organization Unknown Address Unknown Phone Unavailable Care Team Providers Care Weed Eradicator Name Role Phone Ric Vines M.D. Unavailable [...] of lumbar region (738.4, M43.16) Status: Active Medications Name Dates Details Omeprazole [...] 3 Ric Vines M.D.* Started 03-Oct-2013 ActiveNystatin 708068 UNIT/ML Mouth/Throat Suspension SWISH AND SWALLOW 10ML FOUR TIMES DAILY FOR 5 DAYS * Quantity: 200 Refills: 0 Ric Vines M.D.* Started 07-Mar-2015 ActiveAmoxicillin 500 MG Oral Capsule TAKE 4 CAPSULES BY MOUTH 1 HOUR PRIOR TO PROCEDURE * Quantity: 12 Refills: 0 Ric Vines M.D.* Started 26-Jan-2014 ActiveHydrocodone-Acetaminophen 5-325 MG Oral Tablet take 1/2 tablet tid * Quantity: 45 Refills: 0 Magan Bowles M.D.* Started 01-Aug-2015 ActiveAdvair Diskus 250-50 MCG/DOSE Inhalation Aerosol Powder Breath Activated INHALE 1 PUFF EVERY 12 HOURS. * Quantity: 2 Refills: 0 Ric Vines M.D.* Started 24-Aug-2015 [id number] Aerosol Powder Breath Activated Disp Pack Prolia 60 MG/ML Subcutaneous Solution INJECT SUBCUTANEOUSLY 60 MG / 1 ML EVERY 6 MONTHS * Quantity: 1 Refills: 0 Ric Vines M.D.* Started 13-Apr-2015 ActiveLisinopril 5 MG Oral Tablet TAKE ONE HALF TAB ONCE DAILY * Quantity: 45 Refills: 3 Ric Vines M.D.* Started 17-Aug-2014 ActiveAtorvastatin Calcium 80 MG Oral [...] RENAL PROFILE 1240 Ordered: HEMOGRAM 7305 Ordered: Immunization Name Dates Details Pneumo (Pneumovax) Lot #: [id number] Administered on:10-Feb-2012 Fluzone Quadrivalent 0.5 ML Intramuscular Suspension Lot #: [id number] Administered on:16-May-2013 Prevnar 13 Intramuscular Suspension Lot #: [id number] Administered on:05-Jul-2014 Fluzone High-Dose 0.5 ML Intramuscular Suspension Prefilled Syringe Lot #: [id number] Administered on:07-Mar-2015 Tdap (Adacel) Lot #: [id number] Administered on:07-Mar-2015 Family History Unknown Family Member* [...] /min Status: O2 SAT 93 % Status: Results Date Description Value Details 09:56 [...] low threshold) Range: >60 EST GFR, NON-AFR BUR[place]IN[place] 31 ml/min (Below low threshold) Range: >60 Comments: EST GFR is reported in ml/min per 1.73 m2 of body surface area. For -Albanian, please multiple result by 1.2.----- BUN:CREATININE RATIO 14 (Better) GLUCOSE 96 mg/dL (Better) Range: 70-100 ALBUMIN 4.0 g/dL (Better) Range: 3.4-5.0 PHOSPHORUS 3.9 mg/dL (Better) Range: 2.6-4.7 Comments: Please note new reference ranges effective 2015.----- CALCIUM 10.3 mg/dL (Above high threshold) Range: 8.5-10.1 Comments: Verified by Repeat Analysis----- 14:33 Parathyroid Hormone Intact 3101 Intact Parathyroid Hormone 32 pg/mL (Better) Range: 14-72 11:06 CBC w/ Auto Diff 7150 WBC [...] low threshold) Range: >60 EST GFR, NON-AFR BURKINAN 27 ml/min (Below low threshold) Range: >60 Comments: EST GFR is reported in ml/min per 1.73 m2 of body surface area. For -Albanian, please multiple result by 1.2.----- GLUCOSE 99 [...] low threshold) Range: 20-55 Plan of Care Planned Observations* Name Dates Details Planned Goals not documented Goal Planned Encounters* Appointment; Provider: Nuno Burgos On 04-Mar-2016 13:45 * Appointment; Provider: Ric Vines On 04-Mar-2016 10:00 * Appointment; Provider: Jerrod Mena On 10:30 * Appointment; Provider: Dar Love On 10:45 * Appointment; Provider: Schedule Radiology On 04-Jun-2015 [...] Diagnosis: Problem not documented On 11:00 Appointment; Jerrdo Mena Encounter Diagnosis: Problem not documented On [...]
--- OUTSIDE RECORDS SUMMARY | 2016-11-05 13:43 | XMS REPORT | Summary of Care ---
Author Author Loretta Sifuentes, Nuno Organization Unknown Address Unknown Phone Unavailable Care Team Providers Care Grading Clerk Name Role Phone Nuno Burgos M.D. 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 * Start 03-Nov-2012 Active SulfaSALAzine 500 MG Oral [...] 0 Ric Vines M.D. Start 10-Sep-2016 Active Allergies and Adverse Reactions Name Dates [...] Quadrivalent 0.5 ML Intramuscular Suspension Lot #: [id number] on: 16-May-2013 Prevnar 13 Intramuscular Suspension Lot #: [id number] on: 05-Jul-2014 Fluzone High-Dose 0.5 ML Intramuscular Suspension Prefilled Syringe Lot #: [id number] on: 07-Mar-2015 Tdap (Adacel) Lot #: [id number] on: 07-Mar-2015 Fluzone High-Dose 0.5 ML Intramuscular Suspension Prefilled Syringe Lot #: [id number] on: 04-Mar-2016 Zoster (Zostavax) Lot #: [id number] on: 04-Mar-2016 Family History Name Dates Details [...] smoker Vital Signs Date Test Result Details 10-Sep-2016 15:38 BP Systolic 122 mm[Hg] Status: Comments: Location: ; Position: BP Diastolic 70 mm[Hg] Status: Comments: Location: ; Position: Temperature 36.6 c Status: Comments: Method: Heart Rate 95 /min Status: Comments: Location: ; Weight 115 lb Status: Physical Findings 93 [...] low threshold) Range: >60 EST GFR, NON-AFR MONTENEGRIN 22 ml/min (Below low threshold) Range: >60 [...] low threshold) Range: >60 EST GFR, NON-AFR MONTENEGRIN 33 ml/min (Below low threshold) Range: >60 Comments: EST GFR is reported in ml/min per 1.73 m2 of body surface area. ----- BUN:CREATININE RATIO 10 GLUCOSE 97 mg/dL Range: 70-100 CALCIUM 10.2 mg/dL (Above high threshold) Range: 8.5-10.1 Plan of Care Name Dates Details Planned Observations Planned Goals not documented Planned Encounters Appointment; Provider: Nuno Burgos M.D. On 11-Nov-2016 11:30 Appointment; Provider: Ric Vines M.D. On 26-Sep-2016 11:00 Appointment; Provider: Magan Bowles M.D. On 23-Sep-2016 11:00 Appointment; Provider: Nuno Burgos M.D. On 15-Sep-2016 09:30 Appointment; Provider: Ric Vines M.D. On 12-Sep-2016 13:45 Instructions Name Dates Details Instructions not documented Encounters Appointment; Dar Love M.D.|FACP|M.DSacha,FACP|M.DSacha,FACP, Encounter Diagnosis: Problem not documented On 22-Jul-2016 [...] documented On 06-May-2016 09:30 Appointment; Dar Love M.D.|FACP|M.DSacha,FACP|M.DSacha,FACP, Encounter Diagnosis: Problem not documented On 28-Apr-2016 [...] documented On 28-Feb-2016 14:30 Appointment; Dar Love M.D.|FACP|M.DSacha,FACP|MKendell,FACP, Encounter Diagnosis: Problem not documented On 27-Feb-2016 [...] not documented On 16:00 Appointment; Dar Love M.D.|LOY|Bear,LOY|Bear,LOY, Encounter Diagnosis: Problem not documented On 10:45 [...] Problem not documented On 01-Aug-2015 10:45 Appointment; aMgan Bowles M.D. Encounter Diagnosis: Problem [...] Encounter Diagnosis: Problem not documented On 16-Sep-2014 08:20"
--- OUTSIDE RECORDS SUMMARY | 2016-11-05 13:44 | XMS REPORT ---
Author Author Kayla Siddiqi Organization Unknown Address [address], [place] [id number] Phone Care Team Providers Care Beater Boss Name Role Phone Mohinder Larios PP Unavailable Unavailable Reason for Referral No Reason for Referral was given. History of Present Illness No HPI available. Problems * Visit For: Screening Malignant Neoplasm Colon (V76.51); (Active) * Difficulty Breathing (Dyspnea) (786.09); (Active) * Visit For: Pre-procedural Exam (V72.84); (Active) * Vaginal Discharge (623.5); (Active) * Difficulty Breathing During Exertion (Active) * Headache (784.0); (Active) * Abdominal Pain (789.00); (Active) * Diarrhea (Symptom) (787.91); (Active) * Visit For: Preoperative Exam (V72.84); (Active) * Lower Back Pain (724.2); (Active) * Neck Pain (723.1); (Active) * Pain In Both Legs (Active) * Shortness Of Breath (786.05); (Active) * Weakness Both Arms (Active) * Hypokalemia (276.8); (Active) * Viral Gastroenteritis (008.8); (Active) * Normal Routine History And Physical Senior Citizen (65-80) (V70.0); ( Active) * Joint Pain In Both Knees (Active) * 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); (Active) * Glossitis (529.0); (Active) * Anemia (285.9); (Active) * Anemia Of Chronic Kidney Disease (285.21); (Active) * Arthritis (716.90); (Active) * Bloating (787.3); (Active) * Chronic Kidney Disease, Stage 3 (585.3); (Active) * Colitis (558.9); (Active) * Constipation (Symptom) (Active) * Coronary Artery Disease (414.00); (Active) * Depression (311); (Active) * Diabetes Mellitus (250.00); (Active) * Easy Bruising Tendency (Active) * Fatigue (780.79); (Active) * Hyperlipidemia (272.4); (Active) * Hypertension (401.9); (Active) * Iron Deficiency Anemia (280.9); (Active) * Osteoporosis (733.00); (Active) * Spinal Stenosis (724.00); (Active) Medication * Omeprazole 40 MG Oral Capsule Delayed Release; Take 1 capsule by mouth daily. ; Start Date: 06/18/2010; End Date: (Active) * Aspirin 81 MG Oral Tablet; TAKE 1 TABLET DAILY.; Start Date: 05/26/2011 ( Active) * Calcium 600+D3 600-200 MG-UNIT Oral Tablet; Take 1 tablet twice a day; Start Date: 02/10/2012 (Active) * Osteo Bi-Flex Triple Strength Oral Tablet; TAKE 1 TABLET DAILY DIRECTED.; Start Date: 02/10/2012 (Active) * SulfaSALAzine 500 MG Oral Tablet; TAKE 2 TABLETS BY MOUTH 3 TIMES DAILY.; Start Date: 07/28/2011; End Date: (Active) * Lisinopril 10 MG Oral Tablet; TAKE 1 TABLET BY MOUTH DAILY DIRECTED.; Start Date: 02/27/2011; End Date: (Active) * Venlafaxine HCl ER 75 MG Oral Capsule Extended Release 24 Hour; TAKE 1 CAPSULE BY MOUTH DAILY; Start Date: 08/29/2011; End Date: (Active) * Simvastatin 80 MG Oral Tablet; take one tablet by mouth every day; Start Date : 07/22/2011; End Date: (Active) * B-12 500 MCG Oral Tablet; TAKE 1 TABLET DAILY.; Start Date: 06/21/2012 (Active ) * Multi-Vitamins Oral Tablet; TAKE 1 TABLET DAILY.; Start Date: 10/25/2012 ( Active) * Citalopram Hydrobromide 20 MG Oral Tablet; TAKE 1 TABLET DAILY.; Start Date: 10/25/2012; End Date: (Active) * Furosemide 20 MG Oral Tablet; TAKE 1 TABLET DAILY NEEDED FOR SWELLING.; Start Date: 11/03/2012 (Active) Allergies and Adverse Reactions * Codeine Derivatives (Active) Past Medical History * History of Complete Colonoscopy - Onset: 06/15/2007; Comments: Done [place] [address] Matos (Resolved) * History of Diverticulitis Of Colon (562.11); (Resolved) Procedures Procedure Procedure Date Date Completed Status Appendectomy - - Active Cholecystectomy - - Active Knee Surgery - - Active Colonoscopy For Forceps Biopsy 07/08/2010 - Active Knee Replacement - - Active Complete Colonoscopy 06/26/2011 - Active Immunization * Pneumo (Pneumovax) (Lot #: [id number]) - Administered on: 02/10/2012 Family History * Maternal history of Breast Cancer (V16.3); (Active) * Sororal history of Breast Cancer (V16.3); (Active) * Family history of Hypertension (V17.49); (Active) * Family history of Diabetes Mellitus (V18.0); (Active) * Fraternal history of Hypertension (V17.49); (Active) * Fraternal history of Hypertension (V17.49); (Active) * Sororal history of Hypertension (V17.49); (Active) * Sororal history of Hypertension (V17.49); (Active) * Maternal history of Hypertension (V17.49); (Active) * Paternal history of Emphysema (Active) * Fraternal history of Diabetes Mellitus (V18.0); (Active) * Maternal history of Diabetes Mellitus (V18.0); (Active) * Fraternal history of Prostate Cancer (V16.42); (Active) * Fraternal history of Prostate Cancer (V16.42); (Active) * Fraternal history of Bone Cancer (Active) * Sororal history of Breast Cancer (V16.3); (Active) * Maternal history of Gastric Cancer (V16.0); (Active) Social History * Marital History - Currently (Active) * Being A Social Drinker (Active) * Never A Smoker (Active) * Working Part-time (Active) Vital Signs Date Description Test Result 15 Nov 2012 09:23 AM recorded by: Lenora Joyce Weight 149 lb Body Mass Index Calculated 30.04 Body Surface Area Calculated 1.63 BP Systolic 124 mm[Hg] BP Diastolic 50 mm[Hg] Heart Rate 80 /min Treatment Plan * Urinalysis, Reflex to Microscopic or Culture PRN 8005 07/05/2011 Routine * CBC w/ Auto Diff 7150 08/28/2011 Routine * Urine Culture PRN 8000 08/28/2011 Routine * XM CAD (SCREENING) 02/23/2012 Routine * EPO PANEL 3699 11/03/2012 Routine * Pulse 11/03/2012 Routine Advance Directives * No Advance Directives available. Encounters * Appointment 11/15/2012 * NEPHINJ , Provider: Loretta Reina, Status: Adonis , Time: 9:30 AM 2012 * RTNPT , Provider: Loretta Reina, Status: Adonis , Time: 11:15 AM 2012 * RTNPT , Provider: Mohinder Larios, Status: Adonis , Time: 10:00 AM 02/21
--- OUTSIDE RECORDS SUMMARY | 2016-11-05 13:44 | XMS REPORT | Summary of Care ---
Author Author Wilbur Sfiuentes, [employer] Organization Unknown Address [address], [place] [id number] Phone Unavailable Care Team Providers Care Public Welfare Worker Name Role Phone Ric Vines M.D. Unavailable [...] Lower back pain (724.2, M54.5) Status: Active Medications Name Dates Details Omeprazole [...] Refills: 3 Ric Vines M.D.* Started 07-Mar-2014 ActiveAmoxicillin 500 MG Oral Capsule TAKE 4 CAPSULES BY MOUTH 1 HOUR PRIOR TO PROCEDURE * Quantity: 12 Refills: 0 Ric iVnes M.D.* Started 26-Jan-2014 Active Allergies and Adverse Reactions Name Dates [...] Quadrivalent 0.5 ML Intramuscular Suspension Lot #: [id number] Administered on:16-May-2013 Prevnar 13 Intramuscular Suspension Lot #: [id number] Administered on:05-Jul-2014 Family History Unknown Family Member* [...] low threshold) Range: >60 EST GFR, NON-AFR LIBERIAN 37 ml/min (Below low threshold) Range: >60 Comments: EST GFR is reported in ml/min per 1.73 m2 of body surface area. For -Brazilian, please multiple result by 1.2.----- BUN:CREATININE RATIO [...] Problem not documented On 02-May-2014 11:15 Appointment; iRc Martinez Encounter Diagnosis: Problem not documented On [...] Problem not documented On 09:30 Appointment; Kayla Sididqi Encounter Diagnosis: Problem not documented On 09:30 Appointment; Nuno Burgos Encounter Diagnosis: Problem not documented On 03-Nov-2012 10:45
--- OUTSIDE RECORDS SUMMARY | 2016-11-05 13:44 | XMS REPORT | Summary of Care ---
Author Author Ric Vines M.D. Organization Unknown Address [address], [place] [id number] Phone Unavailable Care Team Providers Care Furniture Lumber Production Worker Name Role Phone Ric Vines M.D. [...] Bursitis of hip (726.5, M70.70) Status: Active Hip pain (719.45, M25.559) Status: [...] DAILY. * Refills: 0 * Started 26-May-2011 ActiveOsteo Bi-Flex Triple Strength Oral Tablet TAKE [...] Refills: 3 Ric Vines M.D.* Started 25-Oct-2012 ActiveVenlafaxine HCl ER 75 MG Oral Capsule Extended Release 24 Hour TAKE 1 CAPSULE BY MOUTH DAILY * Quantity: 90 Refills: 3 Ric Vines M.D.* Started 29-Aug-2011 ActiveFurosemide 20 MG Oral Tablet TAKE 1 [...] Knee Replacement History of Complete Colonoscopy Completed:26-Jun-2011 HEMOGRAM 7305 Ordered:14-Aug-2014 RENAL PROFILE 1240 Ordered:14-Aug-2014 RENAL PROFILE 1240 Ordered:18-Sep-2014 HEMOGRAM 7305 Ordered:18-Sep-2014 Immunization Name Dates Details Pneumo (Pneumovax) Lot #: [id number] Administered on:10-Feb-2012 Fluzone Quadrivalent 0.5 ML Intramuscular Suspension Lot #: [id number] Administered on:16-May-2013 Prevnar 13 Intramuscular Suspension Lot #: [id number] Administered on:05-Jul-2014 Family History Unknown Family Member* [...] smoker Vital Signs Date Test Result Details 16-Sep-2014 08:22 Heart Rate 94 /min Status: Temperature 97.9 f Status: O2 SAT 94 % Status: Results Date Description Value Details 22-Aug-2014 07:46 Protein Elec + Interp, Serum [id number] Comments: TESTING PERFORMED AT: [DA] [facility], [address] [place] [address], [place], [address], PHONE: [phone], ELECTRO OPTICS ENGINEER: ZHEN PÉREZ MD PROTEIN, TOTAL, SERUM 5.9 G/DL (Below low threshold) Range: 6.0-8.5 ALBUMIN 3.6 G/DL (Better) Range: 3.2-5.6 SLRGD-5-EATUYXFM 0.2 G/DL (Better) Range: 0.1-0.4 VHFTO-1-PNMHVIWD 0.7 G/DL (Better) Range: 0.4-1.2 BETA GLOBULIN 0.8 G/DL (Better) Range: 0.6-1.3 GAMMA GLOBULIN 0.6 G/DL (Better) Range: 0.5-1.6 M-SPIKE NOTE: G/DL (Better) Range: NOT OBSERVED Comments: NOT OBSERVEDSEE CONCURRENT IMMUNOFIXATION.----- GLOBULIN, TOTAL 2.3 G/DL (Better) Range: 2.0-4.5 A/G RATIO 1.6 (Better) Range: 0.7-2.0 PLEASE NOTE: COMMENT (Better) Comments: PROTEIN ELECTROPHORESIS SCAN WILL FOLLOW VIA COMPUTER,MAIL, OR WRIST LINER DELIVERY.----- P E INTERPRETATION, S COMMENT (Better) Comments: THE SPE PATTERN APPEARS ESSENTIALLY UNREMARKABLE. EVIDENCEOF MONOCLONAL PROTEIN IS NOT APPARENT. ----- 07:46 Immunofixation, Serum [id number] Comments: TESTING PERFORMED AT: [DA] [facility], [address] [place] [address], [place], [address], PHONE: , ELECTRO OPTICS ENGINEER: ZHEN PÉREZ MD IMMUNOFIXATION RESULT, SERUM NOTE: (Better) Comments: FAINT IGG KAPPA. * REPEAT 4-6 MONTHS IF CLINICALLY INDICATED.----- IMMUNOGLOBULIN G, QN, SERUM 528 MG/DL (Below low threshold) Range: 700- 1600 IMMUNOGLOBULIN A, QN, SERUM 223 MG/DL (Better) Range: 91-414 IMMUNOGLOBULIN M, QN, SERUM 44 MG/DL (Better) Range: 40-230 01-Sep-2014 13:45 HEMOGRAM 7305 WBC 4.3 K/uL (Below low threshold) Range: 4.5-11.0 RBC 3.70 mil/uL (Better) Range: 3.60-5.00 HGB 11.7 g/dL (Below low threshold) Range: 12.0-16.0 HCT 35.2 % (Below low threshold) Range: 36.0-48.0 MCV 95.2 fL (Better) Range: 80.0-99.0 MCH 31.5 pg (Better) Range: 27.3-32.5 MCHC 33.1 % (Better) Range: 32.0-36.0 PLATELETS 195 K/uL (Better) Range: 150-400 13:58 RENAL PROFILE 1240 SODIUM 141 mmol/L (Better) Range: 133-144 POTASSIUM 3.7 mmol/L (Better) Range: 3.5-5.1 CHLORIDE 100 mmol/L (Better) Range: 98-110 CARBON DIOXIDE 34.5 mmol/L (Above high threshold) Range: 23.0-33.0 ANION GAP 7 mmol/L (Better) Range: 6-16 BUN 15 mg/dL (Better) Range: 7-18 CREATININE, SERUM 1.15 mg/dL (Above high threshold) Range: 0.43-1.13 EST GFR, 55 ml/min (Below low threshold) Range: >60 EST GFR, NON-AFR MALAWIAN 45 ml/min (Below low threshold) Range: >60 Comments: EST GFR is reported in ml/min per 1.73 m2 of body surface area. For -Kuwaiti, please multiple result by 1.2.----- BUN:CREATININE RATIO 13 (Better) GLUCOSE 92 mg/dL (Better) Range: 70-100 ALBUMIN 3.6 g/dL (Better) Range: 3.4-5.0 PHOSPHORUS 2.9 mg/dL (Better) Range: 2.5-4.9 CALCIUM 9.1 mg/dL (Better) Range: 8.5-10.1 Plan of Care Planned Observations* Name Dates Details Planned Goals not documented Goal Planned Encounters* Appointment; Provider: Ric Martinez On 13-Feb-2015 10:30 * Appointment; Provider: Neeta Sosa On 13:30 * Appointment; Provider: Nuno Burgos On 07-Nov-2014 11:15 * Appointment; Provider: Ric Vines On 07-Nov-2014 10:30 * Appointment; Provider: Magan Bowles On 18-Oct-2014 10:30 * Appointment; Provider: Nuno Burgos On 03-Oct-2014 09:15 * Appointment; Provider: Carol Tellez On 28-May-2011 13:00 * Appointment; Provider: Carol Tellez On 14-May-2011 14:00 * Appointment; Provider: Carol Tellez On 16-Apr-2011 13:45 * Appointment; Provider: Kelvin Davis On 18-Sep-2010 14:30 * Appointment; Provider: Kayla Siddiqi On 18-Sep-2010 13:00 Instructions * Instructions not documented Encounters Appointment; Jerrod Rasmussen Encounter Diagnosis: Problem not [...] not documented On 30-Aug-2013 09:30 Appointment; Nuno Burgso Encounter Diagnosis: Problem not documented On 01-Aug-2013 [...] Diagnosis: Problem not documented On 25-Oct-2012 09:45 Appointment; Nuno Burgos Encounter Diagnosis: Problem not documented On 20-Sep-2012 09:30
--- OUTSIDE RECORDS SUMMARY | 2016-11-05 13:44 | XMS REPORT | Summary of Care ---
Author Author Nuno Burgos M.D. Unknown Address Unknown Phone Unavailable Care Team Providers Care Log Rafter Name Role Phone Ric Vines M.D. Unavailable [...] Status: Active Weakness Both Arms Status: Active Osteoporosis (733.00, M81.0) Status: Active Diabetes mellitus (250.00, E11.9) Status: Active Viral gastroenteritis (008.8, A08.4) Status: Active Encounter for screening for malignant neoplasm of colon (V76.51, Z12.11) Status: Active Shortness of breath (786.05, R06.02) Status: Active Fatigue (780.79, R53.83) Status: Active Anemia in chronic kidney disease [...] Active Ulcerative pancolitis (556.6, K51.90) Status: Active Pre-operative exam (V72.84, Z01.818) Status: Active Hyperlipidemia (272.4, E78.5) Status: Active Arthritis (716.90, M19.90) Status: Active Chronic kidney disease, stage III (moderate) (585.3, N18.3) Status: Active Bloating (787.3, R14.0) Status: Active Colitis (558.9, K52.9) Status: Active Arm pain (729.5, M79.603) Status: Active Tingling (782.0, R20.2) Status: Active Urine frequency (788.41, R35.0) Status: Active Lower back pain (724.2, M54.5) Status: Active Dizziness (780.4, R42) Status: Active Abnormal laboratory test result (796.4, R89.9) Status: Active Anemia (285.9, D64.9) Status: Active Arthralgia of multiple sites (719.49, M25.50) Status: Active Bursitis of hip (726.5, M70.70) Status: Active Hip pain (719.45, M25.559) Status: Active Depression (311, F32.9) Status: Active Esophageal reflux (530.81, K21.9) Status: Active Hypercholesterolemia (272.0, E78.0) Status: Active Hypertension (401.9, I10) Status: Active 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 * Quantity: 90 Refills: 2 Ric Vines M.D.* Started 03-Nov-2012 Active Allergies and Adverse Reactions Name Dates [...] of Complete Colonoscopy Completed:26-Jun-2011 RENAL PROFILE 1240 Ordered:08-May-2014 CBC w/ Auto Diff 7150 Ordered:08-May-2014 MAGNESIUM 1260 Ordered:08-May-2014 Parathyroid Hormone Intact 3101 Ordered:08-May-2014 Vitamin D, 25 - Hydroxy 3111 Ordered:08-May-2014 AST 1180 Ordered:26-Jun-2014 BASIC METABOLIC PROFILE 1210 Ordered:26-Jun-2014 CBC w/ Auto Diff 7150 Ordered:26-Jun-2014 LIPID PROFILE 1184 Ordered:26-Jun-2014 Immunization Name Dates Details Pneumo (Pneumovax) Lot #: [id number] Administered on:10-Feb-2012 Fluzone Quadrivalent 0.5 ML Intramuscular Suspension Lot #: [id number] Administered on:16-May-2013 Family History Unknown Family Member* Name Dates [...] smoker Vital Signs Date Test Result Details 30-Jun-2014 10:27 BP Systolic 138 mm[Hg] Status: BP Diastolic 62 mm[Hg] Status: Heart Rate 84 /min Status: Weight 138 lb Status: Body Mass Index Calculated 27.87 kg/m2 Status: Body Surface Area Calculated 1.57 m2 Status: 20-Jun-2014 10:14 BP Systolic 122 mm[Hg] Status: BP Diastolic 52 mm[Hg] Status: Heart Rate 88 /min Status: Weight 139 lb Status: Body Mass Index Calculated 28.07 kg/m2 Status: Body Surface Area Calculated 1.58 m2 Status: 05-Jun-2014 09:09 BP Systolic 100 mm[Hg] Status: BP Diastolic 50 mm[Hg] Status: Results Date Description Value Details 02-Jun-2014 10:39 HEMOGRAM 7305 WBC 3.7 K/uL (Below low threshold) Range: 4.5-11.0 RBC 3.27 mil/uL (Below low threshold) Range: 3.60-5.00 HGB 10.9 g/dL (Below low threshold) Range: 12.0-16.0 HCT 34.5 % (Below low threshold) Range: 36.0-48.0 MCV 105.5 fL (Above high threshold) Range: 80.0-99.0 MCH 33.5 pg (Above high threshold) Range: 27.3-32.5 MCHC 31.7 % (Below low threshold) Range: 32.0-36.0 PLATELETS 191 K/uL (Better) Range: 150-400 10:52 RENAL PROFILE 1240 SODIUM 134 mmol/L (Better) Range: 133-144 POTASSIUM 3.8 mmol/L (Better) Range: 3.5-5.1 CHLORIDE 97 mmol/L (Below low threshold) Range: 98-110 CARBON DIOXIDE 27.1 mmol/L (Better) Range: 23.0-33.0 ANION GAP 10 mmol/L (Better) Range: 6-16 BUN 15 mg/dL (Better) Range: 7-18 CREATININE, SERUM 1.47 mg/dL (Above high threshold) Range: 0.43-1.13 EST GFR, 41 ml/min (Below low threshold) Range: >60 EST GFR, NON-AFR SRI LANKAN 34 ml/min (Below low threshold) Range: >60 Comments: EST GFR is reported in ml/min per 1.73 m2 of body surface area. For -Nigerian, please multiple result by 1.2.----- BUN:CREATININE RATIO 10 (Better) GLUCOSE 100 mg/dL (Better) Range: 70-100 ALBUMIN 3.8 g/dL (Better) Range: 3.4-5.0 PHOSPHORUS 3.1 mg/dL (Better) Range: 2.5-4.9 CALCIUM 9.1 mg/dL (Better) Range: 8.5-10.1 30-Jun-2014 11:31 HEMOGRAM 7305 WBC 4.0 K/uL (Below low threshold) Range: 4.5-11.0 RBC 3.17 mil/uL (Below low threshold) Range: 3.60-5.00 HGB 10.1 g/dL (Below low threshold) Range: 12.0-16.0 HCT 31.7 % (Below low threshold) Range: 36.0-48.0 MCV 99.8 fL (Above high threshold) Range: 80.0-99.0 MCH 31.8 pg (Better) Range: 27.3-32.5 MCHC 31.9 % (Below low threshold) Range: 32.0-36.0 PLATELETS 176 K/uL (Better) Range: 150-400 11:44 RENAL PROFILE 1240 SODIUM 137 mmol/L (Better) Range: 133-144 POTASSIUM 3.8 mmol/L (Better) Range: 3.5-5.1 CHLORIDE 101 mmol/L (Better) Range: 98-110 CARBON DIOXIDE 29.1 mmol/L (Better) Range: 23.0-33.0 ANION GAP 7 mmol/L (Better) Range: 6-16 BUN 20 mg/dL (Above high threshold) Range: 7-18 CREATININE, SERUM 1.16 mg/dL (Above high threshold) Range: 0.43-1.13 EST GFR, 54 ml/min (Below low threshold) Range: >60 EST GFR, NON-AFR SRI LANKAN 45 ml/min (Below low threshold) Range: >60 Comments: EST GFR is reported in ml/min per 1.73 m2 of body surface area. For -Nigerian, please multiple result by 1.2.----- BUN:CREATININE RATIO 17 (Better) GLUCOSE 83 mg/dL (Better) Range: 70-100 ALBUMIN 4.0 g/dL (Better) Range: 3.4-5.0 PHOSPHORUS 2.5 mg/dL (Better) Range: 2.5-4.9 CALCIUM 9.3 mg/dL (Better) Range: 8.5-10.1 Plan of Care Planned Observations* Name Dates Details Planned Goals not documented Goal Planned Encounters* Appointment; Provider: Neeta Sosa On 13:30 * Appointment; Provider: Magan Bowles On 18-Oct-2014 10:30 * Appointment; Provider: Ric Martinez On 17-Aug-2014 10:30 * Appointment; Provider: Nuno Burgos On 04-Aug-2014 11:00 * Appointment; Provider: Ric Vines On 05-Jul-2014 15:30 * Appointment; Provider: Nuno Burgos On 03-Jul-2014 16:00 * Appointment; Provider: Carol Tellez On 28-May-2011 13:00 * Appointment; Provider: Carol Tellez On 14-May-2011 14:00 * Appointment; Provider: Carol Tellez On 16-Apr-2011 13:45 * Appointment; Provider: Kelvin Davsi On 18-Sep-2010 14:30 * Appointment; Provider: Kayla Siddiiq On 18-Sep-2010 13:00 Instructions * Instructions not documented Encounters Appointment; Neeta Sosa Encounter Diagnosis: Problem not [...] Diagnosis: Problem not documented On 20-Sep-2012 09:30 Appointment; Nuno Burgos Encounter Diagnosis: Problem not documented On 03-Aug-2012 11:15 Appointment; Ric Vines Encounter Diagnosis: Problem not documented On 26-Jul-2012 10:45 Appointment; Ric Vines Encounter Diagnosis: Problem not documented On 07-Jul-2012 10:00
--- OUTSIDE RECORDS SUMMARY | 2016-11-05 13:45 | XMS REPORT | Summary of Care ---
Author Author Rajesh Sifuentes, [facility] Unknown Address [address] [place] [address] Phone Unavailable Care Team Providers Care Rail Track Layer Name Role Phone Ric Vines M.D. Unavailable [...] coronary artery disease (414.00, I25.10) Status: Active CKD (chronic kidney disease), stage IV (585.4, N18.4) Status: Active Hypercholesterolemia (272.0, E78.0) Status: Active 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, 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 Iron (Fe) deficiency anemia (280.9, D50.9) Status: Active Back pain (724.5, M54.9) Status: Active Lower back pain (724.2, M54.5) Status: Active Neck pain (723.1, M54.2) Status: Active Osteoporosis (733.00, M81.0) Status: Active [...] 3 Ric Vines M.D.* Started 17-Aug-2014 ActiveNystatin 206207 UNIT/ML Mouth/Throat Suspension SWISH AND SWALLOW 10ML [...] Refills: 0 Ric Vines M.D.* Started 24-Aug-2015 [id number] Aerosol Powder Breath Activated Disp Pack Prolia [...] Quadrivalent 0.5 ML Intramuscular Suspension Lot #: [id number] Administered on:16-May-2013 Prevnar 13 Intramuscular Suspension Lot #: [id number] Administered on:05-Jul-2014 Fluzone High-Dose 0.5 ML Intramuscular Suspension Prefilled Syringe Lot #: [id number] Administered on:07-Mar-2015 Tdap (Adacel) Lot #: [id number] Administered on:07-Mar-2015 Family History Unknown Family Member* [...] 11/26/2015 10:01 X SPINE THORACIC (2V) (Better) [id number] 13:51 HEMOGRAM 7305 WBC 4.0 K/uL (Below [...] low threshold) Range: >60 EST GFR, NON-AFR [place] 31 ml/min (Below low threshold) Range: >60 [...] 10:00 * Appointment; Provider: Dar Love On 10:45 * Appointment; Provider: Magan Bowles On 11:45 * Appointment; Provider: Schedule Radiology On 04-Jun-2015 [...]
--- OUTSIDE RECORDS SUMMARY | 2016-11-05 13:45 | XMS REPORT | Summary of Care ---
Author Author Nuno Burgos M.D. Unknown Address [address], [place] [id number] Phone Unavailable Care Team Providers Care Rehab Tech Name Role Phone Ric Vines M.D. Unavailable [...] Refills: 3 Ric Vines M.D.* Started 25-Oct-2012 ActiveSulfaSALAzine 500 [...] Refills: 3 Ric Vines M.D.* Started 07-Mar-2014 ActiveMulti-Vitamins Oral Tablet TAKE 1 TABLET DAILY. * Refills: 0 Ric Vines M.D.* Started 25-Oct-2012 Active Allergies and Adverse Reactions Name Dates [...] Quadrivalent 0.5 ML Intramuscular Suspension Lot #: [id number] Administered on:16-May-2013 Prevnar 13 Intramuscular Suspension Lot #: [id number] Administered on:05-Jul-2014 Family History Unknown Family Member* [...] smoker Vital Signs Date Test Result Details 07-Nov-2014 10:38 BP Systolic 132 mm[Hg] Status: [...] ml/min (Better) Range: >60 EST GFR, NON-AFR CUBAN 50 ml/min (Below low threshold) Range: >60 Comments: EST GFR is reported in ml/min per 1.73 m2 of body surface area. For -Gibraltarian, please multiple result by 1.2.----- BUN:CREATININE RATIO [...] 144 K/uL (Below low threshold) Range: 150-400 Plan of Care Planned Observations* Name Dates Details Planned Goals not documented Goal Planned Encounters* Appointment; Provider: Magan Bowles On 26-Apr-2015 10:15 * Appointment; Provider: Ric Vines On 13-Mar-2015 10:30 * Appointment; Provider: Ric Martinez On 13-Feb-2015 10:30 * Appointment; Provider: Nuno Burgos On 11:15 * Appointment; Provider: Carol Tellez On 28-May-2011 [...]
--- OUTSIDE RECORDS SUMMARY | 2016-11-05 13:45 | XMS REPORT | Summary of Care ---
Author Author Rajesh Sifuentes, [facility] Unknown Address Unknown Phone Unavailable Care Team Providers Care Supervisor Mold Construction Name Role Phone Ric Vines M.D. Unavailable [...] Refills: 0 Ric Vines M.D.* Started 25-Oct-2012 ActiveAmoxicillin 500 MG Oral Capsule TAKE 4 CAPSULES BY MOUTH 1 HOUR PRIOR TO PROCEDURE * Quantity: 12 Refills: 0 Ric Vines M.D.* Started 26-Jan-2014 ActiveProlia 60 MG/ML Subcutaneous Solution INJECT SUBCUTANEOUSLY 60 MG / 1 ML EVERY 6 MONTHS * Quantity: 1 Refills: 0 Ric Vines M.D.* Started 13-Apr-2015 ActiveSulfaSALAzine 500 MG Oral Tablet TAKE 2 TABLET Twice daily * Quantity: 360 Refills: 3 Ric Vines M.D.* Started 03-Oct-2013 ActiveFurosemide 20 MG Oral Tablet TAKE 1 TABLET DAILY FOR SWELLING. * Quantity: 90 Refills: 3 Ric Vines M.D.* Started 03-Nov-2012 ActiveLisinopril 5 MG Oral Tablet TAKE ONE HALF TAB ONCE DAILY * Quantity: 45 Refills: 3 Ric Vines M.D.* Started 17-Aug-2014 ActiveAtorvastatin Calcium 80 MG Oral Tablet TAKE 1 TABLET DAILY. * Quantity: 90 Refills: 3 Ric Vines M.D.* Started 07-Mar-2014 ActiveCitalopram Hydrobromide 20 MG Oral Tablet TAKE 1 TABLET DAILY. * Quantity: 90 Refills: 3 Ric Vines M.D.* Started 25-Oct-2012 ActiveCalcium 600+D3 600-200 MG-UNIT Oral Tablet TAKE 1 TABLET THREE TIMES A DAY * Refills: 0 Ric Vines M.D.* Started 10-Feb-2012 Active Allergies and Adverse Reactions Name [...] Ordered: FERRITIN 3025 Ordered: IRON 1254 Ordered: C REACTIVE PROTEIN, CRP 2030 Ordered: CBC w/ Auto Diff 7150 Ordered: ERYTHROCYTE SED RATE 7800 Ordered: ORTHO KNEE LEFT (3 VIEWS ONLY) Ordered: Immunization Name Dates Details Pneumo (Pneumovax) Lot #: [id number] Administered on:10-Feb-2012 Fluzone Quadrivalent 0.5 ML Intramuscular Suspension Lot #: [id number] Administered on:16-May-2013 Prevnar 13 Intramuscular Suspension Lot #: [id number] Administered on:05-Jul-2014 Fluzone High-Dose 0.5 ML Intramuscular Suspension Prefilled Syringe Lot #: [id number] Administered on:07-Mar-2015 Tdap (Adacel) Lot #: [id number] Administered on:07-Mar-2015 Family History Unknown Family Member* [...] low threshold) Range: >60 EST GFR, NON-AFR [place] R[place] 27 ml/min (Below low threshold) Range: >60 Comments: EST GFR is reported in ml/min per 1.73 m2 of body surface area. For -Montenegrin, please multiple result by 1.2.----- GLUCOSE 99 [...] 14:45 * Appointment; Provider: Theo Roa On 15:00 * Appointment; Provider: Schedule Radiology On 04-Jun-2015 [...] not documented On 15-Aug-2015 11:30 Appointment; Magan Bwoles Encounter Diagnosis: Problem not documented On 01-Aug-2015 [...]
--- OUTSIDE RECORDS SUMMARY | 2016-11-05 13:46 | XMS REPORT | Summary of Care ---
Author Author Theo Roa D.P.T. Organization Unknown Address [address] [place], [place] [id number] Phone Unavailable Care Team Providers Care Control Systems Developer Name Role Phone Jerrod Mena M.D. Unavailable Unavailable Theo Roa D.P.T. Unavailable Unavailable Ric Vines [...] Status: Active Hypertension (401.9, I10) Status: Active Bilateral hip pain (719.45, M25.551) Status: Active Difficulty breathing (786.09, R06.89) Status: Active Arthralgia of multiple sites (719.49, [...] Status: Active Osteoporosis (733.00, M81.0) Status: Active Back pain (724.5, M54.9) Status: Active Spondylolisthesis of lumbar region (738.4, M43.16) Status: Active Left knee pain (719.46, M25.562) Status: Active 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, 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 Macrocytosis (289.89, D75.89) Status: Active Leukopenia (288.50, D72.819) Status: Active Anserine bursitis (726.61, M70.50) Status: Active Bilateral hip bursitis (726.5, M70.71) Status: Active Spinal stenosis (724.00, M48.00) Status: Active Medications Name Dates Details Omeprazole [...] Jerrod Mena M.D. * Start 04-Feb-2016 Active Allergies and Adverse Reactions Name Dates [...] 26-Jun-2011 CBC w/ Auto Diff 7150 Ordered: 16-Jan-2016 Comprehensive Metabolic Panel 1212 Ordered: 16-Jan-2016 FERRITIN 3025 Ordered: 16-Jan-2016 IRON 1254 Ordered: 16-Jan-2016 ORTHO KNEE LEFT (3 VIEWS ONLY) Ordered: BONE LA SCAN AND FLOW Ordered: 15-Jan-2016 Immunization Name Dates Details Pneumo (Pneumovax) Lot #: [id number] on: 10-Feb-2012 Fluzone Quadrivalent 0.5 ML Intramuscular Suspension Lot #: [id number] on: 16-May-2013 Prevnar 13 Intramuscular Suspension Lot #: [id number] on: 05-Jul-2014 Fluzone High-Dose 0.5 ML Intramuscular Suspension Prefilled Syringe Lot #: [id number] on: 07-Mar-2015 Tdap (Adacel) Lot #: [id number] on: 07-Mar-2015 Family History Name Dates Details [...] smoker Vital Signs Date Test Result Details 04-Feb-2016 09:28 BP Systolic 108 mm[Hg] Status: Comments: Location: ; Position: BP Diastolic 58 mm[Hg] Status: Comments: Location: ; Position: Heart Rate 88 /min Status: Comments: Location: ; Weight 128 lb Status: Body Mass Index Calculated 26.75 kg/m2 Status: Body Surface Area Calculated 1.51 m2 Status: Results Date Description Value Details 24-Jan-2016 14:45 XN BONE FLOW ( 3 PHASE ) Comments: Exam Date: 2015 09:46Dictation Date: 01/24/2016 14:45 Plan of Care Name Dates Details Planned Observations Planned Goals not documented Planned Encounters Appointment; Provider: Nuno Burgos M.D. On 04-Mar-2016 13:45 Appointment; Provider: Ric Vines M.D. On 04-Mar-2016 10:00 Appointment; Provider: Theo Roa D.P.T. On 28-Feb-2016 14:30 Appointment; Provider: Dar Love M.D.|LOY|Bear,LOY|Bear,FACP, On 27-Feb-2016 10:30 Instructions Name Dates Details Instructions not documented [...] documented On 17-Jan-2016 10:30 Appointment; Dar Love M.D.|FACP|M.D.,TONYP|Bear,FACP, Encounter Diagnosis: Problem not documented On 16-Jan-2016 14:45 Appointment; Teho Roa D.P.T. Encounter Diagnosis: Problem not documented [...] Problem not documented On 13-Feb-2015 10:30 Appointment; uNno Burgos M.D. Encounter Diagnosis: Problem not documented [...] Encounter Diagnosis: Problem not documented On 07-Mar-2014 10:00"
--- OUTSIDE RECORDS SUMMARY | 2016-11-05 13:46 | XMS REPORT | Summary of Care ---
Author Author Nuno Burgos M.D. Unknown Address [address], [place] [id number] Phone Unavailable Care Team Providers Care Php Mysql Web Developer Name Role Phone Ric Vines M.D. Unavailable [...] Refills: 3 Ric Vines M.D.* Started 29-Aug-2011 ActiveSulfaSALAzine 500 MG Oral Tablet TAKE 2 [...] Refills: 3 Ric Vines M.D.* Started 07-Mar-2014 ActiveB-12 500 MCG Oral Tablet TAKE 1 TABLET DAILY. * Refills: 0 Ric Vines M.D.* Started 21-Jun-2012 ActiveFurosemide 20 MG Oral Tablet TAKE 1 TABLET DAILY NEEDED FOR SWELLING. * Quantity: 90 Refills: 3 Ric Vines M.D.* Started 03-Nov-2012 ActiveMulti-Vitamins Oral Tablet TAKE 1 TABLET DAILY. * Refills: 0 Ric Vines M.D.* Started 25-Oct-2012 ActiveCalcium 600+D3 600-200 MG-UNIT Oral Tablet Take [...] Quadrivalent 0.5 ML Intramuscular Suspension Lot #: [id number] Administered on:16-May-2013 Prevnar 13 Intramuscular Suspension Lot #: [id number] Administered on:05-Jul-2014 Family History Unknown Family Member* [...] ml/min (Better) Range: >60 EST GFR, NON-AFR [place] 50 ml/min (Below low threshold) Range: >60 Comments: EST GFR is reported in ml/min per 1.73 m2 of body surface area. For -Canadian, please multiple result by 1.2.----- BUN:CREATININE RATIO [...] - CALCULATED 96 mg/dL (Better) Range: 0-130 Plan of Care Planned Observations* Name Dates [...]
--- OUTSIDE RECORDS SUMMARY | 2016-11-05 13:46 | XMS REPORT | Summary of Care ---
Author Author Ric Vines M.D. Organization Unknown Address [address], [place] [phone] Phone Unavailable Care Team Providers Care Manager Bridge Name Role Phone Ric Vines M.D. Unavailable Unavailable Magan Bowles M.D. Unavailable Unavailable Ric Vines PP Unavailable Unavailable Unavailable Functional Status Functional Status Health Issues* Name Dates Details Functional status health issues are not documented Status: Cognitive Status Health Issues* Name Dates Details Cognitive status health issues are not documented Status: Problems Name Dates Details Neck pain (723.1, M54.2) Status: Active Iron (Fe) deficiency anemia (280.9, D50.9) Status: Active Glossitis (529.0, K14.0) Status: Active Arthritis (716.90, [...] pain, acute, right (719.43, M25.531) Status: Active Lower back pain (724.2, M54.5) Status: Active Muscle spasm (728.85, M62.838) Status: Active Muscle pain (729.1, M79.1) Status: Active Shoulder pain, right (719.41, M25.511) Status: Active Pain of left shoulder region (719.41, M25.512) Status: Active 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, I25.10) Status: Active Diabetes mellitus (250.00, E11.9) Status: Active Hypercholesterolemia (272.0, E78.0) Status: Active Hypertension (401.9, I10) Status: Active Osteoporosis (733.00, M81.0) Status: Active Difficulty breathing (786.09, R06.89) Status: Active 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, 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 Bilateral hip pain (719.45, M25.551) Status: Active Bilateral hip bursitis (726.5, M70.71) Status: Active Arthralgia of multiple sites (719.49, M25.50) Status: Active Left knee pain (719.46, M25.562) Status: Active Anserine bursitis (726.61, M70.50) Status: Active Fever (780.60, R50.9) Status: Active Cough, persistent (786.2, R05) Status: Active CKD (chronic kidney disease), stage IV (585.4, N18.4) Status: Active Essential hypertension (401.9, I10) Status: Active Asthmatic bronchitis with acute exacerbation [...] Refills: 3 Ric Vines M.D.* Started 03-Nov-2012 ActiveNystatin 075799 UNIT/ML Mouth/Throat Suspension SWISH AND SWALLOW 10ML FOUR TIMES DAILY FOR 5 DAYS * Quantity: 200 Refills: 0 Ric Vines M.D.* Started 07-Mar-2015 ActiveProlia 60 MG/ML Subcutaneous Solution INJECT SUBCUTANEOUSLY 60 MG / 1 ML EVERY 6 MONTHS * Quantity: 1 Refills: 0 Ric Vines M.D.* Started 13-Apr-2015 ActiveAmoxicillin 500 MG Oral Capsule TAKE 4 CAPSULES BY MOUTH 1 HOUR PRIOR TO PROCEDURE * Quantity: 12 Refills: 0 Ric Vines M.D.* Started 26-Jan-2014 ActiveLisinopril 5 MG Oral Tablet TAKE ONE HALF TAB ONCE DAILY * Quantity: 15 Refills: 5 Ric Vines M.D.* Started 17-Aug-2014 ActiveHydrocodone-Acetaminophen 5-325 MG Oral Tablet take 1/2 tablet tid * Quantity: 45 Refills: 0 Magan Bowles M.D.* Started 01-Aug-2015 ActiveSulfaSALAzine 500 MG Oral Tablet TAKE 2 TABLET Twice daily * Quantity: 360 Refills: 3 Ric Vines M.D.* Started 03-Oct-2013 ActiveAtorvastatin Calcium 80 MG Oral Tablet TAKE 1 TABLET DAILY. * Quantity: 90 Refills: 3 Ric Vines M.D.* Started 07-Mar-2014 ActiveAdvair Diskus 250-50 MCG/DOSE Inhalation Aerosol Powder Breath Activated INHALE 1 PUFF EVERY 12 HOURS. * Quantity: 2 Refills: 0 Ric Vines M.D.* Started 24-Aug-2015 [id number] Aerosol Powder Breath Activated Disp Pack Allergies and Adverse Reactions Name Dates Details [...] Knee Replacement History of Complete Colonoscopy Completed:26-Jun-2011 Parathyroid Hormone Intact 3101 Ordered:20-Aug-2015 HEMOGRAM 7305 Ordered:20-Aug-2015 RENAL PROFILE 1240 Ordered:20-Aug-2015 Immunization Name Dates Details Pneumo (Pneumovax) Lot #: [id number] Administered on:10-Feb-2012 Fluzone Quadrivalent 0.5 ML Intramuscular Suspension Lot #: [id number] Administered on:16-May-2013 Prevnar 13 Intramuscular Suspension Lot #: [id number] Administered on:05-Jul-2014 Fluzone High-Dose 0.5 ML Intramuscular Suspension Prefilled Syringe Lot #: [id number] Administered on:07-Mar-2015 Tdap (Adacel) Lot #: [id number] Administered on:07-Mar-2015 Family History Unknown Family Member* [...] smoker Vital Signs Date Test Result Details 11-Sep-2015 10:13 BP Systolic 118 mm[Hg] Status: BP Diastolic 70 mm[Hg] Status: Temperature 36.4 c Status: Heart Rate 91 /min Status: O2 SAT 93 % Status: 24-Aug-2015 14:31 BP Systolic 118 mm[Hg] Status: BP Diastolic 68 mm[Hg] Status: Temperature 36.8 c Status: Heart Rate 80 /min Status: O2 SAT 98 % Status: 15-Aug-2015 13:42 BP Systolic 110 mm[Hg] Status: BP Diastolic 52 mm[Hg] Status: Temperature 36.8 c Status: Heart Rate 99 /min Status: O2 SAT 96 % Status: 15-Aug-2015 11:25 BP Systolic 128 mm[Hg] Status: BP Diastolic 56 mm[Hg] Status: Temperature 99.4 f Status: Heart Rate 100 /min Status: Weight 131.125 lb Status: Body Mass Index Calculated 26.48 kg/m2 Status: Body Surface Area Calculated 1.54 m2 Status: Results Date Description Value Details 15-Aug-2015 12:22 XRay CHEST-PA & LAT Comments: Exam Date: 08/15/2015 11: 40Dictation Date: 08/15/2015 12:22 X CHEST PA & LAT (Better) Plan of Care Planned Observations* Name Dates Details Planned Goals not documented Goal Planned Encounters* Appointment; Provider: Magan Bowles On 12:45 * Appointment; Provider: Nuno Burgos On 11:15 * Appointment; Provider: Ric Vines On 06-Nov-2015 11:00 * Appointment; Provider: Schedule Radiology On [...]
--- OUTSIDE RECORDS SUMMARY | 2016-11-05 13:46 | XMS REPORT | Summary of Care ---
Author Author Ric Vines M.D. Organization Unknown Address [address], [place] [id number] Phone Unavailable Care Team Providers Care Continuous Crusher Operator Name Role Phone Ric Vines M.D. Unavailable [...] Refills: 0 Ric Vines M.D.* Started 25-Oct-2012 ActiveCitalopram Hydrobromide 20 MG Oral Tablet TAKE 1 TABLET DAILY. * Quantity: 90 Refills: 3 Ric Vines M.D.* Started 25-Oct-2012 ActiveAtorvastatin Calcium 80 MG Oral Tablet TAKE 1 TABLET DAILY. * Quantity: 90 Refills: 3 Ric Vines M.D.* Started 07-Mar-2014 ActiveFurosemide 20 MG Oral Tablet TAKE 1 TABLET DAILY NEEDED FOR SWELLING. * Quantity: 90 Refills: 2 Ric Vines M.D.* Started 03-Nov-2012 ActiveSulfaSALAzine 500 MG Oral Tablet TAKE 2 TABLET Twice daily * Quantity: 360 Refills: 3 Ric Vines M.D.* Started 03-Oct-2013 Active Allergies and Adverse Reactions Name Dates [...] Vitamin D, 25 - Hydroxy 3111 Ordered:08-May-2014 Immunization Name Dates Details Pneumo (Pneumovax) Lot #: [id number] Administered on:10-Feb-2012 Fluzone Quadrivalent 0.5 ML Intramuscular Suspension Lot #: [id number] Administered on:16-May-2013 Family History Unknown Family Member* [...] smoker Vital Signs Date Test Result Details 05-Jul-2014 15:32 BP Systolic 132 mm[Hg] Status: BP Diastolic 68 mm[Hg] Status: Temperature 36.9 c Status: Weight 135 lb Status: Body Mass Index Calculated 27.27 kg/m2 Status: Body Surface Area Calculated 1.56 m2 Status: 03-Jul-2014 16:03 BP Systolic 118 mm[Hg] Status: BP Diastolic 58 mm[Hg] Status: 30-Jun-2014 10:27 BP Systolic 138 mm[Hg] Status: [...] Body Surface Area Calculated 1.58 m2 Status: Results Date Description Value Details 30-Jun-2014 11:31 HEMOGRAM 7305 WBC 4.0 K/uL [...] Range: >60 EST GFR, NON-AFR [place] 45 ml/min (Below low threshold) Range: >60 Comments: EST GFR is reported in ml/min per 1.73 m2 of body surface area. For -Rwandan, please multiple result by 1.2.----- BUN:CREATININE RATIO 17 (Better) GLUCOSE 83 mg/dL (Better) Range: 70-100 ALBUMIN 4.0 g/dL (Better) Range: 3.4-5.0 PHOSPHORUS 2.5 mg/dL (Better) Range: 2.5-4.9 CALCIUM 9.3 mg/dL (Better) Range: 8.5-10.1 04-Jul-2014 11:43 CBC w/ Auto Diff 7150 Comments: Fastin hours WBC 3.4 K/uL (Below low threshold) Range: 4.5-11.0 RBC 3.58 mil/uL (Below low threshold) Range: 3.60-5.00 HGB 11.6 g/dL (Below low threshold) Range: 12.0-16.0 HCT 36.2 % (Better) Range: 36.0-48.0 MCV 101.2 fL (Above high threshold) Range: 80.0-99.0 MCH 32.3 pg (Better) Range: 27.3-32.5 MCHC 32.0 % (Better) Range: 32.0-36.0 RDW 13.9 % (Better) Range: 11.6-14.8 PLATELETS 170 K/uL (Better) Range: 150-400 MPV 9.8 fL (Better) Range: 6.0-11.0 %NEUTRO 68.5 % (Better) Range: 37.0-80.0 %LYMPHS 22.0 % (Better) Range: 13.0-50.0 %MONO 6.0 % (Better) Range: 0.0-12.0 %EOS 1.5 % (Better) Range: 0.0-7.0 %BASO 0.3 % (Better) Range: 0.0-2.5 %MARY 1.8 % (Better) Range: 0.0-5.0 NEUTRO 2.3 K/uL (Better) Range: 2.0-6.9 LYMPHS 0.7 K/uL (Better) Range: 0.6-3.4 MONOS 0.2 K/uL (Better) Range: 0.0-0.9 EOS 0.1 K/uL (Better) Range: 0.0-0.7 BASO 0.0 K/uL (Better) Range: 0.0-0.2 12:18 AST 1180 Comments: Fastin hours AST 33 U/L (Better) Range: 8-35 12:18 BASIC METABOLIC PROFILE 1210 Comments: Fastin hours SODIUM 140 mmol/L (Better) Range: 133-144 POTASSIUM 3.7 mmol/L (Better) Range: 3.5-5.1 CHLORIDE 104 mmol/L (Better) Range: 98-110 CARBON DIOXIDE 26.3 mmol/L (Better) Range: 23.0-33.0 ANION GAP 10 mmol/L (Better) Range: 6-16 BUN 17 mg/dL (Better) Range: 7-18 CREATININE, SERUM 1.13 mg/dL (Better) Range: 0.43-1.13 EST GFR, 56 ml/min (Below low threshold) Range: >60 EST GFR, NON-AFR [place] R[place] 46 ml/min (Below low threshold) Range: >60 Comments: EST GFR is reported in ml/min per 1.73 m2 of body surface area. For -Rwandan, please multiple result by 1.2.----- BUN:CREATININE RATIO 15 (Better) GLUCOSE 93 mg/dL (Better) Range: 70-100 CALCIUM 9.3 mg/dL (Better) Range: 8.5-10.1 12:19 LIPID PROFILE 1184 Comments: Fastin hours CHOLESTEROL 178 mg/dL (Better) Range: <200 TRIGLYCERIDES 131 mg/dL (Better) Range: 30-200 HDL Cholesterol 89 mg/dL (Better) Range: >39 NON HDL CHOLESTEROL 89 (Better) CARDIAC RSK FACTOR 2.0 units (Below low threshold) Range: 4.4-5.0 LDL - CALCULATED 63 mg/dL (Better) Range: 0-130 Plan of Care Planned Observations* Name Dates Details Planned Goals not documented Goal Planned Encounters* Appointment; Provider: Neeta Sosa On 13:30 * Appointment; Provider: Ric Vines On 07-Nov-2014 10:30 * Appointment; Provider: Magan Bowles On 18-Oct-2014 10:30 * Appointment; Provider: Ric Martinez On 17-Aug-2014 10:30 * Appointment; Provider: Nuno Burgos On 04-Aug-2014 13:00 * Appointment; Provider: Nuno Burgos On 04-Aug-2014 11:00 * Appointment; Provider: Carol Tellez On [...] Problem not documented On 03-Aug-2012 11:15 Appointment; Rci Vines Encounter Diagnosis: Problem not documented On 26-Jul-2012 10:45 Appointment; Ric Vines Encounter Diagnosis: Problem not documented On 07-Jul-2012 10:00
--- OUTSIDE RECORDS SUMMARY | 2016-11-05 13:47 | XMS REPORT | Summary of Care ---
Author Author Ric Vines M.D. Organization Unknown Address [address], [place] [id number] Phone Unavailable Care Team Providers Care Software Development Project Manager Name Role Phone Ric Vines M.D. 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 Diabetes mellitus (250.00, E11.9) Status: Active Essential hypertension (401.9, I10) Status: Active Hypercholesterolemia (272.0, E78.0) Status: Active Medications Name Dates Details Omeprazole [...] Refills: 3 Ric Vines M.D.* Started 07-Mar-2014 ActiveNystatin 735678 UNIT/ML Mouth/Throat Suspension SWISH AND SWALLOW 10ML FOUR TIMES DAILY FOR 5 DAYS * Quantity: 200 Refills: 0 Ric Vines M.D.* Started 07-Mar-2015 ActiveLisinopril 5 MG Oral Tablet TAKE ONE HALF TAB ONCE DAILY * Quantity: 15 Refills: 5 Ric Viens M.D.* Started 17-Aug-2014 ActiveHydrocodone-Acetaminophen 5-325 MG Oral Tablet take 1/2 tablet tid * Quantity: 45 Refills: 0 Magan Bowles M.D.* Started 01-Aug-2015 ActiveAdvair Diskus 250-50 MCG/DOSE Inhalation Aerosol Powder Breath Activated INHALE 1 PUFF EVERY 12 HOURS. * Quantity: 2 Refills: 0 Ric Vines M.D.* Started 24-Aug-2015 [id number] Aerosol Powder Breath Activated Disp Pack Prolia [...] Quadrivalent 0.5 ML Intramuscular Suspension Lot #: [id number] Administered on:16-May-2013 Prevnar 13 Intramuscular Suspension Lot #: [id number] Administered on:05-Jul-2014 Fluzone High-Dose 0.5 ML Intramuscular Suspension Prefilled Syringe Lot #: [id number] Administered on:07-Mar-2015 Tdap (Adacel) Lot #: [id number] Administered on:07-Mar-2015 Family History Unknown Family Member* [...] smoker Vital Signs Date Test Result Details 06-Nov-2015 10:48 BP Systolic 118 mm[Hg] Status: BP Diastolic 54 mm[Hg] Status: Temperature 36.5 c Status: Heart Rate 85 /min Status: Weight 132 lb Status: O2 SAT 92 % Status: Body Mass Index Calculated 26.66 kg/m2 Status: Body Surface Area Calculated 1.55 m2 Status: Results Date Description Value Details 02-Nov-2015 10:59 CBC w/ Auto Diff 7150 Comments: Fastin hours WBC 3.0 K/uL (Below low threshold) Range: 4.5-11.0 RBC 3.33 mil/uL (Below low threshold) Range: 3.60-5.00 HGB 10.8 g/dL (Below low threshold) Range: 12.0-16.0 HCT 34.3 % (Below low threshold) Range: 36.0-48.0 MCV 103.2 fL (Above high threshold) Range: 80.0-99.0 MCH 32.5 pg (Better) Range: 27.3-32.5 MCHC 31.5 % (Below low threshold) Range: 32.0-36.0 RDW 12.4 % (Better) Range: 11.6-14.8 PLATELETS 175 K/uL (Better) Range: 150-400 MPV 10.4 fL (Better) Range: 6.0-11.0 %NEUTRO 42.1 % (Better) Range: 37.0-80.0 %LYMPHS 41.7 % (Better) Range: 13.0-50.0 %MONO 7.5 % (Better) Range: 0.0-12.0 %EOS 5.0 % (Better) Range: 0.0-7.0 %BASO 0.5 % (Better) Range: 0.0-2.5 %MARY 3.3 % (Better) Range: 0.0-5.0 NEUTRO 1.3 K/uL (Below low threshold) Range: 2.0-6.9 LYMPHS 1.2 K/uL (Better) Range: 0.6-3.4 MONOS 0.2 K/uL (Better) Range: 0.0-0.9 EOS 0.2 K/uL (Better) Range: 0.0-0.7 BASO 0.0 K/uL (Better) Range: 0.0-0.2 11:00 ALBUMIN CREAT PANEL 1108 Comments: Fastin hours MICROALBUMIN, URINE 64.1 mg/L (Above high threshold) Range: <20.1 URINE CREATININE 275.4 mg/dL (Above high threshold) Range: 30.0-125.0 URINE ALBUMIN:CREAT RATIO 23.3 ug/mg (Better) Range: 0.0-30.0 11:10 AST 1180 Comments: Fastin hours AST 27 U/L (Better) Range: 8-35 11:10 BASIC METABOLIC PROFILE 1210 Comments: Fastin hours SODIUM 140 mmol/L (Better) Range: 133-144 POTASSIUM 3.9 mmol/L (Better) Range: 3.5-5.1 CHLORIDE 102 mmol/L (Better) Range: 98-110 CARBON DIOXIDE 28.2 mmol/L (Better) Range: 23.0-33.0 ANION GAP 10 mmol/L (Better) Range: 6-16 BUN 18 mg/dL (Better) Range: 7-18 CREATININE, SERUM 1.48 mg/dL (Above high threshold) Range: 0.55-1.02 Comments: Please note new reference ranges effective 2014.----- EST GFR, 41 ml/min (Below low threshold) Range: >60 EST GFR, NON-AFR ZAMBIAN 34 ml/min (Below low threshold) Range: >60 Comments: EST GFR is reported in ml/min per 1.73 m2 of body surface area. For -Nigerian, please multiple result by 1.2.----- BUN:CREATININE RATIO 12 (Better) GLUCOSE 87 mg/dL (Better) Range: 70-100 CALCIUM 9.0 mg/dL (Better) Range: 8.5-10.1 11:10 LIPID PROFILE 1184 Comments: Fastin hours CHOLESTEROL 158 mg/dL (Better) Range: <200 TRIGLYCERIDES 100 mg/dL (Better) Range: 30-200 HDL Cholesterol 79 mg/dL (Better) Range: >39 NON HDL CHOLESTEROL 79 (Better) CARDIAC RSK FACTOR 2.0 units (Below low threshold) Range: 4.4-5.0 LDL - CALCULATED 59 mg/dL (Better) Range: 0-130 14:33 HEMOGLOBIN A1C 3507 Comments: Fastin hours Hemoglobin A1C 4.2 % (Better) ESTIMATED AVG. GLUCOSE 74 (Better) Plan of Care Planned Observations* Name Dates Details Planned Goals not documented Goal Planned Encounters* Appointment; Provider: Nuno Burgos On 13:45 * Appointment; Provider: Magan Bowles On 12:45 * Appointment; Provider: Schedule Radiology On 04-Jun-2015 [...] Problem not documented On 03-Jul-2014 16:00 Appointment; eNeta Sosa Encounter Diagnosis: Problem not documented On [...]
--- OUTSIDE RECORDS SUMMARY | 2016-11-05 13:47 | XMS REPORT | Summary of Care ---
Author Author Wilbur Sifuentes, aMgan Organization Unknown Address [address] [place], [place] [id number] Phone Unavailable Care Team Providers Care Canal Boat Operator Name Role Phone Ric Vines M.D. [...] 3 Ric Vines M.D.* Started 17-Aug-2014 ActiveNystatin 910577 UNIT/ML Mouth/Throat Suspension SWISH AND SWALLOW 10ML FOUR TIMES DAILY FOR 5 DAYS * Quantity: 200 Refills: 0 Ric Vines M.D.* Started 07-Mar-2015 ActiveProlia 60 MG/ML Subcutaneous Solution INJECT SUBCUTANEOUSLY 60 MG / 1 ML EVERY 6 MONTHS * Quantity: 1 Refills: 0 Ric iVnes M.D.* Started 13-Apr-2015 ActiveHydrocodone-Acetaminophen 5-325 MG Oral Tablet take 1/2 tablet tid * Quantity: 45 Refills: 0 Magan Bowles M.D.* Started 01-Aug-2015 ActiveAdvair Diskus 250-50 MCG/DOSE Inhalation Aerosol Powder Breath Activated INHALE 1 PUFF EVERY 12 HOURS. * Quantity: 2 Refills: 0 Ric Vines M.D.* Started 24-Aug-2015 [id number] Aerosol Powder Breath Activated Disp Pack Allergies [...] Quadrivalent 0.5 ML Intramuscular Suspension Lot #: [id number] Administered on:16-May-2013 Prevnar 13 Intramuscular Suspension Lot #: [id number] Administered on:05-Jul-2014 Fluzone High-Dose 0.5 ML Intramuscular Suspension Prefilled Syringe Lot #: [id number] Administered on:07-Mar-2015 Tdap (Adacel) Lot #: [id number] Administered on:07-Mar-2015 Family History Unknown Family Member* [...] smoker Vital Signs Date Test Result Details 12:54 BP Systolic 112 mm[Hg] Status: BP [...] threshold) Range: >60 EST GFR, NON-AFR [place] 34 ml/min (Below low threshold) Range: >60 Comments: EST GFR is reported in ml/min per 1.73 m2 of body surface area. For -Tanzanian, please multiple result by 1.2.----- BUN:CREATININE RATIO [...] % (Better) ESTIMATED AVG. GLUCOSE 74 (Better) 09:56 XRay SPINE-CERVICAL Comments: Exam Date: 11/24/2015 [...] threshold) Range: >60 EST GFR, NON-AFR MAL[place] 31 ml/min (Below low threshold) Range: >60 Comments: EST GFR is reported in ml/min per 1.73 m2 of body surface area. For -Tanzanian, please multiple result by 1.2.----- BUN:CREATININE RATIO [...] documented Goal Planned Encounters* Appointment; Provider: Ric Vines On 04-Mar-2016 10:00 * Appointment; Provider: Dar Love On 10:45 * Appointment; Provider: Magan Bowles On 11:45 * Appointment; Provider: Nuno Burgos On 13:45 * Appointment; Provider: Schedule Radiology On 04-Jun-2015 [...]
--- OUTSIDE RECORDS SUMMARY | 2016-11-05 13:47 | XMS REPORT | Summary of Care ---
Author Author Ivan Sifuentes, LOY, ,, Dar F Organization Unknown Address Unknown Phone Unavailable Care Team Providers Care Gis Engineer Name Role Phone Jerrod Mena M.D. Unavailable Unavailable Ivan Sifuentes, LOY, ,, F [...] Refills: 3 Ric Vines M.D. * Start 29-Aug-2011 Active Osteo Bi-Flex Triple Strength [...] Replacement History of Complete Colonoscopy Completed: 26-Jun-2011 AST 1180 Ordered: 25-Feb-2016 BASIC METABOLIC PROFILE 1210 Ordered: 25-Feb-2016 CBC w/ Auto Diff 7150 Ordered: 25-Feb-2016 LIPID PROFILE 1184 Ordered: 25-Feb-2016 CBC w/ Auto Diff 7150 Ordered: 16-Jan-2016 FERRITIN 3025 Ordered: 16-Jan-2016 Comprehensive Metabolic Panel 1212 Ordered: 16-Jan-2016 ORTHO KNEE LEFT (3 VIEWS ONLY) Ordered: BONE LA SCAN AND FLOW Ordered: 15-Jan-2016 Immunization Name Dates Details Pneumo (Pneumovax) Lot #: [id number] on: 10-Feb-2012 Fluzone Quadrivalent 0.5 ML Intramuscular Suspension Lot #: [id number] on: 16-May-2013 Prevnar 13 Intramuscular Suspension Lot #: [id number] on: 05-Jul-2014 Fluzone High-Dose 0.5 ML Intramuscular Suspension Prefilled Syringe Lot #: [id number] on: 07-Mar-2015 Tdap (Adacel) Lot #: [id number] on: 07-Mar-2015 Family History Name Dates Details [...] Details Results not documented Plan of Care Name Dates Details Planned Observations CBC w/ Auto Diff 7150 On 16-Feb-2016 Intent Comprehensive Metabolic Panel 1212 On 16-Feb-2016 Intent FERRITIN 3025 On 16-Feb-2016 Intent Planned Goals not documented Planned Encounters Appointment; Provider: Nuno Burgos M.D. On 04-Mar-2016 13:45 Appointment; Provider: Ric Vines M.D. On 04-Mar-2016 10:00 Appointment; Provider: Theo Roa D.P.T. On 28-Feb-2016 14:30 Appointment; Provider: Dar Love M.D.|VINCENT,VINCENT,LOY, On 27-Feb-2016 10:30 Appointment; Provider: Schedule Radiology On 24-Jan-2016 10:00 [...] Problem not documented On 13:00 Appointment; Theo oRa D.P.T. Encounter Diagnosis: Problem [...]
--- OUTSIDE RECORDS SUMMARY | 2016-11-05 13:48 | XMS REPORT | Summary of Care ---
Author Author Wilbur Sifuentes, Magan Organization Unknown Address [address], [place] [address] Phone Unavailable Care Team Providers Care Hr Advisor Name Role Phone Ric Vines M.D. Unavailable [...] Active Arm pain (729.5, M79.603) Status: Active Depression (311, F32.9) Status: Active Esophageal reflux (530.81, K21.9) Status: Active Monoclonal gammopathy (273.1, D47.2) Status: Active Trigger finger, acquired (727.03, M65.30) Status: Active Pain in hand (729.5, M79.643) Status: Active Ganglion (727.43, M67.40) Status: Active Tendonitis of finger (727.05, M77.9) Status: Active Spinal stenosis (724.00, M48.00) Status: Active Fatigue (780.79, R53.83) Status: Active Dizziness (780.4, R42) Status: Active Hypokalemia (276.8, E87.6) Status: Active Hyperlipidemia (272.4, E78.5) Status: Active Ulcerative pancolitis (556.6, K51.90) Status: Active Wrist pain, acute, right (719.43, M25.531) Status: Active Arthralgia of multiple sites (719.49, [...] Active Difficulty breathing (786.09, R06.89) Status: Active CKD (chronic kidney disease), stage IV (585.4, N18.4) Status: Active 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, 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 Bilateral hip pain (719.45, M25.551) Status: Active Bilateral hip bursitis (726.5, M70.71) Status: Active Left knee pain (719.46, M25.562) [...] Refills: 5 Ric Vines M.D.* Started 17-Aug-2014 ActiveNystatin 854941 UNIT/ML Mouth/Throat Suspension SWISH AND SWALLOW 10ML FOUR TIMES DAILY FOR 5 DAYS * Quantity: 200 Refills: 0 Ric Vines M.D.* Started 07-Mar-2015 ActiveProlia 60 MG/ML Subcutaneous Solution INJECT SUBCUTANEOUSLY 60 MG / 1 ML EVERY 6 MONTHS * Quantity: 1 Refills: 0 Ric Vines M.D.* Started 13-Apr-2015 ActiveHydrocodone-Acetaminophen 5-325 MG Oral Tablet take 1/2 tablet tid * Quantity: 45 Refills: 0 Magan Bowles M.D.* Started 01-Aug-2015 Active Allergies and Adverse Reactions Name Dates [...] Quadrivalent 0.5 ML Intramuscular Suspension Lot #: [id number] Administered on:16-May-2013 Prevnar 13 Intramuscular Suspension Lot #: [id number] Administered on:05-Jul-2014 Fluzone High-Dose 0.5 ML Intramuscular Suspension Prefilled Syringe Lot #: [id number] Administered on:07-Mar-2015 Tdap (Adacel) Lot #: [id number] Administered on:07-Mar-2015 Family History Unknown Family Member* [...] smoker Vital Signs Date Test Result Details 01-Aug-2015 10:40 BP Systolic 116 mm[Hg] Status: BP Diastolic 66 mm[Hg] Status: Weight 132 lb Status: Body Mass Index Calculated 26.66 kg/m2 Status: Body Surface Area Calculated 1.55 m2 Status: 25-Jul-2015 11:22 BP Systolic 112 mm[Hg] Status: BP Diastolic 68 mm[Hg] Status: Weight 132 lb Status: Body Mass Index Calculated 26.66 kg/m2 Status: Body Surface Area Calculated 1.55 m2 Status: 04-Jul-2015 10:18 BP Systolic 128 mm[Hg] Status: BP Diastolic 68 mm[Hg] Status: Temperature 36.7 c Status: Heart Rate 86 /min Status: Weight 132 lb Status: O2 SAT 95 % Status: Body Mass Index Calculated 26.66 kg/m2 Status: Body Surface Area Calculated 1.55 m2 Status: Results Date Description Value Details 03-Jul-2015 11:24 CBC w/ Auto Diff 7150 Comments: Fastin hours WBC 5.3 K/uL (Better) Range: 4.5-11.0 RBC 3.30 mil/uL (Below low threshold) Range: 3.60-5.00 HGB 11.0 g/dL (Below low threshold) Range: 12.0-16.0 HCT 35.7 % (Below low threshold) Range: 36.0-48.0 MCV 108.2 fL (Above high threshold) Range: 80.0-99.0 MCH 33.2 pg (Above high threshold) Range: 27.3-32.5 MCHC 30.7 % (Below low threshold) Range: 32.0-36.0 RDW 12.7 % (Better) Range: 11.6-14.8 PLATELETS 160 K/uL (Better) Range: 150-400 MPV 10.1 fL (Better) Range: 6.0-11.0 %NEUTRO 70.9 % (Better) Range: 37.0-80.0 %LYMPHS 18.9 % (Better) Range: 13.0-50.0 %MONO 5.9 % (Better) Range: 0.0-12.0 %EOS 2.4 % (Better) Range: 0.0-7.0 %BASO 0.4 % (Better) Range: 0.0-2.5 %MARY 1.5 % (Better) Range: 0.0-5.0 NEUTRO 3.8 K/uL (Better) Range: 2.0-6.9 LYMPHS 1.0 K/uL (Better) Range: 0.6-3.4 MONOS 0.3 K/uL (Better) Range: 0.0-0.9 EOS 0.1 K/uL (Better) Range: 0.0-0.7 BASO 0.0 K/uL (Better) Range: 0.0-0.2 11:51 AST 1180 Comments: Fastin hours AST 30 U/L (Better) Range: 8-35 11:51 BASIC METABOLIC PROFILE 1210 Comments: Fastin hours SODIUM 138 mmol/L (Better) Range: 133-144 POTASSIUM 3.7 mmol/L (Better) Range: 3.5-5.1 CHLORIDE 103 mmol/L (Better) Range: 98-110 CARBON DIOXIDE 26.6 mmol/L (Better) Range: 23.0-33.0 ANION GAP 8 mmol/L (Better) Range: 6-16 BUN 21 mg/dL (Above high threshold) Range: 7-18 CREATININE, SERUM 1.41 mg/dL (Above high threshold) Range: 0.55-1.02 Comments: Please note new reference ranges effective 2014.----- EST GFR, 43 ml/min (Below low threshold) Range: >60 EST GFR, NON-AFR [place] 36 ml/min (Below low threshold) Range: >60 Comments: EST GFR is reported in ml/min per 1.73 m2 of body surface area. For -Citizen Of [place], please multiple result by 1.2.----- BUN:CREATININE RATIO 15 (Better) GLUCOSE 89 mg/dL (Better) Range: 70-100 CALCIUM 8.6 mg/dL (Better) Range: 8.5-10.1 11:51 LIPID PROFILE 1184 Comments: Fastin hours CHOLESTEROL 155 mg/dL (Better) Range: <200 TRIGLYCERIDES 89 mg/dL (Better) Range: 30-200 HDL Cholesterol 73 mg/dL (Better) Range: >39 NON HDL CHOLESTEROL 82 (Better) CARDIAC RSK FACTOR 2.1 units (Below low threshold) Range: 4.4-5.0 LDL - CALCULATED 64 mg/dL (Better) Range: 0-130 12:00 THYROID STIM. HORMONE 3602 Comments: Fastin hours THYROID STIM. HORMONE 3.599 uIU/mL (Better) Range: 0.550-4.780 Comments: No established reference ranges for infants and children <2 years of age----- 14:39 HEMOGLOBIN A1C 3507 Comments: Fastin hours Hemoglobin A1C 3.8 % (Better) Comments: Verified by Repeat Analysis----- ESTIMATED AVG. GLUCOSE 62 (Better) 20-Jul-2015 11:47 HEMOGRAM 7305 WBC 4.8 K/uL (Better) Range: 4.5-11.0 RBC 3.44 mil/uL (Below low threshold) Range: 3.60-5.00 HGB 11.2 g/dL (Below low threshold) Range: 12.0-16.0 HCT 36.0 % (Better) Range: 36.0-48.0 MCV 104.5 fL (Above high threshold) Range: 80.0-99.0 MCH 32.6 pg (Above high threshold) Range: 27.3-32.5 MCHC 31.2 % (Below low threshold) Range: 32.0-36.0 PLATELETS 180 K/uL (Better) Range: 150-400 12:04 RENAL PROFILE 1240 SODIUM 141 mmol/L (Better) Range: 133-144 POTASSIUM 3.4 mmol/L (Below low threshold) Range: 3.5-5.1 CHLORIDE 103 mmol/L (Better) Range: 98-110 CARBON DIOXIDE 25.7 mmol/L (Better) Range: 23.0-33.0 ANION GAP 12 mmol/L (Better) Range: 6-16 BUN 13 mg/dL (Better) Range: 7-18 CREATININE, SERUM 1.49 mg/dL (Above high threshold) Range: 0.55-1.02 Comments: Please note new reference ranges effective 2014.----- EST GFR, 41 ml/min (Below low threshold) Range: >60 EST GFR, NON-AFR [place] 34 ml/min (Below low threshold) Range: >60 Comments: EST GFR is reported in ml/min per 1.73 m2 of body surface area. For -Citizen Of [place], please multiple result by 1.2.----- BUN:CREATININE RATIO 9 (Better) GLUCOSE 135 mg/dL (Above high threshold) Range: 70-100 Comments: Variance from previous testing noted.----- ALBUMIN 3.7 g/dL (Better) Range: 3.4-5.0 PHOSPHORUS 2.3 mg/dL (Below low threshold) Range: 2.6-4.7 Comments: Please note new reference ranges effective 2015.----- CALCIUM 8.7 mg/dL (Better) Range: 8.5-10.1 Plan of Care Planned Observations* Name Dates Details Planned Goals not documented Goal Planned Encounters* Appointment; Provider: Magan Bowles On 12:45 * Appointment; Provider: Ric Vines On 06-Nov-2015 11:00 * Appointment; Provider: Nuno Burgos On 15-Aug-2015 11:30 * Appointment; Provider: Schedule Radiology On 04-Jun-2015 16:00 * Appointment; Provider: Schedule Radiology On 04-Jun-2015 16:00 * Appointment; Provider: Schedule Radiology On 04-Apr-2015 14:30 * Appointment; Provider: Carol Tellez On 28-May-2011 13:00 * Appointment; Provider: Carlo Tellez On 14-May-2011 14:00 * Appointment; Provider: [...] Problem not documented On 01-Nov-2013 10:15 Appointment; Nnuo Burgos Encounter Diagnosis: Problem not documented On [...]
--- OUTSIDE RECORDS SUMMARY | 2016-11-05 13:48 | XMS REPORT | Summary of Care ---
Author Author Theo Roa D.P.T. Unknown Address Unknown Phone Unavailable Care Team Providers Care Preanalytics Team Lead Name Role Phone Ric Vines [...] Status: Active Macrocytosis (289.89, D75.89) Status: Active Medications Name Dates Details Omeprazole [...] Ordered: FERRITIN 3025 Ordered: IRON 1254 Ordered: Immunization Name Dates Details Pneumo (Pneumovax) Lot #: [id number] Administered on:10-Feb-2012 Fluzone Quadrivalent 0.5 ML Intramuscular Suspension Lot #: [id number] Administered on:16-May-2013 Prevnar 13 Intramuscular Suspension Lot #: [id number] Administered on:05-Jul-2014 Fluzone High-Dose 0.5 ML Intramuscular Suspension Prefilled Syringe Lot #: [id number] Administered on:07-Mar-2015 Tdap (Adacel) Lot #: [id number] Administered on:07-Mar-2015 Family History Unknown Family Member* [...] smoker Vital Signs Date Test Result Details 10:54 BP Systolic 119 mm[Hg] Status: BP [...] low threshold) Range: >60 EST GFR, NON-AFR [place] 31 ml/min (Below low threshold) Range: >60 Comments: EST GFR is reported in ml/min per 1.73 m2 of body surface area. For -Cymro, please multiple result by 1.2.----- BUN:CREATININE RATIO [...] low threshold) Range: >60 EST GFR, NON-AFR [place] 27 ml/min (Below low threshold) Range: >60 Comments: EST GFR is reported in ml/min per 1.73 m2 of body surface area. For -Cymro, please multiple result by 1.2.----- GLUCOSE 99 [...] Love On 16-Jan-2016 14:45 * Appointment; Provider: Jerrod Mena On 10:30 * Appointment; Provider: Theo Roa On 11:00 [...]
--- OUTSIDE RECORDS SUMMARY | 2016-11-05 13:48 | XMS REPORT | Summary of Care ---
Author Author Nuno Burgos M.D. [facility] Unknown Address [address], [place] [address] Phone Unavailable Care Team Providers Care Credit Reference Clerk Name Role Phone Ric Vines M.D. Unavailable [...] Active Muscle pain (729.1, M79.1) Status: Active Medications Name Dates Details Omeprazole [...] DAILY. * Refills: 0 * Started 17-Aug-2014 ActiveNystatin 306234 UNIT/ML Mouth/Throat Suspension SWISH AND SWALLOW 10ML [...] RENAL PROFILE 1240 Ordered:09-Mar-2015 HEMOGRAM 7305 Ordered:09-Mar-2015 Immunization Name Dates Details Pneumo (Pneumovax) Lot #: [id number] Administered on:10-Feb-2012 Fluzone Quadrivalent 0.5 ML Intramuscular Suspension Lot #: [id number] Administered on:16-May-2013 Prevnar 13 Intramuscular Suspension Lot #: [id number] Administered on:05-Jul-2014 Fluzone High-Dose 0.5 ML Intramuscular Suspension Prefilled Syringe Lot #: [id number] Administered on:07-Mar-2015 Tdap (Adacel) Lot #: [id number] Administered on:07-Mar-2015 Family History Unknown Family Member* [...] m2 Status: Results Date Description Value Details 07-Mar-2015 10:53 HEMOGRAM 7305 WBC 4.8 K/uL [...] low threshold) Range: >60 EST GFR, NON-AFR S[place] 44 ml/min (Below low threshold) Range: >60 Comments: EST GFR is reported in ml/min per 1.73 m2 of body surface area. For -[place] Island[place], please multiple result by 1.2.----- BUN:CREATININE RATIO 14 (Better) GLUCOSE 108 mg/dL (Above high threshold) Range: 70-100 ALBUMIN 3.4 g/dL (Better) Range: 3.4-5.0 PHOSPHORUS 3.0 mg/dL (Better) Range: 2.6-4.7 Comments: Please note new reference ranges effective 2015.----- CALCIUM 8.9 mg/dL (Better) Range: 8.5-10.1 04-Apr-2015 15:49 DEXA Comments: Exam Date: 04/04/2015 14:16Dictation Date: 04/04/2015 15:49 XD DEXA (Better) Plan of Care Planned Observations* Name Dates Details Planned Goals not documented Goal Planned Encounters* Appointment; Provider: Ric Martinez On 15-Aug-2015 10:30 * Appointment; Provider: Magan Bowles On 25-Jul-2015 10:45 * Appointment; Provider: Ric Vines On 04-Jul-2015 09:45 * Appointment; Provider: Nuno Burgos On 16-May-2015 11:15 * Appointment; Provider: Nuno Burgos On 11-Apr-2015 [...]
--- OUTSIDE RECORDS SUMMARY | 2016-11-05 13:48 | XMS REPORT | Summary of Care ---
Author Author Nuno Burgos M.D. Unknown Address [address], [place] [id number] Phone Unavailable Care Team Providers Care Belt Glass Sander Name Role Phone Ric Vines M.D. Unavailable [...] Active Anserine bursitis (726.61, M70.50) Status: Active Medications Name Dates Details Venlafaxine HCl ER 75 MG Oral Capsule Extended Release 24 Hour TAKE 1 CAPSULE BY MOUTH DAILY Quantity: 90 Ric Vines M.D.* Started 29-Aug-2011 ActiveCitalopram Hydrobromide 20 MG Oral Tablet TAKE 1 TABLET DAILY. * Quantity: 90 Refills: 3 Ric Vines M.D.* Started 25-Oct-2012 ActiveFurosemide 20 [...] 5 Ric Vines M.D.* Started 17-Aug-2014 ActiveNystatin 079134 UNIT/ML Mouth/Throat Suspension SWISH AND SWALLOW 10ML FOUR TIMES DAILY FOR 5 DAYS * Quantity: 200 Refills: 0 Ric Vines M.D.* Started 07-Mar-2015 ActiveHydrocodone-Acetaminophen 5-325 MG Oral Tablet take 1/2 tablet tid * Quantity: 45 Refills: 0 Magan Bowles M.D.* Started 01-Aug-2015 ActiveMulti-Vitamins Oral Tablet TAKE 1 TABLET DAILY. * Refills: 0 Ric Vines M.D.* Started 25-Oct-2012 ActiveB-12 500 MCG Oral Tablet TAKE 1 TABLET DAILY. * Refills: 0 Ric Vines M.D.* Started 21-Jun-2012 ActiveCalcium 600+D3 600-200 MG-UNIT Oral Tablet Take 1 tablet twice a day * Refills: 0 Ric Vines M.D.* Started 10-Feb-2012 ActiveOsteo Bi-Flex Triple Strength Oral Tablet TAKE 1 TABLET DAILY DIRECTED. * Refills: 0 Ric Vines M.D.* Started 10-Feb-2012 ActiveOmeprazole 40 MG Oral Capsule Delayed Release Take 1 capsule by mouth daily. * Quantity: 90 Refills: 3 Ric Vines M.D.* Started 18-Jun-2010 ActiveProlia 60 MG/ML Subcutaneous Solution INJECT SUBCUTANEOUSLY [...] Quadrivalent 0.5 ML Intramuscular Suspension Lot #: [id number] Administered on:16-May-2013 Prevnar 13 Intramuscular Suspension Lot #: [id number] Administered on:05-Jul-2014 Fluzone High-Dose 0.5 ML Intramuscular Suspension Prefilled Syringe Lot #: [id number] Administered on:07-Mar-2015 Tdap (Adacel) Lot #: [id number] Administered on:07-Mar-2015 Family History Unknown Family Member* [...] m2 Status: Results Date Description Value Details 5-Feb-2016 11:47 HEMOGRAM 7305 WBC 4.8 K/uL (Better) [...] threshold) Range: >60 EST GFR, NON-AFR [place] 34 ml/min (Below low threshold) Range: >60 Comments: EST GFR is reported in ml/min per 1.73 m2 of body surface area. For -[place]ian, please multiple result by 1.2.----- BUN:CREATININE RATIO [...] Problem not documented On 07-Mar-2015 09:45 Appointment; Fluck, Nuno Encounter Diagnosis: Problem not documented On 27-Feb-2015 09:15 Appointment; Florence Burgosrick Encounter Diagnosis: Problem not documented On 13-Feb-2015 [...]
--- OUTSIDE RECORDS SUMMARY | 2016-11-05 13:48 | XMS REPORT | Continuity of Care Document ---
Author Author [facility] Address Unknown Phone Unavailable Allergies Active Description Code Type Severity Reaction Onset Reported/Identified Relationship to Patient Clinical Status Yes codeine 1550 1 N/A N/A Medications Problems Date Dx Coded Attending Type Code Diagnosis Diagnosed By 2015 GIOVANNA ZAMBRANO [id number] Spondylosis w/o myelopathy or radiculopathy, cervical region 2015 GIOVANNA ZAMBRANO [id number] Unspecified injury of neck, initial encounter 2015 GIOVANNA ZAMBRANO [id number] Unspecified fall, initial encounter 08/18/2016 W G89.29 Other chronic pain 08/18/2016 W M25.552 Left hip pain 08/18/2016 W M25.562 Chronic pain of left knee Procedures Code Description [place] [address] 11/24/2015 18076 X-RAY EXAM HIP UNI 2-3 VIEWS 08/18/2016 78764 X-RAY EXAM KNEE 4 OR MORE 08/18/2016 Results Encounters ACCT No. Visit Date/Time Discharge Status Pt. Type Provider Facility Loc./Unit Complaint [id number] 11/24/2015 10:23:00 2015 03:30:00 DIS Outpatient GIOVANNA ZAMBRANO <PV2.3.2>Unspecified injury of neck, initial encounter</PV2.3.2><PV2.3.2> FALL, ABNORMAL FILMS</PV2.3.2><PV2.3.2>Unspecified injury of neck, initial encounter</PV2.3.2><PV2.3.2>Unspecified fall, initial encounter</PV2.3.2>< PV2.3.2>Spondylosis w/o myelopathy or radiculopathy, cervical region</PV2.3.2> [id number] 10/19/2015 09:43:00 2015 03:30:00 DIS Outpatient DOMO TAVAREZ OSTEOPOROSIS [id number] 04/19/2015 10:18:00 2014 03:30:03 DIS Outpatient DOMO TAVAREZ
--- OUTSIDE RECORDS SUMMARY | 2016-11-05 13:49 | XMS REPORT | Summary of Care ---
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 CKD (chronic kidney disease), stage IV (585.4, N18.4) Status: Active Hyperlipidemia (272.4, E78.5) Status: Active Osteoporosis (733.00, M81.0) Status: Active 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, I25.10) Status: Active Visit for screening mammogram (V76.12, Z12.31) Status: Active Need for Zostavax administration (V04.89, Z23) Status: Active Need for influenza vaccination (V04.81, Z23) Status: Active CKD (chronic kidney disease) stage 3, GFR 30-59 ml/min (585.3, N18.3) Status: Active Anemia of renal disease (285.21, D63.1) Status: Active Medications Name Dates Details Omeprazole [...] 0 Ric Vines M.D. Start 25-Oct-2012 Active Amoxicillin 500 MG Oral Capsule TAKE 4 CAPSULES BY MOUTH 1 HOUR PRIOR TO PROCEDURE * Quantity: 12 Refills: 0 Ric Vines M.D. Start 26-Jan-2014 Active Prolia 60 MG/ML Subcutaneous Solution INJECT SUBCUTANEOUSLY 60 MG / 1 ML EVERY 6 MONTHS * Quantity: 1 Refills: 0 Ric Vines M.D. Start 13-Apr-2015 Active Calcium 600+D3 600-200 MG-UNIT Oral Tablet TAKE 1 TABLET THREE TIMES A DAY * Refills: 0 Ric Vines M.D. Start 10-Feb-2012 Active Naproxen 500 MG Oral Tablet TAKE 1 TABLET EVERY 12 HOURS DAILY. * Quantity: 60 Refills: 1 Jerrod Mena M.D. * Start 04-Feb-2016 Active Furosemide 20 MG Oral Tablet TAKE 1 TABLET DAILY FOR SWELLING. * Quantity: 90 Refills: 3 Ric Vines M.D. Start 03-Nov-2012 Active Atorvastatin Calcium 80 MG Oral Tablet TAKE 1 TABLET DAILY. * Quantity: 90 Refills: 3 Ric Vines M.D. Start 07-Mar-2014 Active Citalopram Hydrobromide 20 MG Oral Tablet TAKE 1 TABLET DAILY. * Quantity: 90 Refills: 3 Ric Vines M.D. Start 25-Oct-2012 Active SulfaSALAzine 500 MG Oral [...] 26-Jun-2011 CBC w/ Auto Diff 7150 Ordered: 27-Feb-2016 EPO PANEL 3699 Ordered: 27-Feb-2016 HEMOGRAM 7305 Ordered: 27-Feb-2016 RENAL PROFILE 1240 Ordered: 27-Feb-2016 MAMMOGRAM-SCREENING Ordered: 04-Mar-2016 BONE LA SCAN AND FLOW Ordered: 15-Jan-2016 Immunization Name Dates Details Pneumo (Pneumovax) Lot #: [id number] on: 10-Feb-2012 Fluzone Quadrivalent 0.5 ML Intramuscular Suspension Lot #: [id number] on: 16-May-2013 Prevnar 13 Intramuscular Suspension Lot #: [id number] on: 05-Jul-2014 Fluzone High-Dose 0.5 ML Intramuscular Suspension Prefilled Syringe Lot #: [id number] on: 07-Mar-2015 Tdap (Adacel) Lot #: [id number] on: 07-Mar-2015 Fluzone High-Dose 0.5 ML Intramuscular Suspension Prefilled Syringe Lot #: [id number] on: 04-Mar-2016 Zoster (Zostavax) Lot #: [id number] on: 04-Mar-2016 Family History Name Dates Details [...] smoker Vital Signs Date Test Result Details 04-Mar-2016 13:50 BP Systolic 118 mm[Hg] Status: Comments: Location: ; Position: BP Diastolic 58 mm[Hg] Status: Comments: Location: ; Position: Heart Rate 88 /min Status: Comments: Location: ; Weight 127.125 lb Status: Body Mass Index Calculated 26.57 kg/m2 Status: Body Surface Area Calculated 1.5 m2 Status: 04-Mar-2016 09:50 BP Systolic 130 mm[Hg] Status: Comments: Location: ; Position: BP Diastolic 64 mm[Hg] Status: Comments: Location: ; Position: Temperature 36.7 c Status: Comments: Method: Heart Rate 79 /min Status: Comments: Location: ; Weight 127 lb Status: Physical Findings 91 Status: Comments: O2 Saturation Body Mass Index Calculated 26.54 kg/m2 Status: Body Surface Area Calculated 1.5 m2 Status: 27-Feb-2016 10:26 BP Systolic 131 mm[Hg] Status: Comments: Location: ; Position: BP Diastolic 59 mm[Hg] Status: Comments: Location: ; Position: Temperature 97.5 f Status: Heart Rate 94 /min Status: Comments: Location: ; Weight 127 lb Status: Body Mass Index Calculated 26.54 kg/m2 Status: Body Surface Area Calculated 1.5 m2 Status: Results Date Description Value Details 25-Feb-2016 12:59 CBC w/ Auto Diff 7150 WBC 3.4 K/uL (Below low threshold) Range: 4.5-11.0 RBC 3.32 mil/uL (Below low threshold) Range: 3.60-5.00 HGB 11.0 g/dL (Below low threshold) Range: 12.0-16.0 HCT 35.2 % (Below low threshold) Range: 36.0-48.0 MCV 106.0 fL (Above high threshold) Range: 80.0-99.0 MCH 33.3 pg (Above high threshold) Range: 27.3-32.5 MCHC 31.4 % (Below low threshold) Range: 32.0-36.0 RDW 14.3 % Range: 11.6-14.8 PLATELETS 143 K/uL (Below low threshold) Range: 150-400 MPV 10.2 fL Range: 6.0-11.0 %NEUTRO 64.6 % Range: 37.0-80.0 %LYMPHS 24.9 % Range: 13.0-50.0 %MONO 6.1 % Range: 0.0-12.0 %EOS 1.9 % Range: 0.0-7.0 %BASO 0.4 % Range: 0.0-2.5 %MARY 2.1 % Range: 0.0-5.0 NEUTRO 2.2 K/uL Range: 2.0-6.9 LYMPHS 0.8 K/uL Range: 0.6-3.4 MONOS 0.2 K/uL Range: 0.0-0.9 EOS 0.1 K/uL Range: 0.0-0.7 BASO 0.0 K/uL Range: 0.0-0.2 13:24 Iron Panel with TIBC 1612 Comments: Items were attached to this order : PHOS IRON 95 ug/dL Range: 50-170 TOTAL IRON BIND. CAPACITY 309 ug/dL Range: 250-450 % IRON SATURATION 31 % Range: 20-55 13:24 PHOSPHORUS 1145 Comments: Items were attached to this order: PHOS PHOSPHORUS 2.6 mg/dL Range: 2.6-4.7 13:26 Comprehensive Metabolic Panel 1212 SODIUM 141 mmol/L Range: 133-144 POTASSIUM 3.9 mmol/L Range: 3.5-5.1 CHLORIDE 103 mmol/L Range: 98-110 CARBON DIOXIDE 28.3 mmol/L Range: 23.0-33.0 ANION GAP 10 mmol/L Range: 6-16 BUN 21 mg/dL (Above high threshold) Range: 7-18 CREATININE, SERUM 1.66 mg/dL (Above high threshold) Range: 0.55-1.02 BUN:CREATININE RATIO 13 EST GFR, 36 ml/min (Below low threshold) Range: >60 EST GFR, NON-AFR BRAZILIAN 30 ml/min (Below low threshold) Range: >60 Comments: EST GFR is reported in ml/min per 1.73 m2 of body surface area. ----- GLUCOSE 101 mg/dL (Above high threshold) Range: 70-100 ALK PHOSPHATASE 49 U/L Range: 46-116 TOTAL BILIRUBIN 0.90 mg/dL Range: 0.20-1.00 AST 30 U/L Range: 8-35 ALT 23 U/L Range: 14-59 ALBUMIN 4.0 g/dL Range: 3.4-5.0 TOTAL PROTEIN 6.2 g/dL (Below low threshold) Range: 6.4-8.2 A/G RATIO 1.8 units Range: 1.0-1.8 CALCIUM 8.9 mg/dL Range: 8.5-10.1 13:36 FERRITIN 3025 FERRITIN 34 ng/mL Range: 10-291 29-Feb-2016 10:34 CBC w/ Auto Diff 7150 Comments: Fastin hours WBC 3.1 K/uL (Below low threshold) Range: 4.5-11.0 RBC 3.11 mil/uL (Below low threshold) Range: 3.60-5.00 HGB 10.5 g/dL (Below low threshold) Range: 12.0-16.0 HCT 32.9 % (Below low threshold) Range: 36.0-48.0 MCV 105.6 fL (Above high threshold) Range: 80.0-99.0 MCH 33.6 pg (Above high threshold) Range: 27.3-32.5 MCHC 31.8 % (Below low threshold) Range: 32.0-36.0 RDW 14.2 % Range: 11.6-14.8 PLATELETS 134 K/uL (Below low threshold) Range: 150-400 MPV 9.8 fL Range: 6.0-11.0 %NEUTRO 53.7 % Range: 37.0-80.0 %LYMPHS 32.4 % Range: 13.0-50.0 %MONO 7.6 % Range: 0.0-12.0 %EOS 3.5 % Range: 0.0-7.0 %BASO 0.4 % Range: 0.0-2.5 %MARY 2.5 % Range: 0.0-5.0 NEUTRO 1.7 K/uL (Below low threshold) Range: 2.0-6.9 LYMPHS 1.0 K/uL Range: 0.6-3.4 MONOS 0.2 K/uL Range: 0.0-0.9 EOS 0.1 K/uL Range: 0.0-0.7 BASO 0.0 K/uL Range: 0.0-0.2 12:51 AST 1180 Comments: Fastin hours AST 26 U/L Range: 8-35 12:51 BASIC METABOLIC PROFILE 1210 Comments: Fastin hours SODIUM 136 mmol/L Range: 133-144 POTASSIUM 4.0 mmol/L Range: 3.5-5.1 CHLORIDE 100 mmol/L Range: 98-110 CARBON DIOXIDE 27.1 mmol/L Range: 23.0-33.0 ANION GAP 9 mmol/L Range: 6-16 BUN 24 mg/dL (Above high threshold) Range: 7-18 CREATININE, SERUM 1.65 mg/dL (Above high threshold) Range: 0.55-1.02 EST GFR, 36 ml/min (Below low threshold) Range: >60 EST GFR, NON-AFR BRAZILIAN 30 ml/min (Below low threshold) Range: >60 Comments: EST GFR is reported in ml/min per 1.73 m2 of body surface area. ----- BUN:CREATININE RATIO 15 GLUCOSE 97 mg/dL Range: 70-100 CALCIUM 9.6 mg/dL Range: 8.5-10.1 12:51 LIPID PROFILE 1184 Comments: Fastin hours CHOLESTEROL 168 mg/dL Range: <200 TRIGLYCERIDES 73 mg/dL Range: 30-200 HDL Cholesterol 79 mg/dL Range: >39 NON HDL CHOLESTEROL 89 CARDIAC RSK FACTOR 2.1 units (Below low threshold) Range: 4.4-5.0 LDL - CALCULATED 74 mg/dL Range: 0-130 Plan of Care Name Dates Details Planned Observations Planned Goals not documented Planned Encounters Appointment; Provider: Nuno Burgos M.D. On 04-Jun-2016 11:15 Appointment; Provider: Dar Love M.D.|FACP|Bear,TONYP|Bear,LOY, On 28-Apr-2016 11:00 Appointment; Provider: Nuno Burgos M.D. On 04-Apr-2016 09:30 Instructions Name Dates Details Instructions not documented Encounters Appointment; Ric Vines M.D. Encounter Diagnosis: Problem not documented On 04-Mar-2016 10:00 Appointment; Theo Roa D.P.T. Encounter Diagnosis: Problem not documented On 28-Feb-2016 14:30 Appointment; Dar Love M.D.|TONYP|Bear,TONYP|Bear,TONYP, Encounter Diagnosis: Problem not documented On 27-Feb-2016 [...] documented On 04-Feb-2016 09:15 Appointment; Theo Roa D.PYe. Encounter Diagnosis: Problem not documented On 31-Jan-2016 10:30 Appointment; Theo Roa D.PYe. Encounter Diagnosis: Problem not documented On 29-Jan-2016 10:30 Appointment; Theo Roa D.PYe. Encounter Diagnosis: Problem not documented On 22-Jan-2016 11:30 Appointment; Theo Roa D.PSachaT. Encounter Diagnosis: Problem not documented On 17-Jan-2016 10:30 Appointment; Dar Love M.D.|FACP|Bear,TONYP|Bear,FACP, Encounter Diagnosis: Problem not documented On 16-Jan-2016 14:45 Appointment; hTeo Roa D.P.T. Encounter Diagnosis: Problem not documented [...] not documented On 16:00 Appointment; Dar Love M.D.|FACP|MSachaDSacha,FACP|MSachaDSacha,FACP, Encounter Diagnosis: Problem not documented On 10:45 [...] Problem not documented On 23-Mar-2015 11:30 Appointment; Mgaan Bowles M.D. Encounter Diagnosis: Problem not documented [...] not documented On 07-Nov-2014 10:30 Appointment; Magan Bolwes M.D. Encounter Diagnosis: Problem not documented On [...]
--- OUTSIDE RECORDS SUMMARY | 2016-11-05 13:49 | XMS REPORT | Summary of Care ---
Author Author Ric Vines M.D. Organization Unknown Address Unknown Phone Unavailable Care Team Providers Care Skin Grader Name Role Phone Jerrod Mena M.D. Unavailable [...] 26-Jun-2011 CBC w/ Auto Diff 7150 Ordered: 25-Feb-2016 LIPID PROFILE 1184 Ordered: 25-Feb-2016 AST 1180 Ordered: 25-Feb-2016 BASIC METABOLIC PROFILE 1210 Ordered: 25-Feb-2016 CBC w/ Auto Diff 7150 Ordered: 27-Feb-2016 EPO PANEL 3699 Ordered: 27-Feb-2016 HEMOGRAM 7305 Ordered: 27-Feb-2016 RENAL PROFILE 1240 Ordered: 27-Feb-2016 BONE LA SCAN AND FLOW Ordered: 15-Jan-2016 ORTHO KNEE LEFT (3 VIEWS ONLY) Ordered: Immunization Name Dates Details Pneumo (Pneumovax) Lot #: [id number] on: 10-Feb-2012 Fluzone Quadrivalent 0.5 ML Intramuscular Suspension Lot #: [id number] on: 16-May-2013 Prevnar 13 Intramuscular Suspension Lot #: [id number] on: 05-Jul-2014 Fluzone High-Dose 0.5 ML Intramuscular Suspension Prefilled Syringe Lot #: [id number] on: 07-Mar-2015 Tdap (Adacel) Lot #: [id number] on: 07-Mar-2015 Family History Name Dates Details [...] smoker Vital Signs Date Test Result Details 27-Feb-2016 10:26 BP Systolic 131 mm[Hg] Status: Comments: Location: ; Position: BP Diastolic 59 mm[Hg] Status: Comments: Location: ; Position: Temperature 97.5 f Status: Heart Rate 94 /min Status: Comments: Location: ; Weight 127 lb Status: Body Mass Index Calculated 26.54 kg/m2 Status: Body Surface Area Calculated 1.5 m2 Status: 04-Feb-2016 09:28 BP Systolic 108 mm[Hg] Status: [...] low threshold) Range: >60 EST GFR, NON-AFR DANISH 30 ml/min (Below low threshold) Range: >60 [...] FERRITIN 3025 FERRITIN 34 ng/mL Range: 10-291 Plan of Care Name Dates Details Planned Observations Planned Goals not documented Planned Encounters Appointment; Provider: Dar Love M.D.|FACP|Bear,TONYP|Bear,TONYP, On 28-Apr-2016 11:00 Appointment; Provider: Nuno Burgos M.D. On 04-Mar-2016 13:45 Appointment; Provider: Ric Vines M.D. On 04-Mar-2016 10:00 Instructions Name Dates Details Instructions not documented Encounters Appointment; Theo Roa D.P.T. Encounter Diagnosis: Problem not documented On 28-Feb-2016 14:30 Appointment; Dar Love M.D.|VINCENT,VINCENT,TONYP, Encounter Diagnosis: Problem not documented On 27-Feb-2016 [...] documented On 04-Feb-2016 09:15 Appointment; Theo Roa D.PAlyssa Encounter Diagnosis: Problem not documented On 31-Jan-2016 10:30 Appointment; Theo Roa D.PYe. Encounter Diagnosis: Problem not documented On 29-Jan-2016 10:30 Appointment; Theo Roa D.PYe. Encounter Diagnosis: Problem not documented On 22-Jan-2016 11:30 Appointment; Theo Roa D.P.T. Encounter Diagnosis: Problem not documented On 17-Jan-2016 10:30 Appointment; Dar Love M.D.|FACP|Bear,FACP|M.D.,FACP, Encounter Diagnosis: Problem not documented On 16-Jan-2016 [...] not documented On 16:00 Appointment; Dar Love M.D.|FACP|MKendell,FACP|Bear,FACP, Encounter Diagnosis: Problem not documented On 10:45 [...] Problem not documented On 16-May-2015 11:15 Appointment; iRc Vines M.D. Encounter Diagnosis: Problem not documented [...] Problem not documented On 02-May-2014 11:15 Appointment; Juan, Ric, M.D. Encounter Diagnosis: Problem not documented On 19-Apr-2014 09:30 Appointment; Nuno Burgos M.D. Encounter Diagnosis: Problem not documented On 05-Apr-2014 09:30 Appointment; Ric Vines M.D. Encounter Diagnosis: Problem not documented On 07-Mar-2014 10:00"
--- OUTSIDE RECORDS SUMMARY | 2016-11-05 13:49 | XMS REPORT | Summary of Care ---
Author Author Ivan Sifuentes, FACP, ,, Dar F Organization Unknown Address Unknown Phone Unavailable Care Team Providers Care Seed Collector Name Role Phone Rajesh Sifuentes, Jerrod Unavailable [...] of renal disease (285.21, D63.1) Status: Active Inflamed seborrheic keratosis (702.11, L82.0) Status: Active Arthralgia of multiple sites (719.49, M25.50) Status: Active Bilateral hip pain (719.45, M25.551) Status: Active Bilateral hip bursitis (726.5, M70.71) Status: Active Hypertension (401.9, I10) Status: Active Hypercholesterolemia (272.0, E78.00) Status: Active Depression (311, F32.9) Status: Active Medications Name Dates Details Omeprazole [...] Ordered: 11-Apr-2016 RENAL PROFILE 1240 Ordered: 11-Apr-2016 Immunization Name Dates Details Pneumo (Pneumovax) Lot #: [id number] on: 10-Feb-2012 Fluzone Quadrivalent 0.5 ML Intramuscular Suspension Lot #: [id number] on: 16-May-2013 Prevnar 13 Intramuscular Suspension Lot #: [id number] on: 05-Jul-2014 Fluzone High-Dose 0.5 ML Intramuscular Suspension Prefilled Syringe Lot #: [id number] on: 07-Mar-2015 Tdap (Adacel) Lot #: [id number] on: 07-Mar-2015 Fluzone High-Dose 0.5 ML Intramuscular Suspension Prefilled Syringe Lot #: [id number] on: 04-Mar-2016 Zoster (Zostavax) Lot #: [id number] on: 04-Mar-2016 Family History Name Dates Details [...] smoker Vital Signs Date Test Result Details 25-Apr-2016 09:38 BP Systolic 112 mm[Hg] Status: Comments: Location: Wrist Cuff; Position: BP Diastolic 56 mm[Hg] Status: Comments: Location: Wrist Cuff; Position: Weight 124 lb Status: Body Mass Index Calculated 25.92 kg/m2 Status: Body Surface Area Calculated 1.49 m2 Status: 04-Apr-2016 09:22 BP Systolic 91 mm[Hg] Status: Comments: Location: ; Position: BP Diastolic 59 mm[Hg] Status: Comments: Location: ; Position: Heart Rate 99 /min Status: Results Date Description Value Details 02-Apr-2016 12:38 HEMOGRAM 7305 WBC 3.2 K/uL (Below low threshold) Range: 4.5-11.0 RBC 2.97 mil/uL (Below low threshold) Range: 3.60-5.00 HGB 10.2 g/dL (Below low threshold) Range: 12.0-16.0 HCT 31.3 % (Below low threshold) Range: 36.0-48.0 MCV 105.7 fL (Above high threshold) Range: 80.0-99.0 MCH 34.4 pg (Above high threshold) Range: 27.3-32.5 MCHC 32.6 % Range: 32.0-36.0 PLATELETS 141 K/uL (Below low threshold) Range: 150-400 13:05 RENAL PROFILE 1240 SODIUM 137 mmol/L Range: 133-144 POTASSIUM 3.9 mmol/L Range: 3.5-5.1 CHLORIDE 103 mmol/L Range: 98-110 CARBON DIOXIDE 27.8 mmol/L Range: 23.0-33.0 ANION GAP 6 mmol/L Range: 6-16 BUN 16 mg/dL Range: 7-18 CREATININE, SERUM 1.71 mg/dL (Above high threshold) Range: 0.55-1.02 EST GFR, 35 ml/min (Below low threshold) Range: >60 EST GFR, NON-AFR KENYAN 29 ml/min (Below low threshold) Range: >60 Comments: EST GFR is reported in ml/min per 1.73 m2 of body surface area. ----- BUN:CREATININE RATIO 9 GLUCOSE 137 mg/dL (Above high threshold) Range: 70-100 Comments: Variance from previous testing noted.----- ALBUMIN 3.8 g/dL Range: 3.4-5.0 PHOSPHORUS 2.9 mg/dL Range: 2.6-4.7 CALCIUM 8.9 mg/dL Range: 8.5-10.1 Plan of Care Name Dates Details Planned Observations CBC w/ Auto Diff 7150 On 17-Apr-2016 Intent EPO PANEL 3699 On 17-Apr-2016 Intent Planned Goals not documented Planned Encounters [...] not documented On 16:00 Appointment; Dar Love M.D.|FACP|M.D.,FACP|Jaden.,FACP, Encounter Diagnosis: Problem not documented On 10:45 [...] Encounter Diagnosis: Problem not documented On 02-May-2014 11:15"
--- OUTSIDE RECORDS SUMMARY | 2016-11-05 13:50 | XMS REPORT | Summary of Care ---
Author Author Ric Vines M.D. Organization Unknown Address [address], [place] [id number] Phone Unavailable Care Team Providers Care Slot Floor Person Name Role Phone Ric Vines M.D. Unavailable [...] 1 TABLET DAILY DIRECTED. * Refills: 0 iRc Vines M.D.* Started 10-Feb-2012 ActiveCalcium 600+D3 600-200 [...] Quadrivalent 0.5 ML Intramuscular Suspension Lot #: [id number] Administered on:16-May-2013 Prevnar 13 Intramuscular Suspension Lot #: [id number] Administered on:05-Jul-2014 Family History Unknown Family Member* [...] ml/min (Better) Range: >60 EST GFR, NON-AFR [place] 50 ml/min (Below low threshold) Range: >60 Comments: EST GFR is reported in ml/min per 1.73 m2 of body surface area. For -[place], please multiple result by 1.2.----- BUN:CREATININE RATIO [...] Problem not documented On 18-Oct-2014 10:30 Appointment; uNno Burgos Encounter Diagnosis: Problem not documented On [...]
--- OUTSIDE RECORDS SUMMARY | 2016-11-05 13:50 | XMS REPORT | Summary of Care ---
Author Author Ivan Sifuentes, LOY, ,, Dar F Organization Unknown Address Unknown Phone Unavailable Care Team Providers Care Speech Coach Name Role Phone Ivan Sifuentes, LOY, ,, F Unavailable Unavailable [...] DAILY * Quantity: 45 Refills: 3 Ric iVnes M.D. Start 17-Aug-2014 Active Prolia 60 MG/ML [...] Ordered: CBC w/ Auto Diff 7150 Ordered: IRON 1254 Ordered: FERRITIN 3025 Ordered: Comprehensive Metabolic Panel 1212 Ordered: ORTHO KNEE LEFT (3 VIEWS ONLY) Ordered: BONE SCAN LIMITED AREA Ordered: Immunization Name Dates Details Pneumo (Pneumovax) Lot #: [id number] on: 10-Feb-2012 Fluzone Quadrivalent 0.5 ML Intramuscular Suspension Lot #: [id number] on: 16-May-2013 Prevnar 13 Intramuscular Suspension Lot #: [id number] on: 05-Jul-2014 Fluzone High-Dose 0.5 ML Intramuscular Suspension Prefilled Syringe Lot #: [id number] on: 07-Mar-2015 Tdap (Adacel) Lot #: [id number] on: 07-Mar-2015 Family History Name Dates Details [...] Details 10:29 BP Systolic 126 mm[Hg] Status: Comments: [...] SED RATE 10 mm/60 min. Range: 0-20 Plan of Care Name Dates Details Planned Observations CBC w/ Auto Diff 7150 On Intent Comprehensive Metabolic Panel 1212 On Intent FERRITIN 3025 On Intent IRON 1254 On Intent Planned Goals not documented Planned Encounters Appointment; Provider: Nuno Burgos M.D. On 04-Mar-2016 13:45 Appointment; Provider: Ric Vines M.D. On 04-Mar-2016 10:00 Appointment; Provider: Theo Roa D.P.T. On 17-Jan-2016 11:30 Appointment; Provider: Theo Roa D.P.T. On 17-Jan-2016 10:30 Appointment; Provider: Dar Love M.D.|VINCENT,LOY|Bear,LOY, On 16-Jan-2016 14:45 Appointment; Provider: Theo Roa D.P.T. On 15-Jan-2016 10:30 Appointment; Provider: Theo Roa D.P.T. On 14-Jan-2016 11:00 Appointment; Provider: Schedule Radiology On 10:30 Appointment; Provider: Schedule Radiology On 08:00 Instructions Name Dates Details Instructions not documented [...]
--- OUTSIDE RECORDS SUMMARY | 2016-11-05 13:50 | XMS REPORT | Summary of Care ---
Author Author Ivan Sifuentes, FACP, ,, Dar F Organization Unknown Address Unknown Phone Unavailable Care Team Providers Care Citrus Fruit Colorer Name Role Phone Rajesh Sifuentes, Jerrod Unavailable [...] 0 Ric Vines M.D. Start 10-Feb-2012 Active Citalopram Hydrobromide 20 MG Oral Tablet [...] 0 Ric Vines M.D. Start 13-Apr-2015 Active Atorvastatin Calcium 80 MG Oral Tablet TAKE 1 TABLET DAILY. * Quantity: 90 Refills: 3 Ric Vines M.D. Start 07-Mar-2014 Active Naproxen 500 MG Oral Tablet TAKE 1 TABLET EVERY 12 HOURS DAILY. * Quantity: 60 Refills: 1 Jerrod Mean M.D. * Start 04-Feb-2016 Active B-12 500 MCG Oral Tablet TAKE 1 TABLET DAILY. * Refills: 0 Ric Vines M.D. * Start 21-Jun-2012 Active Zoster (Zostavax) inject SQ * Quantity: [...] Quadrivalent 0.5 ML Intramuscular Suspension Lot #: [id number] on: 16-May-2013 Prevnar 13 Intramuscular Suspension Lot #: [id number] on: 05-Jul-2014 Fluzone High-Dose 0.5 ML Intramuscular Suspension Prefilled Syringe Lot #: [id number] on: 07-Mar-2015 Tdap (Adacel) Lot #: [id number] on: 07-Mar-2015 Fluzone High-Dose 0.5 ML Intramuscular Suspension Prefilled Syringe Lot #: [id number] on: 04-Mar-2016 Zoster (Zostavax) Lot #: [id number] on: 04-Mar-2016 Family History Name Dates Details [...] BP Systolic 85 mm[Hg] Status: Comments: Location: Wrist Cuff; Position: BP Diastolic 46 mm[Hg] Status: Comments: Location: Wrist Cuff; Position: Temperature 97.7 c Status: Heart Rate 106 /min Status: Comments: Location: [...] ; Position: Heart Rate 99 /min Status: Comments: Location: ; Results Date Description Value Details 02-Apr-2016 12:38 [...] Range: >60 EST GFR, NON-AFR [place] 29 ml/min (Below low threshold) Range: >60 Comments: EST GFR is reported in ml/min per 1.73 m2 of body surface area. ----- BUN:CREATININE RATIO 9 GLUCOSE 137 mg/dL (Above high threshold) Range: 70-100 Comments: Variance from previous testing noted.----- ALBUMIN 3.8 g/dL Range: 3.4-5.0 PHOSPHORUS 2.9 mg/dL Range: 2.6-4.7 CALCIUM 8.9 mg/dL Range: 8.5-10.1 28-Apr-2016 11:08 CBC w/ Auto Diff 7150 [...] Observations CBC w/ Auto Diff 7150 On 10-Jun-2016 Intent Planned Goals not documented Planned Encounters [...] documented On 28-Feb-2016 14:30 Appointment; Dar Love M.D.|FACP|MSachaDSacha,FACP|Bear,FACP, Encounter Diagnosis: Problem not documented On 27-Feb-2016 [...] documented On 17-Jan-2016 10:30 Appointment; Dar Love M.D.|FACP|MSachaD.,FACP|Bear,FACP, Encounter Diagnosis: Problem not documented On 16-Jan-2016 [...]
--- OUTSIDE RECORDS SUMMARY | 2016-11-05 13:51 | XMS REPORT | Summary of Care ---
Author Author Ric Vines M.D. Organization Unknown Address [address], [place] [id number] Phone Unavailable Care Team Providers Care Sweet Pickle Maker Name Role Phone Ric Vines M.D. Unavailable [...] Status: Active Weakness Both Arms Status: Active Viral gastroenteritis (008.8, A08.4) Status: [...] Active Esophageal reflux (530.81, K21.9) Status: Active Need for pneumococcal vaccine (V03.82, [...] with erythropoietin (285.21, 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 Hyperlipidemia (272.4, E78.5) Status: Active [...] Active Muscle pain (729.1, M79.1) Status: Active Hip pain (719.45, M25.559) Status: Active CKD (chronic kidney disease), stage III (585.3, N18.3) Status: Active Shoulder pain, right (719.41, M25.511) Status: Active Pain of left shoulder region (719.41, M25.512) Status: Active 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, I25.10) Status: Active Anemia due to chronic kidney [...] 03-Oct-2013 ActiveLisinopril 5 MG Oral Tablet TAKE ONE HALF TAB ONCE DAILY * Quantity: 15 Refills: 5 Ric Vines M.D.* Started 17-Aug-2014 ActiveNystatin [id number] UNIT/ML Mouth/Throat Suspension SWISH AND SWALLOW 10ML [...] History of Complete Colonoscopy Completed:26-Jun-2011 HEMOGRAM 7305 Ordered:21-May-2015 RENAL PROFILE 1240 Ordered:21-May-2015 Vitamin D, 25 - Hydroxy 3111 Ordered:21-May-2015 Immunization Name Dates Details Pneumo (Pneumovax) Lot #: [id number] Administered on:10-Feb-2012 Fluzone Quadrivalent 0.5 ML Intramuscular Suspension Lot #: [id number] Administered on:16-May-2013 Prevnar 13 Intramuscular Suspension Lot #: [id number] Administered on:05-Jul-2014 Fluzone High-Dose 0.5 ML Intramuscular Suspension Prefilled Syringe Lot #: [id number] Administered on:07-Mar-2015 Tdap (Adacel) Lot #: [id number] Administered on:07-Mar-2015 Family History Unknown Family Member* [...] smoker Vital Signs Date Test Result Details 04-Jul-2015 10:18 BP Systolic 128 mm[Hg] Status: BP Diastolic 68 mm[Hg] Status: Temperature 36.7 c Status: Heart Rate 86 /min Status: Weight 132 lb Status: O2 SAT 95 % Status: Body Mass Index Calculated 26.66 kg/m2 Status: Body Surface Area Calculated 1.55 m2 Status: 20-Jun-2015 13:05 BP Systolic 124 mm[Hg] Status: BP Diastolic 68 mm[Hg] Status: 05-Jun-2015 14:46 BP Systolic 130 mm[Hg] Status: BP Diastolic 60 mm[Hg] Status: Temperature 36.3 c Status: Heart Rate 85 /min Status: O2 SAT 94 % Status: Results Date Description Value Details 04-Jun-2015 16:03 CT SHOULDER W/O LEFT Comments: Exam Date: 06/04/2015 15:46Dictation Date: 06/04/2015 16:03 XC SHOULDER W/O LT (Better) 19-Jun-2015 12:45 HEMOGRAM 7305 WBC 4.1 K/uL (Below low threshold) Range: 4.5-11.0 RBC 3.20 mil/uL (Below low threshold) Range: 3.60-5.00 HGB 10.9 g/dL (Below low threshold) Range: 12.0-16.0 HCT 34.5 % (Below low threshold) Range: 36.0-48.0 MCV 107.6 fL (Above high threshold) Range: 80.0-99.0 MCH 34.0 pg (Above high threshold) Range: 27.3-32.5 MCHC 31.6 % (Below low threshold) Range: 32.0-36.0 PLATELETS 174 K/uL (Better) Range: 150-400 13:10 RENAL PROFILE 1240 SODIUM 137 mmol/L (Better) Range: 133-144 POTASSIUM 3.9 mmol/L (Better) Range: 3.5-5.1 CHLORIDE 101 mmol/L (Better) Range: 98-110 CARBON DIOXIDE 28.3 mmol/L (Better) Range: 23.0-33.0 ANION GAP 8 mmol/L (Better) Range: 6-16 BUN 22 mg/dL (Above high threshold) Range: 7-18 CREATININE, SERUM 1.66 mg/dL (Above high threshold) Range: 0.55-1.02 Comments: Please note new reference ranges effective 2014.----- EST GFR, 36 ml/min (Below low threshold) Range: >60 EST GFR, NON-AFR SENEGALESE 30 ml/min (Below low threshold) Range: >60 Comments: EST GFR is reported in ml/min per 1.73 m2 of body surface area. For -Maltese, please multiple result by 1.2.----- BUN:CREATININE RATIO 13 (Better) GLUCOSE 106 mg/dL (Above high threshold) Range: 70-100 ALBUMIN 3.9 g/dL (Better) Range: 3.4-5.0 PHOSPHORUS 2.9 mg/dL (Better) Range: 2.6-4.7 Comments: Please note new reference ranges effective 2015.----- CALCIUM 8.9 mg/dL (Better) Range: 8.5-10.1 03-Jul-2015 11:24 CBC w/ Auto Diff 7150 [...] low threshold) Range: >60 EST GFR, NON-AFR SENEGALESE 36 ml/min (Below low threshold) Range: >60 Comments: EST GFR is reported in ml/min per 1.73 m2 of body surface area. For -Maltese, please multiple result by 1.2.----- BUN:CREATININE RATIO [...] Repeat Analysis----- ESTIMATED AVG. GLUCOSE 62 (Better) Plan of Care Planned Observations* Name Dates Details Planned Goals not documented Goal Planned Encounters* Appointment; Provider: Nuno Burgos On 15-Aug-2015 11:30 * Appointment; Provider: Ric Martinez On 15-Aug-2015 10:30 * Appointment; Provider: Nuno Burgos On 25-Jul-2015 13:00 * Appointment; Provider: Magan Bowles On 25-Jul-2015 10:45 * Appointment; Provider: Schedule Radiology On [...] Problem not documented On 13-Feb-2015 10:30 Appointment; Nuon Burgos Encounter Diagnosis: Problem not [...]
--- OUTSIDE RECORDS SUMMARY | 2016-11-05 13:51 | XMS REPORT | Summary of Care ---
Author Author Ivan Sifuentes, FACP, ,, Dar F Organization Unknown Address Unknown Phone Unavailable Care Team Providers Care Biomedical Engineer Name Role Phone Ric Vines M.D. Unavailable [...] Quadrivalent 0.5 ML Intramuscular Suspension Lot #: [id number] Administered on:16-May-2013 Prevnar 13 Intramuscular Suspension Lot #: [id number] Administered on:05-Jul-2014 Fluzone High-Dose 0.5 ML Intramuscular Suspension Prefilled Syringe Lot #: [id number] Administered on:07-Mar-2015 Tdap (Adacel) Lot #: [id number] Administered on:07-Mar-2015 Family History Unknown Family Member* [...] low threshold) Range: >60 EST GFR, NON-AFR CUBAN 31 ml/min (Below low threshold) Range: >60 Comments: EST GFR is reported in ml/min per 1.73 m2 of body surface area. For -Bulgarian, please multiple result by 1.2.----- BUN:CREATININE RATIO [...] low threshold) Range: >60 EST GFR, NON-AFR CUBAN 27 ml/min (Below low threshold) Range: >60 Comments: EST GFR is reported in ml/min per 1.73 m2 of body surface area. For -Bulgarian, please multiple result by 1.2.----- GLUCOSE 99 [...] Theo Roa On 11:00 * Appointment; Provider: Theo Roa On 11:00 * Appointment; Provider: Theo Roa On 16:00 * Appointment; Provider: Schedule Radiology On [...] Instructions * Instructions not documented Encounters Appointment; Dar Love Encounter Diagnosis: Problem not [...]
--- OUTSIDE RECORDS SUMMARY | 2016-11-05 13:51 | XMS REPORT | Summary of Care ---
Author Author Ric Martinez M.D. Organization Unknown Address [address], [place] [id number] Phone Unavailable Care Team Providers Care Clinical Care Leader Name Role Phone Ric Vines M.D. Unavailable [...] Active Spinal stenosis (724.00, M48.00) Status: Active Coronary artery disease (414.00, I25.10) Status: Active Ulcerative pancolitis (556.6, K51.90) Status: Active Pre-operative exam (V72.84, Z01.818) Status: Active Hyperlipidemia (272.4, E78.5) Status: Active Arthritis (716.90, M19.90) Status: Active Chronic kidney disease, stage III (moderate) (585.3, N18.3) Status: Active Bloating (787.3, R14.0) Status: Active Colitis (558.9, K52.9) Status: Active Hypertension (401.9, I10) Status: Active Arm pain (729.5, M79.603) Status: Active Tingling (782.0, R20.2) Status: Active Urine frequency (788.41, R35.0) Status: Active Lower back pain (724.2, M54.5) Status: Active Dizziness (780.4, R42) Status: Active Abnormal laboratory test result (796.4, R89.9) Status: Active Anemia (285.9, D64.9) Status: Active Arthralgia of multiple sites (719.49, M25.50) Status: Active Bursitis of hip (726.5, M70.70) Status: Active Hypercholesterolemia (272.0, E78.0) Status: Active Hip pain (719.45, M25.559) Status: Active Depression (311, F32.9) Status: Active Esophageal reflux (530.81, K21.9) Status: Active Medications Name Dates Details Omeprazole [...] Started 03-Nov-2012 ActiveSulfaSALAzine 500 MG Oral Tablet 3 tablets, [...] Vitamin D, 25 - Hydroxy 3111 Ordered:08-May-2014 HEMOGRAM 7305 Ordered:20-Jun-2014 RENAL PROFILE 1240 Ordered:20-Jun-2014 AST 1180 Ordered:26-Jun-2014 BASIC METABOLIC PROFILE 1210 Ordered:26-Jun-2014 CBC w/ Auto Diff 7150 Ordered:26-Jun-2014 LIPID PROFILE 1184 Ordered:26-Jun-2014 Immunization Name Dates Details Pneumo (Pneumovax) Lot #: [id number] Administered on:10-Feb-2012 Fluzone Quadrivalent 0.5 ML Intramuscular Suspension Lot #: [id number] Administered on:16-May-2013 Family History Unknown Family Member* [...] smoker Vital Signs Date Test Result Details 20-Jun-2014 10:14 BP Systolic 122 mm[Hg] Status: [...] low threshold) Range: >60 EST GFR, NON-AFR [place] 34 ml/min (Below low threshold) Range: >60 Comments: EST GFR is reported in ml/min per 1.73 m2 of body surface area. For -Bahamian, please multiple result by 1.2.----- BUN:CREATININE RATIO 10 (Better) GLUCOSE 100 mg/dL (Better) Range: 70-100 ALBUMIN 3.8 g/dL (Better) Range: 3.4-5.0 PHOSPHORUS 3.1 mg/dL (Better) Range: 2.5-4.9 CALCIUM 9.1 mg/dL (Better) Range: 8.5-10.1 Plan of Care Planned Observations* Name Dates Details Planned Goals not documented Goal Planned Encounters* Appointment; Provider: Magan Bowles On 18-Oct-2014 10:30 * Appointment; Provider: Ric Martinez On 17-Aug-2014 10:30 * Appointment; Provider: Nuno Burgos On 04-Aug-2014 11:00 * Appointment; Provider: Ric Vines On 04-Jul-2014 10:15 * Appointment; Provider: Nuno Burgos On 03-Jul-2014 16:00 * Appointment; Provider: Neeta Sosa On 30-Jun-2014 10:30 * Appointment; Provider: Carol Tellez On [...]
--- OUTSIDE RECORDS SUMMARY | 2016-11-05 13:52 | XMS REPORT | Summary of Care ---
Author Author Maxwell Sifuentes, Avila Dial Unknown Address Unknown Phone Unavailable Care Team Providers Care Drafter Landscape Name Role Phone Avila Arreola M.D. Unavailable [...] left lower extremity (729.5, M79.605) Status: Active Constipation (564.00, K59.00) Status: Active Medications Name Dates Details Omeprazole [...] 0 Ric Vines M.D. Start 10-Feb-2012 Active Prolia 60 MG/ML Subcutaneous Solution INJECT SUBCUTANEOUSLY 60 MG / 1 ML EVERY 6 MONTHS * Quantity: 1 Refills: 0 Ric Vines M.D. Start 13-Apr-2015 Active Venlafaxine HCl ER 75 MG Oral Capsule Extended Release 24 Hour TAKE 1 CAPSULE BY MOUTH DAILY * Quantity: 90 Refills: 3 Ric Vines M.D. * Start 29-Aug-2011 Active Citalopram Hydrobromide 20 MG Oral Tablet TAKE 1 TABLET DAILY. * Quantity: 90 Refills: 3 Ric Vines M.D. * Start 25-Oct-2012 Active Atorvastatin Calcium 80 MG Oral Tablet TAKE 1 TABLET DAILY. * Quantity: 90 Refills: 3 Ric Vines M.D. * Start 07-Mar-2014 Active Furosemide 20 MG Oral Tablet TAKE 1/2 TABLET DAILY FOR SWELLING. * Quantity: 45 Refills: 3 Ric Vines M.D. * Start 03-Nov-2012 Active Lisinopril 5 MG Oral Tablet TAKE ONE HALF TAB ONCE DAILY * Quantity: 45 Refills: 3 Ric Vines M.D. * Start 17-Aug-2014 Active SulfaSALAzine 500 MG Oral Tablet TAKE 2 TABLET Twice daily * Quantity: 360 Refills: 3 Ric Vines M.D. * Start 03-Oct-2013 Active Zoster (Zostavax) inject SQ [...] Ric Vines M.D. * Start 10-Sep-2016 Active Vitamin C 500 MG Oral Tablet TAKE 1 TABLET DAILY. * Quantity: 100 Refills: 0 Ric Vines M.D. * Start 26-Sep-2016 Active Gabapentin 300 MG Oral [...] 1612 Ordered: 10-Oct-2016 FERRITIN 3025 Ordered: 10-Oct-2016 ORTHO PELVIS (AP ONLY) Ordered: 02-Oct-2016 ORTHO HIP LEFT (1 VIEW ONLY) Ordered: 02-Oct-2016 CT AB/ PEL WITH IV AND ORAL CONTRAST Ordered: 12-Sep-2016 Immunization Name Dates Details Pneumo (Pneumovax) Lot #: [id number] on: 10-Feb-2012 Fluzone Quadrivalent 0.5 ML Intramuscular Suspension Lot #: [id number] on: 16-May-2013 Prevnar 13 Intramuscular Suspension Lot #: [id number] on: 05-Jul-2014 Fluzone High-Dose 0.5 ML Intramuscular Suspension Prefilled Syringe Lot #: [id number] on: 07-Mar-2015 Tdap (Adacel) Lot #: [id number] on: 07-Mar-2015 Fluzone High-Dose 0.5 ML Intramuscular Suspension Prefilled Syringe Lot #: [id number] on: 04-Mar-2016 Zoster (Zostavax) Lot #: [id number] on: 04-Mar-2016 Family History Name Dates Details [...] smoker Vital Signs Date Test Result Details 15-Oct-2016 14:35 BP Systolic 96 mm[Hg] Status: Comments: Location: ; Position: BP Diastolic 43 mm[Hg] Status: Comments: Location: ; Position: Heart Rate 95 /min Status: Physical Findings 20 Status: Comments: Respiration Height 58 in Status: Weight 117 lb Status: Physical Findings 98 Status: Comments: O2 Saturation Body Mass Index Calculated 24.45 kg/m2 Status: Body Surface Area Calculated 1.45 m2 Status: 02-Oct-2016 13:56 BP Systolic 95 mm[Hg] Status: Comments: Location: ; Position: BP Diastolic 55 mm[Hg] Status: Comments: Location: ; Position: Heart Rate 111 /min Status: Comments: Location: ; Height 58 in Status: 26-Sep-2016 11:00 BP Systolic 102 mm[Hg] Status: Comments: Location: ; Position: BP Diastolic 60 mm[Hg] Status: Comments: Location: ; Position: Temperature 36.4 c Status: Heart Rate 84 /min Status: Comments: Location: [...] low threshold) Range: >60 EST GFR, NON-AFR [place] 42 ml/min (Below low threshold) Range: >60 [...] LDL - CALCULATED 58 mg/dL Range: 0-130 13-Oct-2016 13:28 HEMOGRAM 7305 WBC 3.2 K/uL (Below [...] low threshold) Range: >60 EST GFR, NON-AFR [place] 37 ml/min (Below low threshold) Range: >60 [...] 11:30 Appointment; Provider: Avila Arreola M.D. On 04-Nov-2016 14:45 Appointment; Provider: Theo Roa D.P.T. On 20-Oct-2016 11:00 Appointment; Provider: Nuno Burgos M.D. On 17-Oct-2016 09:30 Instructions Name Dates Details Instructions not documented Encounters Appointment; Ric Jiménez M.D. Encounter Diagnosis: Problem not documented On 02-Oct-2016 13:30 Appointment; Ric Vines M.D. Encounter Diagnosis: Problem not documented On 26-Sep-2016 11:00 Appointment; Avila Arreola M.D. Encounter Diagnosis: Problem not documented On 23-Sep-2016 11:30 Appointment; Terry, Ondina Encounter Diagnosis: Problem not documented On 23-Sep-2016 [...] documented On 12-Aug-2016 09:00 Appointment; Dar Love M.D.|VINCENT,VINCENT,LOY, Encounter Diagnosis: Problem not documented On 22-Jul-2016 11:15 Appointment; Nuno Burgos M.D. Encounter Diagnosis: Problem not documented On 15-Jul-2016 14:30 Appointment; Magan Bowles M.D. Encounter Diagnosis: Problem not documented On 01-Jul-2016 15:45 Appointment; Dar Love M.D.|FACP|MSachaDSacha,FACP|Bear,FACP, Encounter Diagnosis: Problem not documented On 10-Jun-2016 [...] documented On 06-May-2016 09:30 Appointment; Dar Love M.D.|FACP|Bear,TONYP|Bear,LOY, Encounter Diagnosis: Problem not documented On 28-Apr-2016 [...] not documented On 16:00 Appointment; Dar Love M.D.|LOY|Bear,FACRonaldo|Bear,FACRonaldo, Encounter Diagnosis: Problem not documented On 10:45 [...]
--- OUTSIDE RECORDS SUMMARY | 2016-11-05 13:52 | XMS REPORT | Summary of Care ---
Author Author Theo Roa D.P.T. Organization Unknown Address [address] [place], [place] [id number] Phone Unavailable Care Team Providers Care Moisture Meter Reader Name Role Phone Jerrod Mena M.D. Unavailable [...] M48.00) Status: Active Medications Name Dates Details Venlafaxine HCl ER 75 MG Oral Capsule Extended Release 24 Hour TAKE 1 CAPSULE BY MOUTH DAILY Quantity: 90 Ric Vines M.D. * Start 29-Aug-2011 Active [...] Ric Vines M.D. * Start 17-Aug-2014 Active Naproxen 500 MG Oral Tablet TAKE 1 TABLET EVERY 12 HOURS DAILY. * Quantity: 60 Refills: 1 Jerrod Mena M.D. * Start 04-Feb-2016 Active Omeprazole 40 MG Oral Capsule Delayed Release Take 1 capsule by mouth daily. * Quantity: 90 Refills: 3 Ric Vines M.D. Start 18-Jun-2010 Active Prolia 60 MG/ML Subcutaneous Solution INJECT [...] Quadrivalent 0.5 ML Intramuscular Suspension Lot #: [id number] on: 16-May-2013 Prevnar 13 Intramuscular Suspension Lot #: [id number] on: 05-Jul-2014 Fluzone High-Dose 0.5 ML Intramuscular Suspension Prefilled Syringe Lot #: [id number] on: 07-Mar-2015 Tdap (Adacel) Lot #: [id number] on: 07-Mar-2015 Family History Name Dates Details [...] Body Surface Area Calculated 1.51 m2 Status: 16-Jan-2016 14:27 BP Systolic 130 mm[Hg] Status: [...] Goals not documented Planned Encounters Appointment; Provider: Jerrod Mena M.D. On 25-Mar-2016 11:00 Appointment; Provider: Nuno Burgos M.D. On 04-Mar-2016 13:45 Appointment; Provider: Ric Vines M.D. On 04-Mar-2016 10:00 Appointment; Provider: Dar Love M.D.|VINCENT,VINCENT,LOY, On 27-Feb-2016 10:30 Appointment; Provider: Theo Roa D.P.T. On 22-Feb-2016 14:00 Appointment; Provider: Theo Roa D.P.T. On 20-Feb-2016 14:00 Instructions Name Dates Details Instructions not documented [...] documented On 17-Jan-2016 10:30 Appointment; Dar Love M.D.|FACP|MSachaDSacha,FACP|MKendell,FACP, Encounter Diagnosis: Problem not documented On 16-Jan-2016 [...] not documented On 16:00 Appointment; Dar Love M.D.|FACP|MSachaDSacha,FACP|MKendell,FACP, Encounter Diagnosis: Problem not documented On 10:45 [...] Encounter Diagnosis: Problem not documented On 20-Feb-2014 09:45"
--- OUTSIDE RECORDS SUMMARY | 2016-11-05 13:53 | XMS REPORT | Summary of Care ---
Author Author Ric Vines M.D. Organization Unknown Address Unknown Phone Unavailable Care Team Providers Care Public Relations Director Name Role Phone Ric Vines M.D. Unavailable [...] left shoulder region (719.41, M25.512) Status: Active Left knee pain (719.46, M25.562) Status: Active Tendinitis of left rotator cuff (726.10, M75.82) Status: Active CKD (chronic kidney disease) stage 3, GFR 30-59 ml/min (585.3, N18.3) Status: Active 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, 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 Never a smoker Status: Active Diverticulitis of colon (562.11, K57.32) Status: Active Nausea with vomiting (787.01, R11.2) Status: Active Acute renal failure (ARF) (584.9, [...] Magan Bowles M.D. * Start 01-Jul-2016 Active Vitamin C 500 MG Oral Tablet TAKE 1 TABLET DAILY. * Quantity: 100 Refills: 0 Ric Vines M.D. Start 26-Sep-2016 Active Allergies and Adverse Reactions Name Dates [...] 26-Jun-2011 Upper Endoscopy ( EGD) Ordered: 12-Sep-2016 CT AB/ PEL WITH IV AND ORAL CONTRAST Ordered: 12-Sep-2016 Immunization Name Dates Details Pneumo (Pneumovax) Lot #: [id number] on: 10-Feb-2012 Fluzone Quadrivalent 0.5 ML Intramuscular Suspension Lot #: [id number] on: 16-May-2013 Prevnar 13 Intramuscular Suspension Lot #: [id number] on: 05-Jul-2014 Fluzone High-Dose 0.5 ML Intramuscular Suspension Prefilled Syringe Lot #: [id number] on: 07-Mar-2015 Tdap (Adacel) Lot #: [id number] on: 07-Mar-2015 Fluzone High-Dose 0.5 ML Intramuscular Suspension Prefilled Syringe Lot #: [id number] on: 04-Mar-2016 Zoster (Zostavax) Lot #: [id number] on: 04-Mar-2016 Family History Name Dates Details [...] smoker Vital Signs Date Test Result Details 26-Sep-2016 11:00 BP Systolic 102 mm[Hg] Status: [...] ; Position: Heart Rate 88 /min Status: Physical Findings 95 Status: Comments: O2 Saturation [...] low threshold) Range: >60 EST GFR, NON-AFR [place] 22 ml/min (Below low threshold) Range: >60 [...] low threshold) Range: >60 EST GFR, NON-AFR [place] 33 ml/min (Below low threshold) Range: >60 Comments: EST GFR is reported in ml/min per 1.73 m2 of body surface area. ----- BUN:CREATININE RATIO 10 GLUCOSE 97 mg/dL Range: 70-100 CALCIUM 10.2 mg/dL (Above high threshold) Range: 8.5-10.1 15:32 CT AB/ PEL WITHOUT IV AND WITH ORAL CONTRAST Comments: Exam Date: 14:15Dictation Date: 09/12/2016 15:32 XC AB/PEL W/O IV 25-Sep-2016 10:47 CBC w/ Auto Diff 7150 [...] low threshold) Range: >60 EST GFR, NON-AFR [place] 42 ml/min (Below low threshold) Range: >60 [...] LDL - CALCULATED 58 mg/dL Range: 0-130 Plan of Care Name Dates Details Planned Observations Planned Goals not documented Planned Encounters Appointment; Provider: Magan Bowles M.D. On 22-Jan-2017 10:45 Appointment; Provider: Nuno Burgos M.D. On 11-Nov-2016 11:30 Appointment; Provider: Avila Arreola M.D. On 15-Oct-2016 14:30 Appointment; Provider: Nuno Burgos M.D. On 14-Oct-2016 09:30 Instructions Name Dates Details Instructions not documented Encounters Appointment; Avila Arreola M.D. Encounter Diagnosis: Problem [...] documented On 06-May-2016 09:30 Appointment; Dar Love M.D.|FACP|M.D.,FACP|M.DSacha,FACP, Encounter Diagnosis: Problem not documented On 28-Apr-2016 [...] documented On 28-Feb-2016 14:30 Appointment; Dar Love M.D.|FACP|M.DSacha,LOY|Bear,TONYP, Encounter Diagnosis: Problem not documented On 27-Feb-2016 [...] documented On 17-Jan-2016 10:30 Appointment; Dar Love M.D.|FACP|M.D.,FACP|M.D.,FACP, Encounter Diagnosis: Problem not documented On 16-Jan-2016 [...] not documented On 14:00 Appointment; Theo Roa D.PYe. Encounter Diagnosis: Problem not documented On 11:00 Appointment; Theo Roa D.PYe. Encounter Diagnosis: Problem not documented On 11:00 Appointment; Theo Roa D.P.T. Encounter Diagnosis: Problem not documented On 16:00 Appointment; Dar Love M.D.|FACP|M.D.,FACP|M.D.,FACP, Encounter Diagnosis: Problem not documented On 10:45 [...]
--- OUTSIDE RECORDS SUMMARY | 2016-11-05 13:53 | XMS REPORT | Summary of Care ---
Author Author Nuno Burgos M.D. [facility] Unknown Address [address], [place] [id number] Phone Unavailable Care Team Providers Care Sales And Service Engineer Name Role Phone Ric Vines M.D. 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 CKD (chronic kidney disease), stage III (585.3, N18.3) Status: Active Osteoporosis (733.00, M81.0) Status: Active [...] ONE HALF TAB ONCE DAILY * Quantity: 30 Refills: 5 Ric Vines M.D.* Started 17-Aug-2014 ActiveNystatin 333260 UNIT/ML Mouth/Throat Suspension SWISH AND SWALLOW 10ML [...] Quadrivalent 0.5 ML Intramuscular Suspension Lot #: [id number] Administered on:16-May-2013 Prevnar 13 Intramuscular Suspension Lot #: [id number] Administered on:05-Jul-2014 Fluzone High-Dose 0.5 ML Intramuscular Suspension Prefilled Syringe Lot #: [id number] Administered on:07-Mar-2015 Tdap (Adacel) Lot #: [id number] Administered on:07-Mar-2015 Family History Unknown Family Member* [...] smoker Vital Signs Date Test Result Details 16-May-2015 11:14 BP Systolic 124 mm[Hg] Status: BP Diastolic 60 mm[Hg] Status: Heart Rate 76 /min Status: Weight 134.5 lb Status: Body Mass Index Calculated 27.17 kg/m2 Status: Body Surface Area Calculated 1.56 m2 Status: 18-Apr-2015 14:42 BP Systolic 126 mm[Hg] Status: BP Diastolic 64 mm[Hg] Status: Temperature 36.7 c Status: Heart Rate 75 /min Status: Weight 132 lb Status: O2 SAT 95 % Status: Body Mass Index Calculated 26.66 kg/m2 Status: Body Surface Area Calculated 1.55 m2 Status: Results Date Description Value Details 18-Apr-2015 16:18 XRay HIP-Right Comments: Exam Date: 04/18/2015 15: 51Dictation Date: 04/18/2015 16:18 X HIP COMP (MIN 2V) RT (Better) 15-May-2015 12:35 CBC w/ Auto Diff 7150 WBC 3.5 K/uL (Below low threshold) Range: 4.5-11.0 RBC 3.32 mil/uL (Below low threshold) Range: 3.60-5.00 HGB 11.2 g/dL (Below low threshold) Range: 12.0-16.0 HCT 35.1 % (Below low threshold) Range: 36.0-48.0 MCV 106.0 fL (Above high threshold) Range: 80.0-99.0 MCH 33.6 pg (Above high threshold) Range: 27.3-32.5 MCHC 31.7 % (Below low threshold) Range: 32.0-36.0 RDW 13.4 % (Better) Range: 11.6-14.8 PLATELETS 152 K/uL (Better) Range: 150-400 MPV 10.3 fL (Better) Range: 6.0-11.0 %NEUTRO 60.6 % (Better) Range: 37.0-80.0 %LYMPHS 28.1 % (Better) Range: 13.0-50.0 %MONO 6.4 % (Better) Range: 0.0-12.0 %EOS 1.8 % (Better) Range: 0.0-7.0 %BASO 0.3 % (Better) Range: 0.0-2.5 %MARY 2.8 % (Better) Range: 0.0-5.0 NEUTRO 2.1 K/uL (Better) Range: 2.0-6.9 LYMPHS 1.0 K/uL (Better) Range: 0.6-3.4 MONOS 0.2 K/uL (Better) Range: 0.0-0.9 EOS 0.1 K/uL (Better) Range: 0.0-0.7 BASO 0.0 K/uL (Better) Range: 0.0-0.2 12:55 MAGNESIUM 1260 MAGNESIUM 1.8 mg/dL (Better) Range: 1.8-2.4 12:55 RENAL PROFILE 1240 SODIUM 143 mmol/L (Better) Range: 133-144 POTASSIUM 3.7 mmol/L (Better) Range: 3.5-5.1 CHLORIDE 105 mmol/L (Better) Range: 98-110 CARBON DIOXIDE 29.7 mmol/L (Better) Range: 23.0-33.0 ANION GAP 8 mmol/L (Better) Range: 6-16 BUN 17 mg/dL (Better) Range: 7-18 CREATININE, SERUM 1.46 mg/dL (Above high threshold) Range: 0.55-1.02 Comments: Please note new reference ranges effective 2014.----- EST GFR, 42 ml/min (Below low threshold) Range: >60 EST GFR, NON-AFR CITIZEN OF [place] 34 ml/min (Below low threshold) Range: >60 Comments: EST GFR is reported in ml/min per 1.73 m2 of body surface area. For -Mauritian, please multiple result by 1.2.----- BUN:CREATININE RATIO 12 (Better) GLUCOSE 102 mg/dL (Above high threshold) Range: 70-100 ALBUMIN 3.8 g/dL (Better) Range: 3.4-5.0 PHOSPHORUS 2.2 mg/dL (Below low threshold) Range: 2.6-4.7 Comments: Please note new reference ranges effective 2015.----- CALCIUM 9.1 mg/dL (Better) Range: 8.5-10.1 Plan of Care Planned Observations* Name Dates Details Planned Goals not documented Goal Planned Encounters* Appointment; Provider: Nuno Burgos On 15-Aug-2015 11:00 * Appointment; Provider: Ric Martinez On 15-Aug-2015 10:30 * Appointment; Provider: Magan Bowles On 25-Jul-2015 10:45 * Appointment; Provider: Ric Vines On 04-Jul-2015 09:45 * Appointment; Provider: Nuno Burgos On 20-Jun-2015 13:15 * Appointment; Provider: Schedule Radiology On 04-Apr-2015 [...]
--- OUTSIDE RECORDS SUMMARY | 2016-11-05 13:53 | XMS REPORT | Summary of Care ---
Author Author Theo Roa D.P.T. Organization Unknown Address [address], [place] [id number] Phone Unavailable Care Team Providers Care Lawn Mower Name Role Phone Theo Roa D.P.T. Unavailable [...] Ric Vines M.D. * Start 18-Jun-2010 Active Osteo Bi-Flex Triple Strength Oral Tablet TAKE 1 TABLET DAILY DIRECTED. * Refills: 0 Ric Vines M.D. * Start 10-Feb-2012 Active B-12 500 MCG Oral Tablet TAKE 1 TABLET DAILY. * Refills: 0 Ric Vines M.D. * Start 21-Jun-2012 Active Multi-Vitamins Oral Tablet TAKE 1 TABLET DAILY. * Refills: 0 Ric Vines M.D. Start 25-Oct-2012 Active Venlafaxine HCl ER 75 MG Oral Capsule Extended Release 24 Hour TAKE 1 CAPSULE BY MOUTH DAILY * Quantity: 90 Refills: 3 Ric Vines M.D. * Start 29-Aug-2011 Active Furosemide 20 MG Oral Tablet TAKE 1 TABLET DAILY FOR SWELLING. * Quantity: 90 Refills: 3 Ric Vines M.D. * Start 03-Nov-2012 Active Citalopram Hydrobromide 20 MG Oral Tablet TAKE 1 TABLET DAILY. * Quantity: 90 Refills: 3 Ric Vines M.D. Start 25-Oct-2012 Active Calcium 600+D3 600-200 MG-UNIT Oral Tablet TAKE 1 TABLET THREE TIMES A DAY * Refills: 0 Ric Vines M.D. Start 10-Feb-2012 Active Amoxicillin 500 MG Oral Capsule TAKE 4 CAPSULES BY MOUTH 1 HOUR PRIOR TO PROCEDURE * Quantity: 12 Refills: 0 Ric Vines M.D. Start 26-Jan-2014 Active Prolia 60 MG/ML Subcutaneous Solution INJECT SUBCUTANEOUSLY 60 MG / 1 ML EVERY 6 MONTHS * Quantity: 1 Refills: 0 Ric Vines M.D. Start 13-Apr-2015 Active SulfaSALAzine 500 MG Oral Tablet TAKE 2 TABLET Twice daily * Quantity: 360 Refills: 3 Ric Vines M.D. Start 03-Oct-2013 Active Lisinopril 5 MG Oral Tablet TAKE ONE HALF TAB ONCE DAILY * Quantity: 45 Refills: 3 Ric Vines M.D. Start 17-Aug-2014 Active Atorvastatin Calcium 80 MG Oral Tablet TAKE 1 TABLET DAILY. * Quantity: 90 Refills: 3 Ric Vines M.D. Start 07-Mar-2014 Active Allergies and Adverse Reactions Name [...] Quadrivalent 0.5 ML Intramuscular Suspension Lot #: [id number] on: 16-May-2013 Prevnar 13 Intramuscular Suspension Lot #: [id number] on: 05-Jul-2014 Fluzone High-Dose 0.5 ML Intramuscular Suspension Prefilled Syringe Lot #: [id number] on: 07-Mar-2015 Tdap (Adacel) Lot #: [id number] on: 07-Mar-2015 Family History Name Dates Details [...] low threshold) Range: >60 EST GFR, NON-AFR IRAQI 34 ml/min (Below low threshold) Range: >60 Comments: EST GFR is reported in ml/min per 1.73 m2 of body surface area. For -Jordanian, please multiple result by 1.2.----- GLUCOSE 94 [...] Date: 01/11/2016 07: 38Dictation Date: 01/11/2016 12:37 24-Jan-2016 14:45 XN BONE FLOW ( 3 PHASE ) Comments: Exam Date: 2015 09:46Dictation Date: 01/24/2016 14:45 Plan of Care Name Dates Details Planned Observations Planned Goals not documented Planned Encounters Appointment; Provider: Nuno Burgos M.D. On 04-Mar-2016 13:45 Appointment; Provider: Ric Vines M.D. On 04-Mar-2016 10:00 Appointment; Provider: Dar Love M.D.|FACP|MKendell,FACP|Bear,LOY, On 27-Feb-2016 10:30 Appointment; Provider: Theo Roa D.P.T. On 31-Jan-2016 10:30 Instructions Name Dates Details Instructions not documented Encounters Appointment; Theo Roa D.P.T. Encounter Diagnosis: Problem not documented On 22-Jan-2016 11:30 Appointment; Theo Roa D.P.T. Encounter Diagnosis: Problem not documented On 17-Jan-2016 10:30 Appointment; Dar Love M.D.|FACP|Bear,FACP|Bear,TONYP, Encounter Diagnosis: Problem not documented On 16-Jan-2016 [...] not documented On 16:00 Appointment; Dar Love M.D.|FACP|MKendell,VINCENT,FACP, Encounter Diagnosis: Problem not documented On 10:45 [...] not documented On 20-Feb-2014 09:45 Appointment; Ric Vnies M.D. Encounter Diagnosis: Problem not documented On 08-Feb-2014 10:00 Appointment; Nuno Burgos M.D. Encounter Diagnosis: Problem not documented On 30-Jan-2014 13:15"
--- OUTSIDE RECORDS SUMMARY | 2016-11-05 13:54 | XMS REPORT | Summary of Care ---
Author Ric Ruelas M.D. Unknown Address Unknown Phone Unavailable Care Team Providers Care Bulb Inspector Name Role Phone Daysi Jiménez M.D. Unavailable Unavailable Ric Vines M.D. Unavailable [...] Quantity: 60 Refills: 2 Ric Vines M.D. * Start 28-May-2016 Active [...] 26-Jun-2011 Upper Endoscopy ( EGD) Ordered: 12-Sep-2016 ORTHO PELVIS (AP ONLY) Ordered: 02-Oct-2016 ORTHO HIP LEFT (1 VIEW ONLY) Ordered: 02-Oct-2016 CT AB/ PEL WITH IV AND ORAL CONTRAST Ordered: 12-Sep-2016 Immunization Name Dates Details Pneumo (Pneumovax) Lot #: [id number] on: 10-Feb-2012 Fluzone Quadrivalent 0.5 ML Intramuscular Suspension Lot #: [id number] on: 16-May-2013 Prevnar 13 Intramuscular Suspension Lot #: [id number] on: 05-Jul-2014 Fluzone High-Dose 0.5 ML Intramuscular Suspension Prefilled Syringe Lot #: [id number] on: 07-Mar-2015 Tdap (Adacel) Lot #: [id number] on: 07-Mar-2015 Fluzone High-Dose 0.5 ML Intramuscular Suspension Prefilled Syringe Lot #: [id number] on: 04-Mar-2016 Zoster (Zostavax) Lot #: [id number] on: 04-Mar-2016 Family History Name Dates Details [...] c Status: Heart Rate 95 /min Status: Comments: Location: [...] low threshold) Range: >60 EST GFR, NON-AFR BERMUDIAN 22 ml/min (Below low threshold) Range: >60 [...] low threshold) Range: >60 EST GFR, NON-AFR BERMUDIAN 33 ml/min (Below low threshold) Range: >60 [...] low threshold) Range: >60 EST GFR, NON-AFR BERMUDIAN 42 ml/min (Below low threshold) Range: >60 [...] M.D. On 14-Oct-2016 09:30 Interventions Provided Labs/Procedures/Imaging* ORTHO HIP LEFT (1 VIEW ONLY); To be Done: 02 Oct 2016 * ORTHO PELVIS (AP ONLY); To be Done: 02 Oct 2016 Instructions Name Dates Details Instructions not documented [...] documented On 12-Aug-2016 09:00 Appointment; Dar Love M.D.|FACP|M.D.,FACP|MSachaDSacha,FACP, Encounter Diagnosis: Problem not documented On 22-Jul-2016 [...] documented On 06-May-2016 09:30 Appointment; Dar Love M.D.|FACP|M.D.,FACP|MonicaDSacha,FACP, Encounter Diagnosis: Problem not documented On 28-Apr-2016 [...]
--- OUTSIDE RECORDS SUMMARY | 2016-11-05 13:54 | XMS REPORT | Summary of Care ---
Author Author Nuno Burgos M.D. [facility] Unknown Address [address] [place], [place] [address] Phone Unavailable Care Team Providers Care Drum Attendant Name Role Phone Ric Vines M.D. Unavailable [...] Status: Active Osteoporosis (733.00, M81.0) Status: Active Shoulder pain, right (719.41, M25.511) Status: Active Pain of left shoulder region (719.41, M25.512) Status: Active Medications Name Dates Details Omeprazole 40 MG Oral Capsule Delayed Release Take 1 capsule by mouth daily. Quantity: 90 Ric Vines M.D.* Started 18-Jun-2010 ActiveOsteo Bi-Flex Triple Strength Oral Tablet TAKE [...] Refills: 0 Ric Vines M.D.* Started 25-Oct-2012 ActiveVenlafaxine HCl ER 75 MG Oral Capsule Extended Release 24 Hour TAKE 1 CAPSULE BY MOUTH DAILY * Quantity: 90 Refills: 3 Ric Vines M.D.* Started 29-Aug-2011 ActiveFurosemide 20 MG Oral Tablet TAKE 1 TABLET DAILY NEEDED FOR SWELLING. * Quantity: 90 Refills: 3 Ric Vines M.D.* Started 03-Nov-2012 ActiveCitalopram Hydrobromide 20 MG Oral Tablet TAKE 1 TABLET DAILY. * Quantity: 90 Refills: 3 Ric Vines M.D.* Started 25-Oct-2012 ActiveNystatin 035366 UNIT/ML Mouth/Throat Suspension SWISH AND SWALLOW 10ML [...] Refills: 5 Ric Vines M.D.* Started 17-Aug-2014 ActiveSulfaSALAzine 500 MG Oral Tablet TAKE 2 TABLET Twice daily * Quantity: 360 Refills: 3 Ric Vines M.D.* Started 03-Oct-2013 ActiveAtorvastatin Calcium 80 MG Oral Tablet TAKE 1 TABLET DAILY. * Quantity: 90 Refills: 3 Ric Vines M.D.* Started 07-Mar-2014 ActiveTraMADol HCl - 50 MG Oral Tablet TAKE 1 TABLET 3 TIMES DAILY NEEDED. * Quantity: 30 Refills: 0 Ric Vines M.D.* Started 29-May-2015 ActiveMeloxicam 7.5 MG Oral Tablet TAKE 1 TABLET DAILY. * Quantity: 30 Refills: 3 Ric Vines M.D.* Started 29-May-2015 Active Allergies and Adverse Reactions Name Dates [...] Vitamin D, 25 - Hydroxy 3111 Ordered:21-May-2015 HEMOGRAM 7305 Ordered:06-Jun-2015 RENAL PROFILE 1240 Ordered:06-Jun-2015 Immunization Name Dates Details Pneumo (Pneumovax) Lot #: [id number] Administered on:10-Feb-2012 Fluzone Quadrivalent 0.5 ML Intramuscular Suspension Lot #: [id number] Administered on:16-May-2013 Prevnar 13 Intramuscular Suspension Lot #: [id number] Administered on:05-Jul-2014 Fluzone High-Dose 0.5 ML Intramuscular Suspension Prefilled Syringe Lot #: [id number] Administered on:07-Mar-2015 Tdap (Adacel) Lot #: [id number] Administered on:07-Mar-2015 Family History Unknown Family Member* [...] smoker Vital Signs Date Test Result Details 05-Jun-2015 14:46 BP Systolic 130 mm[Hg] Status: BP Diastolic 60 mm[Hg] Status: Temperature 36.3 c Status: Heart Rate 85 /min Status: O2 SAT 94 % Status: 29-May-2015 15:10 BP Systolic 132 mm[Hg] Status: BP Diastolic 60 mm[Hg] Status: Temperature 36.4 c Status: Heart Rate 94 /min Status: Weight 131 lb Status: O2 SAT 95 % Status: Body Mass Index Calculated 26.46 kg/m2 Status: Body Surface Area Calculated 1.54 m2 Status: Results Date Description Value Details 29-May-2015 16:20 XRay SHOULDER-Left Comments: Exam Date: 05/29/2015 15: 50Dictation Date: 05/29/2015 16:20 X SHOULDER COMP (MIN 2V) LT (Better) 16:21 XRay HIP-Right Comments: Exam Date: 05/29/2015 15:50Dictation Date : 05/29/2015 16:21 X HIP COMP (MIN 2V) RT (Better) 04-Jun-2015 16:03 CT SHOULDER W/O LEFT Comments: Exam Date: 06/04/2015 15:46Dictation Date: 06/04/2015 16:03 XC SHOULDER W/O LT (Better) Plan of Care Planned Observations* Name Dates Details Planned Goals not documented Goal Planned Encounters* Appointment; Provider: Nuno Burgos On 15-Aug-2015 11:30 * Appointment; Provider: Ric Martinez On 15-Aug-2015 10:30 * Appointment; Provider: Magan Bowles On 25-Jul-2015 10:45 * Appointment; Provider: Ric Vines On 04-Jul-2015 09:45 * Appointment; Provider: Nuno Burgos On 20-Jun-2015 13:15 * Appointment; Provider: Schedule Radiology On 04-Jun-2015 [...]
--- OUTSIDE RECORDS SUMMARY | 2016-11-05 13:54 | XMS REPORT | Summary of Care ---
Author Author Theo Roa D.P.T. Unknown Address Unknown Phone Unavailable Care Team Providers Care 21 Dealer Name Role Phone Ric Vines M.D. Unavailable [...] Quadrivalent 0.5 ML Intramuscular Suspension Lot #: [id number] Administered on:16-May-2013 Prevnar 13 Intramuscular Suspension Lot #: [id number] Administered on:05-Jul-2014 Fluzone High-Dose 0.5 ML Intramuscular Suspension Prefilled Syringe Lot #: [id number] Administered on:07-Mar-2015 Tdap (Adacel) Lot #: [id number] Administered on:07-Mar-2015 Family History Unknown Family Member* [...] low threshold) Range: >60 EST GFR, NON-AFR SAUDI ARABIAN 31 ml/min (Below low threshold) Range: >60 Comments: EST GFR is reported in ml/min per 1.73 m2 of body surface area. For -Azerbaijani, please multiple result by 1.2.----- BUN:CREATININE RATIO [...] low threshold) Range: >60 EST GFR, NON-AFR SAUDI ARABIAN 27 ml/min (Below low threshold) Range: >60 Comments: EST GFR is reported in ml/min per 1.73 m2 of body surface area. For -Azerbaijani, please multiple result by 1.2.----- GLUCOSE 99 [...] Problem not documented On 10:45 Appointment; Theo oRa Encounter Diagnosis: Problem not documented On 11:00 [...] Problem not documented On 26-Oct-2014 11:00 Appointment; Magna Bowles Encounter Diagnosis: Problem not documented On [...]
--- OUTSIDE RECORDS SUMMARY | 2016-11-05 13:55 | XMS REPORT ---
Author Author GENERATED, SYSTEM Organization Unknown Address Unknown Phone Unavailable Care Team Providers Care Teletypewriter Installer Name Role Phone MD DAYSI, DOMO [phone] Reason For Visit Reason for Visit from 05/30/2014 2:30 AM:* Pt Stated Reason for Adm : Chest pain Chief Complaint CHEST PAIN Social History Social History from 05/30/2014 3:53 PM:* Tobacco Use? : Never Smoker Social History from 05/30/2014 2:30 AM:* Tobacco Use? : Never Smoker Functional Status Functional Status from 05/30/2014 7:30 AM:* LOC : Alert * Oriented To : Person,Place,Time,Event * Weight Bearing Status : Full * Assist Level : Partial * # Assists : 1 Functional Status from 05/30/2014 2:30 AM:* LOC : Alert * Oriented To : Person,Place,Time * Weight Bearing Status : Full * Assist Level : Partial * # Assists : 1 Vital Signs Hospital Vital Signs from 05/30/2014 3:04 PM:* Height : 4/11 ft,in * Temperature : 97.4 F * Pulse : 77 * Respirations : 20 * BP : 109/51 Hospital Vital Signs from 05/30/2014 11:25 AM:* Height : 4/11 ft,in * Temperature : 98.6 F * Pulse : 83 * Respirations : 16 * BP : 161/70 Hospital Vital Signs from 05/30/2014 10:05 AM:* Height : 4/11 ft,in Hospital Vital Signs from 05/30/2014 7:30 AM:* Height : 4/11 ft,in * Temperature : 97.5 F * Pulse : 75 * Heart Rate : 83 * Respirations : 16 * BP : 138/65 Hospital Vital Signs from 05/30/2014 2:30 AM:* Weight : 63.8/ kg * Height : 4/11 ft,in Hospital Vital Signs from 05/30/2014 2:27 AM:* Weight : 63.8/ kg * Height : 4/11 ft,in * Temperature : 96.7 F * Pulse : 90 * Respirations : 18 * BP : 127/64 Hospital Vital Signs from 05/29/2014 11:00 PM:* Height : 4/11 ft,in * Temperature : 97.8 F * Pulse : 74 * Respirations : 18 * BP : 123/64 Results Chemistry from 05/30/2014 1:34 PMTROPONIN-I 0.05 (SEE BELOW ) Chemistry from 05/30/2014 7:18 AMTROPONIN-I 0.04 (SEE BELOW ) CHOLESTEROL 153 MG/DL (50-199 MG/DL) TRIGLYCERIDES 109 MG/DL (0-149 MG/DL) HDL CHOLESTEROL 78 MG/DL H (40-60 MG/DL) LDL (CALCULATED) CHOL 53 MG/DL (0-99 MG/DL) DX Radiology from 05/30/2014 8:31 AMCHEST 1 VIEW DATE OF EXAM: May 30 2014 9: 16AM Proc: DG 0066 - CHEST 1 VIEW CPT Code(s): 07580-; ; ; INDICATION / CLINICAL HISTORY: Chest pain. COMPARISON: 05/30/14. FINDINGS: The cardiac silhouette is borderline prominent. The pulmonary vasculature is slightly improved but now borderline prominent. IMPRESSION: Borderline cardiomegaly and borderline pulmonary venous congestion. CT Scan from 05/30/2014 8:35 AMCT ABD/PELVIS W/CONTRAST DATE OF EXAM: May 30 2014 9:55AM Proc: CT 0232 - CT ABD/PELVIS W/ CONTRAST CPT Code(s): 75662-; ; ; INDICATION / CLINICAL HISTORY: Chest pain, abdominal pain, nausea. COMPARISON: None. TECHNIQUE: Helical 5 mm thick axial images through the abdomen and pelvis were obtained following the administration of 75 cc of Isovue 300 and enteric contrast. FINDINGS: There is minimal bibasilar atelectasis. The liver, spleen, and pancreas are normal. The gallbladder is surgically absent. The adrenals, kidneys, and urinary bladder are unremarkable. The abdominal aorta is normal in caliber. Moderate atherosclerotic calcifications are noted. There is a small hiatal hernia. Mild apparent thickening of the antrum of the stomach is likely related to the decompressed state. The possibility of inflammatory process is not entirely excluded. Mild apparent thickening of the sigmoid colon is felt to be related to the nondistended state. There are multiple diverticula in the colon. There are no findings to suggest diverticulitis. There is a small hiatal hernia. There is a moderate amount of stool noted in the colon, consistent with constipation. There is a small fat containing umbilical hernia. IMPRESSION: 1. There is a small hiatal hernia. 2. Mild apparent thickening of the antrum of the stomach may be related to the nondistended state. An inflammatory/infectious process is not entirely excluded. 3. Constipation. 4. Diverticulosis. Problems Encounter Diagnosis * Chest Pain Comment:Problem resolved by [facility] [employer] upon Discharge, Status :Resolved. Encounters Encounter Diagnosis * Chest Pain Comment:Problem resolved by [facility] [employer] upon Discharge, Status :Resolved. Plan of Care Follow-up Appointments from 05/30/2014 3:53 PM:* #1 Office appointment: : Dr. Sosa (Cardiology) * #1 Date/Time : 06/30/2014 10:30 AM * Address # 1 : [facility]: [facility] [place], [place]- [phone] or Treatment Plan from 05/30/2014 9:20 AM:* Care Management Note : Patient admitted as outpatient d/t chest pain. POC is to consult cardio, plan for dobutamine stress echo, CT abd/pelvis, start IV fluids, and monitor labs. Will conitnue to follow. Procedures * Completed , on 09/18/2010 12:00 AM * Completed , on 09/18/2010 12:00 AM * Completed , on 09/18/2010 12:00 AM Immunizations No immunizations administered or ordered. Hospital Course Hospital Discharge Instructions How to care for yourself at home from 05/30/2014 3:53 PM:* Discharge Activity : Activity as tolerated,May Shower * Discharge Diet : As before hospitalization * Call your doctor if: : Fever over 101 F or severe chills,Chest pain or other unexplained symptoms,Tingling or numbness develops,A sudden increase or decrease in weight,You have persistent or worsening symptoms,If you have Heart Failure and you gain 3 pounds within 1 week or your symptoms worsen. (Weigh at home tomorrow morning) * Specific Discharge Teaching Instructions provided: : No * Discharge on Warfarin : No Allergies, Adverse Reactions, Alerts * Codeine causes unspecified. * No Latex Allergy. * No IV Contrast Allergy. Medication It is the responsibility of the patient or patient customer retention representative to confirm the list of medications with either the patient's personal care provider or the patient's follow-up care provider to ensure the patient has an appropriate list of medications to take at home. Discharge medications Continued medications* omeprazole 40 mg capsule,delayed release(DR/EC), Ordered By: ISABEL MONTILLA RN, BSN Directions: 1 capsule oral daily daily * cyanocobalamin (vitamin B-12) (Vitamin B-12) 500 mcg Tablet, Ordered By: ISABEL MONTILLA RN, BSN Directions: 1 tablet oral daily * aspirin (Aspirin Low Dose) 81 mg tablet,delayed release (/EC), Ordered By: ISABEL MONTILLA RN, BSN Directions: 1 tablet oral daily * zp-hxs-vabab acid-lutein (Centrum Silver) 400 mcg-250 mcg tablet,chewable, Ordered By: ISABEL MONTILLA RN, BSN Directions: 1 tablet oral daily * sulfaSALAzine 500 mg Tablet, Ordered By: ISABEL MONTILLA RN, BSN Directions: 3 tablets oral twice a day * atorvastatin 80 mg Tablet, Ordered By: ISABEL MONTILLA RN, BSN Directions: 1 tablet oral daily at bedtime * lisinopril 5 mg Tablet, Ordered By: ISABEL MONTILLA RN, BSN Directions: 1 tablet oral daily * lgwjdceksbj-I6-riylewwck serr (Osteo Bi-Flex (5-Loxin)) 1,500 mg-400 unit-100 mg Tablet, Ordered By: ISABEL MONTILLA RN, BSN Directions: 1 tablet oral daily Changed medications* calcium carbonate-vitamin D3 (Calcium 600 + D(3)) 600 mg calcium (1,500 mg)-400 unit Tablet, Ordered By: ISAEBL MONTILLA RN, BSN Directions: 1 tablet oral daily Stopped medications* None
--- OUTSIDE RECORDS SUMMARY | 2016-11-05 13:55 | XMS REPORT | Summary of Care ---
Author Author Theo Roa D.P.T. Organization Unknown Address Unknown Phone Unavailable Care Team Providers Care President Trust Company Name Role Phone Theo Roa D.P.T. Unavailable [...] RENAL PROFILE 1240 Ordered: HEMOGRAM 7305 Ordered: ORTHO KNEE LEFT (3 VIEWS ONLY) Ordered: BONE LA SCAN AND FLOW Ordered: 15-Jan-2016 Immunization Name Dates Details Pneumo (Pneumovax) Lot #: [id number] on: 10-Feb-2012 Fluzone Quadrivalent 0.5 ML Intramuscular Suspension Lot #: [id number] on: 16-May-2013 Prevnar 13 Intramuscular Suspension Lot #: [id number] on: 05-Jul-2014 Fluzone High-Dose 0.5 ML Intramuscular Suspension Prefilled Syringe Lot #: [id number] on: 07-Mar-2015 Tdap (Adacel) Lot #: [id number] on: 07-Mar-2015 Family History Name Dates Details [...] ERYTHROCYTE SED RATE 10 mm/60 min. Range: 0- 08:27 CBC w/ Auto Diff 7150 WBC [...] threshold) Range: >60 EST GFR, NON-AFR SLOVENIAN 34 ml/min (Below low threshold) Range: >60 Comments: EST GFR is reported in ml/min per 1.73 m2 of body surface area. For -Tongan, please multiple result by 1.2.----- GLUCOSE 94 [...] On 17-Jan-2016 10:30 Appointment; Provider: Dar Love M.D.|VINCENT,VINCENT,LYO, On 16-Jan-2016 14:45 Instructions Name Dates Details Instructions not documented [...]
--- OUTSIDE RECORDS SUMMARY | 2016-11-05 13:55 | XMS REPORT | Summary of Care ---
Author Author Rajesh Sifuentes, [facility] Unknown Address Unknown Phone Unavailable Care Team Providers Care Packer And Carry Out Name Role Phone Ric Vines M.D. Unavailable [...] 3 Ric Vines M.D.* Started 17-Aug-2014 ActiveNystatin 942060 UNIT/ML Mouth/Throat Suspension SWISH AND SWALLOW 10ML [...] Refills: 0 Ric Vines M.D.* Started 24-Aug-2015 [id number] Aerosol Powder Breath Activated Disp Pack Allergies [...] Complete Colonoscopy Completed:26-Jun-2011 EPO PANEL 3699 Ordered:06-Nov-2015 Immunization Name Dates Details Pneumo (Pneumovax) Lot #: [id number] Administered on:10-Feb-2012 Fluzone Quadrivalent 0.5 ML Intramuscular Suspension Lot #: [id number] Administered on:16-May-2013 Prevnar 13 Intramuscular Suspension Lot #: [id number] Administered on:05-Jul-2014 Fluzone High-Dose 0.5 ML Intramuscular Suspension Prefilled Syringe Lot #: [id number] Administered on:07-Mar-2015 Tdap (Adacel) Lot #: [id number] Administered on:07-Mar-2015 Family History Unknown Family Member* [...] low threshold) Range: >60 EST GFR, NON-AFR JAPANESE 31 ml/min (Below low threshold) Range: >60 Comments: EST GFR is reported in ml/min per 1.73 m2 of body surface area. For -Russian, please multiple result by 1.2.----- BUN:CREATININE RATIO [...] low threshold) Range: >60 EST GFR, NON-AFR JAPANESE 27 ml/min (Below low threshold) Range: >60 Comments: EST GFR is reported in ml/min per 1.73 m2 of body surface area. For -Russian, please multiple result by 1.2.----- GLUCOSE 99 [...] not documented On 15-Aug-2015 13:45 Appointment; Nuno Burogs Encounter Diagnosis: Problem not documented On 15-Aug-2015 [...]
--- OUTSIDE RECORDS SUMMARY | 2016-11-05 13:55 | XMS REPORT | Summary of Care ---
Author Author Theo Roa D.P.T. Unknown Address Unknown Phone Unavailable Care Team Providers Care Cooper Apprentice Name Role Phone Ric Vines M.D. Unavailable [...] Refills: 3 Ric Vines M.D.* Started 07-Mar-2014 ActiveProlia 60 MG/ML Subcutaneous Solution INJECT SUBCUTANEOUSLY 60 MG / 1 ML EVERY 6 MONTHS * Quantity: 1 Refills: 0 Ric Vines M.D.* Started 13-Apr-2015 ActiveLisinopril 5 MG Oral Tablet TAKE ONE HALF TAB ONCE DAILY * Quantity: 45 Refills: 3 Ric Vines M.D.* Started 17-Aug-2014 Active Allergies and Adverse Reactions [...] Quadrivalent 0.5 ML Intramuscular Suspension Lot #: [id number] Administered on:16-May-2013 Prevnar 13 Intramuscular Suspension Lot #: [id number] Administered on:05-Jul-2014 Fluzone High-Dose 0.5 ML Intramuscular Suspension Prefilled Syringe Lot #: [id number] Administered on:07-Mar-2015 Tdap (Adacel) Lot #: [id number] Administered on:07-Mar-2015 Family History Unknown Family Member* [...] low threshold) Range: >60 EST GFR, NON-AFR BURUNDIAN 31 ml/min (Below low threshold) Range: >60 Comments: EST GFR is reported in ml/min per 1.73 m2 of body surface area. For -Lebanese, please multiple result by 1.2.----- BUN:CREATININE RATIO [...] low threshold) Range: >60 EST GFR, NON-AFR BURUNDIAN 27 ml/min (Below low threshold) Range: >60 Comments: EST GFR is reported in ml/min per 1.73 m2 of body surface area. For -Lebanese, please multiple result by 1.2.----- GLUCOSE 99 [...] 10:30 * Appointment; Provider: Theo Roa On 14:00 * Appointment; Provider: Schedule Radiology On 04-Jun-2015 [...] Problem not documented On 15-Aug-2015 13:45 Appointment; Nnuo Burgos Encounter Diagnosis: Problem not [...]
[2016-11-05] MEDS ORDERED: OMEP40CA52 PO (13:56)
--- OUTSIDE RECORDS SUMMARY | 2016-11-05 13:56 | XMS REPORT | Summary of Care ---
Author Author Rajesh Sifuentes, [facility] Unknown Address Unknown Phone Unavailable Care Team Providers Care Cooperative Education Director Name Role Phone Ric Vines M.D. [...] Ordered: FERRITIN 3025 Ordered: IRON 1254 Ordered: ERYTHROCYTE SED RATE 7800 Ordered: C REACTIVE PROTEIN, CRP 2030 Ordered: ORTHO KNEE LEFT (3 VIEWS ONLY) Ordered: BONE SPECT Ordered: Immunization Name Dates Details Pneumo (Pneumovax) Lot #: [id number] Administered on:10-Feb-2012 Fluzone Quadrivalent 0.5 ML Intramuscular Suspension Lot #: [id number] Administered on:16-May-2013 Prevnar 13 Intramuscular Suspension Lot #: [id number] Administered on:05-Jul-2014 Fluzone High-Dose 0.5 ML Intramuscular Suspension Prefilled Syringe Lot #: [id number] Administered on:07-Mar-2015 Tdap (Adacel) Lot #: [id number] Administered on:07-Mar-2015 Family History Unknown Family Member* [...] low threshold) Range: >60 EST GFR, NON-AFR STATELESS 27 ml/min (Below low threshold) Range: >60 Comments: EST GFR is reported in ml/min per 1.73 m2 of body surface area. For -Citizen Of [place], please multiple result by 1.2.----- GLUCOSE 99 [...] 0.0-0.7 BASO 0.0 K/uL (Better) Range: 0.0-0.2 Plan of Care Planned Observations* Name Dates [...]
--- OUTSIDE RECORDS SUMMARY | 2016-11-05 13:56 | XMS REPORT | Summary of Care ---
Author Author Theo Roa D.P.T. Unknown Address Unknown Phone Unavailable Care Team Providers Care Flour Worker Name Role Phone Ric Vines M.D. [...] Quadrivalent 0.5 ML Intramuscular Suspension Lot #: [id number] Administered on:16-May-2013 Prevnar 13 Intramuscular Suspension Lot #: [id number] Administered on:05-Jul-2014 Fluzone High-Dose 0.5 ML Intramuscular Suspension Prefilled Syringe Lot #: [id number] Administered on:07-Mar-2015 Tdap (Adacel) Lot #: [id number] Administered on:07-Mar-2015 Family History Unknown Family Member* [...] low threshold) Range: >60 EST GFR, NON-AFR [place]CI[place] 31 ml/min (Below low threshold) Range: >60 Comments: EST GFR is reported in ml/min per 1.73 m2 of body surface area. For -Eritrean, please multiple result by 1.2.----- BUN:CREATININE RATIO [...] low threshold) Range: >60 EST GFR, NON-AFR [place]CI[place] 27 ml/min (Below low threshold) Range: >60 Comments: EST GFR is reported in ml/min per 1.73 m2 of body surface area. For -Eritrean, please multiple result by 1.2.----- GLUCOSE 99 [...] Theo Roa On 14:00 * Appointment; Provider: Theo Roa On 14:00 [...]
--- OUTSIDE RECORDS SUMMARY | 2016-11-05 13:56 | XMS REPORT | Summary of Care ---
Author Author Maxwell Sifuentes, [facility] Unknown Address Unknown Phone Unavailable Care Team Providers Care Vineyard Tender Name Role Phone Avila Arreola M.D. Unavailable [...] Active Spinal stenosis (724.00, M48.00) Status: Active Osteoporosis (733.00, M81.0) Status: Active [...] Status: Active Constipation (564.00, K59.00) Status: Active CKD (chronic kidney disease) stage 4, GFR 15-29 ml/min (585.4, N18.4) Status: Active Abdominal pain (789.00, R10.9) Status: [...] Start 04-Mar-2016 Active 1 Solution Reconstituted Vial Normal Saline Flush 0.9 % Intravenous Solution [...] 300mg at HS * Quantity: 30 Refills: 0 Ric Vines M.D. Start 15-Jul-2016 Active Allergies and Adverse Reactions Name Dates Details Codeine Derivatives (Allergy) Status: Active Past Medical History Name Dates Details History of Tingling (782.0, R20.2) Status: Resolved Procedures Procedure Dates Details History of Complete Colonoscopy Completed: 15-Jun-2007 History of Appendectomy History of Cholecystectomy History of Knee Surgery History of Colonoscopy (Fiberoptic) Forceps Biopsy Completed: 08-Jul-2010 History of Knee Replacement History of Complete Colonoscopy Completed: 26-Jun-2011 Upper Endoscopy ( EGD) Ordered: 12-Sep-2016 RENAL PROFILE 1240 Ordered: 17-Oct-2016 CBC w/ Auto Diff 7150 Ordered: 17-Oct-2016 PTH ( Parathyroid Hormone Intact) 3101 Ordered: 22-Oct-2016 CT AB/ PEL WITH IV AND ORAL CONTRAST Ordered: 12-Sep-2016 ORTHO PELVIS (AP ONLY) Ordered: 02-Oct-2016 ORTHO HIP LEFT (1 VIEW ONLY) Ordered: 02-Oct-2016 Immunization Name Dates Details Pneumo (Pneumovax) Lot #: [id number] on: 10-Feb-2012 Fluzone Quadrivalent 0.5 ML Intramuscular Suspension Lot #: [id number] on: 16-May-2013 Prevnar 13 Intramuscular Suspension Lot #: [id number] on: 05-Jul-2014 Fluzone High-Dose 0.5 ML Intramuscular Suspension Prefilled Syringe Lot #: [id number] on: 07-Mar-2015 Tdap (Adacel) Lot #: [id number] on: 07-Mar-2015 Fluzone High-Dose 0.5 ML Intramuscular Suspension Prefilled Syringe Lot #: [id number] on: 04-Mar-2016 Zoster (Zostavax) Lot #: [id number] on: 04-Mar-2016 Family History Name Dates Details [...] smoker Vital Signs Date Test Result Details 04-Nov-2016 14:55 BP Systolic 127 mm[Hg] Status: Comments: Location: ; Position: BP Diastolic 75 mm[Hg] Status: Comments: Location: ; Position: Heart Rate 90 /min Status: Comments: Location: ; Weight 116 lb Status: Body Mass Index Calculated 24.24 kg/m2 Status: Body Surface Area Calculated 1.44 m2 Status: 15-Oct-2016 14:35 BP Systolic 96 mm[Hg] Status: Comments: Location: ; Position: BP Diastolic 43 mm[Hg] Status: Comments: Location: ; Position: Heart Rate 95 /min Status: Comments: Location: ; Physical Findings 20 Status: Comments: Respiration Height 58 in Status: Weight 117 lb Status: Physical Findings 98 Status: Comments: O2 Saturation Body Mass Index Calculated 24.45 kg/m2 Status: Body Surface Area Calculated 1.45 m2 Status: Results Date Description Value Details 13-Oct-2016 13:28 HEMOGRAM 7305 WBC 3.2 K/uL [...] threshold) Range: >60 EST GFR, NON-AFR STATELESS 37 ml/min (Below low threshold) Range: >60 [...] 11:30 Appointment; Provider: Avila Arreola M.D. On 07-Nov-2016 09:00 Appointment; Provider: Theo Roa D.P.T. On 05-Nov-2016 10:00 Instructions Name Dates Details Instructions not documented Encounters Appointment; Theo Roa D.P.T. Encounter Diagnosis: Problem not documented On 03-Nov-2016 11:30 Appointment; Theo Roa D.P.T. Encounter Diagnosis: Problem not documented On 29-Oct-2016 15:00 Appointment; Theo Roa D.P.T. Encounter Diagnosis: Problem not documented On 23-Oct-2016 11:00 Appointment; Nuno Burgos M.D. Encounter Diagnosis: Problem not documented On 17-Oct-2016 09:30 Appointment; Avila Arreola M.D. Encounter Diagnosis: Problem not documented On 15-Oct-2016 14:30 Appointment; Ric Jiménez M.D. Encounter Diagnosis: Problem [...] documented On 22-Feb-2016 14:00 Appointment; Theo Roa D.PAlyssa Encounter Diagnosis: Problem not documented On 13-Feb-2016 14:30 Appointment; Theo Roa D.P.T. Encounter Diagnosis: Problem not documented On 11-Feb-2016 14:30 Appointment; Theo Roa D.PSachaTSacha Encounter Diagnosis: Problem not documented On 07-Feb-2016 [...] not documented On 13:00 Appointment; Theo Roa D.PYe. Encounter Diagnosis: Problem not documented On 14:00 [...] Encounter Diagnosis: Problem not documented On 07-Nov-2014 10:30"
[2016-11-05] MEDS ORDERED: ASPI81TA2 PO (13:57)
[2016-11-05] MEDS ORDERED: LISI-625 PO (13:57)
--- OUTSIDE RECORDS SUMMARY | 2016-11-05 13:57 | XMS REPORT | Summary of Care ---
Author Author Nuno Burgos M.D. [facility] Unknown Address [address] [place] [address], [place] [id number] Phone Unavailable Care Team Providers Care Automatic Wheel Line Operator Name Role Phone Ric Vines M.D. [...] pain, acute, right (719.43, M25.531) Status: Active Medications Name Dates Details Omeprazole [...] * Refills: 0 * Started 17-Aug-2014 ActiveNystatin 476784 UNIT/ML Mouth/Throat Suspension SWISH AND SWALLOW 10ML [...] MAGNESIUM 1260 Ordered:27-Feb-2015 RENAL PROFILE 1240 Ordered:27-Feb-2015 XRay WRIST-Right Ordered:07-Mar-2015 DEXA Ordered:07-Mar-2015 Immunization Name Dates Details Pneumo (Pneumovax) Lot #: [id number] Administered on:10-Feb-2012 Fluzone Quadrivalent 0.5 ML Intramuscular Suspension Lot #: [id number] Administered on:16-May-2013 Prevnar 13 Intramuscular Suspension Lot #: [id number] Administered on:05-Jul-2014 Family History Unknown Family Member* [...] low threshold) Range: >60 EST GFR, NON-AFR SYRIAN 26 ml/min (Below low threshold) Range: >60 Comments: EST GFR is reported in ml/min per 1.73 m2 of body surface area. For -Bhutanese, please multiple result by 1.2.----- BUN:CREATININE RATIO [...] low threshold) Range: >60 EST GFR, NON-AFR SYRIAN 40 ml/min (Below low threshold) Range: >60 Comments: EST GFR is reported in ml/min per 1.73 m2 of body surface area. For -Bhutanese, please multiple result by 1.2.----- BUN:CREATININE RATIO [...] 06-Mar-2015 07:43 Protein Elec + Interp, Serum [id number] Comments: Testing performed at: [DA] [address] [address], [place], [address], , Certified Procedural Coder: ZHEN Saleem MD PROTEIN, TOTAL, SERUM 6.2 g/dL (Better) Range: 6.0-8.5 ALBUMIN 3.9 g/dL (Better) Range: 3.2-5.6 KRJOV-0-XQRGLXMS 0.2 g/dL (Better) Range: 0.1-0.4 LRJEZ-8-UOMCGQWW 0.7 g/dL (Better) Range: 0.4-1.2 BETA GLOBULIN 0.8 g/dL (Better) Range: 0.6-1.3 GAMMA GLOBULIN 0.6 g/dL (Better) Range: 0.5-1.6 M-SPIKE Note: g/dL (Better) Range: Not Observed Comments: Not ObservedSEE CONCURRENT IMMUNOFIXATION.----- GLOBULIN, TOTAL 2.3 g/dL (Better) Range: 2.0-4.5 A/G RATIO 1.7 (Better) Range: 0.7-2.0 PLEASE NOTE: Comment (Better) Comments: Protein electrophoresis scan will follow via computer,mail, or code enforcement inspector delivery.----- P E INTERPRETATION, S Comment (Better) Comments: The SPE pattern appears essentially unremarkable. Evidenceof monoclonal protein is not apparent. ----- 07:43 Immunofixation, Serum [id number] Comments: Testing performed at: [DA] [facility], [address] [place] [address] [address], [place], [address], Phone: , Certified Procedural Coder: ZHEN Saleem MD IMMUNOFIXATION RESULT, SERUM Note: [...] Martinez On 15-Aug-2015 10:30 * Appointment; Provider: Ric Vines On 04-Jul-2015 [...]
--- OUTSIDE RECORDS SUMMARY | 2016-11-05 13:57 | XMS REPORT | Summary of Care ---
Author Author Nuno Burgos M.D. [facility] Unknown Address [address], [place] [phone] Phone Unavailable Care Team Providers Care Clinical Team Manager Name Role Phone Ric Vines M.D. [...] Refills: 0 Ric Vines M.D.* Started 03-Nov-2012 ActiveAtorvastatin Calcium [...] 3 Ric Vines M.D.* Started 25-Oct-2012 ActiveNystatin 020909 UNIT/ML Mouth/Throat Suspension SWISH AND SWALLOW 10ML [...] Refills: 5 Ric Vines M.D.* Started 17-Aug-2014 Active Allergies [...] Quadrivalent 0.5 ML Intramuscular Suspension Lot #: [id number] Administered on:16-May-2013 Prevnar 13 Intramuscular Suspension Lot #: [id number] Administered on:05-Jul-2014 Fluzone High-Dose 0.5 ML Intramuscular Suspension Prefilled Syringe Lot #: [id number] Administered on:07-Mar-2015 Tdap (Adacel) Lot #: [id number] Administered on:07-Mar-2015 Family History Unknown Family Member* [...] X HIP COMP (MIN 2V) RT (Better) Plan of Care Planned Observations* Name [...] Problem not documented On 03-Oct-2013 08:45 Appointment; Rci Vines Encounter Diagnosis: Problem not [...]
--- OUTSIDE RECORDS SUMMARY | 2016-11-05 13:57 | XMS REPORT ---
Author Author GENERATED, SYSTEM Organization Unknown Address Unknown Phone Unavailable Care Team Providers Care Eyeglass Frames Inspector Name Role Phone MD DAYSI, DOMO [phone] Reason For Visit Reason for Visit from 04/19/2015 10:41 AM:* Pt Stated Reason for Adm : Prolia Chief Complaint M81.0 Social History Functional Status Functional Status from 04/19/2015 10:41 AM:* LOC : Alert * Oriented To : Person,Place,Time,Event Vital Signs Hospital Vital Signs from 04/19/2015 10:41 AM:* Height : 4/11 ft,in * Temperature : 98.4 F * Pulse : 85 * Respirations : 18 * BP : 171/73 Results Problems Encounter Diagnosis No relevant problems exist. Additional Problems * Chest Pain Comment:Problem resolved by [facility] Workflow upon Discharge, Status :Resolved. Encounters Encounter Diagnosis No relevant problems exist. Plan of Care Procedures * Completed , on 09/18/2010 12:00 AM * Completed , on 09/18/2010 12:00 AM * Completed , on 09/18/2010 12:00 AM Immunizations No immunizations administered or ordered. Hospital Course Hospital Discharge Instructions Allergies, Adverse Reactions, Alerts * Codeine causes unspecified. * Latex Allergy has not been assessed. * IV Contrast Allergy has not been assessed. Medication Medication reconciliation has not been performed.
--- OUTSIDE RECORDS SUMMARY | 2016-11-05 13:57 | XMS REPORT | Summary of Care ---
Author Author Rajesh Sifuentes, [facility] Unknown Address [address] [place] [address] Phone Unavailable Care Team Providers Care Vertical Mill Operator Name Role Phone Ric Vines M.D. [...] daily * Quantity: 360 Refills: 3 Ric iVnes M.D.* Started 03-Oct-2013 ActiveAmoxicillin 500 MG Oral [...] 3 Ric Vines M.D.* Started 17-Aug-2014 ActiveNystatin 381381 UNIT/ML Mouth/Throat Suspension SWISH AND SWALLOW 10ML [...] Refills: 0 Ric Vines M.D.* Started 24-Aug-2015 [id number] Aerosol Powder Breath Activated Disp Pack Prolia [...] Quadrivalent 0.5 ML Intramuscular Suspension Lot #: [id number] Administered on:16-May-2013 Prevnar 13 Intramuscular Suspension Lot #: [id number] Administered on:05-Jul-2014 Fluzone High-Dose 0.5 ML Intramuscular Suspension Prefilled Syringe Lot #: [id number] Administered on:07-Mar-2015 Tdap (Adacel) Lot #: [id number] Administered on:07-Mar-2015 Family History Unknown Family Member* [...] 11/26/2015 10:01 X SPINE THORACIC (2V) (Better) [id number] 13:51 HEMOGRAM 7305 WBC 4.0 K/uL (Below [...] Range: >60 EST GFR, NON-AFR CITIZEN OF [place] 31 ml/min (Below low threshold) Range: >60 Comments: EST GFR is reported in ml/min per 1.73 m2 of body surface area. For -Chadian, please multiple result by 1.2.----- BUN:CREATININE RATIO [...]
--- OUTSIDE RECORDS SUMMARY | 2016-11-05 13:58 | XMS REPORT | Summary of Care ---
Author Author Crispin Malcolm, Theo Organization Unknown Address Unknown Phone Unavailable Care Team Providers Care Portainer Operator Name Role Phone Ric Vines M.D. [...] 3 Ric Vines M.D.* Started 03-Oct-2013 ActiveNystatin 057916 UNIT/ML Mouth/Throat Suspension SWISH AND SWALLOW 10ML [...] Refills: 0 Ric Vines M.D.* Started 24-Aug-2015 [id number] Aerosol Powder Breath Activated Disp Pack Prolia [...] Quadrivalent 0.5 ML Intramuscular Suspension Lot #: [id number] Administered on:16-May-2013 Prevnar 13 Intramuscular Suspension Lot #: [id number] Administered on:05-Jul-2014 Fluzone High-Dose 0.5 ML Intramuscular Suspension Prefilled Syringe Lot #: [id number] Administered on:07-Mar-2015 Tdap (Adacel) Lot #: [id number] Administered on:07-Mar-2015 Family History Unknown Family Member* [...] low threshold) Range: >60 EST GFR, NON-AFR ZIMBABWEAN 31 ml/min (Below low threshold) Range: >60 Comments: EST GFR is reported in ml/min per 1.73 m2 of body surface area. For -Dominican, please multiple result by 1.2.----- BUN:CREATININE RATIO [...] low threshold) Range: >60 EST GFR, NON-AFR [place]AN 27 ml/min (Below low threshold) Range: >60 Comments: EST GFR is reported in ml/min per 1.73 m2 of body surface area. For -Dominican, please multiple result by 1.2.----- GLUCOSE 99 [...] Theo Roa On 16:00 * Appointment; Provider: Dar Love On 10:45 [...]
--- OUTSIDE RECORDS SUMMARY | 2016-11-05 13:58 | XMS REPORT | Summary of Care ---
Author Author Kristine Land APRN Organization Unknown Address [address] [place], [place] [phone] Phone Unavailable Care Team Providers Care Commercial Art Instructor Name Role Phone Rajesh Sifuentes, Jerrod Unavailable [...] 3 Ric Vines M.D. Start 03-Nov-2012 Active Amoxicillin 500 MG Oral Capsule TAKE [...] Ordered: 27-Feb-2016 EPO PANEL 3699 Ordered: 27-Feb-2016 ORTHO KNEE LEFT (3 VIEWS ONLY) Ordered: BONE LA SCAN AND FLOW Ordered: 15-Jan-2016 Immunization Name Dates Details Pneumo (Pneumovax) Lot #: [id number] on: 10-Feb-2012 Fluzone Quadrivalent 0.5 ML Intramuscular Suspension Lot #: [id number] on: 16-May-2013 Prevnar 13 Intramuscular Suspension Lot #: [id number] on: 05-Jul-2014 Fluzone High-Dose 0.5 ML Intramuscular Suspension Prefilled Syringe Lot #: [id number] on: 07-Mar-2015 Tdap (Adacel) Lot #: [id number] on: 07-Mar-2015 Family History Name Dates Details [...] threshold) Range: >60 EST GFR, NON-AFR SLOVEN[place] 30 ml/min (Below low threshold) Range: >60 [...] Observations CBC w/ Auto Diff 7150 On 28-Apr-2016 Intent EPO PANEL 3699 On 28-Apr-2016 Intent Planned Goals not documented Planned Encounters Appointment; Provider: Dar Love M.D.|FACAngie,TONYPCherelle,FACP, On 28-Apr-2016 11:00 Appointment; Provider: Nuno Burgos M.D. On 04-Mar-2016 13:45 Appointment; Provider: Ric Vines M.D. On 04-Mar-2016 10:00 Appointment; Provider: Theo Roa D.P.T. On 28-Feb-2016 14:30 Instructions Name Dates Details Instructions not documented [...] documented On 17-Jan-2016 10:30 Appointment; Dar Love M.D.|FACRonaldo|Bear,FACPCherelle,FACP, Encounter Diagnosis: Problem not documented On 16-Jan-2016 [...] not documented On 16:00 Appointment; Dar Love M.D.|VINCENT,LOY|Bear,LOY, Encounter Diagnosis: Problem not documented On 10:45 [...]
--- OUTSIDE RECORDS SUMMARY | 2016-11-05 13:58 | XMS REPORT | Summary of Care ---
Author Author Theo Roa D.P.T. Organization Unknown Address [address] [place], [place] [id number] Phone Unavailable Care Team Providers Care Ladle Repairer Name Role Phone Theo Roa D.P.T. Unavailable [...] GFR 15-29 ml/min (585.4, N18.4) Status: Active Medications Name Dates Details Venlafaxine HCl ER 75 MG Oral Capsule Extended Release 24 Hour TAKE 1 CAPSULE BY MOUTH DAILY Quantity: 90 Ric Vines M.D. Start 29-Aug-2011 Active SulfaSALAzine 500 MG Oral Tablet TAKE 2 TABLET Twice daily * Quantity: 360 Refills: 3 Ric Vines M.D. Start 03-Oct-2013 Active Lisinopril 5 MG Oral Tablet TAKE ONE HALF TAB ONCE DAILY * Quantity: 45 Refills: 3 Ric Vines M.D. Start 17-Aug-2014 Active Atorvastatin Calcium 80 MG Oral Tablet TAKE 1 TABLET DAILY. * Quantity: 90 Refills: Ric Lee M.D. Start 07-Mar-2014 Active Furosemide 20 MG Oral Tablet TAKE 1/2 TABLET DAILY FOR SWELLING. * Quantity: 45 Refills: 3 Ric Vines M.D. Start 03-Nov-2012 Active Citalopram Hydrobromide 20 MG Oral Tablet TAKE 1 TABLET DAILY. * Quantity: 90 Refills: 3 Ric Vines M.D. Start 25-Oct-2012 Active Omeprazole 40 MG Oral Capsule Delayed Release Take 1 capsule by mouth daily. * Quantity: 90 Refills: 3 Ric Vines M.D. * Start 18-Jun-2010 Active Vitamin C 500 MG Oral Tablet TAKE 1 TABLET DAILY. * Quantity: 100 Refills: 0 Ric Vines M.D. * Start 26-Sep-2016 Active TraMADol HCl - 50 MG Oral Tablet take 2 tablets by mouth twice daily * Quantity: 120 Refills: 1 Magan Bowles M.D. * Start 01-Jul-2016 Active Gabapentin 300 MG Oral Capsule take 1 capsule at HS with 100mg in the am * Quantity: 60 Refills: 2 Ric Vines M.D. Start 28-May-2016 Active Normal Saline Flush 0.9 % Intravenous Solution 1 liter IV on 09-11-16 * Quantity: 1000 Refills: 0 Ric Vines M.D. * Start 10-Sep-2016 Active Zoster (Zostavax) inject SQ * Quantity: 1 Refills: 0 Ric Vines M.D. Start 04-Mar-2016 Active 1 Solution Reconstituted Vial Osteo Bi-Flex Triple Strength Oral Tablet TAKE 1 TABLET DAILY DIRECTED. * Refills: 0 Ric Vines M.D. Start 10-Feb-2012 Active Calcium 600+D3 600-200 MG-UNIT Oral Tablet TAKE 1 TABLET THREE TIMES A DAY * Refills: 0 Ric Vines M.D. * Start 10-Feb-2012 Active Prolia 60 MG/ML Subcutaneous Solution INJECT SUBCUTANEOUSLY 60 MG / 1 ML EVERY 6 MONTHS * Quantity: 1 Refills: 0 Ric Vines M.D. Start 13-Apr-2015 Active Gabapentin 100 MG Oral Capsule TAKE 1 CAPSULE Every morning and 300mg at HS * Quantity: 30 Refills: 3 Ric Vines M.D. * Start 15-Jul-2016 Active Multi-Vitamins Oral Tablet TAKE 1 TABLET DAILY. * Refills: 0 Ric Vines M.D. Start 25-Oct-2012 Active B-12 500 MCG Oral Tablet TAKE 1 TABLET DAILY. * Refills: 0 Ric Vines M.D. Start 21-Jun-2012 Active Allergies and Adverse Reactions Name Dates [...] 26-Jun-2011 Upper Endoscopy ( EGD) Ordered: 12-Sep-2016 PTH ( Parathyroid Hormone Intact) 3101 Ordered: 22-Oct-2016 CBC w/ Auto Diff 7150 Ordered: 17-Oct-2016 RENAL PROFILE 1240 Ordered: 17-Oct-2016 CT AB/ PEL WITH IV AND ORAL CONTRAST Ordered: 12-Sep-2016 ORTHO PELVIS (AP ONLY) Ordered: 02-Oct-2016 ORTHO HIP LEFT (1 VIEW ONLY) Ordered: 02-Oct-2016 Immunization Name Dates Details Pneumo (Pneumovax) Lot #: [id number] on: 10-Feb-2012 Fluzone Quadrivalent 0.5 ML Intramuscular Suspension Lot #: [id number] on: 16-May-2013 Prevnar 13 Intramuscular Suspension Lot #: [id number] on: 05-Jul-2014 Fluzone High-Dose 0.5 ML Intramuscular Suspension Prefilled Syringe Lot #: [id number] on: 07-Mar-2015 Tdap (Adacel) Lot #: [id number] on: 07-Mar-2015 Fluzone High-Dose 0.5 ML Intramuscular Suspension Prefilled Syringe Lot #: [id number] on: 04-Mar-2016 Zoster (Zostavax) Lot #: [id number] on: 04-Mar-2016 Family History Name Dates Details [...] Comments: Location: ; Height 58 in Status: Results Date Description Value Details 13-Oct-2016 [...] low threshold) Range: >60 EST GFR, NON-AFR CHINESE 37 ml/min (Below low threshold) Range: >60 [...] Burgos M.D. On 11-Nov-2016 11:30 Appointment; Provider: Thoe Roa D.P.T. On 05-Nov-2016 10:00 Appointment; Provider: Avila Arreola M.D. On 04-Nov-2016 14:45 Appointment; Provider: Theo Roa D.P.T. On 03-Nov-2016 11:30 Appointment; Provider: Theo Roa D.P.T. On 31-Oct-2016 13:00 Instructions Name Dates Details Instructions not documented [...] not documented On 12-Aug-2016 09:00 Appointment; Dar oLve M.D.|FACP|M.DSacha,FACP|M.DSacha,FACP, Encounter Diagnosis: Problem not documented On [...] documented On 06-May-2016 09:30 Appointment; Dar Love M.D.|FACP|M.D.,FACP|M.D.,FACP, Encounter Diagnosis: Problem not documented On 28-Apr-2016 [...] documented On 28-Feb-2016 14:30 Appointment; Dar Love M.D.|VINCENT,LOY|Bear,TONYP, Encounter Diagnosis: Problem not documented On 27-Feb-2016 10:30 Appointment; Theo Roa D.P.Toshia Encounter Diagnosis: Problem not documented On 22-Feb-2016 [...] documented On 17-Jan-2016 10:30 Appointment; Dar Love M.D.|FACP|MStarr.,FACP|Bear,FACP, Encounter Diagnosis: Problem not documented On 16-Jan-2016 [...]
--- OUTSIDE RECORDS SUMMARY | 2016-11-05 13:58 | XMS REPORT ---
Author Author GENERATED, SYSTEM Organization Unknown Address Unknown Phone Unavailable Care Team Providers Care Field Crop Farming Supervisor Name Role Phone MD DAYSI, DOMO [phone] Reason For Visit Chief Complaint FALL, ABNORMAL FILMS Social History Functional Status Vital Signs Results Problems Encounter Diagnosis No relevant problems [...]
--- OUTSIDE RECORDS SUMMARY | 2016-11-05 13:59 | XMS REPORT | Summary of Care ---
Author Author Nuno Burgso M.D. Unknown Address [address], [place] [id number] Phone Unavailable Care Team Providers Care Licensing Coordinator Name Role Phone Ric Vines M.D. Unavailable [...] Status: Active Fever (780.60, R50.9) Status: Active Asthmatic bronchitis with acute exacerbation (493.92, J45.901) Status: Active Cough, persistent (786.2, R05) Status: Active CKD (chronic kidney disease), stage IV (585.4, N18.4) Status: Active Essential hypertension (401.9, I10) Status: Active Medications Name Dates [...] Refills: 0 Ric Vines M.D.* Started 25-Oct-2012 ActiveNystatin 605926 UNIT/ML Mouth/Throat Suspension SWISH AND SWALLOW 10ML FOUR TIMES DAILY FOR 5 DAYS * Quantity: 200 Refills: 0 Ric Vines M.D.* Started 07-Mar-2015 ActiveProlia 60 MG/ML Subcutaneous Solution INJECT SUBCUTANEOUSLY 60 MG / 1 ML EVERY 6 MONTHS * Quantity: 1 Refills: 0 Ric Vines M.D.* Started 13-Apr-2015 ActiveVenlafaxine HCl ER 75 MG Oral Capsule [...] Refills: 3 Ric Vines M.D.* Started 25-Oct-2012 ActiveAmoxicillin 500 [...] Refills: 0 Magan Bowles M.D.* Started 01-Aug-2015 ActiveCefuroxime Axetil 500 MG Oral Tablet TAKE 1 TABLET EVERY 12 HOURS DAILY. * Quantity: 14 Refills: 0 Ric Vines M.D.* Started 15-Aug-2015 Active Allergies and Adverse Reactions Name Dates [...] Quadrivalent 0.5 ML Intramuscular Suspension Lot #: [id number] Administered on:16-May-2013 Prevnar 13 Intramuscular Suspension Lot #: [id number] Administered on:05-Jul-2014 Fluzone High-Dose 0.5 ML Intramuscular Suspension Prefilled Syringe Lot #: [id number] Administered on:07-Mar-2015 Tdap (Adacel) Lot #: [id number] Administered on:07-Mar-2015 Family History Unknown Family Member* [...] smoker Vital Signs Date Test Result Details 15-Aug-2015 13:42 BP Systolic 110 mm[Hg] Status: [...] Body Surface Area Calculated 1.54 m2 Status: 01-Aug-2015 10:40 BP Systolic 116 mm[Hg] Status: [...] m2 Status: Results Date Description Value Details 20-Jul-2015 11:47 HEMOGRAM 7305 WBC 4.8 K/uL [...] threshold) Range: >60 EST GFR, NON-AFR CHINESE 34 ml/min (Below low threshold) Range: >60 Comments: EST GFR is reported in ml/min per 1.73 m2 of body surface area. For -Jordanian, please multiple result by 1.2.----- BUN:CREATININE RATIO 9 (Better) GLUCOSE 135 mg/dL (Above high threshold) Range: 70-100 Comments: Variance from previous testing noted.----- ALBUMIN 3.7 g/dL (Better) Range: 3.4-5.0 PHOSPHORUS 2.3 mg/dL (Below low threshold) Range: 2.6-4.7 Comments: Please note new reference ranges effective 2015.----- CALCIUM 8.7 mg/dL (Better) Range: 8.5-10.1 10-Aug-2015 11:35 HEMOGRAM 7305 WBC 3.9 K/uL (Below low threshold) Range: 4.5-11.0 RBC 3.63 mil/uL (Better) Range: 3.60-5.00 HGB 11.6 g/dL (Below low threshold) Range: 12.0-16.0 HCT 37.6 % (Better) Range: 36.0-48.0 MCV 103.5 fL (Above high threshold) Range: 80.0-99.0 MCH 31.9 pg (Better) Range: 27.3-32.5 MCHC 30.8 % (Below low threshold) Range: 32.0-36.0 PLATELETS 183 K/uL (Better) Range: 150-400 11:55 RENAL PROFILE 1240 SODIUM 139 mmol/L (Better) Range: 133-144 POTASSIUM 3.9 mmol/L (Better) Range: 3.5-5.1 CHLORIDE 104 mmol/L (Better) Range: 98-110 CARBON DIOXIDE 26.6 mmol/L (Better) Range: 23.0-33.0 ANION GAP 8 mmol/L (Better) Range: 6-16 BUN 23 mg/dL (Above high threshold) Range: 7-18 Comments: Variance from previous testing noted.----- CREATININE, SERUM 1.43 mg/dL (Above high threshold) Range: 0.55-1.02 Comments: Please note new reference ranges effective 2014.----- EST GFR, 43 ml/min (Below low threshold) Range: >60 EST GFR, NON-AFR CHINESE 35 ml/min (Below low threshold) Range: >60 Comments: EST GFR is reported in ml/min per 1.73 m2 of body surface area. For -Jordanian, please multiple result by 1.2.----- BUN:CREATININE RATIO 16 (Better) GLUCOSE 122 mg/dL (Above high threshold) Range: 70-100 ALBUMIN 3.8 g/dL (Better) Range: 3.4-5.0 PHOSPHORUS 2.8 mg/dL (Better) Range: 2.6-4.7 Comments: Please note new reference ranges effective 2015.----- CALCIUM 9.2 mg/dL (Better) Range: 8.5-10.1 12:13 Vitamin D, 25 - Hydroxy 3111 VITAMIN D, 25-HYDROXY 40 ng/mL (Better) Range: 30-100 15-Aug-2015 12:22 XRay CHEST-PA & LAT Comments: Exam Date: 08/15/2015 11: 40Dictation Date: 08/15/2015 12:22 X CHEST PA & LAT (Better) Plan of Care Planned Observations* Name Dates Details Planned Goals not documented Goal Planned Encounters* Appointment; Provider: Magan Bowles On 12:45 * Appointment; Provider: Nuno Burgos On 11:15 * Appointment; Provider: iRc Vines On 06-Nov-2015 11:00 * Appointment; Provider: [...]
--- OUTSIDE RECORDS SUMMARY | 2016-11-05 13:59 | XMS REPORT | Summary of Care ---
Author Author Provider, Outside Organization Unknown Address Unknown Phone Unavailable Care Team Providers Care Document Preparer Microfilming Name Role Phone Ric Vines M.D. Unavailable [...] coronary artery disease (414.00, I25.10) Status: Active Abdominal pain (789.00, R10.9) Status: Active Weight loss, unintentional (783.21, R63.4) Status: Active Nausea with vomiting (787.01, R11.2) [...] 0 Ric Vines M.D. Start 10-Feb-2012 Active Zoster (Zostavax) inject SQ * Quantity: [...] Magan Bowles M.D. * Start 01-Jul-2016 Active Venlafaxine HCl ER 75 MG Oral [...] 3 Ric Vines M.D. Start 07-Mar-2014 Active Furosemide 20 MG [...] 3 Ric Vines M.D. Start 03-Oct-2013 Active Gabapentin 100 MG Oral Capsule TAKE [...] Complete Colonoscopy Completed: 26-Jun-2011 HEMOGRAM 7305 Ordered: 12-Aug-2016 HEMOGRAM 7305 Ordered: 26-Aug-2016 RENAL PROFILE 1240 Ordered: 26-Aug-2016 XRay ABD (Flat & Upright) Ordered: 10-Sep-2016 Immunization Name Dates Details Pneumo (Pneumovax) Lot #: [id number] on: 10-Feb-2012 Fluzone Quadrivalent 0.5 ML Intramuscular Suspension Lot #: [id number] on: 16-May-2013 Prevnar 13 Intramuscular Suspension Lot #: [id number] on: 05-Jul-2014 Fluzone High-Dose 0.5 ML Intramuscular Suspension Prefilled Syringe Lot #: [id number] on: 07-Mar-2015 Tdap (Adacel) Lot #: [id number] on: 07-Mar-2015 Fluzone High-Dose 0.5 ML Intramuscular Suspension Prefilled Syringe Lot #: [id number] on: 04-Mar-2016 Zoster (Zostavax) Lot #: [id number] on: 04-Mar-2016 Family History Name Dates Details [...] Body Surface Area Calculated 1.44 m2 Status: 12-Aug-2016 09:44 BP Systolic 110 mm[Hg] Status: Comments: Location: ; Position: BP Diastolic 60 mm[Hg] Status: Comments: Location: ; Position: Results Date Description Value Details 10-Sep-2016 16:12 [...] low threshold) Range: >60 EST GFR, NON-AFR MACANESE 22 ml/min (Below low threshold) Range: >60 [...] Range: 8.5-10.1 Comments: Verified by Repeat Analysis----- Plan of Care Name Dates Details Planned Observations Planned Goals not documented Planned Encounters Appointment; Provider: Nuno Burgos M.D. On 11-Nov-2016 11:30 Appointment; Provider: Ric Vines M.D. On 26-Sep-2016 11:00 Appointment; Provider: Magan Bowles M.D. On 23-Sep-2016 11:00 Appointment; Provider: Nuno Burgos M.D. On 15-Sep-2016 09:30 Appointment; Provider: Nuno Burgos M.D. On 15-Jul-2016 09:30 Appointment; Provider: Schedule Radiology On 24-Jan-2016 10:00 Appointment; Provider: Schedule Radiology On 08:00 Appointment; Provider: Schedule Radiology On 04-Jun-2015 16:00 Appointment; Provider: Schedule Radiology On 04-Jun-2015 16:00 Appointment; Provider: Schedule Radiology On 04-Apr-2015 14:30 Appointment; Provider: Carol Tellez M.D. On 28-May-2011 13:00 Appointment; Provider: Carol Tellez M.D. On 14-May-2011 14:00 Appointment; Provider: Carol Tellez M.D. On 16-Apr-2011 13:45 Appointment; Provider: Kelvin Davis M.D. On 18-Sep-2010 14:30 Appointment; Provider: Kayla Siddiqi M.D. On 18-Sep-2010 13:00 Instructions Name Dates Details Instructions not documented Encounters Appointment; Ric Vines M.D. Encounter Diagnosis: Problem not documented On 10-Sep-2016 15:30 Appointment; Nuno Burgos M.D. Encounter Diagnosis: Problem not documented On 12-Aug-2016 09:00 Appointment; Dar Love M.D.|FACP|M.DSacha,FACP|MSachaDSacha,FACP, Encounter Diagnosis: Problem not documented On 22-Jul-2016 11:15 Appointment; Nuno Burgos M.D. Encounter Diagnosis: Problem not documented On 15-Jul-2016 14:30 Appointment; Magan Bowles M.D. Encounter Diagnosis: Problem not documented On 01-Jul-2016 15:45 Appointment; Dar Love M.D.|FACP|M.DSacha,FACP|MonicaDSacha,FACP, Encounter Diagnosis: Problem not documented On 10-Jun-2016 [...] documented On 06-May-2016 09:30 Appointment; Dar Love M.D.|FACP|M.DSacha,FACP|MSachaDSacha,FACP, Encounter Diagnosis: Problem not documented On 28-Apr-2016 [...] documented On 28-Feb-2016 14:30 Appointment; Dar Love M.D.|FACP|MSachaDSacha,FACP|MKendell,FACP, Encounter Diagnosis: Problem not documented On 27-Feb-2016 [...]
--- OUTSIDE RECORDS SUMMARY | 2016-11-05 13:59 | XMS REPORT | Summary of Care ---
Author Author Crispin Malcolm, Theo Organization Unknown Address Unknown Phone Unavailable Care Team Providers Care Tree Loader Meat Name Role Phone Ric Vines M.D. Unavailable [...] 1 TABLET DAILY. * Refills: 0 Ric Viens M.D.* Started 25-Oct-2012 ActiveFurosemide 20 MG Oral Tablet TAKE 1 TABLET DAILY FOR SWELLING. * Quantity: 90 Refills: 3 Ric Vines M.D.* Started 03-Nov-2012 ActiveSulfaSALAzine 500 MG Oral Tablet TAKE 2 TABLET Twice daily * Quantity: 360 Refills: 3 Ric Vines M.D.* Started 03-Oct-2013 ActiveNystatin 475070 UNIT/ML Mouth/Throat Suspension SWISH AND SWALLOW 10ML [...] Refills: 0 Ric Vines M.D.* Started 24-Aug-2015 [id number] Aerosol Powder Breath Activated Disp Pack Prolia [...] Quadrivalent 0.5 ML Intramuscular Suspension Lot #: [id number] Administered on:16-May-2013 Prevnar 13 Intramuscular Suspension Lot #: [id number] Administered on:05-Jul-2014 Fluzone High-Dose 0.5 ML Intramuscular Suspension Prefilled Syringe Lot #: [id number] Administered on:07-Mar-2015 Tdap (Adacel) Lot #: [id number] Administered on:07-Mar-2015 Family History Unknown Family Member* [...] low threshold) Range: >60 EST GFR, NON-AFR CHILEAN 31 ml/min (Below low threshold) Range: >60 Comments: EST GFR is reported in ml/min per 1.73 m2 of body surface area. For -Ivorian, please multiple result by 1.2.----- BUN:CREATININE RATIO [...] low threshold) Range: >60 EST GFR, NON-AFR CHILEAN 27 ml/min (Below low threshold) Range: >60 Comments: EST GFR is reported in ml/min per 1.73 m2 of body surface area. For -Ivorian, please multiple result by 1.2.----- GLUCOSE 99 [...] not documented On 01-Aug-2015 10:45 Appointment; Magan Bowlse Encounter Diagnosis: Problem not documented On 25-Jul-2015 [...]
[2016-11-05] MEDS ORDERED: CYAN500T47 PO (14:00)
--- OUTSIDE RECORDS SUMMARY | 2016-11-05 14:00 | XMS REPORT | Summary of Care ---
Author Author Ric Vines M.D. Organization Unknown Address Unknown Phone Unavailable Care Team Providers Care Powderman Name Role Phone Ric Vines M.D. Unavailable [...] R63.4) Status: Active Medications Name Dates Details Venlafaxine HCl ER 75 MG Oral Capsule Extended Release 24 Hour TAKE 1 CAPSULE BY MOUTH DAILY Quantity: 90 Ric Vines M.D. Start 29-Aug-2011 Active Osteo [...] Ric Vines M.D. * Start 28-May-2016 Active Omeprazole 40 MG Oral Capsule Delayed Release Take 1 capsule by mouth daily. * Quantity: 90 Refills: 3 Ric Vines M.D. * Start 18-Jun-2010 Active Gabapentin 100 MG Oral Capsule TAKE [...] 26-Jun-2011 Upper Endoscopy ( EGD) Ordered: 12-Sep-2016 BASIC METABOLIC PROFILE 1210 Ordered: 16-Sep-2016 CBC w/ Auto Diff 7150 Ordered: 16-Sep-2016 LIPID PROFILE 1184 Ordered: 16-Sep-2016 AST 1180 Ordered: 16-Sep-2016 CT AB/ PEL WITH IV AND ORAL CONTRAST Ordered: 12-Sep-2016 Immunization Name Dates Details Pneumo (Pneumovax) Lot #: [id number] on: 10-Feb-2012 Fluzone Quadrivalent 0.5 ML Intramuscular Suspension Lot #: [id number] on: 16-May-2013 Prevnar 13 Intramuscular Suspension Lot #: [id number] on: 05-Jul-2014 Fluzone High-Dose 0.5 ML Intramuscular Suspension Prefilled Syringe Lot #: [id number] on: 07-Mar-2015 Tdap (Adacel) Lot #: [id number] on: 07-Mar-2015 Fluzone High-Dose 0.5 ML Intramuscular Suspension Prefilled Syringe Lot #: [id number] on: 04-Mar-2016 Zoster (Zostavax) Lot #: [id number] on: 04-Mar-2016 Family History Name Dates Details [...] threshold) Range: >60 EST GFR, NON-AFR CUBAN 22 ml/min (Below low threshold) Range: >60 [...] threshold) Range: >60 EST GFR, NON-AFR CUBAN 33 ml/min (Below low threshold) Range: >60 [...] documented On 01-Jul-2016 15:45 Appointment; Dar Love M.D.|FACP|M.DSacha,FACP|MSachaDSacha,FACP, Encounter Diagnosis: Problem not documented On 10-Jun-2016 [...] documented On 06-May-2016 09:30 Appointment; Dar Love M.D.|FACP|M.DSacha,FACP|MonicaDSacha,FACP, Encounter Diagnosis: Problem not documented On 28-Apr-2016 [...] documented On 28-Feb-2016 14:30 Appointment; Dar Love M.D.|FACP|MKendell,FACP|Bear,FACP, Encounter Diagnosis: Problem not documented On 27-Feb-2016 [...] documented On 17-Jan-2016 10:30 Appointment; Dar Love M.D.|FACP|MKendell,FACRonaldo|Bear,FACP, Encounter Diagnosis: Problem not documented On 16-Jan-2016 [...]
--- OUTSIDE RECORDS SUMMARY | 2016-11-05 14:00 | XMS REPORT | Summary of Care ---
Author Author Theo Roa D.P.T. Organization Unknown Address Unknown Phone Unavailable Care Team Providers Care Director Educational Radio Name Role Phone Theo Roa D.P.T. Unavailable [...] (3 VIEWS ONLY) Ordered: BONE SPECT Ordered: BONE SCAN LIMITED AREA Ordered: Immunization Name Dates Details Pneumo (Pneumovax) Lot #: [id number] on: 10-Feb-2012 Fluzone Quadrivalent 0.5 ML Intramuscular Suspension Lot #: [id number] on: 16-May-2013 Prevnar 13 Intramuscular Suspension Lot #: [id number] on: 05-Jul-2014 Fluzone High-Dose 0.5 ML Intramuscular Suspension Prefilled Syringe Lot #: [id number] on: 07-Mar-2015 Tdap (Adacel) Lot #: [id number] on: 07-Mar-2015 Family History Name Dates Details [...] Status: 10:54 BP Systolic 119 mm[Hg] Status: Comments: Location: ; Position: BP Diastolic 70 mm[Hg] Status: Comments: Location: ; Position: Temperature 97.5 f Status: Heart Rate 83 /min Status: Comments: Location: ; Height 58 in Status: Weight 129 lb [...] On 17-Jan-2016 10:30 Appointment; Provider: Dar Love M.D.|LOY|Bear,TONYP|Bear,FACP, On 16-Jan-2016 14:45 Appointment; Provider: Theo Roa D.P.T. On 15-Jan-2016 10:30 Appointment; Provider: Schedule Radiology On 11:30 Appointment; Provider: Schedule Radiology On 11:00 Appointment; Provider: Schedule Radiology On 08:00 Appointment; Provider: Theo Roa D.P.T. On 10:30 Instructions Name Dates Details Instructions not [...] not documented On 29-May-2015 15:00 Appointment; Nuno Burgso M.D. Encounter Diagnosis: Problem not documented On [...]
--- OUTSIDE RECORDS SUMMARY | 2016-11-05 14:00 | XMS REPORT | Summary of Care ---
Author Author Rajesh Sifuentes, [facility] Unknown Address Unknown Phone Unavailable Care Team Providers Care Survey Crew Chief Name Role Phone Ric Vines M.D. Unavailable [...] Quadrivalent 0.5 ML Intramuscular Suspension Lot #: [id number] Administered on:16-May-2013 Prevnar 13 Intramuscular Suspension Lot #: [id number] Administered on:05-Jul-2014 Fluzone High-Dose 0.5 ML Intramuscular Suspension Prefilled Syringe Lot #: [id number] Administered on:07-Mar-2015 Tdap (Adacel) Lot #: [id number] Administered on:07-Mar-2015 Family History Unknown Family Member* [...] low threshold) Range: >60 EST GFR, NON-AFR UGANDAN 27 ml/min (Below low threshold) Range: >60 Comments: EST GFR is reported in ml/min per 1.73 m2 of body surface area. For -Luxembourger, please multiple result by 1.2.----- GLUCOSE 99 [...]
[2016-11-05] MEDS ORDERED: GLUC-251 PO (14:01)
--- OUTSIDE RECORDS SUMMARY | 2016-11-05 14:01 | XMS REPORT | Summary of Care ---
Author Author Theo Roa D.P.T. Organization Unknown Address [address], [place] [id number] Phone Unavailable Care Team Providers Care Wash House Supervisor Name Role Phone Theo Roa D.P.T. Unavailable [...] Quadrivalent 0.5 ML Intramuscular Suspension Lot #: [id number] on: 16-May-2013 Prevnar 13 Intramuscular Suspension Lot #: [id number] on: 05-Jul-2014 Fluzone High-Dose 0.5 ML Intramuscular Suspension Prefilled Syringe Lot #: [id number] on: 07-Mar-2015 Tdap (Adacel) Lot #: [id number] on: 07-Mar-2015 Family History Name Dates Details [...] low threshold) Range: >60 EST GFR, NON-AFR SURINAMESE 34 ml/min (Below low threshold) Range: >60 Comments: EST GFR is reported in ml/min per 1.73 m2 of body surface area. For -Zambian, please multiple result by 1.2.----- GLUCOSE 94 [...] On 04-Mar-2016 10:00 Appointment; Provider: Dar Love M.D.|TONYP|Bear,LOY|Bear,LOY, On 27-Feb-2016 10:30 Instructions Name Dates Details Instructions not documented Encounters Appointment; Theo Roa D.P.T. Encounter Diagnosis: Problem not documented On 29-Jan-2016 10:30 Appointment; Theo Roa D.P.T. Encounter Diagnosis: Problem not documented On 22-Jan-2016 11:30 Appointment; Theo Roa D.P.T. Encounter Diagnosis: Problem not documented On 17-Jan-2016 10:30 Appointment; Dar Love M.D.|LOY|Bear,LOY|Bear,LOY, Encounter Diagnosis: Problem not documented On 16-Jan-2016 [...]
--- OUTSIDE RECORDS SUMMARY | 2016-11-05 14:01 | XMS REPORT | Summary of Care ---
Author Author Emery LEES, Kristine Organization Unknown Address [address], [place] [address] Phone Unavailable Care Team Providers Care Pre Wave Assembler Name Role Phone Ivan Sifuentes, LOY, ,, [...] ONCE DAILY * Quantity: 45 Refills: 3 iRc Vines M.D. Start 17-Aug-2014 Active Prolia 60 [...] Quadrivalent 0.5 ML Intramuscular Suspension Lot #: [id number] on: 16-May-2013 Prevnar 13 Intramuscular Suspension Lot #: [id number] on: 05-Jul-2014 Fluzone High-Dose 0.5 ML Intramuscular Suspension Prefilled Syringe Lot #: [id number] on: 07-Mar-2015 Tdap (Adacel) Lot #: [id number] on: 07-Mar-2015 Family History Name Dates Details [...] low threshold) Range: >60 EST GFR, NON-AFR ANDORRAN 34 ml/min (Below low threshold) Range: >60 Comments: EST GFR is reported in ml/min per 1.73 m2 of body surface area. For -Beninese, please multiple result by 1.2.----- GLUCOSE 94 [...] Observations CBC w/ Auto Diff 7150 On 27-Feb-2016 Intent Comprehensive Metabolic Panel 1212 On 27-Feb-2016 Intent FERRITIN 3025 On 27-Feb-2016 Intent IRON 1254 On 27-Feb-2016 Intent Planned Goals not documented Planned Encounters Appointment; Provider: Nuno Burgos M.D. On 04-Mar-2016 13:45 Appointment; Provider: Ric Vines M.D. On 04-Mar-2016 10:00 Appointment; Provider: Dar Love M.D.|VINCENT,VINCENT,LOY, On 27-Feb-2016 10:30 Appointment; Provider: Schedule Radiology On 24-Jan-2016 13:00 Appointment; Provider: Schedule Radiology On 24-Jan-2016 10:00 Appointment; Provider: Theo Roa D.P.T. On 17-Jan-2016 10:30 Instructions Name Dates Details Instructions not [...] Problem not documented On 17-Aug-2014 10:30 Appointment; uNno Burgos M.D. Encounter Diagnosis: [...]
--- OUTSIDE RECORDS SUMMARY | 2016-11-05 14:01 | XMS REPORT | Summary of Care ---
Author Author Theo Roa D.P.T. Organization Unknown Address [address] [place], [place] [id number] Phone Unavailable Care Team Providers Care Watch Hairspring Assembler Name Role Phone Jerrod Mena M.D. Unavailable [...] Quadrivalent 0.5 ML Intramuscular Suspension Lot #: [id number] on: 16-May-2013 Prevnar 13 Intramuscular Suspension Lot #: [id number] on: 05-Jul-2014 Fluzone High-Dose 0.5 ML Intramuscular Suspension Prefilled Syringe Lot #: [id number] on: 07-Mar-2015 Tdap (Adacel) Lot #: [id number] on: 07-Mar-2015 Family History Name Dates Details [...] m2 Status: Results Date Description Value Details 08:27 CBC w/ Auto Diff 7150 WBC [...] low threshold) Range: >60 EST GFR, NON-AFR TRINIDADIAN 34 ml/min (Below low threshold) Range: >60 Comments: EST GFR is reported in ml/min per 1.73 m2 of body surface area. For -Guyanese, please multiple result by 1.2.----- GLUCOSE 94 [...] On 04-Mar-2016 10:00 Appointment; Provider: Dar Love M.D.|TONYPCherelle,TONYP|Bear,TONYP, On 27-Feb-2016 10:30 Appointment; Provider: Theo Roa D.P.T. On 13-Feb-2016 14:30 Appointment; Provider: Theo Roa D.P.T. On 11-Feb-2016 14:30 Instructions Name Dates Details Instructions not documented Encounters Appointment; Jerrod Mena M.D. Encounter Diagnosis: Problem not documented On 04-Feb-2016 09:15 Appointment; Theo Roa D.P.T. Encounter Diagnosis: Problem not documented On 31-Jan-2016 10:30 Appointment; Theo Roa D.P.T. Encounter Diagnosis: Problem not documented On 29-Jan-2016 10:30 Appointment; Theo Roa D.P.T. Encounter Diagnosis: Problem not documented On 22-Jan-2016 11:30 Appointment; Theo Roa D.P.T. Encounter Diagnosis: Problem not documented On 17-Jan-2016 10:30 Appointment; Dar Love M.D.|FACP|Bear,TONYP|Bear,TONYP, Encounter Diagnosis: Problem not documented On 16-Jan-2016 14:45 Appointment; Theo Roa D.P.T. Encounter Diagnosis: Problem not documented On 15-Jan-2016 10:30 Appointment; Theo Roa D.P.T. Encounter Diagnosis: Problem not documented On 10:30 Appointment; Theo Roa D.P.T. Encounter Diagnosis: Problem not documented On 10:30 Appointment; Theo Rao D.P.T. Encounter Diagnosis: Problem not documented On [...] not documented On 16:00 Appointment; Dar Love M.D.|FACP|M.DSacha,FACP|MKendell,FACP, Encounter Diagnosis: Problem not documented On 10:45 [...] not documented On 15-Aug-2015 13:45 Appointment; Nuno uBrgos M.D. Encounter Diagnosis: Problem not documented On [...] Encounter Diagnosis: Problem not documented On 08-Feb-2014 10:00"
[2016-11-05] MEDS ORDERED: CALC1CAP22 PO (14:02)
--- OUTSIDE RECORDS SUMMARY | 2016-11-05 14:02 | XMS REPORT | Summary of Care ---
Author Author Sheila Sifuentes, Neeta Schwartz [facility] Unknown Address [address] [place] [address] Phone Unavailable Care Team Providers Care Bulk Mail Clerk Name Role Phone Ric Vines M.D. [...] Vitamin D, 25 - Hydroxy 3111 Ordered:08-May-2014 RENAL PROFILE 1240 Ordered:20-Jun-2014 AST 1180 Ordered:26-Jun-2014 BASIC METABOLIC PROFILE 1210 Ordered:26-Jun-2014 CBC w/ Auto Diff 7150 Ordered:26-Jun-2014 LIPID PROFILE 1184 Ordered:26-Jun-2014 Immunization Name Dates Details Pneumo (Pneumovax) Lot #: [id number] Administered on:10-Feb-2012 Fluzone Quadrivalent 0.5 ML Intramuscular Suspension Lot #: [id number] Administered on:16-May-2013 Family History Unknown Family Member* [...] threshold) Range: >60 EST GFR, NON-AFR LIBERIAN 34 ml/min (Below low threshold) Range: >60 Comments: EST GFR is reported in ml/min per 1.73 m2 of body surface area. For -Burkinan, please multiple result by 1.2.----- BUN:CREATININE RATIO [...] 32.0-36.0 PLATELETS 176 K/uL (Better) Range: 150-400 Plan of Care Planned Observations* [...] Problem not documented On 07-Mar-2014 10:00 Appointment; Mgaan Bowles Encounter Diagnosis: Problem not documented On [...]
--- OUTSIDE RECORDS SUMMARY | 2016-11-05 14:02 | XMS REPORT | Summary of Care ---
Author Author Ric Martinez M.D. Organization Unknown Address [address], [place] [id number] Phone Unavailable Care Team Providers Care Pocket Maker Name Role Phone Ric Vines M.D. 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, D47.2) Status: Active Medications Name Dates Details Omeprazole [...] Refills: 0 Ric Vines M.D.* Started 25-Oct-2012 ActiveAtorvastatin Calcium [...] Refills: 3 Ric Vines M.D.* Started 29-Aug-2011 ActiveLisinopril 5 MG Oral Tablet TAKE 1 [...] Knee Replacement History of Complete Colonoscopy Completed:26-Jun-2011 ERYTHROCYTE SED RATE 7800 Ordered:17-Aug-2014 Protein Elec + Interp, Serum 218863 Ordered:17-Aug-2014 Immunofixation, Serum 767441 Ordered:17-Aug-2014 HEMOGRAM 7305 Ordered:14-Aug-2014 RENAL PROFILE 1240 Ordered:14-Aug-2014 HEMOGRAM 7305 Ordered:14-Aug-2014 RENAL PROFILE 1240 Ordered:14-Aug-2014 Immunization Name Dates Details Pneumo (Pneumovax) Lot #: [id number] Administered on:10-Feb-2012 Fluzone Quadrivalent 0.5 ML Intramuscular Suspension Lot #: [id number] Administered on:16-May-2013 Prevnar 13 Intramuscular Suspension Lot #: [id number] Administered on:05-Jul-2014 Family History Unknown Family Member* [...] smoker Vital Signs Date Test Result Details 17-Aug-2014 10:37 BP Systolic 112 mm[Hg] Status: BP Diastolic 52 mm[Hg] Status: Heart Rate 96 /min Status: Weight 135.5 lb Status: Body Mass Index Calculated 27.37 kg/m2 Status: Body Surface Area Calculated 1.56 m2 Status: 08-Aug-2014 15:25 BP Systolic 120 mm[Hg] Status: BP Diastolic 58 mm[Hg] Status: Heart Rate 78 /min Status: Weight 134 lb Status: Body Mass Index Calculated 27.06 kg/m2 Status: Body Surface Area Calculated 1.56 m2 Status: Results Date Description Value Details 02-Aug-2014 11:12 CBC w/ Auto Diff 7150 WBC 4.7 K/uL (Better) Range: 4.5-11.0 RBC 3.63 mil/uL (Better) Range: 3.60-5.00 HGB 11.4 g/dL (Below low threshold) Range: 12.0-16.0 HCT 35.6 % (Below low threshold) Range: 36.0-48.0 MCV 98.0 fL (Better) Range: 80.0-99.0 MCH 31.4 pg (Better) Range: 27.3-32.5 MCHC 32.1 % (Better) Range: 32.0-36.0 RDW 13.7 % (Better) Range: 11.6-14.8 PLATELETS 188 K/uL (Better) Range: 150-400 MPV 9.8 fL (Better) Range: 6.0-11.0 %NEUTRO 70.1 % (Better) Range: 37.0-80.0 %LYMPHS 17.9 % (Better) Range: 13.0-50.0 %MONO 8.4 % (Better) Range: 0.0-12.0 %EOS 2.0 % (Better) Range: 0.0-7.0 %BASO 0.2 % (Better) Range: 0.0-2.5 %MARY 1.4 % (Better) Range: 0.0-5.0 NEUTRO 3.3 K/uL (Better) Range: 2.0-6.9 LYMPHS 0.8 K/uL (Better) Range: 0.6-3.4 MONOS 0.4 K/uL (Better) Range: 0.0-0.9 EOS 0.1 K/uL (Better) Range: 0.0-0.7 BASO 0.0 K/uL (Better) Range: 0.0-0.2 11:32 RENAL PROFILE 1240 SODIUM 137 mmol/L (Better) Range: 133-144 POTASSIUM 3.7 mmol/L (Better) Range: 3.5-5.1 CHLORIDE 97 mmol/L (Below low threshold) Range: 98-110 CARBON DIOXIDE 28.0 mmol/L (Better) Range: 23.0-33.0 ANION GAP 12 mmol/L (Better) Range: 6-16 BUN 23 mg/dL (Above high threshold) Range: 7-18 CREATININE, SERUM 1.50 mg/dL (Above high threshold) Range: 0.43-1.13 EST GFR, 40 ml/min (Below low threshold) Range: >60 EST GFR, NON-AFR IRAQI 33 ml/min (Below low threshold) Range: >60 Comments: EST GFR is reported in ml/min per 1.73 m2 of body surface area. For -Omani, please multiple result by 1.2.----- BUN:CREATININE RATIO 15 (Better) GLUCOSE 93 mg/dL (Better) Range: 70-100 ALBUMIN 3.9 g/dL (Better) Range: 3.4-5.0 PHOSPHORUS 2.7 mg/dL (Better) Range: 2.5-4.9 CALCIUM 8.9 mg/dL (Better) Range: 8.5-10.1 11:32 MAGNESIUM 1260 MAGNESIUM 2.0 mg/dL (Better) Range: 1.8-2.4 11:40 Parathyroid Hormone Intact 3101 Intact Parathyroid Hormone 105 pg/mL (Above high threshold) Range: 14-72 11:40 Vitamin D, 25 - Hydroxy 3111 VITAMIN D, 25-HYDROXY 37 ng/mL (Better) Range: 30-100 11:58 MAMMOGRAM-SCREENING Comments: Exam Date: 11:05Dictation Date: 11:58 XM SCREENING (Better) Plan of Care Planned Observations* Name Dates Details Planned Goals not documented Goal Planned Encounters* Appointment; Provider: Ric Martinez On 13-Feb-2015 10:30 * Appointment; Provider: Neeta Sosa On 13:30 * Appointment; Provider: Nuno Burgos On 07-Nov-2014 11:15 * Appointment; Provider: Ric Vines On 07-Nov-2014 10:30 * Appointment; Provider: Magan Bowles On 18-Oct-2014 10:30 * Appointment; Provider: Nuno Burgos On 05-Sep-2014 09:30 * Appointment; Provider: Carol Tellez On 28-May-2011 13:00 * Appointment; Provider: Carol Tellez On 14-May-2011 14:00 * Appointment; Provider: Carol Tellez On 16-Apr-2011 13:45 * Appointment; Provider: Kelvin Davis On 18-Sep-2010 14:30 * Appointment; Provider: Kayla Siddiqi On 18-Sep-2010 13:00 Instructions * Instructions not documented Encounters Appointment; Ric Martinez Encounter Diagnosis: Problem not [...]
--- OUTSIDE RECORDS SUMMARY | 2016-11-05 14:02 | XMS REPORT ---
Author Author GENERATED, SYSTEM Organization Unknown Address Unknown Phone Unavailable Care Team Providers Care Purchasing Department Clerk Name Role Phone MD DAYSI, DOMO [phone] Reason For Visit Chief Complaint CHEST DISCOMFORT Social History Functional Status Vital Signs Results [...]
--- OUTSIDE RECORDS SUMMARY | 2016-11-05 14:02 | XMS REPORT | Summary of Care ---
Author Author Ric Vines M.D. Organization Unknown Address Unknown Phone Unavailable Care Team Providers Care Service Station Helper Name Role Phone Ric Vines M.D. Unavailable [...] Quadrivalent 0.5 ML Intramuscular Suspension Lot #: [id number] on: 16-May-2013 Prevnar 13 Intramuscular Suspension Lot #: [id number] on: 05-Jul-2014 Fluzone High-Dose 0.5 ML Intramuscular Suspension Prefilled Syringe Lot #: [id number] on: 07-Mar-2015 Tdap (Adacel) Lot #: [id number] on: 07-Mar-2015 Fluzone High-Dose 0.5 ML Intramuscular Suspension Prefilled Syringe Lot #: [id number] on: 04-Mar-2016 Zoster (Zostavax) Lot #: [id number] on: 04-Mar-2016 Family History Name Dates Details [...] threshold) Range: >60 EST GFR, NON-AFR STATELESS 22 ml/min (Below low threshold) Range: >60 [...] Provider: Nuno Burgos M.D. On 15-Sep-2016 09:30 Interventions Provided Medication Changes* Gabapentin 100 MG Oral Capsule - Renew Labs/Procedures/Imaging* XRay ABD (Flat & Upright); To be Done: 10 Sep 2016 * CBC w/ Auto Diff 7150; Done: Sep 10 2016 4:07PM * Comprehensive Metabolic Panel 1212; Done: Sep 10 2016 4:07PM Instructions Name Dates Details Instructions not documented [...] not documented On 04-Jun-2016 11:15 Appointment; Ric Vnies M.D. Encounter Diagnosis: Problem not documented On 28-May-2016 11:00 Appointment; Ric Martinez M.D. Encounter Diagnosis: Problem not documented On 26-May-2016 13:00 Appointment; Ric Vines M.D. Encounter Diagnosis: Problem not documented On 13-May-2016 11:00 Appointment; Nuno Burgos M.D. Encounter Diagnosis: Problem not documented On 06-May-2016 09:30 Appointment; Dar Love M.D.|FACP|MSachaDSacha,FACP|Bear,TONYP, Encounter Diagnosis: Problem not documented On 28-Apr-2016 [...] documented On 28-Feb-2016 14:30 Appointment; Dar Love M.D.|FACP|M.DSacha,FACP|M.DSacha,FACP, Encounter Diagnosis: Problem not documented On 27-Feb-2016 [...] documented On 17-Jan-2016 10:30 Appointment; Dar Love M.D.|LOY|Bear,LOY|Bear,FACRonaldo, Encounter Diagnosis: Problem not documented On 16-Jan-2016 [...] Problem not documented On 11:00 Appointment; Theo Rao D.P.T. Encounter Diagnosis: Problem [...]
--- OUTSIDE RECORDS SUMMARY | 2016-11-05 14:02 | XMS REPORT | Summary of Care ---
Author Author Nuno Burgos M.D. Unknown Address Unknown Phone Unavailable Care Team Providers Care Director Of Enterprise Architecture Name Role Phone Ric Vines M.D. Unavailable [...] Refills: 3 Ric Vines M.D.* Started 29-Aug-2011 ActiveCitalopram Hydrobromide [...] Refills: 2 Ric Vines M.D.* Started 03-Nov-2012 ActiveB-12 500 MCG Oral Tablet TAKE 1 [...] Colonoscopy For Forceps Biopsy Completed:08-Jul-2010 History of Complete Colonoscopy Completed:26-Jun-2011 History of Knee Replacement RENAL PROFILE 1240 Ordered:08-May-2014 CBC w/ Auto Diff 7150 Ordered:08-May-2014 MAGNESIUM 1260 Ordered:08-May-2014 Parathyroid Hormone Intact 3101 Ordered:08-May-2014 Vitamin D, 25 - Hydroxy 3111 Ordered:08-May-2014 HEMOGRAM 7305 Ordered:20-Jun-2014 RENAL PROFILE 1240 Ordered:20-Jun-2014 Immunization Name Dates Details Pneumo (Pneumovax) Lot #: [id number] Administered on:10-Feb-2012 Fluzone Quadrivalent 0.5 ML Intramuscular Suspension Lot #: [id number] Administered on:16-May-2013 Family History Unknown Family Member* [...] low threshold) Range: >60 EST GFR, NON-AFR ROMANIAN 34 ml/min (Below low threshold) Range: >60 Comments: EST GFR is reported in ml/min per 1.73 m2 of body surface area. For -Malaysian, please multiple result by 1.2.----- BUN:CREATININE RATIO [...]
[2016-11-05] MEDS ORDERED: SULF500T8 PO (14:03)
--- OUTSIDE RECORDS SUMMARY | 2016-11-05 14:03 | XMS REPORT | Summary of Care ---
Author Author Loretta Sifuentes, Nuno Organization Unknown Address Unknown Phone Unavailable Care Team Providers Care Manager Game Name Role Phone Rajesh Sifuentes, Jerrod Unavailable Unavailable Nuno Burgos M.D. Unavailable Unavailable [...] Quantity: 90 Refills: 0 Ric Vines M.D. Start 28-May-2016 Active SulfaSALAzine 500 MG Oral Tablet TAKE 2 TABLET Twice daily * Quantity: 360 Refills: 3 Ric Vines M.D. Start 03-Oct-2013 Active Furosemide 20 MG Oral Tablet TAKE 1 TABLET DAILY FOR SWELLING. * Quantity: 90 Refills: 3 Ric Vines M.D. * Start 03-Nov-2012 Active Citalopram Hydrobromide 20 MG Oral Tablet TAKE 1 TABLET DAILY. * Quantity: 90 Refills: 3 iRc Vines M.D. * Start 25-Oct-2012 Active Atorvastatin Calcium 80 MG Oral Tablet TAKE 1 TABLET DAILY. * Quantity: 90 Refills: 3 Ric Vines M.D. * Start 07-Mar-2014 Active Lisinopril 5 MG Oral Tablet TAKE ONE HALF TAB ONCE DAILY * Quantity: 45 Refills: Murphy Ric Vines M.D. * Start 17-Aug-2014 Active Allergies and Adverse Reactions Name [...] 26-Jun-2011 CBC w/ Auto Diff 7150 Ordered: 23-May-2016 RENAL PROFILE 1240 Ordered: 23-May-2016 CBC w/ Auto Diff 7150 Ordered: 28-Apr-2016 Immunization Name Dates Details Pneumo (Pneumovax) Lot #: [id number] on: 10-Feb-2012 Fluzone Quadrivalent 0.5 ML Intramuscular Suspension Lot #: [id number] on: 16-May-2013 Prevnar 13 Intramuscular Suspension Lot #: [id number] on: 05-Jul-2014 Fluzone High-Dose 0.5 ML Intramuscular Suspension Prefilled Syringe Lot #: [id number] on: 07-Mar-2015 Tdap (Adacel) Lot #: [id number] on: 07-Mar-2015 Fluzone High-Dose 0.5 ML Intramuscular Suspension Prefilled Syringe Lot #: [id number] on: 04-Mar-2016 Zoster (Zostavax) Lot #: [id number] on: 04-Mar-2016 Family History Name Dates Details [...] Position: Temperature 36.7 c Status: Heart Rate 88 /min Status: Comments: Location: ; Physical Findings 97 Status: Comments: O2 Saturation 13-May-2016 11:16 BP Systolic 124 mm[Hg] Status: Comments: Location: ; Position: BP Diastolic 72 mm[Hg] Status: Comments: Location: ; Position: Temperature 36.7 c Status: Comments: Method: Heart Rate 85 /min Status: Comments: Location: ; Physical Findings 93 Status: Comments: O2 Saturation 06-May-2016 09:31 BP Systolic 129 mm[Hg] Status: Comments: Location: ; Position: BP Diastolic 74 mm[Hg] Status: Comments: Location: ; Position: Heart Rate 91 /min Status: Comments: Location: ; Results Date Description Value Details 05-May-2016 10:59 HEMOGRAM 7305 WBC 3.9 K/uL [...] low threshold) Range: >60 EST GFR, NON-AFR NAMIBIAN 32 ml/min (Below low threshold) Range: >60 [...] low threshold) Range: >60 EST GFR, NON-AFR NAMIBIAN 27 ml/min (Below low threshold) Range: >60 [...] ng/mL Range: 5.4-20.8 15-May-2016 08:15 Immunofixation, Serum [id number] Comments: Testing performed at : [DA] [facility], [address] [place] [address], [place], [address], , Vendor Relationship Manager: ZHEN Saleem MD IMMUNOFIXATION RESULT, SERUM Comment Comments: An apparent normal immunofixation pattern.----- IMMUNOGLOBULIN G, QN, SERUM 544 mg/dL (Below low threshold) Range: 700- 1600 IMMUNOGLOBULIN A, QN, SERUM 248 mg/dL Range: 64-422 IMMUNOGLOBULIN M, QN, SERUM 41 mg/dL Range: 26-217 08:15 Immunofixation, Urine [id number] Comments: Testing performed at: [DA] [facility], [address] [place] [address], [place], [address], Phone: , Vendor Relationship Manager: ZHEN Saleem MD KRYSTAL INTERPRETATION:U Comment Comments: An apparent normal immunofixation pattern.----- Plan of Care Name Dates Details Planned Observations Planned Goals not documented Planned Encounters Appointment; Provider: Ric Vines M.D. On 26-Sep-2016 11:00 Appointment; Provider: Magan Bowles M.D. On 23-Sep-2016 11:00 Appointment; Provider: Dar Love M.D.|VINCENT,FACP|Bear,FACP, On 10-Jun-2016 11:00 Appointment; Provider: Nuno Burgos M.D. On 04-Jun-2016 11:15 Instructions Name Dates Details Instructions not documented Encounters Appointment; Ric Vines M.D. Encounter Diagnosis: Problem not documented On 28-May-2016 11:00 Appointment; Ric Martinez M.D. Encounter Diagnosis: Problem not documented On 26-May-2016 13:00 Appointment; Ric Vines M.D. Encounter Diagnosis: Problem not documented On 13-May-2016 11:00 Appointment; Nuno Burgos M.D. Encounter Diagnosis: Problem not documented On 06-May-2016 09:30 Appointment; Dar Love M.D.|FACP|M.D.,FACP|MSachaD.,FACP, Encounter Diagnosis: Problem not documented On 28-Apr-2016 [...]
--- OUTSIDE RECORDS SUMMARY | 2016-11-05 14:03 | XMS REPORT | Summary of Care ---
Author Author Ric Vines M.D. Organization Unknown Address Unknown Phone Unavailable Care Team Providers Care Research Scholar Name Role Phone Jerrod Mena M.D. Unavailable [...] Active Peripheral neuropathy (356.9, G62.9) Status: Active Peripheral neuropathy (356.9, G62.9) Status: [...] CBC w/ Auto Diff 7150 Ordered: 28-Apr-2016 THYROID STIM. HORMONE 3602 Ordered: 13-May-2016 VITAMIN B12 3606 Ordered: 13-May-2016 FOLATE 3608 Ordered: 13-May-2016 BASIC METABOLIC PROFILE 1210 Ordered: 13-May-2016 CBC w/ Auto Diff 7150 Ordered: 13-May-2016 Immunofixation, Serum [id number] Ordered: 13-May-2016 Immunofixation, Urine [id number] Ordered: 13-May-2016 Immunization Name Dates Details Pneumo (Pneumovax) Lot #: [id number] on: 10-Feb-2012 Fluzone Quadrivalent 0.5 ML Intramuscular Suspension Lot #: [id number] on: 16-May-2013 Prevnar 13 Intramuscular Suspension Lot #: [id number] on: 05-Jul-2014 Fluzone High-Dose 0.5 ML Intramuscular Suspension Prefilled Syringe Lot #: [id number] on: 07-Mar-2015 Tdap (Adacel) Lot #: [id number] on: 07-Mar-2015 Fluzone High-Dose 0.5 ML Intramuscular Suspension Prefilled Syringe Lot #: [id number] on: 04-Mar-2016 Zoster (Zostavax) Lot #: [id number] on: 04-Mar-2016 Family History Name Dates Details [...] smoker Vital Signs Date Test Result Details 13-May-2016 11:16 BP Systolic 124 mm[Hg] Status: Comments: Location: ; Position: BP Diastolic 72 mm[Hg] Status: Comments: Location: ; Position: Temperature 36.7 c Status: Heart Rate 85 /min Status: Physical Findings 93 Status: Comments: O2 [...] low threshold) Range: >60 EST GFR, NON-AFR FAROESE 32 ml/min (Below low threshold) Range: >60 Comments: EST GFR is reported in ml/min per 1.73 m2 of body surface area. ----- BUN:CREATININE RATIO 11 GLUCOSE 92 mg/dL Range: 70-100 Comments: Variance from previous testing noted.----- ALBUMIN 4.0 g/dL Range: 3.4-5.0 PHOSPHORUS 3.1 mg/dL Range: 2.6-4.7 CALCIUM 9.5 mg/dL Range: 8.5-10.1 Plan of Care Name Dates Details Planned Observations Planned Goals not documented Planned Encounters Appointment; Provider: Magan Bowles M.D. On 23-Sep-2016 11:00 Appointment; Provider: Dar Love M.D.|VINCENT,LOY|Bear,LOY, On 10-Jun-2016 11:00 Appointment; Provider: Nuno Burgos M.D. On 04-Jun-2016 11:15 Appointment; Provider: Ric Martinez M.D. On 26-May-2016 13:00 Interventions Provided Labs/Procedures/Imaging* BASIC METABOLIC PROFILE 1210; To be Done: 13 May 2016 * CBC w/ Auto Diff 7150; To be Done: 13 May 2016 * FOLATE 3608; To be Done: 13 May 2016 * Immunofixation, Serum [id number]; To be Done: 13 May 2016 * Immunofixation, Urine [id number]; To be Done: 13 May 2016 * THYROID STIM. HORMONE 3602; To be Done: 13 May 2016 * VITAMIN B12 3606; To be Done: 13 May 2016 Instructions Name Dates Details Instructions not documented Encounters Appointment; Nuno Burgos M.D. Encounter Diagnosis: Problem not documented On 06-May-2016 09:30 Appointment; Dar Love M.D.|LOY|Bear,LOY|Bear,LOY, Encounter Diagnosis: Problem not documented On 28-Apr-2016 [...] documented On 04-Mar-2016 10:00 Appointment; Theo Roa D.P.TSacha Encounter Diagnosis: Problem not documented On 28-Feb-2016 14:30 Appointment; Dar Love M.D.|TONYP|MKendell,TONYP|Bear,TONYP, Encounter Diagnosis: Problem not documented On 27-Feb-2016 [...] Problem not documented On 26-Oct-2014 11:00 Appointment; Maagn Bowles M.D. Encounter Diagnosis: Problem not documented [...]
--- OUTSIDE RECORDS SUMMARY | 2016-11-05 14:03 | XMS REPORT | Summary of Care ---
Author Author Loretta Sifuentes, Nuno Organization Unknown Address Unknown Phone Unavailable Care Team Providers Care Apartment Groundskeeper Name Role Phone Rajesh Sifuentes, Jerrod Unavailable Unavailable Nuno Burgos M.D. 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 Start 26-Jan-2014 Active Citalopram Hydrobromide 20 MG Oral Tablet TAKE 1 TABLET DAILY. * Quantity: 90 Refills: 3 Ric Vines M.D. * Start 25-Oct-2012 Active Calcium 600+D3 600-200 MG-UNIT Oral Tablet TAKE 1 TABLET THREE TIMES A DAY * Refills: 0 Ric Vines M.D. * Start 10-Feb-2012 Active Allergies and Adverse Reactions [...] Ordered: 27-Feb-2016 EPO PANEL 3699 Ordered: 27-Feb-2016 RENAL PROFILE 1240 Ordered: 27-Feb-2016 Immunization Name Dates Details Pneumo (Pneumovax) Lot #: [id number] on: 10-Feb-2012 Fluzone Quadrivalent 0.5 ML Intramuscular Suspension Lot #: [id number] on: 16-May-2013 Prevnar 13 Intramuscular Suspension Lot #: [id number] on: 05-Jul-2014 Fluzone High-Dose 0.5 ML Intramuscular Suspension Prefilled Syringe Lot #: [id number] on: 07-Mar-2015 Tdap (Adacel) Lot #: [id number] on: 07-Mar-2015 Fluzone High-Dose 0.5 ML Intramuscular Suspension Prefilled Syringe Lot #: [id number] on: 04-Mar-2016 Zoster (Zostavax) Lot #: [id number] on: 04-Mar-2016 Family History Name Dates Details [...] Position: Temperature 36.7 c Status: Heart Rate 79 /min Status: Comments: Location: ; Weight 127 lb Status: Physical Findings 91 Status: Comments: O2 Saturation Body Mass Index Calculated 26.54 kg/m2 Status: Body Surface Area Calculated 1.5 m2 Status: Results Date Description Value Details 10-Mar-2016 14:58 MAMMOGRAM-SCREENING Comments: Exam Date: 03/10/2016 10: 53Dictation Date: 03/10/2016 14:58 XM SCREENING 02-Apr-2016 12:38 HEMOGRAM 7305 WBC 3.2 K/uL [...] 141 K/uL (Below low threshold) Range: 150-400 Plan of Care Name Dates Details Planned Observations Planned Goals not documented Planned Encounters Appointment; Provider: Nuno Burgos M.D. On 04-Jun-2016 11:15 Appointment; Provider: Dar Love M.D.|FACP|Bear,FACP|Bear,LOY, On 28-Apr-2016 11:00 Appointment; Provider: Nuno Burgos M.D. On 04-Apr-2016 09:30 Instructions Name Dates Details Instructions not documented Encounters Appointment; Nuno Burgos M.D. Encounter Diagnosis: Problem not documented On 04-Mar-2016 13:45 Appointment; Ric Vines M.D. Encounter Diagnosis: Problem not documented On 04-Mar-2016 10:00 Appointment; Theo Roa D.P.T. Encounter Diagnosis: Problem not documented On 28-Feb-2016 14:30 Appointment; Dar Love M.D.|FACP|Bear,FACP|Bear,TONYP, Encounter Diagnosis: Problem not documented On 27-Feb-2016 [...] documented On 17-Jan-2016 10:30 Appointment; Dar Love M.D.|FACP|M.DSacha,FACP|Bear,FACP, Encounter Diagnosis: Problem not documented On 16-Jan-2016 14:45 Appointment; Theo Roa D.P.T. Encounter Diagnosis: Problem not documented On 15-Jan-2016 10:30 Appointment; Theo Roa D.P.T. Encounter Diagnosis: Problem not documented On 10:30 Appointment; Theo Roa D.P.T. Encounter Diagnosis: Problem not documented On 10:30 Appointment; Theo oRa D.P.T. Encounter Diagnosis: Problem [...] not documented On 16:00 Appointment; Dar Love M.D.|FACP|MSachaDSacha,FACP|Bear,FACP, Encounter Diagnosis: Problem not documented On 10:45 [...] Encounter Diagnosis: Problem not documented On 05-Apr-2014 09:30"
[2016-11-05] MEDS ORDERED: FURO20TA4 PO (14:04)
--- OUTSIDE RECORDS SUMMARY | 2016-11-05 14:04 | XMS REPORT | Summary of Care ---
Author Author Ric Vines M.D. Organization Unknown Address Unknown Phone Unavailable Care Team Providers Care Junior Sales Representative Name Role Phone Ric Vines M.D. Unavailable [...] coronary artery disease (414.00, I25.10) Status: Active Diverticulitis of colon (562.11, K57.32) Status: Active Nausea with vomiting (787.01, R11.2) Status: Active Abdominal pain (789.00, R10.9) Status: Active Abdominal pain (789.00, R10.9) Status: Active Weight loss, unintentional (783.21, R63.4) Status: Active Acute renal failure (ARF) (584.9, N17.9) Status: Active Medications Name Dates Details Omeprazole [...] Ric Vines M.D. * Start 28-May-2016 Active TraMADol HCl - 50 [...] Ric Vines M.D. * Start 10-Sep-2016 Active Allergies and Adverse Reactions [...] Replacement History of Complete Colonoscopy Completed: 26-Jun-2011 CT AB/ PEL WITH IV AND ORAL CONTRAST Ordered: 12-Sep-2016 Immunization Name Dates Details Pneumo (Pneumovax) Lot #: [id number] on: 10-Feb-2012 Fluzone Quadrivalent 0.5 ML Intramuscular Suspension Lot #: [id number] on: 16-May-2013 Prevnar 13 Intramuscular Suspension Lot #: [id number] on: 05-Jul-2014 Fluzone High-Dose 0.5 ML Intramuscular Suspension Prefilled Syringe Lot #: [id number] on: 07-Mar-2015 Tdap (Adacel) Lot #: [id number] on: 07-Mar-2015 Fluzone High-Dose 0.5 ML Intramuscular Suspension Prefilled Syringe Lot #: [id number] on: 04-Mar-2016 Zoster (Zostavax) Lot #: [id number] on: 04-Mar-2016 Family History Name Dates Details [...] smoker Vital Signs Date Test Result Details 12-Sep-2016 13:50 BP Systolic 128 mm[Hg] Status: [...] threshold) Range: >60 EST GFR, NON-AFR MOLDOVAN 22 ml/min (Below low threshold) Range: >60 [...] threshold) Range: >60 EST GFR, NON-AFR MOLDOVAN 33 ml/min (Below low threshold) Range: >60 Comments: EST GFR is reported in ml/min per 1.73 m2 of body surface area. ----- BUN:CREATININE RATIO 10 GLUCOSE 97 mg/dL Range: 70-100 CALCIUM 10.2 mg/dL (Above high threshold) Range: 8.5-10.1 Plan of Care Name Dates Details Planned Observations Planned Goals not documented Planned Encounters Appointment; Provider: Nuno Burgos M.D. On 11-Nov-2016 11:30 Appointment; Provider: Ric Viens M.D. On 26-Sep-2016 11:00 Appointment; Provider: Magan Bowles M.D. On 23-Sep-2016 11:00 Appointment; Provider: Nuno Burgos M.D. On 15-Sep-2016 09:30 Interventions Provided Labs/Procedures/Imaging* CT AB/ PEL WITH IV AND ORAL CONTRAST; To be Done: 12 Sep 2016 Instructions Name Dates Details Instructions not documented Encounters Appointment; Ric Vines M.D. Encounter Diagnosis: Problem not documented On 10-Sep-2016 15:30 Appointment; Nuno Burgos M.D. Encounter Diagnosis: Problem not documented On 12-Aug-2016 09:00 Appointment; Dar Love M.D.|FACP|M.D.,FACP|M.DScaha,FACP, Encounter Diagnosis: Problem not documented On 22-Jul-2016 [...] Problem not documented On 13-May-2016 11:00 Appointment; Nuon Burgos M.D. Encounter Diagnosis: Problem not documented On 06-May-2016 09:30 Appointment; Dar Love M.D.|FACP|M.D.,FACP|Bear,FACP, Encounter Diagnosis: Problem not documented On 28-Apr-2016 11:00 Appointment; Magan Bowles M.D. Encounter Diagnosis: Problem not documented On 25-Apr-2016 09:30 Appointment; Waqas Burgess M.D. Encounter Diagnosis: Problem not documented On 14-Apr-2016 10:30 Appointment; Nuno Burgso M.D. Encounter Diagnosis: Problem not documented On 04-Apr-2016 09:30 Appointment; Nuno Burgos M.D. Encounter Diagnosis: Problem not documented On 04-Mar-2016 13:45 Appointment; Ric Vines M.D. Encounter Diagnosis: Problem not documented On 04-Mar-2016 10:00 Appointment; Theo Roa D.PAlyssa Encounter Diagnosis: Problem not documented On 28-Feb-2016 14:30 Appointment; Dar Love M.D.|FACP|M.D.,FACP|Bear,FACP, Encounter Diagnosis: Problem not documented On 27-Feb-2016 [...]
--- OUTSIDE RECORDS SUMMARY | 2016-11-05 14:04 | XMS REPORT | Summary of Care ---
Author Author Wilbur Sifuentes, Welcu Organization Unknown Address [address], [place] [id number] Phone Unavailable Care Team Providers Care Piano Player Name Role Phone Ric Vines M.D. Unavailable [...] for Tdap vaccination (V06.1, Z23) Status: Active Medications Name Dates Details Omeprazole [...] Refills: 0 Ric Vines M.D.* Started 25-Oct-2012 ActiveLisinopril 5 MG Oral Tablet TAKE 1 TABLET DAILY. * Refills: 0 * Started 17-Aug-2014 ActiveVenlafaxine HCl ER 75 MG Oral Capsule [...] 3 Ric Vines M.D.* Started 25-Oct-2012 ActiveNystatin 299603 UNIT/ML Mouth/Throat Suspension SWISH AND SWALLOW 10ML [...] Quadrivalent 0.5 ML Intramuscular Suspension Lot #: [id number] Administered on:16-May-2013 Prevnar 13 Intramuscular Suspension Lot #: [id number] Administered on:05-Jul-2014 Fluzone High-Dose 0.5 ML Intramuscular Suspension Prefilled Syringe Lot #: [id number] Administered on:07-Mar-2015 Tdap (Adacel) Lot #: [id number] Administered on:07-Mar-2015 Family History Unknown Family Member* [...] smoker Vital Signs Date Test Result Details 13-Mar-2015 11:55 BP Systolic 120 mm[Hg] Status: [...] m2 Status: Results Date Description Value Details 02-Mar-2015 [...] low threshold) Range: >60 EST GFR, NON-AFR HONDURAN 40 ml/min (Below low threshold) Range: >60 Comments: EST GFR is reported in ml/min per 1.73 m2 of body surface area. For -[place]gent[place], please multiple result by 1.2.----- BUN:CREATININE RATIO [...] 06-Mar-2015 07:43 Protein Elec + Interp, Serum [id number] Comments: [facility] at: [facility], [address] [place] [address], [place], [address], , Rubber Chemist: ZHEN Saleem MD PROTEIN, TOTAL, SERUM 6.2 g/dL (Better) Range: 6.0-8.5 ALBUMIN 3.9 g/dL (Better) Range: 3.2-5.6 YIKTD-6-LYBRADGZ 0.2 g/dL (Better) Range: 0.1-0.4 SWYPP-0-SQAMTUSZ 0.7 g/dL (Better) Range: 0.4-1.2 BETA GLOBULIN 0.8 g/dL (Better) Range: 0.6-1.3 GAMMA GLOBULIN 0.6 g/dL (Better) Range: 0.5-1.6 M-SPIKE Note: g/dL (Better) Range: Not Observed Comments: Not ObservedSEE CONCURRENT IMMUNOFIXATION.----- GLOBULIN, TOTAL 2.3 g/dL (Better) Range: 2.0-4.5 A/G RATIO 1.7 (Better) Range: 0.7-2.0 PLEASE NOTE: Comment (Better) Comments: Protein electrophoresis scan will follow via computer,mail, or general merchandise manager delivery.----- P E INTERPRETATION, S Comment (Better) Comments: The SPE pattern appears essentially unremarkable. Evidenceof monoclonal protein is not apparent. ----- 07:43 Immunofixation, Serum [id number] Comments: [facility] at: [facility], [address] [place] [address], [place], [address], Phone: , Rubber Chemist: ZHEN Saleem MD IMMUNOFIXATION RESULT, SERUM Note: [...] low threshold) Range: >60 EST GFR, NON-AFR HONDURAN 44 ml/min (Below low threshold) Range: >60 Comments: EST GFR is reported in ml/min per 1.73 m2 of body surface area. For -[place]gent[place], please multiple result by 1.2.----- BUN:CREATININE RATIO [...] Radiology On 04-Apr-2015 14:30 * Appointment; Provider: Magan Bowles On 23-Mar-2015 11:30 * Appointment; Provider: Carol Tellez On 28-May-2011 [...] Problem not documented On 08-Aug-2014 15:30 Appointment; iRc Vines Encounter Diagnosis: Problem not documented On [...]
[2016-11-05] MEDS ORDERED: ATOR80TA76 PO (14:05)
[2016-11-05] MEDS ORDERED: VENL-68 PO (14:05)
--- OUTSIDE RECORDS SUMMARY | 2016-11-05 14:05 | XMS REPORT | Summary of Care ---
Author Author Rajesh Sifuentes, Jerrod Organization Unknown Address Unknown Phone Unavailable Care Team Providers Care Traffic Observer Name Role Phone Jerrod Mena M.D. Unavailable [...] TABLET DAILY DIRECTED. * Refills: 0 Ric Viens M.D. * Start 10-Feb-2012 Active Calcium 600+D3 [...] Quadrivalent 0.5 ML Intramuscular Suspension Lot #: [id number] on: 16-May-2013 Prevnar 13 Intramuscular Suspension Lot #: [id number] on: 05-Jul-2014 Fluzone High-Dose 0.5 ML Intramuscular Suspension Prefilled Syringe Lot #: [id number] on: 07-Mar-2015 Tdap (Adacel) Lot #: [id number] on: 07-Mar-2015 Family History Name Dates Details [...] low threshold) Range: >60 EST GFR, NON-AFR LATVIAN 34 ml/min (Below low threshold) Range: >60 Comments: EST GFR is reported in ml/min per 1.73 m2 of body surface area. For -Lao, please multiple result by 1.2.----- GLUCOSE 94 [...] On 04-Mar-2016 10:00 Appointment; Provider: Dar Love M.D.|FACP|Bear,TONYP|Bear,TONYP, On 27-Feb-2016 10:30 Appointment; Provider: Theo Roa D.P.T. On 07-Feb-2016 13:30 Interventions Provided Medication Changes* Naproxen 500 MG Oral Tablet - Start Instructions Name Dates Details Instructions not documented Encounters Appointment; Theo Roa D.P.T. Encounter Diagnosis: Problem not documented On 31-Jan-2016 10:30 Appointment; Theo Roa D.P.T. Encounter Diagnosis: Problem not documented On 29-Jan-2016 10:30 Appointment; Theo Roa D.P.T. Encounter Diagnosis: Problem not documented On 22-Jan-2016 11:30 Appointment; Theo Roa D.P.T. Encounter Diagnosis: Problem not documented On 17-Jan-2016 10:30 Appointment; Dar Love M.D.|FACP|MKendell,FACP|Bear,FACP, Encounter Diagnosis: Problem not documented On 16-Jan-2016 [...] not documented On 16:00 Appointment; Dar Love M.D.|FACRonaldo|Bear,FACRonaldo|Bear,FACP, Encounter Diagnosis: Problem not documented On 10:45 [...]
--- OUTSIDE RECORDS SUMMARY | 2016-11-05 14:05 | XMS REPORT | Summary of Care ---
Author Author Ivan Sifuentes, LOY, ,, Dar F Organization Unknown Address Unknown Phone Unavailable Care Team Providers Care Manager Clinic Name Role Phone Ivan Sifuentes, LOY, ,, F Unavailable Unavailable Mohinder Sifuentes, Ric Unavailable Unavailable Wilbur Sifuentes, Magan Unavailable Unavailable [...] Start 04-Mar-2016 Active 1 Solution Reconstituted Vial TraMADol HCl - 50 MG Oral Tablet TAKE 1 TABLET Twice daily PRN * Quantity: 60 Refills: 0 Magan Bowles M.D. * Start 01-Jul-2016 Active Gabapentin 100 MG Oral Capsule TAKE 1 CAPSULE Every morning and 300mg at HS * Quantity: 30 Refills: 3 Ric Vines M.D. Start 15-Jul-2016 Active Gabapentin 300 MG Oral Capsule take 1 capsule at HS with 100mg in the am * Quantity: 60 Refills: 0 Ric Vines M.D. Start 28-May-2016 Active Allergies and Adverse Reactions [...] Colonoscopy Completed: 26-Jun-2011 HEMOGRAM 7305 Ordered: 12-Aug-2016 Immunization Name Dates Details Pneumo (Pneumovax) Lot #: [id number] on: 10-Feb-2012 Fluzone Quadrivalent 0.5 ML Intramuscular Suspension Lot #: [id number] on: 16-May-2013 Prevnar 13 Intramuscular Suspension Lot #: [id number] on: 05-Jul-2014 Fluzone High-Dose 0.5 ML Intramuscular Suspension Prefilled Syringe Lot #: [id number] on: 07-Mar-2015 Tdap (Adacel) Lot #: [id number] on: 07-Mar-2015 Fluzone High-Dose 0.5 ML Intramuscular Suspension Prefilled Syringe Lot #: [id number] on: 04-Mar-2016 Zoster (Zostavax) Lot #: [id number] on: 04-Mar-2016 Family History Name Dates Details [...] smoker Vital Signs Date Test Result Details 12-Aug-2016 09:44 BP Systolic 110 mm[Hg] Status: Comments: Location: ; Position: BP Diastolic 60 mm[Hg] Status: Comments: Location: ; Position: Results Date Description Value Details 11-Aug-2016 12:40 [...] >60 EST GFR, NON-AFR CITIZEN OF [place] 38 ml/min (Below low threshold) Range: >60 Comments: EST GFR is reported in ml/min per 1.73 m2 of body surface area. ----- BUN:CREATININE RATIO 11 GLUCOSE 79 mg/dL Range: 70-100 ALBUMIN 3.5 g/dL Range: 3.4-5.0 PHOSPHORUS 3.0 mg/dL Range: 2.6-4.7 CALCIUM 8.7 mg/dL Range: 8.5-10.1 Plan of Care Name Dates Details Planned Observations CBC w/ Auto Diff 7150 On 22-Jul-2016 Intent Comprehensive Metabolic Panel 1212 On 22-Jul-2016 Intent IRON 1254 On 22-Jul-2016 Intent Planned Goals not documented Planned Encounters Appointment; Provider: Nuno Burgos M.D. On 11-Nov-2016 11:30 Appointment; Provider: Ric Vines M.D. On 26-Sep-2016 11:00 Appointment; Provider: Magan Bowles M.D. On 23-Sep-2016 11:00 Appointment; Provider: Nuno Burgos M.D. On 15-Sep-2016 09:30 Appointment; Provider: Nuno Burgos M.D. On 15-Jul-2016 09:30 Instructions Name Dates Details Instructions not [...] Problem not documented On 14:00 Appointment; Theo oRa D.P.T. Encounter Diagnosis: Problem [...] not documented On 16-May-2015 11:15 Appointment; Ric iVnes M.D. Encounter Diagnosis: Problem not documented On [...]
--- OUTSIDE RECORDS SUMMARY | 2016-11-05 14:05 | XMS REPORT | Summary of Care ---
Author Author Wilbur Sifuentes, Magan Organization Unknown Address Unknown Phone Unavailable Care Team Providers Care Computer Terminal Operator Name Role Phone Ric Vines M.D. 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 Anemia of renal disease (285.21, [...] 300 MG Oral Capsule take 1 capsule bid * Quantity: 60 Refills: 0 Ric Vines [...] Iron Panel with TIBC 1612 Ordered: 04-Jun-2016 CBC w/ Auto Diff 7150 Ordered: 10-Jun-2016 CBC w/ Auto Diff 7150 Ordered: 10-Jun-2016 CBC w/ Auto Diff 7150 Ordered: 10-Jun-2016 Comprehensive Metabolic Panel 1212 Ordered: 10-Jun-2016 IRON 1254 Ordered: 10-Jun-2016 ORTHO SHOULDER LEFT Ordered: 04-Jun-2016 Immunization Name Dates Details Pneumo (Pneumovax) Lot #: [id number] on: 10-Feb-2012 Fluzone Quadrivalent 0.5 ML Intramuscular Suspension Lot #: [id number] on: 16-May-2013 Prevnar 13 Intramuscular Suspension Lot #: [id number] on: 05-Jul-2014 Fluzone High-Dose 0.5 ML Intramuscular Suspension Prefilled Syringe Lot #: [id number] on: 07-Mar-2015 Tdap (Adacel) Lot #: [id number] on: 07-Mar-2015 Fluzone High-Dose 0.5 ML Intramuscular Suspension Prefilled Syringe Lot #: [id number] on: 04-Mar-2016 Zoster (Zostavax) Lot #: [id number] on: 04-Mar-2016 Family History Name Dates Details [...] smoker Vital Signs Date Test Result Details 01-Jul-2016 15:54 BP Systolic 110 mm[Hg] Status: Comments: Location: ; Position: BP Diastolic 60 mm[Hg] Status: Comments: Location: ; Position: Weight 129 lb Status: Body Mass Index Calculated 26.96 kg/m2 Status: Body Surface Area Calculated 1.51 m2 Status: 10-Jun-2016 11:36 BP Systolic 133 mm[Hg] Status: Comments: Location: ; Position: BP Diastolic 74 mm[Hg] Status: Comments: Location: ; Position: Temperature 97.9 f Status: Comments: Method: Heart Rate 97 /min Status: Comments: Location: ; Weight 130 lb Status: Body Mass Index Calculated 27.17 kg/m2 Status: Body Surface Area Calculated 1.52 m2 Status: 04-Jun-2016 11:36 BP Systolic 120 mm[Hg] Status: Comments: Location: ; Position: BP Diastolic 64 mm[Hg] Status: Comments: Location: ; Position: Heart Rate 80 /min Status: Weight 127 lb Status: Body Mass Index Calculated 26.54 kg/m2 Status: Body Surface Area Calculated 1.5 m2 Status: Results Date Description Value Details 03-Jun-2016 12:13 CBC w/ Auto Diff 7150 [...] low threshold) Range: >60 EST GFR, NON-AFR CYMRAES 36 ml/min (Below low threshold) Range: >60 [...] Appointment; Provider: Dar Love M.D.|VINCENT,LOY KAUR, On 22-Jul-2016 11:15 Appointment; Provider: Nuno Burgos M.D. On 15-Jul-2016 14:30 Interventions Provided Medication Changes* Naproxen 500 MG Oral Tablet - Completed * TraMADol HCl - 50 MG Oral Tablet - Start Instructions Name Dates Details Instructions not documented Encounters Appointment; Dar Love M.D.|VINCENT,LOY KAUR, Encounter Diagnosis: Problem not documented On 10-Jun-2016 [...] documented On 06-May-2016 09:30 Appointment; Dar Love M.D.|VINCENT,VINCENT,LOY, Encounter Diagnosis: Problem not documented On 28-Apr-2016 [...] documented On 28-Feb-2016 14:30 Appointment; Dar Love M.D.|FACP|MKendell,TONYP|Bear,FACP, Encounter Diagnosis: Problem not documented On 27-Feb-2016 10:30 Appointment; Theo Roa D.P.TSacha Encounter Diagnosis: Problem not documented On 22-Feb-2016 14:00 Appointment; Theo Roa D.PYe. Encounter Diagnosis: Problem not documented On 13-Feb-2016 14:30 Appointment; Theo Roa D.PSachaT. Encounter Diagnosis: Problem not documented On 11-Feb-2016 14:30 Appointment; Theo Roa D.PYe. Encounter Diagnosis: Problem not documented On 07-Feb-2016 13:30 Appointment; Jerrod Mena M.D. Encounter Diagnosis: Problem not documented On 04-Feb-2016 09:15 Appointment; Theo Roa D.PSachaT. Encounter Diagnosis: Problem not documented On 31-Jan-2016 [...] not documented On 16:00 Appointment; Dar Love M.D.|FACP|MStarr.,FACP|Bear,FACP, Encounter Diagnosis: Problem not documented On 10:45 [...] Encounter Diagnosis: Problem not documented On 03-Jul-2014 16:00"
[2016-11-05] MEDS ORDERED: GABA-336 PO (14:06)
--- OUTSIDE RECORDS SUMMARY | 2016-11-05 14:06 | XMS REPORT | Summary of Care ---
Author Author Ric Vines M.D. Organization Unknown Address Unknown Phone Unavailable Care Team Providers Care Drafter Tool Design Name Role Phone Ric Vines M.D. Unavailable [...] Quadrivalent 0.5 ML Intramuscular Suspension Lot #: [id number] on: 16-May-2013 Prevnar 13 Intramuscular Suspension Lot #: [id number] on: 05-Jul-2014 Fluzone High-Dose 0.5 ML Intramuscular Suspension Prefilled Syringe Lot #: [id number] on: 07-Mar-2015 Tdap (Adacel) Lot #: [id number] on: 07-Mar-2015 Fluzone High-Dose 0.5 ML Intramuscular Suspension Prefilled Syringe Lot #: [id number] on: 04-Mar-2016 Zoster (Zostavax) Lot #: [id number] on: 04-Mar-2016 Family History Name Dates Details [...] low threshold) Range: >60 EST GFR, NON-AFR LIBYAN 22 ml/min (Below low threshold) Range: >60 [...] low threshold) Range: >60 EST GFR, NON-AFR LIBYAN 33 ml/min (Below low threshold) Range: >60 [...] Provider: Ric Vines M.D. On 12-Sep-2016 13:45 Interventions Provided Medication Changes* Gabapentin 100 MG Oral Capsule - Renew * Normal Saline Flush 0.9 % Intravenous Solution - Start Labs/Procedures/Imaging* BASIC METABOLIC PROFILE 1210; Done: Sep 12 2016 10:12AM * CBC w/ Auto Diff 7150; Done: Sep 10 2016 4:07PM * Comprehensive Metabolic Panel 1212; Done: Sep 10 2016 4:07PM * XRay ABD (Flat & Upright); Done: Sep 11 2016 8:19AM Instructions Name Dates Details Instructions not documented [...] documented On 28-Feb-2016 14:30 Appointment; Dar Love M.D.|FACP|M.DSacha,FACP|MonicaDSacha,FACP, Encounter Diagnosis: Problem not documented On 27-Feb-2016 [...] documented On 29-Jan-2016 10:30 Appointment; Theo Roa D.PAlyssa Encounter Diagnosis: Problem not documented On 22-Jan-2016 [...]
--- OUTSIDE RECORDS SUMMARY | 2016-11-05 14:06 | XMS REPORT | Summary of Care ---
Author Author Ivan Sifuentes, FACP,, Dar F Organization Unknown Address [address], [place] [phone] Phone Unavailable Care Team Providers Care Physician Intensivist Name Role Phone Ric Vines M.D. Unavailable [...] M81.0) Status: Active Medications Name Dates Details Venlafaxine [...] 3 Ric Vines M.D.* Started 17-Aug-2014 ActiveNystatin 131671 UNIT/ML Mouth/Throat Suspension SWISH AND SWALLOW 10ML [...] Refills: 0 Ric Vines M.D.* Started 24-Aug-2015 [id number] Aerosol Powder Breath Activated Disp Pack Osteo Bi-Flex Triple Strength Oral Tablet TAKE 1 TABLET DAILY DIRECTED. * Refills: 0 Ric Vines M.D.* Started 10-Feb-2012 ActiveOmeprazole 40 MG Oral Capsule Delayed Release Take 1 capsule by mouth daily. * Quantity: 90 Refills: 3 Ric Vines M.D.* Started 18-Jun-2010 ActiveB-12 500 MCG Oral Tablet TAKE 1 [...] Completed:26-Jun-2011 CBC w/ Auto Diff 7150 Ordered:06-Nov-2015 EPO PANEL 3699 Ordered:06-Nov-2015 Comprehensive Metabolic Panel 1212 Ordered:06-Nov-2015 Immunization Name Dates Details Pneumo (Pneumovax) Lot #: [id number] Administered on:10-Feb-2012 Fluzone Quadrivalent 0.5 ML Intramuscular Suspension Lot #: [id number] Administered on:16-May-2013 Prevnar 13 Intramuscular Suspension Lot #: [id number] Administered on:05-Jul-2014 Fluzone High-Dose 0.5 ML Intramuscular Suspension Prefilled Syringe Lot #: [id number] Administered on:07-Mar-2015 Tdap (Adacel) Lot #: [id number] Administered on:07-Mar-2015 Family History Unknown Family Member* [...] Range: >60 EST GFR, NON-AFR CITIZEN OF [place] 31 ml/min (Below low threshold) Range: >60 Comments: EST GFR is reported in ml/min per 1.73 m2 of body surface area. For -Belgian, please multiple result by 1.2.----- BUN:CREATININE RATIO [...] On 16-Apr-2011 13:45 * Appointment; Provider: Kelvin aDvis On 18-Sep-2010 14:30 * Appointment; Provider: Kayla [...] not documented On 27-Feb-2015 09:15 Appointment; Nuno Burgso Encounter Diagnosis: Problem not documented On 13-Feb-2015 [...]
--- OUTSIDE RECORDS SUMMARY | 2016-11-05 14:06 | XMS REPORT | Summary of Care ---
Author Author Crispin Malcolm, Theo Organization Unknown Address Unknown Phone Unavailable Care Team Providers Care Director Of Student Financial Aid Name Role Phone Ric Vines M.D. Unavailable [...] 3 Ric Vines M.D.* Started 03-Oct-2013 ActiveNystatin 456776 UNIT/ML Mouth/Throat Suspension SWISH AND SWALLOW 10ML [...] Refills: 0 Ric Vines M.D.* Started 24-Aug-2015 [id number] Aerosol Powder Breath Activated Disp Pack Prolia [...] Quadrivalent 0.5 ML Intramuscular Suspension Lot #: [id number] Administered on:16-May-2013 Prevnar 13 Intramuscular Suspension Lot #: [id number] Administered on:05-Jul-2014 Fluzone High-Dose 0.5 ML Intramuscular Suspension Prefilled Syringe Lot #: [id number] Administered on:07-Mar-2015 Tdap (Adacel) Lot #: [id number] Administered on:07-Mar-2015 Family History Unknown Family Member* [...] threshold) Range: >60 EST GFR, NON-AFR LIBYAN 31 ml/min (Below low threshold) Range: >60 Comments: EST GFR is reported in ml/min per 1.73 m2 of body surface area. For -Nigerien, please multiple result by 1.2.----- BUN:CREATININE RATIO [...] threshold) Range: >60 EST GFR, NON-AFR LIBYAN 27 ml/min (Below low threshold) Range: >60 Comments: EST GFR is reported in ml/min per 1.73 m2 of body surface area. For -Nigerien, please multiple result by 1.2.----- GLUCOSE 99 [...] Theo Roa On 11:00 * Appointment; Provider: hTeo Roa On 16:00 * Appointment; Provider: Dar [...] Problem not documented On 07-Mar-2015 09:45 Appointment; uNno Burgos Encounter Diagnosis: Problem not [...]
--- OUTSIDE RECORDS SUMMARY | 2016-11-05 14:07 | XMS REPORT | Summary of Care ---
Author Author Theo Roa D.P.T. Organization Unknown Address [address], [place] [id number] Phone Unavailable Care Team Providers Care Professor Of Voice Name Role Phone Theo Roa D.P.T. Unavailable [...] Quadrivalent 0.5 ML Intramuscular Suspension Lot #: [id number] on: 16-May-2013 Prevnar 13 Intramuscular Suspension Lot #: [id number] on: 05-Jul-2014 Fluzone High-Dose 0.5 ML Intramuscular Suspension Prefilled Syringe Lot #: [id number] on: 07-Mar-2015 Tdap (Adacel) Lot #: [id number] on: 07-Mar-2015 Family History Name Dates Details [...] low threshold) Range: >60 EST GFR, NON-AFR SWAZI 34 ml/min (Below low threshold) Range: >60 Comments: EST GFR is reported in ml/min per 1.73 m2 of body surface area. For -Moroccan, please multiple result by 1.2.----- GLUCOSE 94 [...] On 04-Mar-2016 10:00 Appointment; Provider: Dar Love M.D.|VINCENT,VINCENT,FACP, On 27-Feb-2016 10:30 Appointment; Provider: Schedule Radiology On 24-Jan-2016 13:00 Appointment; Provider: Schedule Radiology On 24-Jan-2016 10:00 Appointment; Provider: Theo Roa D.P.T. On 22-Jan-2016 11:30 Instructions Name Dates Details Instructions not documented Encounters Appointment; Dar Love M.D.|FACP|MKendell,FACP|Bear,TONYP, Encounter Diagnosis: Problem not documented On 16-Jan-2016 [...] not documented On 16:00 Appointment; Dar Love M.D.|FACP|Bear,FACP|Bear,TONYP, Encounter Diagnosis: Problem not documented On 10:45 [...] not documented On 06-Nov-2015 11:00 Appointment; Ric iVnes M.D. Encounter Diagnosis: Problem [...]
--- OUTSIDE RECORDS SUMMARY | 2016-11-05 14:07 | XMS REPORT | Summary of Care ---
Author Author Ric Vines M.D. Organization Unknown Address Unknown Phone Unavailable Care Team Providers Care Still Operator Whiskey Name Role Phone Jerrod Mena M.D. Unavailable [...] for Zostavax administration (V04.89, Z23) Status: Active Medications Name Dates Details [...] Quantity: 12 Refills: 0 Ric Vines M.D. * Start 26-Jan-2014 Active Atorvastatin Calcium 80 MG [...] Quadrivalent 0.5 ML Intramuscular Suspension Lot #: [id number] on: 16-May-2013 Prevnar 13 Intramuscular Suspension Lot #: [id number] on: 05-Jul-2014 Fluzone High-Dose 0.5 ML Intramuscular Suspension Prefilled Syringe Lot #: [id number] on: 07-Mar-2015 Tdap (Adacel) Lot #: [id number] on: 07-Mar-2015 Family History Name Dates Details [...] Vital Signs Date Test Result Details 04-Mar-2016 09:50 BP Systolic 130 mm[Hg] Status: [...] Location: ; Position: Temperature 97.5 f Status: Comments: Method: Heart Rate 94 /min Status: Comments: Location: [...] low threshold) Range: >60 EST GFR, NON-AFR GERMAN 30 ml/min (Below low threshold) Range: >60 [...] low threshold) Range: >60 EST GFR, NON-AFR GERMAN 30 ml/min (Below low threshold) Range: >60 [...] documented Planned Encounters Appointment; Provider: Dar Love M.D.|VINCENT,LOY|Bear,LOY, On 28-Apr-2016 11:00 Appointment; Provider: Nuno Burgos M.D. On 04-Mar-2016 13:45 Interventions Provided Medication Changes* Zoster (Zostavax) - Start Labs/Procedures/Imaging* MAMMOGRAM-SCREENING; To be Done: 04 Mar 2016 Instructions Name Dates Details Instructions not documented Encounters Appointment; Theo Roa D.PSachaTSacha Encounter Diagnosis: Problem not documented On 28-Feb-2016 [...]
--- OUTSIDE RECORDS SUMMARY | 2016-11-05 14:07 | XMS REPORT | Summary of Care ---
Author Author Nuno Burgos M.D. [facility] Unknown Address [address], [place] [id number] Phone Unavailable Care Team Providers Care Lobster Catcher Name Role Phone Ric Vines M.D. Unavailable [...] Refills: 5 Ric Vines M.D.* Started 17-Aug-2014 ActiveB-12 500 MCG Oral Tablet TAKE 1 TABLET DAILY. * Refills: 0 Ric Vines M.D.* Started 21-Jun-2012 ActiveMulti-Vitamins Oral Tablet TAKE 1 TABLET DAILY. * Refills: 0 Ric Vines M.D.* Started 25-Oct-2012 ActiveNystatin 887924 UNIT/ML Mouth/Throat Suspension SWISH AND SWALLOW 10ML FOUR TIMES DAILY FOR 5 DAYS * Quantity: 200 Refills: 0 Ric Vines M.D.* Started 07-Mar-2015 ActiveProlia 60 MG/ML Subcutaneous Solution INJECT SUBCUTANEOUSLY 60 MG / 1 ML EVERY 6 MONTHS * Quantity: 1 Refills: 0 Ric Vines M.D.* Started 13-Apr-2015 ActiveCalcium 600+D3 600-200 MG-UNIT Oral Tablet Take [...] Vitamin D, 25 - Hydroxy 3111 Ordered:21-May-2015 RENAL PROFILE 1240 Ordered:10-Jul-2015 HEMOGRAM 7305 Ordered:10-Jul-2015 Immunization Name Dates Details Pneumo (Pneumovax) Lot #: [id number] Administered on:10-Feb-2012 Fluzone Quadrivalent 0.5 ML Intramuscular Suspension Lot #: [id number] Administered on:16-May-2013 Prevnar 13 Intramuscular Suspension Lot #: [id number] Administered on:05-Jul-2014 Fluzone High-Dose 0.5 ML Intramuscular Suspension Prefilled Syringe Lot #: [id number] Administered on:07-Mar-2015 Tdap (Adacel) Lot #: [id number] Administered on:07-Mar-2015 Family History Unknown Family Member* [...] mm[Hg] Status: BP Diastolic 68 mm[Hg] Status: Results Date Description Value Details 03-Jul-2015 [...] low threshold) Range: >60 EST GFR, NON-AFR [place] ISLANDER 36 ml/min (Below low threshold) Range: >60 Comments: EST GFR is reported in ml/min per 1.73 m2 of body surface area. For -Luxembourger, please multiple result by 1.2.----- BUN:CREATININE RATIO [...] Planned Encounters* Appointment; Provider: Ric Vines On 06-Nov-2015 11:00 * Appointment; Provider: Nuno Burgos On 15-Aug-2015 11:30 * Appointment; Provider: Nuno Burgos On 25-Jul-2015 [...]
[2016-11-05] MEDS ORDERED: TRAM50TA4 PO (14:08)
--- OUTSIDE RECORDS SUMMARY | 2016-11-05 14:08 | XMS REPORT | Summary of Care ---
Author Author Ric Vines M.D. Organization Unknown Address [address] [place], [place] [address] Phone Unavailable Care Team Providers Care Public Finance Specialist Name Role Phone Ric Vines M.D. Unavailable [...] 5 Ric Vines M.D.* Started 17-Aug-2014 ActiveNystatin 449983 UNIT/ML Mouth/Throat Suspension SWISH AND SWALLOW 10ML [...] Refills: 0 Ric Vines M.D.* Started 24-Aug-2015 [id number] Aerosol Powder Breath Activated Disp Pack Prolia [...] Knee Replacement History of Complete Colonoscopy Completed:26-Jun-2011 BASIC METABOLIC PROFILE 1210 Ordered:29-Oct-2015 LIPID PROFILE 1184 Ordered:29-Oct-2015 HEMOGLOBIN A1C 3507 Ordered:29-Oct-2015 ALBUMIN CREAT PANEL 1108 Ordered:29-Oct-2015 AST 1180 Ordered:29-Oct-2015 CBC w/ Auto Diff 7150 Ordered:29-Oct-2015 Immunization Name Dates Details Pneumo (Pneumovax) Lot #: [id number] Administered on:10-Feb-2012 Fluzone Quadrivalent 0.5 ML Intramuscular Suspension Lot #: [id number] Administered on:16-May-2013 Prevnar 13 Intramuscular Suspension Lot #: [id number] Administered on:05-Jul-2014 Fluzone High-Dose 0.5 ML Intramuscular Suspension Prefilled Syringe Lot #: [id number] Administered on:07-Mar-2015 Tdap (Adacel) Lot #: [id number] Administered on:07-Mar-2015 Family History Unknown Family Member* [...] to report Results Date Description Value Details Results not [...]
--- OUTSIDE RECORDS SUMMARY | 2016-11-05 14:08 | XMS REPORT | Summary of Care ---
Author Author Ivan Sifuentes, LOY, ,, Dar F Organization Unknown Address Unknown Phone Unavailable Care Team Providers Care Applied Psychology Chair Name Role Phone Ivan Sifuentes, LOY, ,, [...] 0 Ric Vines M.D. Start 28-May-2016 Active Gabapentin 100 MG Oral Capsule TAKE 1 CAPSULE Every morning and 300mg at HS * Quantity: 30 Refills: 3 Ric Vines M.D. Start 15-Jul-2016 Active TraMADol HCl - 50 MG Oral [...] Ordered: 26-Aug-2016 RENAL PROFILE 1240 Ordered: 26-Aug-2016 Immunization Name Dates Details Pneumo (Pneumovax) Lot #: [id number] on: 10-Feb-2012 Fluzone Quadrivalent 0.5 ML Intramuscular Suspension Lot #: [id number] on: 16-May-2013 Prevnar 13 Intramuscular Suspension Lot #: [id number] on: 05-Jul-2014 Fluzone High-Dose 0.5 ML Intramuscular Suspension Prefilled Syringe Lot #: [id number] on: 07-Mar-2015 Tdap (Adacel) Lot #: [id number] on: 07-Mar-2015 Fluzone High-Dose 0.5 ML Intramuscular Suspension Prefilled Syringe Lot #: [id number] on: 04-Mar-2016 Zoster (Zostavax) Lot #: [id number] on: 04-Mar-2016 Family History Name Dates Details [...] threshold) Range: >60 EST GFR, NON-AFR COMORAN 38 ml/min (Below low threshold) Range: >60 [...] 09:30 Appointment; Provider: Ric Vines M.D. On 10-Sep-2016 15:30 Appointment; Provider: Nuno Burgos M.D. On 15-Jul-2016 [...] documented On 04-Feb-2016 09:15 Appointment; Theo Roa D.P.Juan. Encounter Diagnosis: Problem not documented On 31-Jan-2016 10:30 Appointment; StTheo oropeza D.P.T. Encounter Diagnosis: Problem not documented On [...]
--- OUTSIDE RECORDS SUMMARY | 2016-11-05 14:08 | XMS REPORT | Summary of Care ---
Author Author Nuno Burgos M.D. Unknown Address [address] [place] [place], [place] [phone] Phone Unavailable Care Team Providers Care Utility Worker Name Role Phone Ric Vines M.D. [...] for pneumococcal vaccine (V03.82, Z23) Status: Active Medications Name Dates Details [...] 1 TABLET DAILY DIRECTED. * Refills: 0 Rci Vines M.D.* Started 10-Feb-2012 ActiveCalcium 600+D3 600-200 [...] Refills: 2 Ric Vines M.D.* Started 03-Nov-2012 ActiveAtorvastatin Calcium [...] Quadrivalent 0.5 ML Intramuscular Suspension Lot #: [id number] Administered on:16-May-2013 Prevnar 13 Intramuscular Suspension Lot #: [id number] Administered on:05-Jul-2014 Family History Unknown Family Member* [...] mm[Hg] Status: BP Diastolic 58 mm[Hg] Status: Results Date Description Value Details 04-Jul-2014 11:43 CBC w/ Auto Diff 7150 [...] threshold) Range: >60 EST GFR, NON-AFR SENEGALESE 46 ml/min (Below low threshold) Range: >60 Comments: EST GFR is reported in ml/min per 1.73 m2 of body surface area. For -Gabonese, please multiple result by 1.2.----- BUN:CREATININE RATIO [...] 10:30 * Appointment; Provider: Nuno Burgos On 08-Aug-2014 15:30 * Appointment; Provider: Carol Tellez On 28-May-2011 [...]
--- OUTSIDE RECORDS SUMMARY | 2016-11-05 14:08 | XMS REPORT | Summary of Care ---
Author Author Nuno Burgos M.D. Unknown Address [address] [place], [place] [phone] Phone Unavailable Care Team Providers Care Search Coordinator Name Role Phone Ric Vines M.D. [...] DAILY. * Quantity: 90 Refills: 3 Ric Vinse M.D.* Started 25-Oct-2012 ActiveMulti-Vitamins Oral Tablet TAKE [...] 3 Ric Vines M.D.* Started 17-Aug-2014 ActiveNystatin 341695 UNIT/ML Mouth/Throat Suspension SWISH AND SWALLOW 10ML [...] Refills: 0 Ric Vines M.D.* Started 24-Aug-2015 [id number] Aerosol Powder Breath Activated Disp Pack Allergies [...] Quadrivalent 0.5 ML Intramuscular Suspension Lot #: [id number] Administered on:16-May-2013 Prevnar 13 Intramuscular Suspension Lot #: [id number] Administered on:05-Jul-2014 Fluzone High-Dose 0.5 ML Intramuscular Suspension Prefilled Syringe Lot #: [id number] Administered on:07-Mar-2015 Tdap (Adacel) Lot #: [id number] Administered on:07-Mar-2015 Family History Unknown Family Member* [...] low threshold) Range: >60 EST GFR, NON-AFR TURKMEN 34 ml/min (Below low threshold) Range: >60 Comments: EST GFR is reported in ml/min per 1.73 m2 of body surface area. For -Belarusian, please multiple result by 1.2.----- BUN:CREATININE RATIO [...] 32.0-36.0 PLATELETS 172 K/uL (Better) Range: 150-400 Plan of Care [...] Diagnosis: Problem not documented On 09:45 Appointment; uNno Burgos Encounter Diagnosis: Problem [...] not documented On 20-Jun-2014 10:15 Appointment; Nuno Brugos Encounter Diagnosis: Problem not documented On 05-Jun-2014 [...]
[2016-11-05] MEDS ORDERED: [UNRECOGNIZED DRUG - CODE] PO (14:09)
--- OUTSIDE RECORDS SUMMARY | 2016-11-05 14:09 | XMS REPORT | Summary of Care ---
Author Author Nuno Burgos M.D. Unknown Address [address], [place] [phone] Phone Unavailable Care Team Providers Care Video Tape Duplicator Name Role Phone Ric Vines M.D. Unavailable [...] MOUTH DAILY * Quantity: 90 Refills: 3 Ruhlmann, Ric M.D.* Started 29-Aug-2011 ActiveCitalopram Hydrobromide 20 MG [...] DAILY. * Refills: 0 * Started 17-Aug-2014 ActiveOsteo Bi-Flex Triple Strength Oral Tablet TAKE [...] PROFILE 1240 Ordered:14-Aug-2014 RENAL PROFILE 1240 Ordered:18-Sep-2014 Immunization Name Dates Details Pneumo (Pneumovax) Lot #: [id number] Administered on:10-Feb-2012 Fluzone Quadrivalent 0.5 ML Intramuscular Suspension Lot #: [id number] Administered on:16-May-2013 Prevnar 13 Intramuscular Suspension Lot #: [id number] Administered on:05-Jul-2014 Family History Unknown Family Member* [...] % Status: Results Date Description Value Details 01-Sep-2014 13:45 HEMOGRAM 7305 WBC 4.3 K/uL [...] low threshold) Range: >60 EST GFR, NON-AFR GREENLANDIC 45 ml/min (Below low threshold) Range: >60 Comments: EST GFR is reported in ml/min per 1.73 m2 of body surface area. For -Pitcair[place] Islander, please multiple result by 1.2.----- BUN:CREATININE RATIO 13 (Better) GLUCOSE 92 mg/dL (Better) Range: 70-100 ALBUMIN 3.6 g/dL (Better) Range: 3.4-5.0 PHOSPHORUS 2.9 mg/dL (Better) Range: 2.5-4.9 CALCIUM 9.1 mg/dL (Better) Range: 8.5-10.1 30-Sep-2014 10:19 HEMOGRAM 7305 WBC 4.3 K/uL (Below low threshold) Range: 4.5-11.0 RBC 3.38 mil/uL (Below low threshold) Range: 3.60-5.00 HGB 11.1 g/dL (Below low threshold) Range: 12.0-16.0 HCT 31.7 % (Below low threshold) Range: 36.0-48.0 MCV 94.0 fL (Better) Range: 80.0-99.0 MCH 32.8 pg (Above high threshold) Range: 27.3-32.5 MCHC 34.9 % (Better) Range: 32.0-36.0 PLATELETS 192 K/uL (Better) Range: 150-400 Plan of Care [...]
--- OUTSIDE RECORDS SUMMARY | 2016-11-05 14:09 | XMS REPORT | Summary of Care ---
Author Author Nuno Burgos M.D. Unknown Address [address] [place], [place] [address] Phone Unavailable Care Team Providers Care Ecosystem Ecology Professor Name Role Phone Ric Vines M.D. 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 For -Peruvian, please multiple result by 1.2.----- BUN:CREATININE RATIO [...] Burgos On 05-Sep-2014 09:30 * Appointment; Provider: Ric Martinez On 17-Aug-2014 10:30 * Appointment; Provider: Carol Tellez On [...] not documented On 25-Oct-2012 09:45 Appointment; Nuno Burgso Encounter Diagnosis: Problem not documented On 20-Sep-2012 09:30
--- OUTSIDE RECORDS SUMMARY | 2016-11-05 14:09 | XMS REPORT | Summary of Care ---
Author Author Ric Vines M.D. Organization Unknown Address [address] [place], [place] [address] Phone Unavailable Care Team Providers Care Construction Trades Contractor Name Role Phone Ric Viens M.D. Unavailable Unavailable Magan Bowles M.D. Unavailable [...] with acute exacerbation (493.92, J45.901) Status: Active Medications Name Dates Details Omeprazole [...] 0 Ric Vines M.D.* Started 25-Oct-2012 ActiveNystatin 022750 UNIT/ML Mouth/Throat Suspension SWISH AND SWALLOW 10ML [...] Refills: 0 Magan Bowles M.D.* Started 01-Aug-2015 ActiveCitalopram Hydrobromide 20 MG Oral Tablet TAKE [...] Quadrivalent 0.5 ML Intramuscular Suspension Lot #: [id number] Administered on:16-May-2013 Prevnar 13 Intramuscular Suspension Lot #: [id number] Administered on:05-Jul-2014 Fluzone High-Dose 0.5 ML Intramuscular Suspension Prefilled Syringe Lot #: [id number] Administered on:07-Mar-2015 Tdap (Adacel) Lot #: [id number] Administered on:07-Mar-2015 Family History Unknown Family Member* [...] smoker Vital Signs Date Test Result Details 24-Aug-2015 14:31 BP Systolic 118 mm[Hg] Status: [...] m2 Status: Results Date Description Value Details 10-Aug-2015 11:35 HEMOGRAM 7305 WBC 3.9 K/uL [...] low threshold) Range: >60 EST GFR, NON-AFR PERUVIAN 35 ml/min (Below low threshold) Range: >60 Comments: EST GFR is reported in ml/min per 1.73 m2 of body surface area. For -Hong Konger, please multiple result by 1.2.----- BUN:CREATININE RATIO [...]
--- OUTSIDE RECORDS SUMMARY | 2016-11-05 14:09 | XMS REPORT | Summary of Care ---
Author Author Ric Martinez M.D. Organization Unknown Address [address], [place] [phone] Phone Unavailable Care Team Providers Care Machine Specialist Name Role Phone Ric Vines M.D. [...] 7800 Ordered:17-Aug-2014 Protein Elec + Interp, Serum 734007 Ordered:17-Aug-2014 Immunofixation, Serum 631375 Ordered:17-Aug-2014 HEMOGRAM 7305 Ordered:14-Aug-2014 RENAL PROFILE 1240 Ordered:14-Aug-2014 HEMOGRAM 7305 Ordered:14-Aug-2014 RENAL PROFILE 1240 Ordered:14-Aug-2014 Immunization Name Dates Details Pneumo (Pneumovax) Lot #: [id number] Administered on:10-Feb-2012 Fluzone Quadrivalent 0.5 ML Intramuscular Suspension Lot #: [id number] Administered on:16-May-2013 Prevnar 13 Intramuscular Suspension Lot #: [id number] Administered on:05-Jul-2014 Family History Unknown Family Member* [...] low threshold) Range: >60 EST GFR, NON-AFR IVORIAN 33 ml/min (Below low threshold) Range: >60 Comments: EST GFR is reported in ml/min per 1.73 m2 of body surface area. For -Sierra Leonean, please multiple result by 1.2.----- BUN:CREATININE RATIO [...]
--- OUTSIDE RECORDS SUMMARY | 2016-11-05 14:10 | XMS REPORT | Summary of Care ---
Author Author Nuno Burgos M.D. [facility] Unknown Address [address] [place], [place] [address] Phone Unavailable Care Team Providers Care Inventory Specialist Name Role Phone Ric Vines M.D. [...] Refills: 0 Ric Vines M.D.* Started 10-Feb-2012 ActiveLisinopril 5 MG Oral Tablet TAKE 1 [...] of Complete Colonoscopy Completed:26-Jun-2011 RENAL PROFILE 1240 Ordered: HEMOGRAM 7305 Ordered: RENAL PROFILE 1240 Ordered: CBC w/ Auto Diff 7150 Ordered: Immunization Name Dates Details Pneumo (Pneumovax) Lot #: [id number] Administered on:10-Feb-2012 Fluzone Quadrivalent 0.5 ML Intramuscular Suspension Lot #: [id number] Administered on:16-May-2013 Prevnar 13 Intramuscular Suspension Lot #: [id number] Administered on:05-Jul-2014 Family History Unknown Family Member* [...] m2 Status: Results Date Description Value Details 10-Nov-2014 10:24 HEMOGRAM 7305 WBC 3.7 K/uL [...] threshold) Range: >60 EST GFR, NON-AFR SUDANESE 40 ml/min (Below low threshold) Range: >60 Comments: EST GFR is reported in ml/min per 1.73 m2 of body surface area. For -Tongan, please multiple result by 1.2.----- BUN:CREATININE RATIO [...] not documented On 18-Oct-2013 08:30 Appointment; Ric aMrtinez Encounter Diagnosis: Problem not documented On 03-Oct-2013 [...]
--- OUTSIDE RECORDS SUMMARY | 2016-11-05 14:10 | XMS REPORT | Summary of Care ---
Author Author Wilbur Sifuentes, [employer] Organization Unknown Address [address] [place], [place] [address] Phone Unavailable Care Team Providers Care Java J2Ee Application Developer Name Role Phone Ric Vines M.D. [...] 5 Ric Vines M.D.* Started 17-Aug-2014 ActiveNystatin 307072 UNIT/ML Mouth/Throat Suspension SWISH AND SWALLOW 10ML [...] Quadrivalent 0.5 ML Intramuscular Suspension Lot #: [id number] Administered on:16-May-2013 Prevnar 13 Intramuscular Suspension Lot #: [id number] Administered on:05-Jul-2014 Fluzone High-Dose 0.5 ML Intramuscular Suspension Prefilled Syringe Lot #: [id number] Administered on:07-Mar-2015 Tdap (Adacel) Lot #: [id number] Administered on:07-Mar-2015 Family History Unknown Family Member* [...] smoker Vital Signs Date Test Result Details 25-Jul-2015 11:22 BP Systolic 112 mm[Hg] Status: [...] low threshold) Range: >60 EST GFR, NON-AFR QATARI 36 ml/min (Below low threshold) Range: >60 Comments: EST GFR is reported in ml/min per 1.73 m2 of body surface area. For -Macedonian, please multiple result by 1.2.----- BUN:CREATININE RATIO [...] Repeat Analysis----- ESTIMATED AVG. GLUCOSE 62 (Better) -Jul-2015 11:47 HEMOGRAM 7305 WBC 4.8 K/uL (Better) [...] low threshold) Range: >60 EST GFR, NON-AFR QATARI 34 ml/min (Below low threshold) Range: >60 Comments: EST GFR is reported in ml/min per 1.73 m2 of body surface area. For -Macedonian, please multiple result by 1.2.----- BUN:CREATININE RATIO [...] Burgos On 15-Aug-2015 11:30 * Appointment; Provider: Magan Bowles On 01-Aug-2015 10:45 * Appointment; Provider: Schedule Radiology On 04-Jun-2015 16:00 * Appointment; Provider: Schedule Radiology On 04-Jun-2015 16:00 * Appointment; Provider: Schedule Radiology On 04-Apr-2015 14:30 * Appointment; Provider: Carol Tellez On 28-May-2011 13:00 * Appointment; Provider: Carol Tellez On 14-May-2011 14:00 * Appointment; Provider: Carol Tlelez On 16-Apr-2011 13:45 * Appointment; Provider: Kelvin [...]
--- OUTSIDE RECORDS SUMMARY | 2016-11-05 14:10 | XMS REPORT | Summary of Care ---
Author Author Wilbur Sifuentes, Magan Organization Unknown Address Unknown Phone Unavailable Care Team Providers Care Policy Service Coordinator Name Role Phone Rajesh Sifuentes, Jerrod Unavailable Unavailable Ric Vines M.D. Unavailable Unavailable Wiblur Sifuentes, Magan Unavailable Unavailable Ric Vines Unavailable [...] Inflamed seborrheic keratosis (702.11, L82.0) Status: Active Medications Name Dates Details Omeprazole [...] PANEL 3699 Ordered: 27-Feb-2016 HEMOGRAM 7305 Ordered: 11-Apr-2016 RENAL PROFILE 1240 Ordered: 11-Apr-2016 Immunization Name Dates Details Pneumo (Pneumovax) Lot #: [id number] on: 10-Feb-2012 Fluzone Quadrivalent 0.5 ML Intramuscular Suspension Lot #: [id number] on: 16-May-2013 Prevnar 13 Intramuscular Suspension Lot #: [id number] on: 05-Jul-2014 Fluzone High-Dose 0.5 ML Intramuscular Suspension Prefilled Syringe Lot #: [id number] on: 07-Mar-2015 Tdap (Adacel) Lot #: [id number] on: 07-Mar-2015 Fluzone High-Dose 0.5 ML Intramuscular Suspension Prefilled Syringe Lot #: [id number] on: 04-Mar-2016 Zoster (Zostavax) Lot #: [id number] on: 04-Mar-2016 Family History Name Dates Details [...] threshold) Range: >60 EST GFR, NON-AFR BURKINAN 29 ml/min (Below low threshold) Range: >60 [...] Provider: Nuno Burgos M.D. On 06-May-2016 09:30 Appointment; Provider: Dar Love M.D.|VINCENT,LOY KAUR, On 28-Apr-2016 11:00 Instructions Name Dates Details Instructions not documented Encounters Appointment; Waqas Burgess M.D. Encounter Diagnosis: Problem not documented On 14-Apr-2016 10:30 Appointment; Nuno Burgos M.D. Encounter Diagnosis: Problem not documented On 04-Apr-2016 09:30 Appointment; Nuno Burgos M.D. Encounter Diagnosis: Problem not documented On 04-Mar-2016 13:45 Appointment; Ric Vines M.D. Encounter Diagnosis: Problem not documented On 04-Mar-2016 10:00 Appointment; Theo Roa D.P.T. Encounter Diagnosis: Problem not documented On 28-Feb-2016 14:30 Appointment; Dar Love M.D.|VINCENT,FACP|M.D.,FACP, Encounter Diagnosis: Problem not documented On 27-Feb-2016 [...]
--- OUTSIDE RECORDS SUMMARY | 2016-11-05 14:11 | XMS REPORT | Summary of Care ---
Author Author Ric Vines M.D. Organization Unknown Address [address] [place], [place] [address] Phone Unavailable Care Team Providers Care Electric Deicer Assembler Name Role Phone Ric Vines M.D. Unavailable [...] Refills: 3 Ric Vines M.D.* Started 29-Aug-2011 ActiveB-12 500 MCG Oral Tablet TAKE 1 [...] TABLET Twice daily * Quantity: 360 Refills: Ric Lee M.D.* Started 03-Oct-2013 ActiveAtorvastatin Calcium 80 MG Oral Tablet TAKE 1 TABLET DAILY. * Quantity: 90 Refills: 3 Ric Vines M.D.* Started 07-Mar-2014 ActiveLisinopril 5 MG Oral Tablet TAKE ONE HALF TAB ONCE DAILY * Quantity: 15 Refills: 5 Ric Vines M.D.* Started 17-Aug-2014 ActiveNystatin 171216 UNIT/ML Mouth/Throat Suspension SWISH AND SWALLOW 10ML FOUR TIMES DAILY FOR 5 DAYS * Quantity: 200 Refills: 0 Ric Vines M.D.* Started 07-Mar-2015 ActiveMeloxicam 7.5 MG Oral Tablet TAKE 1 TABLET DAILY. * Quantity: 30 Refills: 3 Ric Vines M.D.* Started 29-May-2015 ActiveTraMADol HCl - 50 MG Oral Tablet TAKE 1 TABLET 3 TIMES DAILY NEEDED. * Quantity: 30 Refills: 0 Ric Vines M.D.* Started 29-May-2015 ActiveProlia 60 MG/ML Subcutaneous Solution INJECT SUBCUTANEOUSLY [...] Quadrivalent 0.5 ML Intramuscular Suspension Lot #: [id number] Administered on:16-May-2013 Prevnar 13 Intramuscular Suspension Lot #: [id number] Administered on:05-Jul-2014 Fluzone High-Dose 0.5 ML Intramuscular Suspension Prefilled Syringe Lot #: [id number] Administered on:07-Mar-2015 Tdap (Adacel) Lot #: [id number] Administered on:07-Mar-2015 Family History Unknown Family Member* [...] smoker Vital Signs Date Test Result Details 20-Jun-2015 13:05 BP Systolic 124 mm[Hg] Status: [...] threshold) Range: >60 EST GFR, NON-AFR SOUTH AFRICAN 30 ml/min (Below low threshold) Range: >60 Comments: EST GFR is reported in ml/min per 1.73 m2 of body surface area. For -Maldivian, please multiple result by 1.2.----- BUN:CREATININE RATIO [...] Vines On 04-Jul-2015 09:45 * Appointment; Provider: Schedule Radiology On 04-Jun-2015 [...]
--- OUTSIDE RECORDS SUMMARY | 2016-11-05 14:11 | XMS REPORT | Summary of Care ---
Author Author Ric Vines M.D. Organization Unknown Address [address] [place], [place] [address] Phone Unavailable Care Team Providers Care Press Operator Carbon Blocks Name Role Phone Ric Vines M.D. Unavailable [...] 5 Ric Vines M.D.* Started 17-Aug-2014 ActiveNystatin 602626 UNIT/ML Mouth/Throat Suspension SWISH AND SWALLOW 10ML [...] Quadrivalent 0.5 ML Intramuscular Suspension Lot #: [id number] Administered on:16-May-2013 Prevnar 13 Intramuscular Suspension Lot #: [id number] Administered on:05-Jul-2014 Fluzone High-Dose 0.5 ML Intramuscular Suspension Prefilled Syringe Lot #: [id number] Administered on:07-Mar-2015 Tdap (Adacel) Lot #: [id number] Administered on:07-Mar-2015 Family History Unknown Family Member* [...] low threshold) Range: >60 EST GFR, NON-AFR MARTINIQUAIS 34 ml/min (Below low threshold) Range: >60 Comments: EST GFR is reported in ml/min per 1.73 m2 of body surface area. For -Belizean, please multiple result by 1.2.----- BUN:CREATININE RATIO [...] low threshold) Range: >60 EST GFR, NON-AFR MARTINIQUAIS 35 ml/min (Below low threshold) Range: >60 Comments: EST GFR is reported in ml/min per 1.73 m2 of body surface area. For -Belizean, please multiple result by 1.2.----- BUN:CREATININE RATIO [...] not documented On 07-Mar-2014 10:00 Appointment; Magan Bowels Encounter Diagnosis: Problem not documented On 20-Feb-2014 [...]
--- OUTSIDE RECORDS SUMMARY | 2016-11-05 14:11 | XMS REPORT | Summary of Care ---
Author Author Ric Vines M.D. Organization Unknown Address [address], [place] [id number] Phone Unavailable Care Team Providers Care Filling Hauler Weaving Name Role Phone Ric Vines M.D. Unavailable Unavailable Rci Vines PP Unavailable Unavailable Unavailable Functional Status [...] 3 Ric Vines M.D.* Started 25-Oct-2012 ActiveNystatin 960514 UNIT/ML Mouth/Throat Suspension SWISH AND SWALLOW 10ML [...] Refills: 5 Ric Vines M.D.* Started 17-Aug-2014 ActiveAtorvastatin Calcium [...] Quadrivalent 0.5 ML Intramuscular Suspension Lot #: [id number] Administered on:16-May-2013 Prevnar 13 Intramuscular Suspension Lot #: [id number] Administered on:05-Jul-2014 Fluzone High-Dose 0.5 ML Intramuscular Suspension Prefilled Syringe Lot #: [id number] Administered on:07-Mar-2015 Tdap (Adacel) Lot #: [id number] Administered on:07-Mar-2015 Family History Unknown Family Member* [...] Body Surface Area Calculated 1.54 m2 Status: 16-May-2015 11:14 BP Systolic 124 mm[Hg] Status: BP Diastolic 60 mm[Hg] Status: Heart Rate 76 /min Status: Weight 134.5 lb Status: Body Mass Index Calculated 27.17 kg/m2 Status: Body Surface Area Calculated 1.56 m2 Status: Results Date Description Value Details 15-May-2015 12:35 CBC w/ Auto Diff 7150 [...] >60 EST GFR, NON-AFR CITIZEN OF [place] 34 ml/min (Below low threshold) Range: >60 Comments: EST GFR is reported in ml/min per 1.73 m2 of body surface area. For -Burundian, please multiple result by 1.2.----- BUN:CREATININE RATIO 12 (Better) GLUCOSE 102 mg/dL (Above high threshold) Range: 70-100 ALBUMIN 3.8 g/dL (Better) Range: 3.4-5.0 PHOSPHORUS 2.2 mg/dL (Below low threshold) Range: 2.6-4.7 Comments: Please note new reference ranges effective 2015.----- CALCIUM 9.1 mg/dL (Better) Range: 8.5-10.1 29-May-2015 16:20 XRay SHOULDER-Left Comments: Exam Date: [...]
--- OUTSIDE RECORDS SUMMARY | 2016-11-05 14:12 | XMS REPORT | Summary of Care ---
Author Author Nuno Burgos M.D. Unknown Address Unknown Phone Unavailable Care Team Providers Care Sleeping Bag Filler Name Role Phone Ric Vines M.D. Unavailable [...] Knee Replacement History of Complete Colonoscopy Completed:26-Jun-2011 AST 1180 Ordered:26-Jun-2014 BASIC METABOLIC PROFILE 1210 Ordered:26-Jun-2014 CBC w/ Auto Diff 7150 Ordered:26-Jun-2014 LIPID PROFILE 1184 Ordered:26-Jun-2014 RENAL PROFILE 1240 Ordered:20-Jun-2014 HEMOGRAM 7305 Ordered:20-Jun-2014 Vitamin D, 25 - Hydroxy 3111 Ordered:08-May-2014 Parathyroid Hormone Intact 3101 Ordered:08-May-2014 MAGNESIUM 1260 Ordered:08-May-2014 CBC w/ Auto Diff 7150 Ordered:08-May-2014 RENAL PROFILE 1240 Ordered:08-May-2014 Immunization Name Dates Details Pneumo (Pneumovax) Lot #: [id number] Administered on:10-Feb-2012 Fluzone Quadrivalent 0.5 ML Intramuscular Suspension Lot #: [id number] Administered on:16-May-2013 Family History Unknown Family Member* [...] low threshold) Range: >60 EST GFR, NON-AFR TAIWANESE 34 ml/min (Below low threshold) Range: >60 [...] Problem not documented On 09:45 Appointment; Nuno uBrgos Encounter Diagnosis: Problem not documented On 09:30 [...]
--- OUTSIDE RECORDS SUMMARY | 2016-11-05 14:12 | XMS REPORT | Summary of Care ---
Author Author Jerrod Rasmussen M.D. Organization Unknown Address [address], [place] [address] Phone Unavailable Care Team Providers Care Chief Lending Officer Name Role Phone Ric Vines M.D. Unavailable [...] Quadrivalent 0.5 ML Intramuscular Suspension Lot #: [id number] Administered on:16-May-2013 Prevnar 13 Intramuscular Suspension Lot #: [id number] Administered on:05-Jul-2014 Family History Unknown Family Member* [...] f Status: O2 SAT 94 % Status: 17-Aug-2014 10:37 BP Systolic 112 mm[Hg] Status: BP Diastolic 52 mm[Hg] Status: Heart Rate 96 /min Status: Weight 135.5 lb Status: Body Mass Index Calculated 27.37 kg/m2 Status: Body Surface Area Calculated 1.56 m2 Status: Results Date Description Value Details 18-Aug-2014 11:59 ERYTHROCYTE SED RATE 7800 ERYTHROCYTE SED RATE 12 mm/60 min. (Better) Range: 0-20 22-Aug-2014 07:46 Protein Elec + Interp, Serum [id number] Comments: TESTING PERFORMED AT: [DA] [facility], [address] [place] [address], [place], [address], PHONE: [phone], METALWORKING SPECIALIST: ZHEN PÉREZ MD PROTEIN, TOTAL, SERUM 5.9 G/DL (Below low threshold) Range: 6.0-8.5 ALBUMIN 3.6 G/DL (Better) Range: 3.2-5.6 KSJEC-0-IWAHHXUF 0.2 G/DL (Better) Range: 0.1-0.4 VRIXA-2-DCOGUQVJ 0.7 G/DL (Better) Range: 0.4-1.2 BETA GLOBULIN 0.8 G/DL (Better) Range: 0.6-1.3 GAMMA GLOBULIN 0.6 G/DL (Better) Range: 0.5-1.6 M-SPIKE NOTE: G/DL (Better) Range: NOT OBSERVED Comments: NOT OBSERVEDSEE CONCURRENT IMMUNOFIXATION.----- GLOBULIN, TOTAL 2.3 G/DL (Better) Range: 2.0-4.5 A/G RATIO 1.6 (Better) Range: 0.7-2.0 PLEASE NOTE: COMMENT (Better) Comments: PROTEIN ELECTROPHORESIS SCAN WILL FOLLOW VIA COMPUTER,MAIL, OR WATER TAXI OPERATOR DELIVERY.----- P E INTERPRETATION, S COMMENT (Better) Comments: THE SPE PATTERN APPEARS ESSENTIALLY UNREMARKABLE. EVIDENCEOF MONOCLONAL PROTEIN IS NOT APPARENT. ----- 07:46 Immunofixation, Serum [id number] Comments: TESTING PERFORMED AT: [DA] [facility] [address], [place], [address], PHONE: , METALWORKING SPECIALIST: ZHEN PÉREZ MD IMMUNOFIXATION RESULT, SERUM NOTE: [...] threshold) Range: >60 EST GFR, NON-AFR IRAQI 45 ml/min (Below low threshold) Range: >60 Comments: EST GFR is reported in ml/min per 1.73 m2 of body surface area. For -Comoran, please multiple result by 1.2.----- BUN:CREATININE RATIO [...] Problem not documented On 29-Apr-2013 14:00 Appointment; iRc Vines Encounter Diagnosis: Problem not [...]
--- OUTSIDE RECORDS SUMMARY | 2016-11-05 14:12 | XMS REPORT | Summary of Care ---
Author Author Rajesh Sifuentes, Jerrod Organization Unknown Address Unknown Phone Unavailable Care Team Providers Care Beef Pusher Name Role Phone Jerrod Mena M.D. Unavailable [...] Quadrivalent 0.5 ML Intramuscular Suspension Lot #: [id number] on: 16-May-2013 Prevnar 13 Intramuscular Suspension Lot #: [id number] on: 05-Jul-2014 Fluzone High-Dose 0.5 ML Intramuscular Suspension Prefilled Syringe Lot #: [id number] on: 07-Mar-2015 Tdap (Adacel) Lot #: [id number] on: 07-Mar-2015 Family History Name Dates Details [...] low threshold) Range: >60 EST GFR, NON-AFR EQUATORIAL GUINEAN 34 ml/min (Below low threshold) Range: >60 Comments: EST GFR is reported in ml/min per 1.73 m2 of body surface area. For -Citizen Of [place], please multiple result by 1.2.----- GLUCOSE 94 [...] On 04-Mar-2016 10:00 Appointment; Provider: Dar Love M.D.|FACP|MKendell,FACP|Bear,FACP, On 27-Feb-2016 10:30 Appointment; Provider: Theo Rao D.P.T. On 07-Feb-2016 13:30 Interventions Provided Medication [...] not documented On 27-Feb-2015 09:15 Appointment; Nuno Burogs M.D. Encounter Diagnosis: Problem not documented On [...]
--- OUTSIDE RECORDS SUMMARY | 2016-11-05 14:12 | XMS REPORT | Summary of Care ---
Author Author Theo Roa D.P.T. Organization Unknown Address [address] [place], [place] [id number] Phone Unavailable Care Team Providers Care Fish Cleaner Machine Tender Name Role Phone Jerrod Mena M.D. Unavailable [...] 3 Ric Vines M.D. Start 07-Mar-2014 Active SulfaSALAzine 500 MG Oral Tablet TAKE 2 TABLET Twice daily * Quantity: 360 Refills: 3 Ric Vines M.D. Start 03-Oct-2013 Active Lisinopril 5 MG Oral Tablet TAKE ONE HALF TAB ONCE DAILY * Quantity: 45 Refills: 3 Ric Vines M.D. Start 17-Aug-2014 Active Allergies and Adverse Reactions [...] Ordered: 27-Feb-2016 RENAL PROFILE 1240 Ordered: 27-Feb-2016 ORTHO KNEE LEFT (3 VIEWS ONLY) Ordered: BONE LA SCAN AND FLOW Ordered: 15-Jan-2016 Immunization Name Dates Details Pneumo (Pneumovax) Lot #: [id number] on: 10-Feb-2012 Fluzone Quadrivalent 0.5 ML Intramuscular Suspension Lot #: [id number] on: 16-May-2013 Prevnar 13 Intramuscular Suspension Lot #: [id number] on: 05-Jul-2014 Fluzone High-Dose 0.5 ML Intramuscular Suspension Prefilled Syringe Lot #: [id number] on: 07-Mar-2015 Tdap (Adacel) Lot #: [id number] on: 07-Mar-2015 Family History Name Dates Details [...] low threshold) Range: >60 EST GFR, NON-AFR CYPRIOT 30 ml/min (Below low threshold) Range: >60 [...] documented Planned Encounters Appointment; Provider: Dar Love M.D.|FACP|Bear,FACP|Bear,LOY, On 28-Apr-2016 11:00 Appointment; Provider: Nuno Burgos M.D. On 04-Mar-2016 13:45 Appointment; Provider: Ric Vines M.D. On 04-Mar-2016 10:00 Instructions Name Dates Details Instructions not documented Encounters Appointment; Dar Love M.D.|VINCENT,VINCENT,LOY, Encounter Diagnosis: Problem not documented On 27-Feb-2016 [...] not documented On 31-Jan-2016 10:30 Appointment; Theo oRa D.PYe. Encounter Diagnosis: Problem not documented On [...] Diagnosis: Problem not documented On 16:00 Appointment; aDr Love M.D.|FACP|MKendell,FACP|Bear,FACP, Encounter Diagnosis: Problem not documented [...]
--- OUTSIDE RECORDS SUMMARY | 2016-11-05 14:13 | XMS REPORT | Summary of Care ---
Author Author Ric Martinez M.D. Organization Unknown Address [address], [place] [address] Phone Unavailable Care Team Providers Care Felt Hat Steamer Name Role Phone Ric Vines M.D. Unavailable [...] HEMOGRAM 7305 Ordered:14-Aug-2014 RENAL PROFILE 1240 Ordered:14-Aug-2014 ERYTHROCYTE SED RATE 7800 Ordered:17-Aug-2014 Protein Elec + Interp, Serum [id number] Ordered:17-Aug-2014 Immunofixation, Serum [id number] Ordered:17-Aug-2014 Immunization Name Dates Details Pneumo (Pneumovax) Lot #: [id number] Administered on:10-Feb-2012 Fluzone Quadrivalent 0.5 ML Intramuscular Suspension Lot #: [id number] Administered on:16-May-2013 Prevnar 13 Intramuscular Suspension Lot #: [id number] Administered on:05-Jul-2014 Family History Unknown Family Member* [...] threshold) Range: >60 EST GFR, NON-AFR TRINIDADIAN 33 ml/min (Below low threshold) Range: >60 Comments: EST GFR is reported in ml/min per 1.73 m2 of body surface area. For -Israeli, please multiple result by 1.2.----- BUN:CREATININE RATIO [...]
--- OUTSIDE RECORDS SUMMARY | 2016-11-05 14:13 | XMS REPORT | Summary of Care ---
Author Author Loretta Sifuentes, Nuno Organization Unknown Address Unknown Phone Unavailable Care Team Providers Care Power System Electrical Engineer Name Role Phone Nuno Burgos M.D. Unavailable [...] left rotator cuff (726.10, M75.82) Status: Active Hypertension (401.9, I10) Status: Active [...] 26-Jun-2011 CBC w/ Auto Diff 7150 Ordered: 10-Jun-2016 CBC w/ Auto Diff 7150 Ordered: 10-Jun-2016 CBC w/ Auto Diff 7150 Ordered: 10-Jun-2016 Comprehensive Metabolic Panel 1212 Ordered: 10-Jun-2016 IRON 1254 Ordered: 10-Jun-2016 Iron Panel with TIBC 1612 Ordered: 04-Jun-2016 RENAL PROFILE 1240 Ordered: 04-Jun-2016 ORTHO SHOULDER LEFT Ordered: 04-Jun-2016 Immunization Name Dates Details Pneumo (Pneumovax) Lot #: [id number] on: 10-Feb-2012 Fluzone Quadrivalent 0.5 ML Intramuscular Suspension Lot #: [id number] on: 16-May-2013 Prevnar 13 Intramuscular Suspension Lot #: [id number] on: 05-Jul-2014 Fluzone High-Dose 0.5 ML Intramuscular Suspension Prefilled Syringe Lot #: [id number] on: 07-Mar-2015 Tdap (Adacel) Lot #: [id number] on: 07-Mar-2015 Fluzone High-Dose 0.5 ML Intramuscular Suspension Prefilled Syringe Lot #: [id number] on: 04-Mar-2016 Zoster (Zostavax) Lot #: [id number] on: 04-Mar-2016 Family History Name Dates Details [...] m2 Status: Results Date Description Value Details 11-Jul-2016 10:50 CBC w/ Auto Diff 7150 WBC 3.1 K/uL (Below low threshold) Range: 4.5-11.0 RBC 3.13 mil/uL (Below low threshold) Range: 3.60-5.00 HGB 9.4 g/dL (Below low threshold) Range: 12.0-16.0 HCT 29.9 % (Below low threshold) Range: 36.0-48.0 MCV 95.6 fL Range: 80.0-99.0 MCH 30.0 pg Range: 27.3-32.5 MCHC 31.4 % (Below low threshold) Range: 32.0-36.0 RDW 15.0 % (Above high threshold) Range: 11.6-14.8 PLATELETS 169 K/uL Range: 150-400 MPV 9.2 fL Range: 6.0-11.0 %NEUTRO 64.2 % Range: 37.0-80.0 %LYMPHS 24.4 % Range: 13.0-50.0 %MONO 5.5 % Range: 0.0-12.0 %EOS 3.3 % Range: 0.0-7.0 %BASO 0.2 % Range: 0.0-2.5 %MARY 2.4 % Range: 0.0-5.0 NEUTRO 2.0 K/uL Range: 2.0-6.9 LYMPHS 0.7 K/uL Range: 0.6-3.4 MONOS 0.2 K/uL Range: 0.0-0.9 EOS 0.1 K/uL Range: 0.0-0.7 BASO 0.0 K/uL Range: 0.0-0.2 Plan of Care Name Dates Details Planned Observations Iron Panel with TIBC 1612 On 04-Jul-2016 Intent RENAL PROFILE 1240 On 04-Jul-2016 Intent Planned Goals not documented Planned Encounters Appointment; Provider: Ric Vines M.D. On 26-Sep-2016 11:00 Appointment; Provider: Magan Bowles M.D. On 23-Sep-2016 11:00 Appointment; Provider: Dar Love M.D.|VINCENT,VINCENT,LOY, On 22-Jul-2016 11:15 Appointment; Provider: Nuno Burgos M.D. On 15-Jul-2016 14:30 Interventions Provided Labs/Procedures/Imaging* ORTHO SHOULDER LEFT; To be Done: 04 Jun 2016 * CBC w/ Auto Diff 7150; Done: Jul 11 2016 10:38AM * XRay SI JOINTS; Done: Jun 04 2016 4:47PM Instructions Name Dates Details Instructions not documented [...] documented On 28-Feb-2016 14:30 Appointment; Dar Love M.D.|FACP|M.DSacha,TONYP|Bear,FACP, Encounter Diagnosis: Problem not documented On 27-Feb-2016 10:30 Appointment; Theo Roa D.PSachaTSacha Encounter Diagnosis: Problem not documented On 22-Feb-2016 14:00 Appointment; Theo Roa D.PAlyssa Encounter Diagnosis: Problem not documented On 13-Feb-2016 14:30 Appointment; Theo Roa D.PSachaTSacha Encounter Diagnosis: Problem not documented On 11-Feb-2016 [...] Problem not documented On 10:15 Appointment; Nuno Brugos M.D. Encounter Diagnosis: Problem not documented On [...] Encounter Diagnosis: Problem not documented On 08-Aug-2014 15:30"
--- OUTSIDE RECORDS SUMMARY | 2016-11-05 14:13 | XMS REPORT | Summary of Care ---
Author Author Theo Roa D.P.T. Organization Unknown Address Unknown Phone Unavailable Care Team Providers Care Pattern Grader Supervisor Name Role Phone Theo Roa D.P.T. [...] Ric Vines M.D. * Start 29-Aug-2011 Active Calcium 600+D3 600-200 MG-UNIT Oral Tablet TAKE 1 TABLET THREE TIMES A DAY * Refills: 0 Ric Vines M.D. * Start 10-Feb-2012 Active Furosemide 20 MG Oral Tablet TAKE 1 TABLET DAILY FOR SWELLING. * Quantity: 90 Refills: 3 Ric Vines M.D. Start 03-Nov-2012 Active SulfaSALAzine 500 MG Oral Tablet TAKE 2 TABLET Twice daily * Quantity: 360 Refills: 3 Ric Vines M.D. * Start 03-Oct-2013 Active Amoxicillin 500 MG Oral Capsule TAKE 4 CAPSULES BY MOUTH 1 HOUR PRIOR TO PROCEDURE * Quantity: 12 Refills: 0 Ric Vines M.D. Start 26-Jan-2014 Active Prolia 60 MG/ML Subcutaneous Solution INJECT SUBCUTANEOUSLY 60 MG / 1 ML EVERY 6 MONTHS * Quantity: 1 Refills: 0 Ric Vines M.D. Start 13-Apr-2015 Active Lisinopril 5 MG Oral Tablet TAKE [...] 0 Ric Vines M.D. Start 21-Jun-2012 Active Osteo Bi-Flex Triple Strength Oral Tablet [...] Quadrivalent 0.5 ML Intramuscular Suspension Lot #: [id number] on: 16-May-2013 Prevnar 13 Intramuscular Suspension Lot #: [id number] on: 05-Jul-2014 Fluzone High-Dose 0.5 ML Intramuscular Suspension Prefilled Syringe Lot #: [id number] on: 07-Mar-2015 Tdap (Adacel) Lot #: [id number] on: 07-Mar-2015 Family History Name Dates Details [...] On 17-Jan-2016 10:30 Appointment; Provider: Dar Love M.D.|FACP|Bear,TONYP|Bear,FACP, On 16-Jan-2016 14:45 Appointment; Provider: Theo Roa D.P.T. On 15-Jan-2016 10:30 Appointment; Provider: Theo Roa D.P.T. On 14-Jan-2016 11:00 Appointment; Provider: Schedule Radiology On 10:30 Appointment; Provider: Schedule Radiology On 08:00 Instructions Name Dates Details Instructions not documented Encounters Appointment; Theo Roa D.P.T. Encounter Diagnosis: Problem not documented On 10:30 Appointment; Theo Roa D.P.T. Encounter Diagnosis: Problem not documented On 15:00 Appointment; Jrerod Mena M.D. Encounter Diagnosis: Problem not documented [...] not documented On 24-Aug-2015 14:30 Appointment; Ric Viens M.D. Encounter Diagnosis: Problem not documented On [...]
--- OUTSIDE RECORDS SUMMARY | 2016-11-05 14:14 | XMS REPORT | Summary of Care ---
Author Author Wilbur Sifuentes, [employer] Organization Unknown Address [address], [place] [address] Phone Unavailable Care Team Providers Care Cigar Patcher Name Role Phone Ric Vines M.D. Unavailable [...] K21.9) Status: Active Medications Name Dates Details Aspirin 81 MG Oral Tablet TAKE 1 TABLET DAILY. * Started 26-May-2011 ActiveVenlafaxine HCl ER 75 [...] Refills: 2 Ric Vines M.D.* Started 03-Nov-2012 ActiveCalcium 600+D3 600-200 MG-UNIT Oral Tablet Take 1 tablet twice a day * Refills: 0 Ric Vines M.D.* Started 10-Feb-2012 ActiveOsteo Bi-Flex Triple Strength Oral Tablet TAKE 1 TABLET DAILY DIRECTED. * Refills: 0 Ric Vines M.D.* Started 10-Feb-2012 ActiveSulfaSALAzine 500 MG Oral Tablet 3 tablets, BID * Quantity: 540 Refills: 3 Ric Vines M.D.* Started 03-Oct-2013 ActiveMulti-Vitamins Oral Tablet TAKE 1 TABLET DAILY. * Refills: 0 Ric Vines M.D.* Started 25-Oct-2012 ActiveOmeprazole 40 MG Oral Capsule Delayed Release Take 1 capsule by mouth daily. * Quantity: 90 Refills: 3 Ric Vines M.D.* Started 18-Jun-2010 ActiveAtorvastatin Calcium 80 MG Oral Tablet TAKE [...] Colonoscopy Completed:26-Jun-2011 CBC w/ Auto Diff 7150 Ordered:08-May-2014 MAGNESIUM 1260 Ordered:08-May-2014 Parathyroid Hormone Intact 3101 Ordered:08-May-2014 Vitamin D, 25 - Hydroxy 3111 Ordered:08-May-2014 HEMOGRAM 7305 Ordered:20-Jun-2014 RENAL PROFILE 1240 Ordered:20-Jun-2014 AST 1180 Ordered:26-Jun-2014 BASIC METABOLIC PROFILE 1210 Ordered:26-Jun-2014 CBC w/ Auto Diff 7150 Ordered:26-Jun-2014 LIPID PROFILE 1184 Ordered:26-Jun-2014 RENAL PROFILE 1240 Ordered:08-May-2014 Immunization Name Dates Details Pneumo (Pneumovax) Lot #: [id number] Administered on:10-Feb-2012 Fluzone Quadrivalent 0.5 ML Intramuscular Suspension Lot #: [id number] Administered on:16-May-2013 Family History Unknown Family Member* [...] low threshold) Range: >60 EST GFR, NON-AFR ALBANIAN 34 ml/min (Below low threshold) Range: >60 Comments: EST GFR is reported in ml/min per 1.73 m2 of body surface area. For -Egyptian, please multiple result by 1.2.----- BUN:CREATININE RATIO [...] Martinez On 17-Aug-2014 10:30 * Appointment; Provider: uNno Burgos On 04-Aug-2014 11:00 * Appointment; Provider: [...] not documented On 05-Apr-2013 09:30 Appointment; Nuno uBrgos Encounter Diagnosis: Problem not documented On 08-Mar-2013 [...]
--- OUTSIDE RECORDS SUMMARY | 2016-11-05 14:14 | XMS REPORT | Summary of Care ---
Author Author Theo Roa D.P.T. Unknown Address Unknown Phone Unavailable Care Team Providers Care Vibrating Screen Operator Name Role Phone Ric Vines M.D. [...] Refills: 3 Ric Vines M.D.* Started 03-Nov-2012 ActiveAmoxicillin 500 MG Oral Capsule TAKE 4 [...] Quadrivalent 0.5 ML Intramuscular Suspension Lot #: [id number] Administered on:16-May-2013 Prevnar 13 Intramuscular Suspension Lot #: [id number] Administered on:05-Jul-2014 Fluzone High-Dose 0.5 ML Intramuscular Suspension Prefilled Syringe Lot #: [id number] Administered on:07-Mar-2015 Tdap (Adacel) Lot #: [id number] Administered on:07-Mar-2015 Family History Unknown Family Member* [...] low threshold) Range: >60 EST GFR, NON-AFR MICRONESIAN 27 ml/min (Below low threshold) Range: >60 Comments: EST GFR is reported in ml/min per 1.73 m2 of body surface area. For -Nepalese, please multiple result by 1.2.----- GLUCOSE 99 [...] Theo Roa On 15:00 * Appointment; Provider: Jerrod Mena On 10:30 * Appointment; Provider: Schedule Radiology [...]
--- OUTSIDE RECORDS SUMMARY | 2016-11-05 14:14 | XMS REPORT | Summary of Care ---
Author Author Ric Vines M.D. Organization Unknown Address [address] [place], [place] [address] Phone Unavailable Care Team Providers Care Pattern Technician Name Role Phone Ric Vines M.D. [...] Shoulder pain, right (719.41, M25.511) Status: Active Medications Name Dates Details Omeprazole [...] 5 Ric Vines M.D.* Started 17-Aug-2014 ActiveNystatin 190104 UNIT/ML Mouth/Throat Suspension SWISH AND SWALLOW 10ML FOUR TIMES DAILY FOR 5 DAYS * Quantity: 200 Refills: 0 Ric Vines M.D.* Started 07-Mar-2015 ActiveProlia 60 MG/ML Subcutaneous Solution INJECT SUBCUTANEOUSLY 60 MG / 1 ML EVERY 6 MONTHS * Quantity: 1 Refills: 0 Ric Vines M.D.* Started 13-Apr-2015 ActiveMeloxicam 7.5 MG Oral Tablet TAKE 1 TABLET DAILY. * Quantity: 30 Refills: 3 Ric Vines M.D.* Started 29-May-2015 ActiveTraMADol HCl - 50 MG Oral Tablet TAKE 1 TABLET 3 TIMES DAILY NEEDED. * Quantity: 30 Refills: 0 Ric Vines M.D.* Started 29-May-2015 Active Allergies [...] Vitamin D, 25 - Hydroxy 3111 Ordered:21-May-2015 XRay HIP-Right Ordered:29-May-2015 XRay SHOULDER-Left Ordered:29-May-2015 Immunization Name Dates Details Pneumo (Pneumovax) Lot #: [id number] Administered on:10-Feb-2012 Fluzone Quadrivalent 0.5 ML Intramuscular Suspension Lot #: [id number] Administered on:16-May-2013 Prevnar 13 Intramuscular Suspension Lot #: [id number] Administered on:05-Jul-2014 Fluzone High-Dose 0.5 ML Intramuscular Suspension Prefilled Syringe Lot #: [id number] Administered on:07-Mar-2015 Tdap (Adacel) Lot #: [id number] Administered on:07-Mar-2015 Family History Unknown Family Member* [...] smoker Vital Signs Date Test Result Details 29-May-2015 15:10 BP Systolic 132 mm[Hg] Status: [...] 1.73 m2 of body surface area. For -Mexican, please multiple result by 1.2.----- BUN:CREATININE RATIO [...]
[2016-11-05] MEDS ORDERED: KETOROLAC 30mg/ml INJECTION IV ONE (14:15)
[2016-11-05] MEDS ORDERED: NORMAL SALINE 1,000 ML IV ONE (14:15)
[2016-11-05] MEDS ORDERED: ORPHENADRINE 60mg/2ml INJECTION IV ONE (14:15)
--- OUTSIDE RECORDS SUMMARY | 2016-11-05 14:15 | XMS REPORT | Summary of Care ---
Author Ric Lorenzana M.D. Organization Unknown Address [address], [place] [id number] Phone Unavailable Care Team Providers Care Online Community Manager Name Role Phone Ric Vines Unavailable Unavailable Unavailable Unavailable Functional Status Functional Status Health Issues* Name Dates Details No known functional status health issues Status: Cognitive Status Health Issues* Name Dates Details No known cognitive status health issues Status: Problems Name Dates Details Difficulty Breathing [...] Active Abdominal pain (789.00, R10.9) Status: Active Anemia (285.9, D64.9) Status: Active Iron (Fe) deficiency anemia (280.9, D50.9) Status: Active Glossitis (529.0, K14.0) Status: Active Hypokalemia (276.8, E87.6) Status: Active Spinal stenosis (724.00, M48.00) Status: Active Coronary artery disease (414.00, I25.10) Status: Active Depression (311, F32.9) Status: Active Ulcerative pancolitis (556.6, K51.90) Status: Active Pre-operative exam (V72.84, Z01.818) Status: Active Hyperlipidemia (272.4, E78.5) Status: Active Arthritis (716.90, M19.90) Status: Active Chronic kidney disease, stage III (moderate) (585.3, N18.3) Status: Active Bloating (787.3, R14.0) Status: Active Colitis (558.9, K52.9) Status: Active Hypertension (401.9, I10) Status: Active Hypercholesterolemia (272.0, E78.0) Status: Active Arm pain (729.5, M79.603) Status: Active Tingling (782.0, R20.2) Status: Active Dizziness (780.4, R42) Status: Active Urine frequency (788.41, R35.0) Status: Active Arthralgia of multiple sites (719.49, M25.50) Status: Active Bursitis of hip (726.5, M70.70) Status: Active Lower back pain (724.2, M54.5) Status: Active Medications Name Dates Details Omeprazole 40 MG Oral Capsule Delayed Release Take 1 capsule by mouth daily. Quantity: 90 Capsule Delayed Release * Started 18-Jun-2010 ActiveAspirin 81 MG Oral Tablet TAKE 1 TABLET DAILY. * Refills: 0 * Started 26-May-2011 ActiveVenlafaxine HCl ER 75 MG Oral Capsule Extended Release 24 Hour TAKE 1 CAPSULE BY MOUTH DAILY * Quantity: 90 Capsule Extended Release 24 Hour Refills: 3 * Started 29-Aug-2011 ActiveOsteo Bi-Flex Triple Strength Oral Tablet TAKE 1 TABLET DAILY DIRECTED. * Refills: 0 * Started 10-Feb-2012 ActiveCalcium 600+D3 600-200 MG-UNIT Oral Tablet Take 1 tablet twice a day * Refills: 0 * Started 10-Feb-2012 ActiveB-12 500 MCG Oral Tablet TAKE 1 TABLET DAILY. * Refills: 0 * Started 21-Jun-2012 ActiveCitalopram Hydrobromide 20 MG Oral Tablet TAKE 1 TABLET DAILY. * Quantity: 90 Tablet Refills: 3 * Started 25-Oct-2012 ActiveMulti-Vitamins Oral Tablet TAKE 1 TABLET DAILY. * Refills: 0 * Started 25-Oct-2012 ActiveFurosemide 20 MG Oral Tablet TAKE 1 TABLET DAILY NEEDED FOR SWELLING. * Quantity: 90 Tablet Refills: 2 * Started 03-Nov-2012 ActiveSulfaSALAzine 500 MG Oral Tablet 3 tablets, BID * Quantity: 540 Tablet Refills: 3 * Started 03-Oct-2013 ActiveLisinopril 5 MG Oral Tablet TAKE 1 TABLET DAILY DIRECTED. * Quantity: 90 Tablet Refills: 3 * Started 01-Nov-2013 ActiveAmoxicillin 500 MG Oral Capsule TAKE 4 CAPSULES 1 HOUR PRIOR TO PROCEDURE. * Quantity: 12 Capsule Refills: 0 * Started 26-Jan-2014 ActiveAtorvastatin Calcium 80 MG Oral Tablet TAKE 1 TABLET DAILY. * Quantity: 90 Tablet Refills: 3 * Started 07-Mar-2014 Active Allergies and Adverse Reactions Name Dates Details Codeine Derivatives Status: Active Past Medical History Name Dates Details Complete Colonoscopy Status: Resolved Complete Colonoscopy Status: Resolved History of diverticulitis of colon (V12.79, Z87.19) Status: Resolved Tingling (782.0, R20.2) Status: Resolved Procedures Procedure Dates Details Appendectomy Cholecystectomy Knee Surgery Colonoscopy For Forceps Biopsy Completed:08-Jul-2010 Knee Replacement HEMOGRAM 7305 RENAL PROFILE 1240 Iron Panel with TIBC 1612 MRI LUMBAR SPINE Immunization Name Dates Details Pneumo (Pneumovax) Lot #: [id number] Administered on:10-Feb-2012 Fluzone Quadrivalent 0.5 ML Intramuscular Suspension Lot #: [id number] Administered on:16-May-2013 Family History Unknown Family Member* Name Dates Details Hypertension (V17.49) Comments: Family History Status: Active Diabetes Mellitus (V18.0) Comments: Family History Status: Active Mother* Name Dates Details Breast Cancer (V16.3) Status: Active Hypertension (V17.49) Status: Active Diabetes Mellitus (V18.0) Status: Active Gastric Cancer (V16.0) Status: Active Father* Name Dates Details Emphysema Status: Active Sister* Name Dates Details Breast Cancer (V16.3) Status: Active Hypertension (V17.49) Status: Active Hypertension (V17.49) Status: Active Breast Cancer (V16.3) Status: Active Brother* Name Dates Details Hypertension (V17.49) Status: Active Hypertension (V17.49) Status: Active Diabetes Mellitus (V18.0) Status: Active Prostate Cancer (V16.42) Status: Active Prostate Cancer (V16.42) Status: Active Bone Cancer Status: Active Social History Name Dates Details Never smoked (V49.89, Z78.9) Never smoker (V49.89, Z78.9) Smoking Status* Never smoker * Never smoker Vital Signs Date Test Result Details 20-Feb-2014 10:14 BP Systolic 136 mm[Hg] Status: BP Diastolic 72 mm[Hg] Status: Heart Rate 92 /min Status: 08-Feb-2014 10:30 BP Systolic 110 mm[Hg] Status: BP Diastolic 58 mm[Hg] Status: Heart Rate 96 /min Status: Temperature 37.1 c Status: O2 SAT 96 % Status: Results Date Description Value Details Resulted on: 04-Mar-2014 09:39 CBC w/ Auto Diff 7150 Comments: Fastin hours WBC 3.5 K/uL Range: 4.5-11.0=Below low threshold RBC 3.41 mil/uL Range: 3.60-5.00=Below low threshold HGB 10.9 g/dL Range: 12.0-16.0=Below low threshold HCT 35.3 % Range: 36.0-48.0=Below low threshold MCV 103.4 fL Range: 80.0-99.0=Above high threshold MCH 32.0 pg Range: 27.3-32.5=Better MCHC 30.9 % Range: 32.0-36.0=Below low threshold RDW 15.9 % Range: 11.6-14.8=Above high threshold PLATELETS 158 K/uL Range: 150-400=Better MPV 9.3 fL Range: 6.0-11.0=Better %NEUTRO 66.3 % Range: 37.0-80.0=Better %LYMPHS 22.3 % Range: 13.0-50.0=Better %MONO 6.7 % Range: 0.0-12.0=Better %EOS 2.6 % Range: 0.0-7.0=Better %BASO 0.4 % Range: 0.0-2.5=Better %MARY 1.8 % Range: 0.0-5.0=Better NEUTRO 2.3 K/uL Range: 2.0-6.9=Better LYMPHS 0.8 K/uL Range: 0.6-3.4=Better MONOS 0.2 K/uL Range: 0.0-0.9=Better EOS 0.1 K/uL Range: 0.0-0.7=Better BASO 0.0 K/uL Range: 0.0-0.2=Better 10:12 RENAL PROFILE 1240 SODIUM 138 mmol/L Range: 133-144=Better POTASSIUM 4.0 mmol/L Range: 3.5-5.1=Better CHLORIDE 102 mmol/L Range: 98-110=Better CARBON DIOXIDE 28.8 mmol/L Range: 23.0-33.0=Better ANION GAP 7 mmol/L Range: 6-16=Better BUN 25 mg/dL Range: 7-18=Above high threshold CREATININE, SERUM 1.27 mg/dL Range: 0.43-1.13=Above high threshold EST GFR, 49 ml/min Range: >60=Below low threshold EST GFR, NON-AFR THAI 40 ml/min Range: >60=Below low threshold Comments: EST GFR is reported in ml/min per 1.73 m2 of body surface area. For -Barb[place], please multiple result by 1.2.----- BUN:CREATININE RATIO 20 Better GLUCOSE 108 mg/dL Range: 70-100=Above high threshold ALBUMIN 3.9 g/dL Range: 3.4-5.0=Better PHOSPHORUS 3.5 mg/dL Range: 2.5-4.9=Better CALCIUM 9.7 mg/dL Range: 8.5-10.1=Better 10:12 AST 1180 Comments: Fastin hours AST 25 U/L Range: 8-35=Better 10:12 LDL, MEASURED 1605 Comments: Fastin hours LDL, MEASURED 114 mg/dL Better Comments: Optimal: Less than 100 mg/dLNear Optimal: 100-129 mg/ dLBorderline High: 130-159 mg/dLHigh: 160-189 mg/dLVery High: >190mg/dL----- Plan of Care Instructions* Instructions not documented Planned Observations* Name Dates Details Planned Goals not documented Goal Planned Encounters* Appointment; Provider: Ric Vines On 04-Jul-2014 10:15 * Appointment; Provider: Magan Bowles On 20-Jun-2014 10:15 * Appointment; Provider: Nuno Burgos On 02-May-2014 11:15 * Appointment; Provider: Ric Martinez On 19-Apr-2014 09:30 * Appointment; Provider: Nuno Burgos On 05-Apr-2014 09:30 * Appointment; Provider: Carol Tellez On 28-May-2011 13:00 * Appointment; Provider: Carol Tellez On 14-May-2011 14:00 * Appointment; Provider: Carol Tellez On 16-Apr-2011 13:45 * Appointment; Provider: Kelvin Davis On 18-Sep-2010 14:30 * Appointment; Provider: Kayla Siddiqi On 18-Sep-2010 13:00 Instructions * No Known Instructions Encounters Appointment; Ric Vines Encounter Diagnosis: Problem [...] Diagnosis: Problem not documented On 07-Jul-2012 10:00 Appointment; Ric Vines Encounter Diagnosis: Problem not documented On 21-Jun-2012 09:45 Appointment; Nuno Burgos Encounter Diagnosis: Problem not documented On 04-May-2012 11:00 Appointment; Ric Vines Encounter Diagnosis: Problem not documented On 20-Apr-2012 14:30 Appointment; Nuno Burgos Encounter Diagnosis: Problem not documented On 31-Mar-2012 11:30
--- OUTSIDE RECORDS SUMMARY | 2016-11-05 14:15 | XMS REPORT | Summary of Care ---
Author Author Loretta Sifuentes, Nuno Organization Unknown Address Unknown Phone Unavailable Care Team Providers Care Compressed Air Pile Driver Operator Name Role Phone Nuno Burgos M.D. Unavailable [...] SQ * Quantity: 1 Refills: 0 Ric iVnes M.D. * Start 04-Mar-2016 Active 1 Solution [...] at HS * Quantity: 30 Refills: 0 Nuno Burgos M.D. * Start 15-Jul-2016 Active Allergies and Adverse Reactions [...] Complete Colonoscopy Completed: 26-Jun-2011 HEMOGRAM 7305 Ordered: 15-Jul-2016 RENAL PROFILE 1240 Ordered: 15-Jul-2016 CBC w/ Auto Diff 7150 Ordered: 10-Jun-2016 Comprehensive Metabolic Panel 1212 Ordered: 10-Jun-2016 IRON 1254 Ordered: 10-Jun-2016 CBC w/ Auto Diff 7150 Ordered: 10-Jun-2016 CBC w/ Auto Diff 7150 Ordered: 10-Jun-2016 ORTHO SHOULDER LEFT Ordered: 04-Jun-2016 Immunization Name Dates Details Pneumo (Pneumovax) Lot #: [id number] on: 10-Feb-2012 Fluzone Quadrivalent 0.5 ML Intramuscular Suspension Lot #: [id number] on: 16-May-2013 Prevnar 13 Intramuscular Suspension Lot #: [id number] on: 05-Jul-2014 Fluzone High-Dose 0.5 ML Intramuscular Suspension Prefilled Syringe Lot #: [id number] on: 07-Mar-2015 Tdap (Adacel) Lot #: [id number] on: 07-Mar-2015 Fluzone High-Dose 0.5 ML Intramuscular Suspension Prefilled Syringe Lot #: [id number] on: 04-Mar-2016 Zoster (Zostavax) Lot #: [id number] on: 04-Mar-2016 Family History Name Dates Details [...] Range: 0.0-0.7 BASO 0.0 K/uL Range: 0.0-0.2 11:22 RENAL PROFILE 1240 SODIUM 140 mmol/L Range: 133-144 POTASSIUM 4.0 mmol/L Range: 3.5-5.1 CHLORIDE 106 mmol/L Range: 98-110 CARBON DIOXIDE 28.7 mmol/L Range: 23.0-33.0 ANION GAP 5 mmol/L (Below low threshold) Range: 6-16 BUN 15 mg/dL Range: 7-18 CREATININE, SERUM 1.21 mg/dL (Above high threshold) Range: 0.55-1.02 EST GFR, 52 ml/min (Below low threshold) Range: >60 EST GFR, NON-AFR KYRGYZ 43 ml/min (Below low threshold) Range: >60 Comments: EST GFR is reported in ml/min per 1.73 m2 of body surface area. ----- BUN:CREATININE RATIO 12 GLUCOSE 90 mg/dL Range: 70-100 ALBUMIN 3.6 g/dL Range: 3.4-5.0 PHOSPHORUS 2.3 mg/dL (Below low threshold) Range: 2.6-4.7 CALCIUM 8.3 mg/dL (Below low threshold) Range: 8.5-10.1 11:22 Iron Panel with TIBC 1612 IRON 50 ug/dL Range: 50-170 TOTAL IRON BIND. CAPACITY 345 ug/dL Range: 250-450 % IRON SATURATION 14 % (Below low threshold) Range: 20-55 Plan of Care Name Dates Details Planned Observations HEMOGRAM 7305 On 12-Aug-2016 Intent RENAL PROFILE 1240 On 12-Aug-2016 Intent Planned Goals not documented Planned Encounters Appointment; Provider: Nuno Burgos M.D. On 11-Nov-2016 11:30 Appointment; Provider: Ric Vines M.D. On 26-Sep-2016 11:00 Appointment; Provider: Magan Bowles M.D. On 23-Sep-2016 11:00 Appointment; Provider: Nuno Burgos M.D. On 13-Aug-2016 13:00 Appointment; Provider: Dar Love M.D.|FACP|MKendell,FACPCherelle,LOY, On 22-Jul-2016 11:15 Instructions Name Dates Details Instructions not documented Encounters Appointment; Magan Bowles M.D. Encounter Diagnosis: Problem not documented On 01-Jul-2016 15:45 Appointment; Dar Love M.D.|FACP|M.DSacha,FACP|MKendell,FACP, Encounter Diagnosis: Problem not documented On 10-Jun-2016 [...]
--- OUTSIDE RECORDS SUMMARY | 2016-11-05 14:15 | XMS REPORT | Summary of Care ---
Author Author Theo Roa D.P.T. Organization Unknown Address [address] [place], [place] [id number] Phone Unavailable Care Team Providers Care Sound Mixer Name Role Phone Theo Roa D.P.T. Unavailable Unavailable Ric Vines M.D. Unavailable Unavailable Wilbur Sifuentes, Mgaan Unavailable Unavailable Ric Vines Unavailable Unavailable Unavailable [...] 3 Ric Vines M.D. Start 29-Aug-2011 Active Multi-Vitamins Oral Tablet TAKE 1 TABLET DAILY. * Refills: 0 Ric Vines M.D. Start 25-Oct-2012 Active SulfaSALAzine [...] 3 Ric Vines M.D. Start 15-Jul-2016 Active Vitamin C 500 MG Oral Tablet TAKE 1 TABLET DAILY. * Quantity: 100 Refills: 0 Ric Vines M.D. Start 26-Sep-2016 Active Furosemide 20 MG Oral Tablet TAKE [...] 0 Ric Vines M.D. Start 10-Feb-2012 Active Normal Saline Flush 0.9 % Intravenous Solution 1 liter IV on 09-11-16 * Quantity: 1000 Refills: 0 Ric Vines M.D. Start 10-Sep-2016 Active B-12 500 MCG Oral Tablet TAKE [...] ( Parathyroid Hormone Intact) 3101 Ordered: 22-Oct-2016 RENAL PROFILE 1240 Ordered: 17-Oct-2016 CBC w/ Auto Diff 7150 Ordered: 17-Oct-2016 ORTHO PELVIS (AP ONLY) Ordered: 02-Oct-2016 ORTHO HIP LEFT (1 VIEW ONLY) Ordered: 02-Oct-2016 CT AB/ PEL WITH IV AND ORAL CONTRAST Ordered: 12-Sep-2016 Immunization Name Dates Details Pneumo (Pneumovax) Lot #: [id number] on: 10-Feb-2012 Fluzone Quadrivalent 0.5 ML Intramuscular Suspension Lot #: [id number] on: 16-May-2013 Prevnar 13 Intramuscular Suspension Lot #: [id number] on: 05-Jul-2014 Fluzone High-Dose 0.5 ML Intramuscular Suspension Prefilled Syringe Lot #: [id number] on: 07-Mar-2015 Tdap (Adacel) Lot #: [id number] on: 07-Mar-2015 Fluzone High-Dose 0.5 ML Intramuscular Suspension Prefilled Syringe Lot #: [id number] on: 04-Mar-2016 Zoster (Zostavax) Lot #: [id number] on: 04-Mar-2016 Family History Name Dates Details [...] threshold) Range: >60 EST GFR, NON-AFR TAIWANESE 37 ml/min (Below low threshold) Range: >60 [...] 11:30 Appointment; Provider: Theo Roa D.P.T. On 05-Nov-2016 10:00 Appointment; Provider: Avila Arreola M.D. On 04-Nov-2016 14:45 Instructions Name Dates Details Instructions not [...] documented On 06-May-2016 09:30 Appointment; Dar Love M.D.|FACP|M.DSacha,FACP|MSachaDSacha,TONYP, Encounter Diagnosis: Problem not documented On 28-Apr-2016 [...] not documented On 16:00 Appointment; Dar Love M.D.|FACRonaldo|Bear,FACP|Bear,FACP, Encounter Diagnosis: Problem not documented On 10:45 [...]
--- OUTSIDE RECORDS SUMMARY | 2016-11-05 14:15 | XMS REPORT ---
Author Author GENERATED, SYSTEM Organization Unknown Address Unknown Phone Unavailable Care Team Providers Care Company Pilot Name Role Phone MD DAYSI, DOMO [phone] Reason For Visit Reason for Visit from 10/19/2015 9:50 AM:* Pt Stated Reason for Adm : Prolia Chief Complaint OSTEOPOROSIS Social History Functional Status Functional Status from 10/19/2015 9:50 AM:* LOC : Alert * Oriented To : Person,Place,Time Vital Signs Hospital Vital Signs from 10/19/2015 9:50 AM:* Weight : 132/ lbs,oz * Height : 4/11 ft,in * Height : 4/11 ft,in * Temperature : 97.8 F * Pulse : 84 * Respirations : 18 * BP : 107/58 Results Problems Encounter Diagnosis No relevant problems [...] Allergy. * No IV Contrast Allergy. Medication Medication reconciliation has not been performed.
--- OUTSIDE RECORDS SUMMARY | 2016-11-05 14:15 | XMS REPORT | Summary of Care ---
Author Author Ric Martinez M.D. Organization Unknown Address [address], [place] [phone] Phone Unavailable Care Team Providers Care Enterprise Resource Planning Consultant Name Role Phone Ric Vines M.D. 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, D47.2) Status: [...] Status: Active Anemia (285.9, D64.9) Status: Active Fatigue (780.79, R53.83) Status: Active Dizziness (780.4, R42) Status: Active Medications Name Dates Details Omeprazole [...] Quadrivalent 0.5 ML Intramuscular Suspension Lot #: [id number] Administered on:16-May-2013 Prevnar 13 Intramuscular Suspension Lot #: [id number] Administered on:05-Jul-2014 Family History Unknown Family Member* [...] Vital Signs Date Test Result Details 13-Feb-2015 10:39 BP Systolic 140 mm[Hg] Status: [...] threshold) Range: >60 EST GFR, NON-AFR ZAMBIAN 26 ml/min (Below low threshold) Range: >60 [...] 10:30 * Appointment; Provider: Magan Bowles On 26-Apr-2015 10:15 * Appointment; Provider: Ric Vines On 13-Mar-2015 10:30 * Appointment; Provider: Nuno Burgos On 13-Feb-2015 12:45 * Appointment; Provider: Carol Tellez On 28-May-2011 [...] not documented On 07-Nov-2014 10:30 Appointment; Magan Bwoles Encounter Diagnosis: Problem not documented On 26-Oct-2014 [...] Problem not documented On 09-May-2013 13:45 Appointment; iRc Vines Encounter Diagnosis: Problem not [...]
--- OUTSIDE RECORDS SUMMARY | 2016-11-05 14:16 | XMS REPORT | Summary of Care ---
Author Author Loretta Sifuentes, Nuno Dial Unknown Address Unknown Phone Unavailable Care Team Providers Care Program Host Name Role Phone Ric Vines M.D. Unavailable [...] Quadrivalent 0.5 ML Intramuscular Suspension Lot #: [id number] on: 16-May-2013 Prevnar 13 Intramuscular Suspension Lot #: [id number] on: 05-Jul-2014 Fluzone High-Dose 0.5 ML Intramuscular Suspension Prefilled Syringe Lot #: [id number] on: 07-Mar-2015 Tdap (Adacel) Lot #: [id number] on: 07-Mar-2015 Fluzone High-Dose 0.5 ML Intramuscular Suspension Prefilled Syringe Lot #: [id number] on: 04-Mar-2016 Zoster (Zostavax) Lot #: [id number] on: 04-Mar-2016 Family History Name Dates Details [...] low threshold) Range: >60 EST GFR, NON-AFR EMIRATI 22 ml/min (Below low threshold) Range: >60 [...] low threshold) Range: >60 EST GFR, NON-AFR EMIRATI 33 ml/min (Below low threshold) Range: >60 [...] documented On 28-Feb-2016 14:30 Appointment; Dar Love M.D.|FACP|M.D.,FACP|MKendell,FACP, Encounter Diagnosis: Problem not documented On 27-Feb-2016 [...]
--- OUTSIDE RECORDS SUMMARY | 2016-11-05 14:16 | XMS REPORT | Summary of Care ---
Author Author Nuno Burgos M.D. Unknown Address Unknown Phone Unavailable Care Team Providers Care Rehab Tech Name Role Phone Jerrod Mena M.D. Unavailable [...] DAILY. * Quantity: 90 Refills: 3 Ric Viens M.D. Start 07-Mar-2014 Active Lisinopril 5 MG [...] Quadrivalent 0.5 ML Intramuscular Suspension Lot #: [id number] on: 16-May-2013 Prevnar 13 Intramuscular Suspension Lot #: [id number] on: 05-Jul-2014 Fluzone High-Dose 0.5 ML Intramuscular Suspension Prefilled Syringe Lot #: [id number] on: 07-Mar-2015 Tdap (Adacel) Lot #: [id number] on: 07-Mar-2015 Family History Name Dates Details [...] Observations Iron Panel with TIBC 1612 On 22-Feb-2016 Intent Planned Goals not documented Planned Encounters Appointment; Provider: Nuno Burgos M.D. On 04-Mar-2016 13:45 Appointment; Provider: Ric Vines M.D. On 04-Mar-2016 10:00 Appointment; Provider: Theo Roa D.P.T. On 28-Feb-2016 14:30 Appointment; Provider: Dar Love M.D.|VINCENT,LOY|Bear,LOY, On 27-Feb-2016 10:30 Appointment; Provider: Schedule Radiology On 24-Jan-2016 10:00 Appointment; Provider: Schedule Radiology On 08:00 Instructions [...]
--- OUTSIDE RECORDS SUMMARY | 2016-11-05 14:16 | XMS REPORT | Summary of Care ---
Author Author Ric Martinez M.D. Organization Unknown Address [address], [place] [id number] Phone Unavailable Care Team Providers Care Combination Worker Name Role Phone Ric Vines M.D. [...] Quadrivalent 0.5 ML Intramuscular Suspension Lot #: [id number] Administered on:16-May-2013 Family History Unknown Family Member* [...] threshold) Range: >60 EST GFR, NON-AFR DUTCH 34 ml/min (Below low threshold) Range: >60 Comments: EST GFR is reported in ml/min per 1.73 m2 of body surface area. For -Bahraini, please multiple result by 1.2.----- BUN:CREATININE RATIO [...]
--- OUTSIDE RECORDS SUMMARY | 2016-11-05 14:17 | XMS REPORT | Summary of Care ---
Author Author Alonzo Joshi M.D. Organization Unknown Address [address], [place] [id number] Phone Unavailable Care Team Providers Care Residential Collections Name Role Phone Ric Vines M.D. Unavailable [...] Bilateral hip bursitis (726.5, M70.71) Status: Active Difficulty breathing (786.09, R06.89) Status: [...] capsule by mouth daily. Quantity: 90 Ric Vinse M.D.* Started 18-Jun-2010 ActiveOsteo Bi-Flex Triple Strength Oral Tablet TAKE 1 TABLET DAILY DIRECTED. * Refills: 0 Ric Vines M.D.* Started 10-Feb-2012 ActiveCalcium 600+D3 600-200 MG-UNIT Oral Tablet Take 1 tablet twice a day * Refills: 0 Ric Vines M.D.* Started 10-Feb-2012 ActiveB-12 500 MCG Oral Tablet TAKE 1 TABLET DAILY. * Refills: 0 Ric Vnies M.D.* Started 21-Jun-2012 ActiveMulti-Vitamins Oral Tablet TAKE 1 TABLET DAILY. * Refills: 0 Ric Vines M.D.* Started 25-Oct-2012 ActiveNystatin 039773 UNIT/ML Mouth/Throat Suspension SWISH AND SWALLOW 10ML [...] Refills: 0 Ric Vines M.D.* Started 24-Aug-2015 [id number] Aerosol Powder Breath Activated Disp Pack Prolia [...] Refills: 3 Ric Vines M.D.* Started 25-Oct-2012 Active Allergies [...] Panel 1212 Ordered:06-Nov-2015 EPO PANEL 3699 Ordered:06-Nov-2015 XRay SPINE-CERVICAL Ordered: XRay SPINE-THORACIC Ordered: XRay SPINE-LUMBAR Ordered: Immunization Name Dates Details Pneumo (Pneumovax) Lot #: [id number] Administered on:10-Feb-2012 Fluzone Quadrivalent 0.5 ML Intramuscular Suspension Lot #: [id number] Administered on:16-May-2013 Prevnar 13 Intramuscular Suspension Lot #: [id number] Administered on:05-Jul-2014 Fluzone High-Dose 0.5 ML Intramuscular Suspension Prefilled Syringe Lot #: [id number] Administered on:07-Mar-2015 Tdap (Adacel) Lot #: [id number] Administered on:07-Mar-2015 Family History Unknown Family Member* [...] smoker Vital Signs Date Test Result Details 08:47 BP Systolic 126 mm[Hg] Status: BP [...] low threshold) Range: >60 EST GFR, NON-AFR [place] 34 ml/min (Below low threshold) Range: >60 Comments: EST GFR is reported in ml/min per 1.73 m2 of body surface area. For -[place]ican, please multiple result by 1.2.----- BUN:CREATININE RATIO [...] Dar Love On 10:45 * Appointment; Provider: Nuno Burgos On 13:45 [...] Instructions * Instructions not documented Encounters Appointment; Alonzo Joshi Encounter Diagnosis: Problem not [...]
--- OUTSIDE RECORDS SUMMARY | 2016-11-05 14:17 | XMS REPORT | Summary of Care ---
Author Author Howard LEES,Wendi Unknown Address [address] [place], [place] [id number] Phone Unavailable Care Team Providers Care Radio Host Name Role Phone Rajesh Sifuentes, Jerrod Unavailable Unavailable Loretta Sifuentes, Nuno Unavailable Unavailable Mohinder Sifuentes, Rci Unavailable Unavailable Ric Vines Unavailable Unavailable Unavailable [...] 3 Ric Vines M.D. Start 03-Nov-2012 Active Naproxen 500 MG Oral Tablet TAKE [...] Ric Vines M.D. * Start 28-May-2016 Active SulfaSALAzine 500 MG Oral [...] 04-Jun-2016 CBC w/ Auto Diff 7150 Ordered: 28-Apr-2016 ORTHO SHOULDER LEFT Ordered: 04-Jun-2016 XRay SI JOINTS Ordered: 04-Jun-2016 Immunization Name Dates Details Pneumo (Pneumovax) Lot #: [id number] on: 10-Feb-2012 Fluzone Quadrivalent 0.5 ML Intramuscular Suspension Lot #: [id number] on: 16-May-2013 Prevnar 13 Intramuscular Suspension Lot #: [id number] on: 05-Jul-2014 Fluzone High-Dose 0.5 ML Intramuscular Suspension Prefilled Syringe Lot #: [id number] on: 07-Mar-2015 Tdap (Adacel) Lot #: [id number] on: 07-Mar-2015 Fluzone High-Dose 0.5 ML Intramuscular Suspension Prefilled Syringe Lot #: [id number] on: 04-Mar-2016 Zoster (Zostavax) Lot #: [id number] on: 04-Mar-2016 Family History Name Dates Details [...] Location: ; Results Date Description Value Details 13-May-2016 12:15 [...] low threshold) Range: >60 EST GFR, NON-AFR URUGUAYAN 27 ml/min (Below low threshold) Range: >60 [...] ng/mL Range: 5.4-20.8 15-May-2016 08:15 Immunofixation, Serum [id number] Comments: Testing performed at : [[facility]] [address], [address], , Special Education Paraprofessional: ZHEN Saleem MD IMMUNOFIXATION RESULT, SERUM Comment Comments: An apparent normal immunofixation pattern.----- IMMUNOGLOBULIN G, QN, SERUM 544 mg/dL (Below low threshold) Range: 700- 1600 IMMUNOGLOBULIN A, QN, SERUM 248 mg/dL Range: 64-422 IMMUNOGLOBULIN M, QN, SERUM 41 mg/dL Range: 26-217 08:15 Immunofixation, Urine [id number] Comments: Testing performed at: [[facility]] [facility], [address], Phone: , Special Education Paraprofessional: ZHEN Saleem MD KRYSTAL INTERPRETATION:U Comment Comments: [...] low threshold) Range: >60 EST GFR, NON-AFR URUGUAYAN 36 ml/min (Below low threshold) Range: >60 Comments: EST GFR is reported in ml/min per 1.73 m2 of body surface area. ----- BUN:CREATININE RATIO 10 GLUCOSE 101 mg/dL (Above high threshold) Range: 70-100 ALBUMIN 3.6 g/dL Range: 3.4-5.0 PHOSPHORUS 2.7 mg/dL Range: 2.6-4.7 CALCIUM 8.7 mg/dL Range: 8.5-10.1 Plan of Care Name Dates Details Planned Observations CBC w/ Auto Diff 7150 On 15-Jul-2016 Intent RENAL PROFILE 1240 On 15-Jul-2016 Intent Iron Panel with TIBC 1612 On 15-Jul-2016 Intent Planned Goals not documented Planned Encounters Appointment; Provider: Ric Vines M.D. On 26-Sep-2016 11:00 Appointment; Provider: Magan Bowles M.D. On 23-Sep-2016 11:00 Appointment; Provider: Nuno Burgos M.D. On 15-Jul-2016 14:30 Appointment; Provider: Dar Love M.D.|VINCENT,LOY KAUR, On 10-Jun-2016 11:00 Interventions Provided Labs/Procedures/Imaging* ORTHO SHOULDER LEFT; To be Done: 04 Jun 2016 * XRay SI JOINTS; To be Done: 04 Jun 2016 Instructions Name Dates Details Instructions not documented Encounters Appointment; Ric Vines M.D. Encounter Diagnosis: Problem not documented On 28-May-2016 11:00 Appointment; Ric Martinez M.D. Encounter Diagnosis: Problem not documented On 26-May-2016 13:00 Appointment; Ric Vines M.D. Encounter Diagnosis: Problem not documented On 13-May-2016 11:00 Appointment; Nuno Burgos M.D. Encounter Diagnosis: Problem not documented On 06-May-2016 09:30 Appointment; Dar Love M.D.|VINCENT,LOY KAUR, Encounter Diagnosis: [...] documented On 27-Feb-2016 10:30 Appointment; Theo Roa D.PYe. Encounter Diagnosis: Problem not documented On 22-Feb-2016 14:00 Appointment; Theo Roa D.P.T. Encounter Diagnosis: Problem not documented On 13-Feb-2016 14:30 Appointment; Theo Roa D.P.Juan. Encounter Diagnosis: Problem not documented On 11-Feb-2016 [...]
--- OUTSIDE RECORDS SUMMARY | 2016-11-05 14:17 | XMS REPORT | Summary of Care ---
Author Author Ric Vines M.D. Organization Unknown Address [address], [place] [phone] Phone Unavailable Care Team Providers Care Faculty Member Name Role Phone Ric Vines M.D. Unavailable [...] Refills: 5 Ric Vines M.D.* Started 17-Aug-2014 ActiveProlia 60 [...] Refills: 0 Ric Vines M.D.* Started 24-Aug-2015 [id number] Aerosol Powder Breath Activated Disp Pack Nystatin 203006 UNIT/ML Mouth/Throat Suspension SWISH AND SWALLOW 10ML FOUR TIMES DAILY FOR 5 DAYS * Quantity: 200 Refills: 0 Ric Vines M.D.* Started 07-Mar-2015 ActiveB-12 500 MCG Oral Tablet TAKE 1 [...] PROFILE 1184 Ordered:29-Oct-2015 HEMOGLOBIN A1C 3507 Ordered:29-Oct-2015 AST 1180 Ordered:29-Oct-2015 CBC w/ Auto Diff 7150 Ordered:29-Oct-2015 ALBUMIN CREAT PANEL 1108 Ordered:29-Oct-2015 Immunization Name Dates Details Pneumo (Pneumovax) Lot #: [id number] Administered on:10-Feb-2012 Fluzone Quadrivalent 0.5 ML Intramuscular Suspension Lot #: [id number] Administered on:16-May-2013 Prevnar 13 Intramuscular Suspension Lot #: [id number] Administered on:05-Jul-2014 Fluzone High-Dose 0.5 ML Intramuscular Suspension Prefilled Syringe Lot #: [id number] Administered on:07-Mar-2015 Tdap (Adacel) Lot #: [id number] Administered on:07-Mar-2015 Family History Unknown Family Member* [...] not documented On 25-Jul-2015 10:45 Appointment; Ric Vnies Encounter Diagnosis: Problem not documented On 04-Jul-2015 [...]
--- OUTSIDE RECORDS SUMMARY | 2016-11-05 14:17 | XMS REPORT | Summary of Care ---
Author Author Nuno Burgos M.D. Unknown Address [address] [place], [place] [address] Phone Unavailable Care Team Providers Care Metal Cut Off Saw Tender Name Role Phone Ric Vines M.D. Unavailable [...] Quadrivalent 0.5 ML Intramuscular Suspension Lot #: [id number] Administered on:16-May-2013 Prevnar 13 Intramuscular Suspension Lot #: [id number] Administered on:05-Jul-2014 Family History Unknown Family Member* [...] 22-Aug-2014 07:46 Protein Elec + Interp, Serum [id number] Comments: TESTING PERFORMED AT: [facility], [address] [address], [place], [address], PHONE: [phone], SEAM STEAMER: ZHEN PÉREZ MD PROTEIN, TOTAL, SERUM 5.9 G/DL (Below low threshold) Range: 6.0-8.5 ALBUMIN 3.6 G/DL (Better) Range: 3.2-5.6 SPBFY-7-FAQQLUCH 0.2 G/DL (Better) Range: 0.1-0.4 GLLTQ-8-JLEAHJJD 0.7 G/DL (Better) Range: 0.4-1.2 BETA GLOBULIN 0.8 G/DL (Better) Range: 0.6-1.3 GAMMA GLOBULIN 0.6 G/DL (Better) Range: 0.5-1.6 M-SPIKE NOTE: G/DL (Better) Range: NOT OBSERVED Comments: NOT OBSERVEDSEE CONCURRENT IMMUNOFIXATION.----- GLOBULIN, TOTAL 2.3 G/DL (Better) Range: 2.0-4.5 A/G RATIO 1.6 (Better) Range: 0.7-2.0 PLEASE NOTE: COMMENT (Better) Comments: PROTEIN ELECTROPHORESIS SCAN WILL FOLLOW VIA COMPUTER,MAIL, OR FILM CRITIC DELIVERY.----- P E INTERPRETATION, S COMMENT (Better) Comments: THE SPE PATTERN APPEARS ESSENTIALLY UNREMARKABLE. EVIDENCEOF MONOCLONAL PROTEIN IS NOT APPARENT. ----- 07:46 Immunofixation, Serum [id number] Comments: TESTING PERFORMED AT: [[facility]] [facility], [address] [place] [address], [place], [address], PHONE: , SEAM STEAMER: ZHEN PÉREZ MD IMMUNOFIXATION RESULT, SERUM NOTE: (Better) Comments: FAINT IGG KAPPA. * REPEAT 4-6 MONTHS IF CLINICALLY INDICATED.----- IMMUNOGLOBULIN G, QN, SERUM 528 MG/DL (Below low threshold) Range: 700- 1600 IMMUNOGLOBULIN A, QN, SERUM 223 MG/DL (Better) Range: 91-414 IMMUNOGLOBULIN M, QN, SERUM 44 MG/DL (Better) Range: 40-230 Plan of Care Planned [...] not documented On 23-Sep-2013 15:00 Appointment; Ric iVnes Encounter Diagnosis: Problem not documented On 21-Sep-2013 [...]
--- OUTSIDE RECORDS SUMMARY | 2016-11-05 14:18 | XMS REPORT | Summary of Care ---
Author Author Theo Roa D.P.T. Organization Unknown Address [address] [place], [place] [id number] Phone Unavailable Care Team Providers Care Carpet Cutter Name Role Phone Theo Roa D.P.T. Unavailable [...] 26-Jun-2011 Upper Endoscopy ( EGD) Ordered: 12-Sep-2016 CBC w/ Auto Diff 7150 Ordered: 17-Oct-2016 RENAL PROFILE 1240 Ordered: 17-Oct-2016 PTH ( Parathyroid Hormone Intact) 3101 Ordered: 22-Oct-2016 ORTHO PELVIS (AP ONLY) Ordered: 02-Oct-2016 ORTHO HIP LEFT (1 VIEW ONLY) Ordered: 02-Oct-2016 CT AB/ PEL WITH IV AND ORAL CONTRAST Ordered: 12-Sep-2016 Immunization Name Dates Details Pneumo (Pneumovax) Lot #: [id number] on: 10-Feb-2012 Fluzone Quadrivalent 0.5 ML Intramuscular Suspension Lot #: [id number] on: 16-May-2013 Prevnar 13 Intramuscular Suspension Lot #: [id number] on: 05-Jul-2014 Fluzone High-Dose 0.5 ML Intramuscular Suspension Prefilled Syringe Lot #: [id number] on: 07-Mar-2015 Tdap (Adacel) Lot #: [id number] on: 07-Mar-2015 Fluzone High-Dose 0.5 ML Intramuscular Suspension Prefilled Syringe Lot #: [id number] on: 04-Mar-2016 Zoster (Zostavax) Lot #: [id number] on: 04-Mar-2016 Family History Name Dates Details [...] Body Surface Area Calculated 1.46 m2 Status: Results Date Description Value Details 25-Sep-2016 10:47 [...] low threshold) Range: >60 EST GFR, NON-AFR SLOVAK 42 ml/min (Below low threshold) Range: >60 [...] low threshold) Range: >60 EST GFR, NON-AFR SLOVAK 37 ml/min (Below low threshold) Range: >60 [...] 14:45 Appointment; Provider: Theo Roa D.P.T. On 31-Oct-2016 13:00 Appointment; Provider: Theo Roa D.P.T. On 29-Oct-2016 15:00 Instructions Name Dates Details Instructions not documented [...] documented On 06-May-2016 09:30 Appointment; Dar Love M.D.|FACPAndreiDSacha,TONYPCherelle,LOY, Encounter Diagnosis: Problem not documented On 28-Apr-2016 [...] documented On 04-Mar-2016 10:00 Appointment; Theo Roa D.PSachaTSacha Encounter Diagnosis: Problem not documented On 28-Feb-2016 14:30 Appointment; Dar Love M.D.|FACP|MSachaDSacha,FACP|Bear,TONYP, Encounter Diagnosis: Problem not documented On 27-Feb-2016 10:30 Appointment; Theo Roa D.P.TSacha Encounter Diagnosis: Problem not documented On 22-Feb-2016 14:00 Appointment; Theo Roa D.Radha Encounter Diagnosis: Problem not documented On 13-Feb-2016 [...] Encounter Diagnosis: Problem not documented On 26-Oct-2014 11:00"
--- OUTSIDE RECORDS SUMMARY | 2016-11-05 14:18 | XMS REPORT | Summary of Care ---
Author Author Ric Vines M.D. Organization Unknown Address [address] [place], [place] [phone] Phone Unavailable Care Team Providers Care Wedding Day Coordinator Name Role Phone Ric Vines M.D. [...] ) Status: Active Medications Name Dates Details Aspirin [...] DAILY. * Refills: 0 * Started 17-Aug-2014 ActiveB-12 500 MCG Oral Tablet [...] Refills: 3 Ric Vines M.D.* Started 18-Jun-2010 Active Allergies and Adverse Reactions Name Dates [...] Complete Colonoscopy Completed:26-Jun-2011 ERYTHROCYTE SED RATE 7800 Ordered:13-Feb-2015 RENAL PROFILE 1240 Ordered:21-Feb-2015 HEMOGRAM 7305 Ordered:21-Feb-2015 BASIC METABOLIC PROFILE 1210 Ordered:26-Feb-2015 CBC w/ Auto Diff 7150 Ordered:27-Feb-2015 MAGNESIUM 1260 Ordered:27-Feb-2015 RENAL PROFILE 1240 Ordered:27-Feb-2015 CBC w/ Auto Diff 7150 Ordered:26-Feb-2015 LIPID PROFILE 1184 Ordered:26-Feb-2015 AST 1180 Ordered:26-Feb-2015 Immunization Name Dates Details Pneumo (Pneumovax) Lot #: [id number] Administered on:10-Feb-2012 Fluzone Quadrivalent 0.5 ML Intramuscular Suspension Lot #: [id number] Administered on:16-May-2013 Prevnar 13 Intramuscular Suspension Lot #: [id number] Administered on:05-Jul-2014 Family History Unknown Family Member* [...] threshold) Range: >60 EST GFR, NON-AFR MARSHALLESE 26 ml/min (Below low threshold) Range: >60 Comments: EST GFR is reported in ml/min per 1.73 m2 of body surface area. For -Filipino, please multiple result by 1.2.----- BUN:CREATININE RATIO [...] Burgos On 09-Mar-2015 10:00 * Appointment; Provider: Rci Vines On 07-Mar-2015 09:45 * Appointment; Provider: [...]
--- OUTSIDE RECORDS SUMMARY | 2016-11-05 14:18 | XMS REPORT | Summary of Care ---
Author Author Nuno Burgos M.D. Unknown Address Unknown Phone Unavailable Care Team Providers Care Hazardous Substances Engineer Name Role Phone Ric Vines M.D. [...] Refills: 3 Ric Vines M.D.* Started 07-Mar-2014 ActiveAspirin 81 MG Oral Tablet TAKE 1 TABLET DAILY. * Refills: 0 * Started 26-May-2011 Active Allergies and Adverse Reactions Name Dates [...] Quadrivalent 0.5 ML Intramuscular Suspension Lot #: [id number] Administered on:16-May-2013 Family History Unknown Family Member* [...] 1.73 m2 of body surface area. For -Emirati, please multiple result by 1.2.----- BUN:CREATININE RATIO [...]
--- OUTSIDE RECORDS SUMMARY | 2016-11-05 14:19 | XMS REPORT | Summary of Care ---
Author Author Ivan Sifuentes, FACP, ,, Dar F Organization Unknown Address Unknown Phone Unavailable Care Team Providers Care Soil Scientist Name Role Phone Rajesh Sifuentes, Jerrod Unavailable [...] Quadrivalent 0.5 ML Intramuscular Suspension Lot #: [id number] on: 16-May-2013 Prevnar 13 Intramuscular Suspension Lot #: [id number] on: 05-Jul-2014 Fluzone High-Dose 0.5 ML Intramuscular Suspension Prefilled Syringe Lot #: [id number] on: 07-Mar-2015 Tdap (Adacel) Lot #: [id number] on: 07-Mar-2015 Fluzone High-Dose 0.5 ML Intramuscular Suspension Prefilled Syringe Lot #: [id number] on: 04-Mar-2016 Zoster (Zostavax) Lot #: [id number] on: 04-Mar-2016 Family History Name Dates Details [...] smoker Vital Signs Date Test Result Details 10-Jun-2016 11:36 BP Systolic 133 mm[Hg] Status: [...] low threshold) Range: >60 EST GFR, NON-AFR SAMMARINESE 27 ml/min (Below low threshold) Range: >60 [...] ng/mL Range: 5.4-20.8 15-May-2016 08:15 Immunofixation, Serum [id number] Comments: Testing performed at : [[facility]] [facility], [address] [place] [address], [place], [address], , Sander Operator: ZHEN Saleem MD IMMUNOFIXATION RESULT, SERUM Comment Comments: An apparent normal immunofixation pattern.----- IMMUNOGLOBULIN G, QN, SERUM 544 mg/dL (Below low threshold) Range: 700- 1600 IMMUNOGLOBULIN A, QN, SERUM 248 mg/dL Range: 64-422 IMMUNOGLOBULIN M, QN, SERUM 41 mg/dL Range: 26-217 08:15 Immunofixation, Urine [id number] Comments: Testing performed at: [[facility]] [facility] [place], [address], [place], [address], Phone: , Sander Operator: MD KRYSTAL Wilkerson INTERPRETATION:U Comment Comments: An apparent normal immunofixation [...] low threshold) Range: >60 EST GFR, NON-AFR SAMMARINESE 36 ml/min (Below low threshold) Range: >60 [...] Observations CBC w/ Auto Diff 7150 On 24-Jun-2016 Intent CBC w/ Auto Diff 7150 On 08-Jul-2016 Intent CBC w/ Auto Diff 7150 On 22-Jul-2016 Intent Comprehensive Metabolic Panel 1212 On 22-Jul-2016 Intent IRON 1254 On 22-Jul-2016 Intent Planned Goals not documented Planned Encounters Appointment; Provider: Ric Vines M.D. On 26-Sep-2016 11:00 Appointment; Provider: Magan Bowles M.D. On 23-Sep-2016 11:00 Appointment; Provider: Nuno Burgos M.D. On 15-Jul-2016 14:30 Instructions Name Dates Details Instructions not [...]
--- OUTSIDE RECORDS SUMMARY | 2016-11-05 14:19 | XMS REPORT | Summary of Care ---
Author Author Nuno Burgos M.D. Unknown Address [address] [place], [place] [phone] Phone Unavailable Care Team Providers Care Police Guard Name Role Phone Ric Vines M.D. Unavailable [...] Refills: 0 Ric Vines M.D.* Started 10-Feb-2012 ActiveCitalopram Hydrobromide 20 MG Oral Tablet TAKE [...] Refills: 0 Ric Vines M.D.* Started 21-Jun-2012 Active Allergies and Adverse Reactions Name [...] Quadrivalent 0.5 ML Intramuscular Suspension Lot #: [id number] Administered on:16-May-2013 Prevnar 13 Intramuscular Suspension Lot #: [id number] Administered on:05-Jul-2014 Family History Unknown Family Member* [...] to report Results Date Description Value Details 07-Feb-2015 13:36 [...] Martinez On 13-Feb-2015 10:30 * Appointment; Provider: Carol Tellez On [...]
--- NOTE | 2016-11-05 14:31 | NUR ---
IMAGING PT TO IMAGING AT THIS TIME.
--- NOTE | 2016-11-05 14:55 | NUR ---
IMAGING PT RETURN TO ROOM FROM IMAGING AT THIS TIME.
--- NOTE | 2016-11-05 15:05 | DI ---
Indication: ITS.REASON: Pain with radiculopathy PROCEDURE: LUMBAR SPINE 3 VIEWS: Encounter: Initial Comparison: None Findings: Scoliosis of the lumbar spine. Postoperative changes with laminectomies from L3 through L5. Bony demineralization. No obvious acute compression fracture. Moderate to severe disk space narrowing at L2-L3 with severe disk height loss at L3-L4 and moderate to severe disk space narrowing at L4-L5. Degenerative anterolisthesis of L4 on L5, grade 1. Severe degenerative facet disease at L5 through S1. Arterial vascular calcifications. Cholecystectomy clips. Impression: Scoliosis with degenerative and postoperative changes. .
--- NOTE | 2016-11-05 15:07 | DI ---
Indication: ITS.REASON: Gas pain PROCEDURE: KUB W/UPRIGHT: Encounter: Initial Comparison: None Findings: No free air identified. Cholecystectomy clips. Nondifferential air-fluid levels seen within nondilated small bowel loops in the left mid abdomen. Moderate to large amount of stool in the right colon. Gas is present distally to the level of the rectum. Degenerative change and scoliosis in the spine. Lung bases are grossly clear. Impression: No evidence of acute obstruction. Small air-fluid levels could be due to ileus or gastroenteritis. .
--- OUTSIDE RECORDS SUMMARY | 2016-11-05 15:07 | XMS REPORT | Continuity of Care Document ---
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 Visit Date/Time Discharge Status Pt. Type Provider Facility Loc./Unit Complaint [id number] 11/24/2015 10:23:00 2015 03:30:00 DIS Outpatient GIOVANNA ZAMBRANO <PV2.3.2>Unspecified injury of neck, initial encounter</PV2.3.2><PV2.3.2> FALL, ABNORMAL FILMS</PV2.3.2><PV2.3.2>Unspecified injury of neck, initial encounter</PV2.3.2><PV2.3.2>Unspecified fall, initial encounter</PV2.3.2>< PV2.3.2>Spondylosis w/o myelopathy or radiculopathy, cervical region</PV2.3.2> [id number] 10/19/2015 09:43:00 2015 03:30:00 DIS Outpatient DOMO TAVAREZ OSTEOPOROSIS [id number] 04/19/2015 10:18:00 2014 03:30:03 DIS Outpatient DOMO TAVAREZ
--- OUTSIDE RECORDS SUMMARY | 2016-11-05 15:11 | XMS REPORT ---
Author Author [facility] Organization Unknown Address Unknown Phone Unavailable Care Team Providers Care Heart Nurse Name Role Phone MD DAYSI, DOMO [phone] Reason For Visit Reason for Visit from [...] 0066 - CHEST 1 VIEW CPT Code(s): 33056-; ; ; INDICATION / CLINICAL HISTORY: Chest pain. COMPARISON: 05/30/14. FINDINGS: The cardiac silhouette is borderline prominent. The pulmonary vasculature is slightly improved but now borderline prominent. IMPRESSION: Borderline cardiomegaly and borderline pulmonary venous congestion. CT Scan from 05/30/2014 8:35 AMCT ABD/PELVIS W/CONTRAST DATE OF EXAM: May 30 2014 9:55AM Proc: CT 0232 - CT ABD/PELVIS W/ CONTRAST CPT Code(s): 39129-; ; ; INDICATION / CLINICAL HISTORY: Chest [...] 10:30 AM * Address # 1 : [facility]: [facility] [place], [place]- or Treatment Plan from 05/30/2014 9:20 AM:* [...] the responsibility of the patient or patient access representative to confirm the list of medications [...] BSN Directions: 1 tablet oral daily * nm-bkm-leggt acid-lutein (Centrum Silver) 400 mcg-250 mcg tablet,chewable, [...] BSN Directions: 1 tablet oral daily * wzmxaiumdwe-V3-otgrxzfeq serr (Osteo Bi-Flex (5-Loxin)) 1,500 mg-400 unit-100 mg Tablet, Ordered By: ISABEL MONTILLA RN, BSN Directions: 1 tablet oral daily Changed medications* calcium carbonate-vitamin D3 (Calcium 600 + D(3)) 600 mg calcium (1,500 mg)-400 unit Tablet, Ordered By: ISABEL MONTILLA RN, BSN Directions: 1 tablet oral daily Stopped medications* None
--- NOTE | 2016-11-05 15:12 | ERPDOC ---
Departure Disposition Decision Date: November 05, 2016 Disposition Decision Time: 16:17 Disposition: 01 DISCHARGED HOME, SELF-CARE Impression Impression Impression: Primary Impression: Gastroenteritis Severity: Moderate Condition: Left Without Being Seen Seen By: Physician only Referrals: Your Physician 3 Days Patient Instructions: Gastroenteritis (ED) Problems/Meds/Labs Reviewed?: Yes Medications reviewed and manag: Yes Additional Instructions: You have gastroenteritis (a stomach bug) caused by either a virus or a toxin in your food. Take naproxen or ibuprofen as needed for your pain. Bentyl can help with cramping. Drink lots of liquids, and take zofran as needed for nausea. Allow any diarrhea to take its course. Follow up with your doctor in the next few days. Follow up care ordered?: Yes Mental Status: Alert, Oriented Scripts Ondansetron (Zofran Odt) 4 Mg Tab.rapdis 4 MG PO QID Y for NAUSEA &/OR VOMITING, #20 TAB 0 Refills Prov: OCTOBER, M DO 11/05/16 Dicyclomine HCl (Bentyl) 10 Mg Capsule 10 MG PO Q6HPRN Y for CRAMPS, #40 TAB Prov: M DO 11/05/16 HPI - Back Pain General Chief Complaint: Back Pain or Injury Stated Complaint: L SIDE PAIN Time Seen by Provider: 13:47 Source: patient Exam Limitations: no limitations HPI - Back Pain Initial Comments 80yo woman presents to the ER today for severe LBP. Pt has had LBP for the last 2 weeks; sx were worst over the weekend. Pt took some tramadol prior to arrival , but it did not help much. Allergies: Coded Allergies: Codeine (Verified Adverse Reaction, Intermediate, NAUSEA, 10/29/09) Past History Vaccines Hx Influenza Vaccination: Yes (-2008) Hx Pneumococcal Vaccination: Yes (WITHIN LAST 10 YRS) Physical Exam General Vitals and Pain First Documented Vital Signs Date Time Temp Pulse Resp B/P Pulse Ox O2 Delivery O2 Flow Rate FiO2 11/05/16 13:35 98.4 102 18 149/82 93 Room Air Weight: Kilograms: 51.600 Height (feet): 4 Height (inches): 11.00 Triage Pain Scale: Progress Results/Orders Orders Procedure Category Date Status Time Lumbar Spine 2-3 Views RAD 11/05/16 Resulted 14:07 Kub W/Upright RAD 11/05/16 Resulted 14:07 Iv Lock (Ed Only) EDM 11/05/16 Transmitted 14:07 Ketorolac (Toradol) PHA 11/05/16 Complete 14:15 Orphenadrine (Norflex) PHA 11/05/16 Complete 14:15 Normal Saline (Normal PHA 11/05/16 Complete Saline Iv) 14:15 Ct Abd/Pelvis W/O CT 11/05/16 Resulted Contrast 15:15 Medications Current ED Medications Ketorolac Tromethamine (Toradol) 30 mg O ONCE IV Last administered on 14:28; Start 11/05/16 at 14:15; Stop 11/05/16 at 14:16; Status DC Orphenadrine Citrate 60 mg 60 mg O ONCE IV Last administered on 11/05/16 14: 26; Start 11/05/16 at 14:15; Stop 11/05/16 at 14:16; Status DC Sodium Chloride (Normal Saline IV) 1,000 ml @ 0 mls/hr Q0M ONCE IV Last administered on 11/05/16 14:26; Start 11/05/16 at 14:15; Stop 11/05/16 at 14:16 ; Status DC Progress Progress 80yo woman with gastroenteritis. Pt voiced understanding of dx, prognosis, tx, and f/u need. Xray Xray #1: Xray: KUB Upright Interpretation: Abnormal (No evidence of acute obstruction. Small air-fluid levels could be due to ileus or gastroenteritis.), Reviewed Written Report Xray #2: Xray: L-Spine Interpretation: Abnormal (Scoliosis with degenerative and postoperative changes. ), Reviewed Written Report CT CT : CT: Abd/Pelvis no contrast Interpretation: Abnormal (e disease process seen in the abdomen or pelvis. No evidence of small bowel obstruction. 2. Minimal right nephrolithiasis.), Reviewed Written Report RASHMI SANDERS DO November 05, 2016 15:12
--- OUTSIDE RECORDS SUMMARY | 2016-11-05 15:12 | XMS REPORT ---
Author Author [facility] Organization Unknown Address Unknown Phone Unavailable Care Team Providers Care Table Runner Name Role Phone MD DAYSI, DOMO [phone] Reason For Visit Reason for Visit from [...]
--- OUTSIDE RECORDS SUMMARY | 2016-11-05 15:13 | XMS REPORT ---
Author Author GENERATED, SYSTEM Organization Unknown Address Unknown Phone Unavailable Care Team Providers Care Nurse Sane Name Role Phone MD DAYSI, DOMO [phone] Reason For Visit Chief Complaint FALL, ABNORMAL [...]
--- OUTSIDE RECORDS SUMMARY | 2016-11-05 15:17 | XMS REPORT ---
Author Author GENERATED, SYSTEM Organization Unknown Address Unknown Phone Unavailable Care Team Providers Care Theoretical Physicist Name Role Phone MD DAYSI, DOMO [phone] Reason For Visit Chief Complaint CHEST DISCOMFORT [...]
--- NOTE | 2016-11-05 15:25 | NUR ---
CT PT TO CT AT THIS TIME.
--- OUTSIDE RECORDS SUMMARY | 2016-11-05 15:27 | XMS REPORT ---
Author Author GENERATED, SYSTEM Organization Unknown Address Unknown Phone Unavailable Care Team Providers Care Consumer Loan Officer Name Role Phone MD DAYSI, DOMO [phone] Reason For Visit Reason for Visit from [...]
--- NOTE | 2016-11-05 15:37 | NUR ---
CT PT RETURN FROM CT AT THIS TIME
--- NOTE | 2016-11-05 15:51 | DI ---
Indication: ITS.REASON: air-fluid levels PROCEDURE: CT ABD/PELVIS W/O CONTRAST: Encounter: Initial Comparison: None Technique: Axial CT images were performed through the abdomen and pelvis without intravenous contrast. Coronal and sagittal two-dimensional reformats. Automated Exposure Control and Iterative Reconstruction dose reducing techniques were utilized. Findings: Mild atelectasis or scarring in the lung bases. The unenhanced contours of the liver are unremarkable. Dense mitral annular calcifications noted. Gallbladder is surgically absent. Evaluation of the solid organs is limited without IV contrast. The spleen, pancreas and adrenal glands are within normal limits. Left kidney appears normal. Tiny 2 mm interpolar stone on the right. No abdominal or pelvic lymphadenopathy. Scattered arterial atherosclerotic plaque. The bladder is normal. Uterus is surgically absent. Small amount of free pelvic fluid. Sigmoid diverticulosis without evidence of acute diverticulitis. No evidence of a small bowel obstruction. Fluid-filled nondilated small bowel loops are seen as suggested on the comparison radiograph. Bone windows show demineralization with degenerative change and scoliosis in the spine. Impression: 1. Possible gastroenteritis, otherwise no acute disease process seen in the abdomen or pelvis. No evidence of small bowel obstruction. 2. Minimal right nephrolithiasis. .
[2016-11-05] MEDS ORDERED: DICY10CA48 PO (16:20)
[2016-11-05] MEDS ORDERED: ONDA4TAB7 PO (16:37)
[2016-11-05 16:54] VITALS: BP 151/67; PULSE 77; RESP 18; TEMP 98.4; O2SAT 94
--- NOTE | 2016-11-05 16:54 | NUR ---
DEPART PT GIVEN DI FOR GASTROENTERITIS, BENTYL, F/U. RX PROVIDED FOR BENTYL. VERBALIZES UNDERSTANDING OF DI, MED, F/U. QUESTIONS ASKED/ANSWERED - DENIES FURTHER QUESTIONS/NEEDS AT THIS TIME. IV SITE REMOVED. PERSONAL BELONGINGS GATHERED. PT AMBULATED/ESCORTED TO ED EXIT - GAIT STABLE, NO SIGN OF DISTRESS AT THIS TIME.
== END 2016-11-05 16:54 | disposition home or self-care (01) ==
LOC: ED 13:30
DX: K52.9 Noninfective gastroenteritis and colitis, unspecified (principal)
CPT/HCPCS: 72100; 74020; 74176; 96361; 96374; 96375; 99284; J1885; J2360; J7030